=== PATIENT | male | born 1945 | race Caucasian/White ===

== ENCOUNTER → 2016-08-07 | Outpatient (CLI) | payer OTHER ==
[~2016-08-07] MED LIST: ASPEC81 PO; ASPI1TAB83 PO; BUDE3CAP14 PO; CHOLPOW PO; CLOP1TAB15 PO; CPR/500 PO; CYAN100073 PO; CYAN500T13 PO; DICY20TA10 PO; ESOM20CA PO; FERR1TAB23 PO; LCTX PO; LEVO88TA3 PO; LISI-725 PO; LISI40TA PO; LPR25 PO; LSN20 PO; METO50TA16 PO; METR500T PO; MISCCAP80 PO; MULT-506 PO; MULTTAB58 PO; NITR0.4S UT; NTRSL3 UT; NUTR-7 PO; PLV75 PO; PNT500 PO; PRS5 PO; PRT/20 PO; PRT40 PO; RANI300T2 PO; SIME180C6 PO; SYN50 PO; SYN88 PO; iron PO
[2016-08-07 12:47] LABS: PROSTATE SPECIFIC ANTIGEN 0.552 ng/ml (0.000-4.000)
[2016-08-07 12:50] LABS: ESTIMATED AVERAGE GLUCOSE 140 mg/dl; HA1C FLAG Normal (Normal)
== END | disposition home or self-care (01) ==
LOC: C.LABBFT 09:08
PROVIDERS: ATTEND Internal Medicine
DX: N40.1 Benign prostatic hyperplasia with lower urinary tract symptoms (principal); R39.15 Urgency of urination; E11.9 Type 2 diabetes mellitus without complications; E55.9 Vitamin D deficiency, unspecified

== ENCOUNTER → 2016-08-11 | Outpatient (CLI) | payer OTHER | END | disposition home or self-care (01) | LOC: C.LABBFT 10:58 | PROVIDERS: ATTEND Internal Medicine | DX: E03.9 Hypothyroidism, unspecified (principal) ==

== ENCOUNTER 2016-10-08 12:15 | Inpatient (IN) | payer OTHER ==
[~2016-10-08] VITALS: Ht 175.3 cm; Wt 76.7 kg
[~2016-10-08 12:15] MED LIST changes: -ASPEC81 PO; -BUDE3CAP14 PO; -CHOLPOW PO; -CLOP1TAB15 PO; -CPR/500 PO; -CYAN100073 PO; -DICY20TA10 PO; -LCTX PO; -LEVO88TA3 PO; -LISI-725 PO; -LPR25 PO; -LSN20 PO; -MULT-506 PO; -NTRSL3 UT; -PLV75 PO; -PNT500 PO; -PRS5 PO; -PRT/20 PO; -PRT40 PO; -SIME180C6 PO; -SYN88 PO; -iron PO
--- NOTE | 2016-10-08 13:28 | EMERGENCY ROOM VISIT NOTE ---
History Report prepared by Tiago: Carlos A Peraza Under the Supervision of: Dr. Porsha Morillo D.O. First contact with patient: 12:58 Chief Complaint: DIARRHEA Stated Complaint: BLOATING,WEAKNESS,DIARRHEA Nursing Triage Summary: pt reports everything he eats and drinks comes out as diarrhea has taken pepto no relief. sx started a while ago sx worsened in last 2 weeks . reports last week pt was vomiting.. denies any blood in diarrhea. has not had solid food for 2 weeks. feels bloated History of Present Illness The patient is a 70 year old male who presents to the Emergency Room with complaints of worsening diarrhea that started 3 weeks ago. The patient reports that he has had diarrhea for a couple years now, but has become much worse in the past couple weeks. He states that has been having abdominal problems for a couple years, and says that he had scleroderma, and has been on Cipro ever since. The patient saw a gastrologist on September 22 after the diarrhea and vomiting started worsening. He gave a stool sample, and tested positive for Campylobacter. He was taken off of the Cipro and put on 3 days of Zithromax. The patient notes that his symptoms have even worsened more-so after being taken off the Cipro. He has not been able to keep any solid foods down. He feels weak, and does not have the strength to walk. The patient's states that the patient has been weak for the past year or so, but the weakness is worsening recently. The patient notes that last week, the vomiting was worse, but this week, the diarrhea is worse. He tried drinking a bit of Gatorade this morning and had diarrhea less than 5 minutes later. He had 4 episodes of diarrhea this morning, and then tried to eat a couple spoon-fulls of apple sauce , but then he had another episode of diarrhea shortly thereafter. The patient's abdomen feels bloated and he has associated back pain with that. He has lost 8 to 10 pounds in the past few weeks, per his . The gastrologist put the patient on Dicyclomine, but it has not been helping. The patient had similar symptoms 3 years ago, and lost 30 pounds. The patient was diagnosed with scleroderma then. The patient was checked for C. difficile and it was negative. He has no history of IBS or ulcerative colitis. He has a colonoscopy scheduled for next week, but he is not sure if he will able to go to that due to his symptoms. He reports no family history of GI problems. He still has his appendix. He does not smoke or drink alcohol. The patient does have 2 stents in his small bowel. Source of History: patient, spouse/significant other Onset: 3 weeks ago Position: other (global - diarrhea) Timing: worsening Associated Symptoms: + back pain, + vomiting, + weakness Note: Associated symptoms: Cannot keep anything solid down. Lost 8 to 10 pounds in past few weeks. Abdomen feels bloated. Review of Systems See HPI for pertinent positives & negatives. A total of 10 systems reviewed and were otherwise negative. Past Medical & Surgical Medical Problems: (1) ARMANDO (acute kidney injury) (2) ATHEROSCLEROSIS NOS (3) Diabetes mellitus (4) DIVERTICULOSIS COLON (W/O MENT OF HEMORRHAGE) (5) ESOPHAGEAL REFLUX (6) Hiatal hernia (7) HYPERLIPIDEMIA NEC/NOS (8) HYPERTENSION NOS (9) PERIPH VASCULAR DIS NOS (10) RAYNAUD'S SYNDROME (11) Ulcer Surgical Problems: (1) Hx of CABG Family History Family history omitted secondary to advanced age. Social History Smoking Status: Never Smoker Alcohol Use: none Drug Use: none Marital Status: Housing Status: lives with family Occupation Status: retired Current/Historical Medications Scheduled Aspirin (Aspirin), 81 MG PO DAILY Ciprofloxacin (Ciprofloxacin HCl), 500 MG PO BID Clopidogrel Bisulfate (Clopidogrel), 75 MG PO DAILY Cyanocobalamin (Vitamin B12 500MCG), 1,000 MCG PO DAILY Ferrous Sulfate (Iron), 325 MG PO DAILY Finasteride (Finasteride), 5 MG PO DAILY Levothyroxine Sodium (Synthroid), 88 MCG PO DAILY Lisinopril (Lisinopril), 20 MG PO DAILY Metoprolol Tartrate (Lopressor) (Lopressor), 50 MG PO BID Multiple Vitamin (Multivitamin), 1 TAB PO DAILY Nitroglycerin (Nitrostat), 0.4 MG UT PRN Nutritional Supplements (Boost), 1 CAN PO UD Pantoprazole (Pantoprazole Sodium), 40 MG PO DAILY Probiotic Product (Probiotic), 1 TAB PO TID Ranitidine Hcl (Zantac), 300 MG PO BID Simethicone (Phazyme), 180 MG PO BID Allergies Coded Allergies: Statins (Verified Adverse Reaction, Mild, CALF CRAMPING, 05/24/14) SYMPTOMS POSSIBLE RELATED TO CLAUDICATION Naproxen (Verified Adverse Reaction, Unknown, RASH, 05/24/14) Physical Exam Vital Signs Date Time Temp Pulse Resp B/P Pulse Ox O2 Delivery O2 Flow Rate FiO2 10/08/16 19:39 74 18 132/66 97 Room Air 10/08/16 16:59 71 18 123/64 97 Room Air 10/08/16 14:37 82 16 145/58 96 Room Air 10/08/16 12:18 36.6 92 18 146/81 97 Room Air Physical Exam GENERAL: alert, well appearing, well nourished, no distress, non-toxic EYE EXAM: normal conjunctiva, PERRL and EOM's grossly intact OROPHARYNX: no exudate, no erythema, lips, buccal mucosa, and tongue normal and mucous membranes are dry NECK: supple, no nuchal rigidity, no adenopathy, non-tender LUNGS: Clear to auscultation. Normal chest wall mechanics HEART: no murmurs, S1 normal and S2 normal ABDOMEN: Abdomen is distended, tympanic to percussion, no pulsatile mass, no rebound, no guarding, no organomegaly. BACK: Back is symmetrical on inspection and there is no deformity, no midline tenderness, no CVA tenderness. SKIN: no rashes and no bruising UPPER EXTREMITIES: upper extremities are grossly normal. LOWER EXTREMITIES: No pitting edema. NEURO EXAM: Normal sensorium, cranial nerves II-XII grossly intact, normal speech, no gross weakness of arms, no gross weakness of legs. No drift. Finger to nose intact. Gross sensation intact. Medical Decision & Procedures ER Provider Diagnostic Interpretation: CT:Per my review, radiologist interpretation. CT ABD/PELVIS IV AND ORAL CONT CLINICAL HISTORY: ABD PAIN, DIARRHEA COMPARISON STUDY: June 17, 2014 TECHNIQUE: Following the IV administration of 118 mL of Optiray-320, CT scan of the abdomen and pelvis was performed from the lung bases to the proximal femurs. Images are reviewed in the axial, sagittal, and coronal planes. IV contrast was administered without complication. CT DOSE: 418.03 mGy.cm FINDINGS: Lower chest: There are mild basilar atelectatic changes. There is a stable partially visualized 19 mm right middle lobe pulmonary nodule Liver: There is mild hepatic steatosis. No focal masses are visualized. Gallbladder: Surgically absent. The common bile duct measures 9 mm. Spleen: Normal in size and attenuation. Pancreas: Unremarkable. Adrenal glands: Unremarkable. Kidneys: There is a nonobstructing 4 mm lower pole left renal calculus. There is an 18 mm lower pole right renal cyst Bowel: There are mildly dilated fluid-filled proximal and mid small bowel loops. The distal small bowel is fluid-filled but of normal caliber. A low-grade partial small bowel obstruction cannot be excluded. The appendix is normal. There is extensive colonic diverticulosis. There are no acute peridiverticular inflammatory changes. Peritoneum: There is no intraperitoneal free air or abdominal ascites. Vasculature: There are moderately extensive atherosclerotic disease. There is no evidence of abdominal aortic aneurysm. Adenopathy: None. Pelvic viscera: The bladder, and pelvic viscera are unremarkable. Skeletal structures: No destructive osseous lesions are seen. IMPRESSION: 1. Persistent mildly dilated fluid-filled small bowel. On the current study, the proximal and mid small bowel is dilated out of proportion to the distal small bowel, although the distal small bowel is fluid-filled. A low-grade partial small bowel obstruction cannot be excluded 2. Normal appendix 3. Extensive colonic diverticulosis. No evidence of acute diverticulitis 4. Extensive atherosclerotic disease 5. Nonobstructing lower pole 4 mm left renal calculus Electronically signed by: Rafy Gomez M.D. 10/08/2016 4:44 PM Dictated Date/Time: 10/08/2016 4:35 PM Laboratory Results 10/08/16 12:40 Red Blood Count 4.51, Mean Corpuscular Volume 94.9, Mean Corpuscular Hemoglobin 32.2, Mean Corpuscular Hemoglobin Concent 33.9, Mean Platelet Volume 10.1, Neutrophils (%) (Auto) 70.2, Lymphocytes (%) (Auto) 18.5, Monocytes (%) (Auto) 10.3, Eosinophils (%) (Auto) 0.4, Basophils (%) (Auto) 0.1, Neutrophils # (Auto ) 5.86, Lymphocytes # (Auto) 1.54, Monocytes # (Auto) 0.86, Eosinophils # (Auto ) 0.03, Basophils # (Auto) 0.01 10/08/16 12:40 Test 10/08/16 12:40 10/08/16 14:20 10/08/16 15:19 White Blood Count 8.34 K/uL (4.8-10.8) Red Blood Count 4.51 M/uL (4.7-6.1) Hemoglobin 14.5 g/dL (14.0-18.0) Hematocrit 42.8 % (42-52) Mean Corpuscular Volume 94.9 fL (80-100) Mean Corpuscular Hemoglobin 32.2 pg (25-34) Mean Corpuscular Hemoglobin Concent 33.9 g/dl (32-36) Platelet Count 312 K/uL (130-400) Mean Platelet Volume 10.1 fL (7.4-10.4) Neutrophils (%) (Auto) 70.2 % Lymphocytes (%) (Auto) 18.5 % Monocytes (%) (Auto) 10.3 % Eosinophils (%) (Auto) 0.4 % Basophils (%) (Auto) 0.1 % Neutrophils # (Auto) 5.86 K/uL (1.4-6.5) Lymphocytes # (Auto) 1.54 K/uL (1.2-3.4) Monocytes # (Auto) 0.86 K/uL (0.11-0.59) Eosinophils # (Auto) 0.03 K/uL (0-0.5) Basophils # (Auto) 0.01 K/uL (0-0.2) RDW Standard Deviation 46.5 fL (36.4-46.3) RDW Coefficient of Variation 13.4 % (11.5-14.5) Immature Granulocyte % (Auto) 0.5 % Immature Granulocyte # (Auto) 0.04 K/uL (0.00-0.02) Anion Gap 9.0 mmol/L (3-11) Est Creatinine Clear Calc Drug Dose 41.8 ml/min Estimated GFR () 49.2 Estimated GFR (Non- 42.4 BUN/Creatinine Ratio 16.6 (10-20) Calcium Level 8.7 mg/dl (8.5-10.1) Total Bilirubin 0.4 mg/dl (0.2-1) Aspartate Amino Transf (AST/SGOT) 19 U/L (15-37) Alanine Aminotransferase (ALT/SGPT) 26 U/L (12-78) Alkaline Phosphatase 127 U/L (45-117) Troponin I 0.022 ng/ml (0-0.045) Total Protein 7.8 gm/dl (6.4-8.2) Albumin 3.8 gm/dl (3.4-5.0) Globulin 4.0 gm/dl (2.5-4.0) Albumin/Globulin Ratio 1.0 (0.9-2) Lipase 120 U/L (73-393) Lactic Acid Level 1.1 mmol/L (0.4-2.0) Urine Color YELLOW Urine Appearance CLEAR (CLEAR) Urine pH 5.0 (4.5-7.5) Urine Specific [place] 1.013 (1.000-1.030) Urine Protein NEG (NEG) Urine Glucose (UA) NEG (NEG) Urine Ketones TRACE (NEG) Urine Occult Blood NEG (NEG) Urine Nitrite NEG (NEG) Urine Bilirubin NEG (NEG) Urine Urobilinogen NEG (NEG) Urine Leukocyte Esterase NEG (NEG) Laboratory results per my review. Medications Administered Medications (Trade) Dose Ordered Sig/Tony Route Start Time Stop Time Status Last Admin Dose Admin Sodium Chloride (Nss 1000ml) 1,000 ml @ 999 mls/hr Q1H1M STAT IV 10/08/16 13:37 10/08/16 14:37 DC 10/08/16 13:40 999 MLS/HR ECG Indication: weakness Rate (beats per minute): 74 Rhythm: normal sinus Findings: ST depression, T-wave inversion (in lead 2,3 avf, v5,v6), prolonged QT, other (normal intervals) Comparison ECG Date: inverted T-waves are new compared to 06/17/2014 ED Course 1308: The patient was evaluated in room A3. A complete history and physical exam was performed. 1337: Ordered NSS 1000 ml @ 999 mls/hr IV. 1724: I reevaluated the patient and he is resting comfortably. The patient verbally expressed understanding and agreement of the treatment plan. The patient will be evaluated for further treatment. 1751: I discussed the patient with Dr. Dowell - [place] golf ball winder - he will evaluate the patient for further treatment. Medical Decision Differential diagnoses includes but is not limited to gastritis, peptic ulcer disease, GERD, gallbladder disease, pancreatitis, small bowel obstruction, acute coronary syndrome, pericarditis, ischemic bowel, irritable bowel disease, irritable bowel syndrome, appendicitis, diverticulitis, malignancy, hernia, urinary tract infection, torsion, perforation, trauma, infectious. Patient with subacute to chronic symptoms, recently treated as an outpatient due to positive Campylobacter culture, negative for C. difficile or other infectious etiology. Patient with fluctuations of stool normally and frequently has diarrhea, however feels this recent three-week stretch of diarrhea similar to 3 years ago. Patient with increasing weight loss, generalized weakness, fatigue. Patient with dehydration and difficulty taking anything by mouth. Patient did not have an acute abdomen on bedside exam, did appear mildly dehydrated. Likely patient's mild renal dysfunction secondary to dehydration. CT revealed partial small bowel obstruction. Patient with no vomiting on the emergency room, abdomen soft and nontender. Patient did for continued IV fluids. Discussed with hospitalist, they will evaluate and decide on surgical consult. No evidence of perforation, doubt bacteremia/sepsis, unclear etiology of patient's chronic intermittent diarrhea, patient already scheduled to have colonoscopy by GI next week. Patient did not provide a stool specimen while in the emergency department to send for cultures. Patient was subtle EKG changes compared to old EKG, troponin negative, patient denied any recent chest pain or shortness of breath. Doubt ACS, or acute cardiac etiology. Unclear reason for EKG changes. Unclear from rheumatologic conditions contributing to symptoms. Patient's vital signs stable throughout despite symptoms and diagnosis. Consults Time Called: 1745 Consulting Physician: Dr. Magalys Gallego golf ball winder Returned Call: 1751 I discussed the patient with Dr. Magalys Gallego golf ball winder - he will evaluate the patient for further treatment. Impression Primary Impression: Diarrhea Additional Impressions: Weakness Acute kidney injury Abnormal EKG Scribe Attestation The scribe's documentation has been prepared under my direction and personally reviewed by me in its entirety. I confirm that the note above accurately reflects all work, treatment, procedures, and medical decision making performed by me. Departure Information Dispostion Being Evaluated By Hospitalist Referrals No Doctor, Assigned (PCP) Patient Instructions My [facility] Problem Qualifiers Primary Impression: Diarrhea Diarrhea type: unspecified type Qualified Codes: R19.7 - Diarrhea, unspecified
[2016-10-08] MEDS ORDERED: SODIUM CHLORIDE 0.9% 1000ML 1,000 ML IV STA (13:37)
[2016-10-08 14:21] LABS: BASO % 0.1 %; BASO ABS # 0.01 K/uL (0-0.2); COMPLETE YES; EOS % 0.4 %; HEMATOCRIT 42.8 % (42-52); IG% 0.5 %; LYMPH % 18.5 %; LYMPH ABS # 1.54 K/uL (1.2-3.4); MEAN CELL VOLUME 94.9 fL (80-100); MEAN CORPUSCULAR HEMOGLOBIN 32.2 pg (25-34); MEAN CORPUSCULAR HGB CONC 33.9 g/dl (32-36); MEAN PLATELET VOLUME 10.1 fL (7.4-10.4); MONO % 10.3 %; NEUT % 70.2 %; PLATELET COUNT 312 K/uL (130-400); RED BLOOD COUNT 4.51 M/uL (4.7-6.1); WHITE BLOOD COUNT 8.34 K/uL (4.8-10.8)
[2016-10-08 14:28] LABS: BUN/CREATININE RATIO 16.6 (10-20); CALCIUM 8.7 mg/dl (8.5-10.1); CREATININE 1.6 mg/dl (0.60-1.40); POTASSIUM 3.7 mmol/L (3.5-5.1)
[2016-10-08 15:49] LABS: URINE APPEARANCE CLEAR (CLEAR); URINE BILIRUBIN NEG (NEG); URINE COLOR YELLOW; URINE NITRITE NEG (NEG); URINE SPECIFIC GRAVITY 1.013 (1.000-1.030); UROBILINOGEN NEG (NEG); ZZUR CULT IF INDIC CLEAN CATCH NO
[2016-10-08 15:56] LABS: REVIEW REQ? NO
[2016-10-08 15:57] LABS: MANUAL MICROSCOPIC REQUIRED? NO
[2016-10-08] MEDS ORDERED: OPTIRAY 320 IV PRN (16:15)
--- NOTE | 2016-10-08 16:45 | DIAGNOSTIC IMAGING REPORT ---
CT ABD/PELVIS IV AND ORAL CONT CLINICAL HISTORY: ABD PAIN, DIARRHEA COMPARISON STUDY: June 17, 2014 TECHNIQUE: Following the IV administration of 118 mL of Optiray-320, CT scan of the abdomen and pelvis was performed from the lung bases to the proximal femurs. Images are reviewed in the axial, sagittal, and coronal planes. IV contrast was administered without complication. CT DOSE: 418.03 mGy.cm FINDINGS: Lower chest: There are mild basilar atelectatic changes. There is a stable partially visualized 19 mm right middle lobe pulmonary nodule Liver: There is mild hepatic steatosis. No focal masses are visualized. Gallbladder: Surgically absent. The common bile duct measures 9 mm. Spleen: Normal in size and attenuation. Pancreas: Unremarkable. Adrenal glands: Unremarkable. Kidneys: There is a nonobstructing 4 mm lower pole left renal calculus. There is an 18 mm lower pole right renal cyst Bowel: There are mildly dilated fluid-filled proximal and mid small bowel loops. The distal small bowel is fluid-filled but of normal caliber. A low-grade partial small bowel obstruction cannot be excluded. The appendix is normal. There is extensive colonic diverticulosis. There are no acute peridiverticular inflammatory changes. Peritoneum: There is no intraperitoneal free air or abdominal ascites. Vasculature: There are moderately extensive atherosclerotic disease. There is no evidence of abdominal aortic aneurysm. Adenopathy: None. Pelvic viscera: The bladder, and pelvic viscera are unremarkable. Skeletal structures: No destructive osseous lesions are seen. IMPRESSION: 1. Persistent mildly dilated fluid-filled small bowel. On the current study, the proximal and mid small bowel is dilated out of proportion to the distal small bowel, although the distal small bowel is fluid-filled. A low-grade partial small bowel obstruction cannot be excluded 2. Normal appendix 3. Extensive colonic diverticulosis. No evidence of acute diverticulitis 4. Extensive atherosclerotic disease 5. Nonobstructing lower pole 4 mm left renal calculus Electronically signed by: Rafy Gomez M.D. 10/08/2016 4:44 PM Dictated Date/Time: 10/08/2016 4:35 PM
[2016-10-08] MEDS ORDERED: POLYETHYLENE (MIRALAX) 17 GM PACK PO PRN (18:45)
[2016-10-08] MEDS ORDERED: ALUMINUM/MAGNESIUM/SIMETH (MAALOX MAX) 30 ML UDC PO PRN (18:45)
[2016-10-08] MEDS ORDERED: ONDANSETRON INJ 2 MG/ML 2 ML VIAL IV PRN (18:45)
[2016-10-08] MEDS ORDERED: MAGNESIUM HYDROXIDE SUSP 30 ML UDC PO PRN (18:45)
[2016-10-08] MEDS ORDERED: ACETAMINOPHEN 325 MG TAB PO PRN (18:45)
[2016-10-08] MEDS ORDERED: CPR/500 PO (18:54)
[2016-10-08] MEDS ORDERED: PLV75 PO (18:54)
[2016-10-08] MEDS ORDERED: SIME180C6 PO (18:54)
[2016-10-08] MEDS ORDERED: LSN20 PO (18:54)
[2016-10-08] MEDS ORDERED: PRS5 PO (18:54)
[2016-10-08] MEDS ORDERED: SYN88 PO (18:54)
[2016-10-08] MEDS ORDERED: PRT40 PO (18:54)
--- NOTE | 2016-10-08 19:32 | History and Physical ---
History & Physical Date & Time of Service: Oct 08, 2016 at 19:05 Chief Complaint: Bloating,Weakness,Diarrhea Primary Care Physician: Jaime García M.D. History of Present Illness Source: patient, family, clinic records, hospital records This is a 70 y/o male with a history of scleroderma, HTN, HLD, hypothyroidism, CAD, CABG x 2, BPH, Powell's esophagus and h/o DM II (diet controlled) who presented to the ED on 10/08 with diarrhea and weakness. The patient states that he has chronic GI issues following his scleroderma diagnosis 3 years ago. He states that he has chronic diarrhea but that it had been getting progressively worse over the last 3 weeks. He had a positive culture for Campylobacter about 2 weeks ago. At that time, he had been taken off of his chronic Cipro and started on 3 days of azithromycin. The patient states that he actually felt worse following that antibiotic course. He denies any hematochezia or melena. The patient has not eaten solid food for the last 2 weeks because as soon as he eats, he immediately has episodes of diarrhea. The patient and his state that he has lost about 10 pounds in the last 2 weeks. He feels very weak and fatigued, and reports lightheadedness upon standing. He also complains of nausea and vomiting, although he states he has not vomited much this week. He also complains of abdominal bloating, and states that he has intermittent low back pain which he feels is caused by the bloating. He currently rates his back pain as a 1/10 dull pain. The patient denies fevers, chills, sweats, chest pain, palpitations, claudication, cough, wheezing, shortness of breath, dyspnea on exertion, abdominal pain, dysuria, hematuria, urinary retention, paralysis, motor weakness, numbness and tingling. Past Medical/Surgical History Medical Problems: (1) ATHEROSCLEROSIS NOS Status: Chronic (2) Diabetes mellitus Status: Chronic (3) DIVERTICULOSIS COLON (W/O MENT OF HEMORRHAGE) Status: Chronic (4) ESOPHAGEAL REFLUX Status: Chronic (5) Hiatal hernia Status: Chronic (6) HYPERLIPIDEMIA NEC/NOS Status: Chronic (7) HYPERTENSION NOS Status: Chronic (8) PERIPH VASCULAR DIS NOS Status: Chronic (9) RAYNAUD'S SYNDROME Status: Chronic (10) Ulcer Status: Chronic Hypothyroidism Scleroderma BPH Surgical Problems: (1) Hx of CABG x 2 Status: Resolved Family History Diabetes mellitus Hypertension Myocardial infarction Social History Smoking Status: Former Smoker Smokeless Tobacco Use: No Alcohol Use: none Drug Use: none Marital Status: Housing status: lives with significant other Occupational Status: retired Immunizations History of Influenza Vaccine: Unknown History of Tetanus Vaccine?: Unknown History of Pneumococcal: Unknown History of Hepatitis B Vaccine: Unknown Multi-Drug Resistant Organisms History of MDRO: No Allergies Coded Allergies: Statins (Verified Adverse Reaction, Mild, CALF CRAMPING, 05/24/14) SYMPTOMS POSSIBLE RELATED TO CLAUDICATION Naproxen (Verified Adverse Reaction, Unknown, RASH, 05/24/14) Home Medications Scheduled Aspirin (Aspirin), 81 MG PO DAILY Ciprofloxacin (Ciprofloxacin HCl), 500 MG PO BID Clopidogrel Bisulfate (Clopidogrel), 75 MG PO DAILY Cyanocobalamin (Vitamin B12 500MCG), 1,000 MCG PO DAILY Ferrous Sulfate (Iron), 325 MG PO DAILY Finasteride (Finasteride), 5 MG PO DAILY Levothyroxine Sodium (Synthroid), 88 MCG PO DAILY Lisinopril (Lisinopril), 20 MG PO DAILY Metoprolol Tartrate (Lopressor) (Lopressor), 50 MG PO BID Multiple Vitamin (Multivitamin), 1 TAB PO DAILY Nitroglycerin (Nitrostat), 0.4 MG UT PRN Nutritional Supplements (Boost), 1 CAN PO UD Pantoprazole (Pantoprazole Sodium), 40 MG PO DAILY Probiotic Product (Probiotic), 1 TAB PO TID Ranitidine Hcl (Zantac), 300 MG PO BID Simethicone (Phazyme), 180 MG PO BID Review of Systems Constitutional: + fatigue, + weakness, + weight loss, No chills, No fever, No sweats Eyes: No diplopia, No eye pain, No worsening of vision ENT: No hearing loss, No sore throat, No trouble swallowing Respiratory: No cough, No dyspnea on exertion, No shortness of breath, No wheezing Cardiovascular: No chest pain, No claudication, No palpitations Abdomen: + diarrhea, + nausea, + problem reported (bloated), + vomiting, No GI bleeding, No pain Musculoskeletal: + joint pain (low back pain), No calf pain, No muscle pain Genitourinary - Male: No dysuria, No hematuria, No urinary retention Neurologic: No numbness/tingling, No paralysis, No weakness Integumentary: No color change, No itch, No rash Physical Exam Vital Signs Date Time Temp Pulse Resp B/P Pulse Ox O2 Delivery O2 Flow Rate FiO2 10/08/16 16:59 71 18 123/64 97 Room Air 10/08/16 14:37 82 16 145/58 96 Room Air 10/08/16 12:18 36.6 92 18 146/81 97 Room Air General Appearance: WD/WN, no apparent distress Head: normocephalic, atraumatic Eyes: normal inspection, PERRL, EOMI ENT: normal ENT inspection, hearing grossly normal, pharynx normal Neck: supple, no JVD, trachea midline Respiratory/Chest: lungs clear, normal breath sounds, no respiratory distress Cardiovascular: regular rate, rhythm, no gallop, no murmur Abdomen/GI: normal bowel sounds, non tender, + distended Back: normal inspection, no muscle spasm, normal range of motion, + pertinent finding (nontender) Extremities/Musculoskelatal: normal inspection, no calf tenderness, no pedal edema Neurologic/Psych: alert, normal mood/affect, oriented x 3 Skin: normal color, warm/dry, no rash Diagnostics Laboratory Results Results Past 24 Hours Test 10/08/16 12:40 10/08/16 14:20 10/08/16 15:19 Range/Units White Blood Count 8.34 4.8-10.8 K/uL Red Blood Count 4.51 4.7-6.1 M/uL Hemoglobin 14.5 14.0-18.0 g/dL Hematocrit 42.8 42-52 % Mean Corpuscular Volume 94.9 80-100 fL Mean Corpuscular Hemoglobin 32.2 25-34 pg Mean Corpuscular Hemoglobin Concent 33.9 32-36 g/dl Platelet Count 312 130-400 K/uL Mean Platelet Volume 10.1 7.4-10.4 fL Neutrophils (%) (Auto) 70.2 % Lymphocytes (%) (Auto) 18.5 % Monocytes (%) (Auto) 10.3 % Eosinophils (%) (Auto) 0.4 % Basophils (%) (Auto) 0.1 % Neutrophils # (Auto) 5.86 1.4-6.5 K/uL Lymphocytes # (Auto) 1.54 1.2-3.4 K/uL Monocytes # (Auto) 0.86 0.11-0.59 K/uL Eosinophils # (Auto) 0.03 0-0.5 K/uL Basophils # (Auto) 0.01 0-0.2 K/uL RDW Standard Deviation 46.5 36.4-46.3 fL RDW Coefficient of Variation 13.4 11.5-14.5 % Immature Granulocyte % (Auto) 0.5 % Immature Granulocyte # (Auto) 0.04 0.00-0.02 K/uL Sodium Level 139 136-145 mmol/L Potassium Level 3.7 3.5-5.1 mmol/L Chloride Level 105 98-107 mmol/L Carbon Dioxide Level 25 21-32 mmol/L Anion Gap 9.0 3-11 mmol/L Blood Urea Nitrogen 27 7-18 mg/dl Creatinine 1.60 0.60-1.40 mg/dl Est Creatinine Clear Calc Drug Dose 41.8 ml/min Estimated GFR () 49.2 Estimated GFR (Non- 42.4 BUN/Creatinine Ratio 16.6 10-20 Random Glucose 143 70-99 mg/dl Calcium Level 8.7 8.5-10.1 mg/dl Total Bilirubin 0.4 0.2-1 mg/dl Aspartate Amino Transf (AST/SGOT) 19 15-37 U/L Alanine Aminotransferase (ALT/SGPT) 26 12-78 U/L Alkaline Phosphatase 127 45-117 U/L Troponin I 0.022 0-0.045 ng/ml Total Protein 7.8 6.4-8.2 gm/dl Albumin 3.8 3.4-5.0 gm/dl Globulin 4.0 2.5-4.0 gm/dl Albumin/Globulin Ratio 1.0 0.9-2 Lipase 120 73-393 U/L Lactic Acid Level 1.1 0.4-2.0 mmol/L Urine Color YELLOW Urine Appearance CLEAR CLEAR Urine pH 5.0 4.5-7.5 Urine Specific Yoder 1.013 1.000-1.030 Urine Protein NEG NEG Urine Glucose (UA) NEG NEG Urine Ketones TRACE NEG Urine Occult Blood NEG NEG Urine Nitrite NEG NEG Urine Bilirubin NEG NEG Urine Urobilinogen NEG NEG Urine Leukocyte Esterase NEG NEG Diagnostic Radiology Reviewed the following studies and agree with interpretation as follows: Patient Name: CALISTA GUTIERREZ Unit Number: [id number] Dictated: 10/08/161634 Transcribed: 10/08/161634 ARG Printed Date/Time: [~ rep prt dt]/[~ rep prt tm] [~ rep ct labl] - [~ rep ct ivnm] [facility] [place] [address] Dictated: 10/08/161634 Transcribed: 10/08/161634 ARG Printed Date/Time: [~ rep prt dt]/[~ rep prt tm] [~ rep ct labl] - [~ rep ct ivnm] Patient: CALISTA GUTIERREZ Address1: [facility] Rec: [id number] Address2: Acct ID: [id number] [facility] Zip: [place] [address] Date: 1945 Sex: M Room/Bed: Ref Phy: Anastasiia Escamilla CRNP SC: MILKA Att Phy: Report #: [id number] Candace Phy: Jaime García M.D. Test: APW Admit Phy: Butcher Fish: PULAJOSEPH Interpreting Phy: Rafy Gomez M.D. Diagnosis: BLOATING,WEAKNESS,DIARRHEA Ordering Phy: Porsha Morillo DO Service Date: 10/08/16 Admit Date: 10/08/16 MNE: [id number] CONF: DICTATED BY: Rafy Gomez M.D.]] CC: Jaime García M.D. Pheasant, Karen S., Anastasiia Simpson CRNP Endcc: [~ rep ct add3]] CT ABD/PELVIS IV AND ORAL CONT CLINICAL HISTORY: ABD PAIN, DIARRHEA COMPARISON STUDY: June 17, 2014 TECHNIQUE: Following the IV administration of 118 mL of Optiray-320, CT scan of the abdomen and pelvis was performed from the lung bases to the proximal femurs. Images are reviewed in the axial, sagittal, and coronal planes. IV contrast was administered without complication. CT DOSE: 418.03 mGy.cm FINDINGS: Lower chest: There are mild basilar atelectatic changes. There is a stable partially visualized 19 mm right middle lobe pulmonary nodule Liver: There is mild hepatic steatosis. No focal masses are visualized. Gallbladder: Surgically absent. The common bile duct measures 9 mm. Spleen: Normal in size and attenuation. Pancreas: Unremarkable. Adrenal glands: Unremarkable. Kidneys: There is a nonobstructing 4 mm lower pole left renal calculus. There is an 18 mm lower pole right renal cyst Bowel: There are mildly dilated fluid-filled proximal and mid small bowel loops. The distal small bowel is fluid-filled but of normal caliber. A low-grade partial small bowel obstruction cannot be excluded. The appendix is normal. There is extensive colonic diverticulosis. There are no acute peridiverticular inflammatory changes. Peritoneum: There is no intraperitoneal free air or abdominal ascites. Vasculature: There are moderately extensive atherosclerotic disease. There is no evidence of abdominal aortic aneurysm. Adenopathy: None. Pelvic viscera: The bladder, and pelvic viscera are unremarkable. Skeletal structures: No destructive osseous lesions are seen. IMPRESSION: 1. Persistent mildly dilated fluid-filled small bowel. On the current study, the proximal and mid small bowel is dilated out of proportion to the distal small bowel, although the distal small bowel is fluid-filled. A low-grade partial small bowel obstruction cannot be excluded 2. Normal appendix 3. Extensive colonic diverticulosis. No evidence of acute diverticulitis 4. Extensive atherosclerotic disease 5. Nonobstructing lower pole 4 mm left renal calculus Electronically signed by: Rafy Gomez M.D. 10/08/2016 4:44 PM Dictated Date/Time: 10/08/2016 4:35 PM The status of this report is Signed. Draft = Not yet reviewed or approved by Radiologist. Signed = Reviewed and approved by Radiologist. <AttendingPhy></AttendingPhy> <FamilyPhy>Anastasiia Escamilla CRNP</FamilyPhy> < PrimaryPhy>Jaime García M.D.</PrimaryPhy> <UnitNumber>[id number]</ UnitNumber> <VisitNumber>[id number]</VisitNumber> <PatientName>CALISTA GUTIERREZ </PatientName> <DateOfBirth>1945</DateOfBirth> <Location>[facility]</Location> <ServiceDate>10/08/16</ServiceDate> <MNE>ESINDI</MNE> <OrderingPhy>PheasantPorsha S DO</OrderingPhy> <OrderingPhyMNE>f rep ord dr johns</OrderingPhyMNE> < DictatingPhyMNE>f rep dict dr johns</DictatingPhyMNE> <CCListMNE>f rep ct mne</ CCListMNE> <AdmittingPhyMNE>f pt admit dr johns</AdmittingPhyMNE> <AttendingPhyMNE >f pt attend dr johns</AttendingPhyMNE> <ConsultingPhyMNE>f pt consult dr johns</ConsultingPhyMNE> <FamilyPhyMNE>f pt fam dr johns</FamilyPhyMNE> <OtherPhyMNE>f pt other dr johns</OtherPhyMNE> < PrimaryPhyMNE>f pt prim care dr johns</PrimaryPhyMNE> <ReferringPhyMNE>f pt referring dr johns</ReferringPhyMNE> EKG Reviewed EKG and agree with interpretation as follows: 74 bpm, NSR Impression Assessment and Plan 70 y/o male with a history of scleroderma, HTN, HLD, hypothyroidism, CAD, CABG x 2, BPH, Powell's esophagus and h/o DM II (diet controlled) who presented to the ED on 10/08 with diarrhea and weakness x 3 weeks. Positive for Campylobacter 2 weeks ago, treated with azithromycin x 3 days. Pt afebrile, VSS on arrival. CT of abdomen and pelvis shows persistent mildly dilated fluid- filled small bowel, extensive diverticulosis without evidence of acute diverticulitis. Creatinine elevated above baseline at 1.6. Labs otherwise grossly unremarkable. Acute worsening of chronic diarrhea/weakness--Campylobacter positive 2 weeks ago , treated w/abx -Admit to med/surg -Consult [facility], appreciate recs -Hydrate with NSS at 125 cc/hr -Clear liquid diet -Check stool for C. 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 Patient discontinued this medication on his own, not per provider recs Hyperthyroidism -Continue Synthroid 88 g PO qd BPH -Continue finasteride 5 mg PO qd Powell's esophagus -Continue Protonix 40 mg PO qd H/o diabetes mellitus type 2--last HgbA1c checked 08/07/16 was 6.5, pt is controlled with diet alone DVT prophylaxis -Heparin 5000 units SC q12h -FRANCISCO Castaneda Code Status -Level I, FULL RESUSCITATION STATUS Level of Care Med/Surg Resuscitation Status FULL RESUSCITATION VTE Prophylaxis VTE Risk Assessment Done? Y/N: Yes Risk Level: Moderate Given or contraindicated: Unfractionated heparin SQ, T.E.D. Stockings, SCD's Note Attending Attestation & Admission Note: Pt seen/examined, chart reviewed, and care plan d/w SHHAIDA Irene. I agree w/ the antony components of her admission documentation. 70yo male with h/o limited scleroderma mainly affecting the GI tract with resulting chronic malabsorption, possible bacterial overgrowth, and recent campylobacter infection treated with 3-day course of zithromax presenting with persistent diarrhea, weight loss, and inability to eat. At presentation today reports 3-4 loose, foul-smelling BMs/day. No blood; some mucous, however. No sick contacts or recent travel. On labs he has ARMANDO with Cr 1.6. PMH, PSH, allergies, meds, sochx, famhx, ros - reviewed VSS no fever gen - nontoxic, a/o x 3 mouth - MMM heart - RRR, s1, s2 lungs - CTA b/l abd - soft, NT, ND, BS+, no HSM ext - no edema A/P: 1. acute/chronic diarrhea 2. recent campylobacter enteritis 3. abnormal imaging of abdomen with CT showing ?pSBO 4. chronic diarrhea 2nd to either sclerderma causing malabsorption vs bacterial overgrowth 5. acute kidney injury 6. dehydration 7. mild protein calorie malnutrition IVF repeat labs am c. diff toxin stool cx [facility] consultation check nutritional labs in AM including folate, b12, vit D check sed rate AM clear liquids for now consider applications manager consult if bacterial overgrowth - trial of rifaximin? Hakeem Dowell MD Additional Copies To Jaime García M.D.; Anastasiia Escamilla CRNP; Sunita Mosley MD
[2016-10-08 20:28] LABS: INR 0.9 (0.9-1.1)
[2016-10-08 20:45] VITALS: BP 127/67; PULSE 77; TEMP 36.4; O2SAT 97
[2016-10-08] MEDS: HEPARIN SOD 5000 UNIT/0.5 ML CARP SQ SCH (21:00)
[2016-10-08] MEDS: SODIUM CHLORIDE 0.9% 1000ML 1,000 ML IV SCH (21:19)
[2016-10-08] MEDS: CIPROFLOXACIN 500 MG TAB PO SCH (21:26)
[2016-10-08] MEDS: RANITIDINE HCL 150 MG TAB PO SCH (21:26)
[2016-10-08] MEDS: METOPROLOL TARTRATE 50 MG TAB PO SCH (21:27)
[2016-10-08] MEDS: SIMETHICONE 80 MG CHEW PO SCH (21:27)
[2016-10-08 22:24] VITALS: BP 127/67; PULSE 77; TEMP 36.4; O2SAT 97; Ht 175.3 cm; Wt 76.7 kg
[2016-10-08] MEDS ORDERED: PNEUMOCOCCAL ADMINISTRATION CHARGE ONE (23:15)
[2016-10-08] MEDS ORDERED: INFLUENZA ADMINISTRATION CHARGE ONE (23:15)
[2016-10-08] MEDS ORDERED: INFLUENZA VIRUS QUAD VACCINE 0.5 ML SYR IM. ONE (23:15)
[2016-10-08] MEDS ORDERED: PNEUMOCOCCAL POLYSACCHARIDES 25 MCG/0.5 ML VIAL/SYR IM. ONE (23:15)
[2016-10-08 23:23] VITALS: BP 112/61; PULSE 72; TEMP 36.6; O2SAT 94
[2016-10-08 23:24] VITALS: BP 148/72; PULSE 69; TEMP 36.6; O2SAT 96
[2016-10-09] MEDS: SODIUM CHLORIDE 0.9% 1000ML 1,000 ML IV SCH ×3 (03:11→18:38)
[2016-10-09] MEDS: LEVOTHYROXINE 88 MCG TAB PO SCH (06:01)
[2016-10-09 07:27] VITALS: BP 120/58; PULSE 52; TEMP 36.6; O2SAT 95
[2016-10-09 08:00] VITALS: O2SAT 95
[2016-10-09 08:02] LABS: HEMATOCRIT 35.8 % (42-52); MEAN CELL VOLUME 94.7 fL (80-100); MEAN CORPUSCULAR HEMOGLOBIN 31.2 pg (25-34); MEAN PLATELET VOLUME 9.7 fL (7.4-10.4); PLATELET COUNT 236 K/uL (130-400); RED BLOOD COUNT 3.78 M/uL (4.7-6.1); WHITE BLOOD COUNT 5.77 K/uL (4.8-10.8)
[2016-10-09 08:38] LABS: BUN/CREATININE RATIO 11.5 (10-20); CALCIUM 8.2 mg/dl (8.5-10.1); CREATININE 1.1 mg/dl (0.60-1.40); POTASSIUM 3.5 mmol/L (3.5-5.1)
[2016-10-09 08:57] LABS: THYROID STIMULATING HORMONE 1.09 uIu/ml (0.300-4.500)
--- NOTE | 2016-10-09 08:59 | Gastrointestinal Consultation ---
Gastrointestinal Consultation Date of Consultation: Oct 09, 2016 Attending Physician: Dr. Maharaj Consulting Physician: Dr. Oconnor Reason for Consultation: Diarrhea x 3 weeks History of Present Illness Patient is a 70 year old male patient of and [place] who carries a hx of HTN, scleroderma, DM-2, CAD, PVD who presented to the ED yesterday with diarrhea and weakness. He has been followed by Dori Toribio NP who he saw from 2013 through September 16, 2016. 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 He tells me that initially , this was very effective for diarrhea (2013 until about 3 weeks ago) and at baseline he would typically pass about two formed stools/day. However, about 3 weeks ago, he experienced the slow onset of intermittent post prandial diarrhea , up to 10/day. He was seen on September 16 for diarrhea in the [facility] clinic by Sunil Escamilla NP. Cultures were (+) for campylobacter and was tx with Zithromax 500mg daily on 10/24 x 3 days. He did not restart the Cipro after. He is scheduled for colonoscopy 10/14/[address] Delacruz for diarrhea at [facility]. However, his diarrhea persisted, unchanged or actually worsened since Zithromax tx for Campylobacter. He also had intermittent nausea/vomiting, a few times/ week the first 2 weeks of September. He has typically had a good appetite but is afraid of eating as it causes the diarrhea. He has also had some abdominal bloating. He has lost about 10 lbs. He became progressively weaker and for this reason presented to the ED. CT on arrival with distention of the proximal small bowel but still fluid in the distal small bowel, suggestive of an early partial SBO. He is hemodynamically stable with fever or leukocytosis. He is mildly anemic with normocytic indices and Hb 11.8. Cr on arrival was 1.6, up from baseline of 1.2. Stool for C-diff and culture are pending. Today, he is awake, alert, oriented, sitting up in a chair and appears well. Cr has returned to 1.1. He has had two loose stools since arrival yesterday. Culture and C-diff are pending. His daughter Randi is in the room with him. Past Medical/Surgical History Medical Problems: (1) Acute kidney injury Status: Acute (2) Diarrhea Status: Acute (3) Weakness Status: Acute Past Medical History: 1. Athlerosclerosis 2. DM 3. Diverticulosis 4. GERD 5. Hiatal Hernia 6. PVD 7. Reynauld's 8. CAD, [place], S/P CABG Past Surgical History: 1. 2 vessel CABG Family History Diabetes mellitus Hypertension Myocardial infarction Social History Smoking Status: Former Smoker Alcohol Use: none Drug Use: none Marital Status: Housing Status: lives with family Occupation Status: retired Allergies Coded Allergies: Statins (Verified Adverse Reaction, Mild, CALF CRAMPING, 05/24/14) SYMPTOMS POSSIBLE RELATED TO CLAUDICATION Naproxen (Verified Adverse Reaction, Unknown, RASH, 05/24/14) Current Medications Home Meds and Scripts Medications Dose Route/Sig Max Daily Dose Days Date Category Phazyme (Simethicone) 180 Mg Cap 180 Mg PO BID 10/08/16 Reported Clopidogrel (Clopidogrel Bisulfate) 75 Mg Tab 75 Mg PO DAILY 10/08/16 Reported Finasteride 5 Mg Tab 5 Mg PO DAILY 10/08/16 Reported Ciprofloxacin HCl (Ciprofloxacin) 500 Mg Tab 500 Mg PO BID 10/08/16 Reported Pantoprazole Sodium (Pantoprazole) 40 Mg Tab 40 Mg PO DAILY 10/08/16 Reported Synthroid (Levothyroxine Sodium) 88 Mcg Tab 88 Mcg PO DAILY 10/08/16 Reported Lisinopril 20 Mg Tab 20 Mg PO DAILY 10/08/16 Reported Boost (Nutritional Supplements) 1 Liq Liq 1 Can PO UD 04/18/14 Reported Probiotic (Probiotic Product) 1 Cap Cap 1 Tab PO TID 04/17/14 Reported Iron (Ferrous Sulfate) 325 Mg Tab 325 Mg PO DAILY 03/12/14 Reported Vitamin B12 500MCG (Cyanocobalamin) 500 Mcg Tab 1,000 Mcg PO DAILY 11/16/13 Reported Zantac (Ranitidine HCl) 300 Mg Tab 300 Mg PO BID 10/19/13 Reported Nitrostat (Nitroglycerin) 0.4 Mg Sub 0.4 Mg UT PRN 07/11/13 Reported Multivitamin (Multiple Vitamin) 1 Tab Tab 1 Tab PO DAILY 07/11/13 Reported Lopressor (Metoprolol Tartrate) 50 Mg Tab 50 Mg PO BID 07/11/13 Reported Aspirin 81 Mg Tab 81 Mg PO DAILY 07/11/13 Reported Review of Systems Constitutional: No chills, No fever, No sweats, No weakness, No weight loss Eyes: No eye pain, No redness ENT: No pain on swallowing, No sore throat, No trouble swallowing Respiratory: No cough, No dyspnea on exertion, No shortness of breath, No wheezing Cardiac: No chest pain, No edema, No palpitations Abdomen: + nausea, + pain (mild bloating, not significant pain), + see HPI, + vomiting, No constipation, No diarrhea Neuro: No balance problems, No memory loss, No numbness/tingling, No vertigo, No weakness Psych: No anxiety, No depression symptoms, No insomnia Heme: No abnormal bleeding/bruising, No night sweats Endo: No excessive thirst, No excessive urination Skin: No itch, No jaundice, No new/changing skin lesions, No rash Physical Exam Date Time Temp Pulse Resp B/P Pulse Ox O2 Delivery O2 Flow Rate FiO2 10/09/16 07:27 36.6 52 18 120/58 95 Room Air 10/09/16 00:00 Room Air 10/08/16 23:24 36.6 69 20 148/72 96 Room Air 10/08/16 23:23 36.6 72 18 112/61 94 Room Air 10/08/16 22:24 36.4 77 18 127/67 97 Room Air 10/08/16 20:45 36.4 77 18 127/67 97 Room Air 10/08/16 20:33 71 20 133/65 98 Room Air 10/08/16 19:39 74 18 132/66 97 Room Air 10/08/16 16:59 71 18 123/64 97 Room Air 10/08/16 14:37 82 16 145/58 96 Room Air 10/08/16 12:18 36.6 92 18 146/81 97 Room Air General Appearance: no apparent distress Eyes: normal inspection, EOMI Neck: supple, no adenopathy, thyroid normal, no JVD Respiratory/Chest: chest non-tender, lungs clear, normal breath sounds, no accessory muscle use Cardiovascular: regular rate, rhythm, no JVD, no murmur Abdomen: normal bowel sounds, non tender, no organomegaly, + distended (mild) Extremities: normal inspection, no pedal edema, normal capillary refill Neurologic/Psych: alert, normal mood/affect, oriented x 3 Skin: normal color, no jaundice, warm/dry, no rash Laboratory Results Last 24 Hours Test 10/08/16 12:40 10/08/16 14:20 10/08/16 15:19 10/09/16 07:20 White Blood Count 8.34 K/uL 5.77 K/uL Red Blood Count 4.51 M/uL 3.78 M/uL Hemoglobin 14.5 g/dL 11.8 g/dL Hematocrit 42.8 % 35.8 % Mean Corpuscular Volume 94.9 fL 94.7 fL Mean Corpuscular Hemoglobin 32.2 pg 31.2 pg Mean Corpuscular Hemoglobin Concent 33.9 g/dl 33.0 g/dl Platelet Count 312 K/uL 236 K/uL 1. Persistent mildly dilated fluid-filled small bowel. On the current study, the proximal and mid small bowel is dilated out of proportion to the distal small bowel, although the distal small bowel is fluid-filled. A low-grade partial small bowel obstruction cannot be excluded 2. Normal appendix 3. Extensive colonic diverticulosis. No evidence of acute diverticulitis 4. Extensive atherosclerotic disease 5. Nonobstructing lower pole 4 mm left renal calculus Mean Platelet Volume 10.1 fL 9.7 fL Neutrophils (%) (Auto) 70.2 % Lymphocytes (%) (Auto) 18.5 % Monocytes (%) (Auto) 10.3 % Eosinophils (%) (Auto) 0.4 % Basophils (%) (Auto) 0.1 % Neutrophils # (Auto) 5.86 K/uL Lymphocytes # (Auto) 1.54 K/uL Monocytes # (Auto) 0.86 K/uL Eosinophils # (Auto) 0.03 K/uL Basophils # (Auto) 0.01 K/uL RDW Standard Deviation 46.5 fL 46.8 fL RDW Coefficient of Variation 13.4 % 13.5 % Immature Granulocyte % (Auto) 0.5 % Immature Granulocyte # (Auto) 0.04 K/uL Prothrombin Time 10.0 SECONDS Prothromb Time International Ratio 0.9 Sodium Level 139 mmol/L 141 mmol/L Potassium Level 3.7 mmol/L 3.5 mmol/L Chloride Level 105 mmol/L 109 mmol/L Carbon Dioxide Level 25 mmol/L 25 mmol/L Anion Gap 9.0 mmol/L 7.0 mmol/L Blood Urea Nitrogen 27 mg/dl 13 mg/dl Creatinine 1.60 mg/dl 1.10 mg/dl Est Creatinine Clear Calc Drug Dose 41.8 ml/min 60.7 ml/min Estimated GFR () 49.2 77.3 Estimated GFR (Non- 42.4 66.7 BUN/Creatinine Ratio 16.6 11.5 Random Glucose 143 mg/dl 125 mg/dl Calcium Level 8.7 mg/dl 8.2 mg/dl Total Bilirubin 0.4 mg/dl Aspartate Amino Transf (AST/SGOT) 19 U/L Alanine Aminotransferase (ALT/SGPT) 26 U/L Alkaline Phosphatase 127 U/L Troponin I 0.022 ng/ml Total Protein 7.8 gm/dl Albumin 3.8 gm/dl Globulin 4.0 gm/dl Albumin/Globulin Ratio 1.0 Lipase 120 U/L Lactic Acid Level 1.1 mmol/L Urine Color YELLOW Urine Appearance CLEAR Urine pH 5.0 Urine Specific [place] 1.013 Urine Protein NEG Urine Glucose (UA) NEG Urine Ketones TRACE Urine Occult Blood NEG Urine Nitrite NEG Urine Bilirubin NEG Urine Urobilinogen NEG Urine Leukocyte Esterase NEG CT abd/Pelvis 10/08: 1. Persistent mildly dilated fluid-filled small bowel. On the current study, the proximal and mid small bowel is dilated out of proportion to the distal small bowel, although the distal small bowel is fluid-filled. A low-grade partial small bowel obstruction cannot be excluded 2. Normal appendix 3. Extensive colonic diverticulosis. No evidence of acute diverticulitis 4. Extensive atherosclerotic disease 5. Nonobstructing lower pole 4 mm left renal calculus Impression Patient is a 70 year old male with chronic diarrhea, worsened in the past 3 weeks. This may be caused by the Campylobacter as well as the chronic small bowel bacterial overgrowth. The CT is somewhat concerning for partial SBO but his symptoms are not consistent with that. He has had multiple BMs daily. Plan 1. Full liquid diet. 2. Will watch for stool study results. 3. Would hold Cipro and Plavix for now. Ca continue low dose ASA. 4. Will discuss timing of colonoscopy. It is scheduled for as an OP. However, I'm concerned that w/o IV fluid support, that the prep may cause dehydration and renal issues. Would prefer that he stay over the weekend and undergo IP colonoscopy on Wednesday but will need to talk with the primary hospitalist to make sure the hospital stay would be covered by his insurance. Then, after colonoscopy, after the bx and stool aspirate results are reviewed will likely restart the Cipro and/or motility agents. I have seen, examined, and agree with plan as outlined above by Ms. Beth Mota -Posprandial diarrhea ? recent campylobactor -Supportive Care -Colonoscopy inpt vs outpt pending patients desire and clinical course -Stool Cx to include giardia
[2016-10-09] MEDS: HEPARIN SOD 5000 UNIT/0.5 ML CARP SQ SCH ×2 (09:00→21:00)
[2016-10-09] MEDS ORDERED: CLOPIDOGREL BISULFATE 75 MG TAB PO SCH (09:00)
[2016-10-09 09:01] VITALS: PULSE 62
[2016-10-09] MEDS: METOPROLOL TARTRATE 50 MG TAB PO SCH ×2 (09:05→21:00)
[2016-10-09] MEDS: FERROUS SULFATE 325 MG TAB PO SCH (09:05)
[2016-10-09] MEDS: CIPROFLOXACIN 500 MG TAB PO SCH (09:05)
[2016-10-09] MEDS: RANITIDINE HCL 150 MG TAB PO SCH ×2 (09:06→21:08)
[2016-10-09] MEDS: LISINOPRIL 20 MG TAB PO SCH (09:06)
[2016-10-09] MEDS: PANTOprazole SOD 40 MG TAB PO SCH (09:06)
[2016-10-09] MEDS: LACTOBACILLUS ACIDOPHILUS (FLORANEX) TAB PO SCH ×3 (09:06→16:17)
[2016-10-09] MEDS: FINASTERIDE 5 MG TAB PO SCH (09:06)
[2016-10-09] MEDS: SIMETHICONE 80 MG CHEW PO SCH ×2 (09:07→21:09)
[2016-10-09] MEDS ORDERED: NURSING VERBAL MED ORDER ONE (09:30)
--- NOTE | 2016-10-09 10:07 | Family Medicine Progress Note ---
Progress Note Date of Service Oct 09, 2016. Subjective Pt evaluation today including: conversation w/ patient, physical exam, chart review, lab review 70-year-old male with a past medical history of scleroderma, hypertension, hypothyroidism, coronary artery disease status post CABG 2, BPH, hyperlipidemia , diet-controlled diabetes presented with diarrhea and weakness. The patient states that he had chronic diarrhea which started about 3 weeks ago which have recently gotten worse. He was diagnosed with a positive Campylobacter 2 weeks ago and was started on azithromycin. He has been on chronic Cipro. Continues to have diarrhea but denies any nausea or vomiting or abdominal pain. Diarrhea is described as watery and nonbloody. Denies any fevers or chills, Dysuria, hematuria, frequency. He states that he feels lot better today Constitutional: No chills, No fever Eyes: No worsening of vision ENT: No hearing loss Respiratory: No cough, No sputum Cardiovascular: No chest pain Abdomen: + diarrhea, No GI bleeding, No nausea, No pain, No vomiting Musculoskeletal: No joint pain Male : No dysuria, No urinary frequency Neurologic: No memory loss Psychiatric: No depression symptoms Medications Current Inpatient Medications Medications (Trade) Dose Ordered Sig/Tony Route Start Time Stop Time Status Last Admin Dose Admin Ioversol (Optiray 320) 100 ml UD PRN IV 10/08/16 16:15 10/12/16 16:14 Acetaminophen (Tylenol Tab) 650 mg Q4H PRN PO 10/08/16 18:45 11/07/16 18:44 Al Hydrox/Mg Hydrox/Simethicone (Maalox Max Susp) 15 ml Q4H PRN PO 10/08/16 18:45 11/07/16 18:44 Magnesium Hydroxide (Milk Of Magnesia Susp) 30 ml Q6H PRN PO 10/08/16 18:45 11/07/16 18:44 Polyethylene (Miralax Powder Packet) 17 gm DAILY PRN PO 10/08/16 18:45 11/07/16 18:44 Ondansetron HCl (Zofran Inj) 4 mg Q6H PRN IV 10/08/16 18:45 11/07/16 18:44 Heparin Sodium (Porcine) 5000 unit 5,000 unit Q12H SQ 10/08/16 21:00 11/07/16 20:59 Sodium Chloride (Nss 1000ml) 1,000 ml @ 125 mls/hr Q8H IV 10/08/16 18:45 11/07/16 18:44 10/09/16 03:11 125 MLS/HR Aspirin (Ecotrin Tab) 81 mg DAILY PO 10/09/16 09:00 11/08/16 08:59 Ciprofloxacin (Cipro Tab) 500 mg BID PO 10/08/16 21:00 11/07/16 20:59 10/09/16 09:05 500 MG Clopidogrel Bisulfate (plAVix TAB) 75 mg DAILY PO 10/09/16 09:00 11/08/16 08:59 Future Hold Finasteride (Proscar Tab) 5 mg DAILY PO 10/09/16 09:00 11/08/16 08:59 10/09/16 09:06 5 MG Levothyroxine Sodium (Synthroid Tab) 88 mcg DAILYBB PO 10/09/16 06:30 11/08/16 06:59 10/09/16 06:01 88 MCG Lisinopril (Zestril Tab) 20 mg DAILY PO 10/09/16 09:00 11/08/16 08:59 10/09/16 09:06 20 MG Metoprolol Tartrate (Lopressor Tab) 50 mg BID PO 10/08/16 21:00 11/07/16 20:59 10/09/16 09:05 50 MG Pantoprazole Sodium (Protonix Tab) 40 mg DAILY PO 10/09/16 09:00 11/08/16 08:59 10/09/16 09:06 40 MG Ranitidine HCl (zANTac TAB) 300 mg BID PO 10/08/16 21:00 11/07/16 20:59 10/09/16 09:06 300 MG Ferrous Sulfate (Feosol Tab) 325 mg DAILY PO 10/09/16 09:00 11/08/16 08:59 10/09/16 09:05 325 MG Lactobacillus Acidophilus (Floranex Tab) 1 tab TIDM PO 10/09/16 08:00 11/08/16 07:59 10/09/16 09:06 1 TAB Simethicone (Mylicon Chew Tab) 80 mg BID PO 10/08/16 21:00 11/07/16 20:59 10/09/16 09:07 80 MG Objective Vital Signs Date Time Temp Pulse Resp B/P Pulse Ox O2 Delivery O2 Flow Rate FiO2 10/09/16 09:01 62 10/09/16 08:00 95 Room Air 10/09/16 07:27 36.6 52 18 120/58 95 Room Air 10/09/16 00:00 Room Air 10/08/16 23:24 36.6 69 20 148/72 96 Room Air 10/08/16 23:23 36.6 72 18 112/61 94 Room Air 10/08/16 22:24 36.4 77 18 127/67 97 Room Air 10/08/16 20:45 36.4 77 18 127/67 97 Room Air 10/08/16 20:33 71 20 133/65 98 Room Air 10/08/16 19:39 74 18 132/66 97 Room Air 10/08/16 16:59 71 18 123/64 97 Room Air 10/08/16 14:37 82 16 145/58 96 Room Air 10/08/16 12:18 36.6 92 18 146/81 97 Room Air Physical Exam General Appearance: WD/WN, no apparent distress ENT: hearing grossly normal Neck: supple Respiratory/Chest: chest non-tender, lungs clear, normal breath sounds, no respiratory distress, no accessory muscle use Cardiovascular: regular rate, rhythm Abdomen: normal bowel sounds, non tender, soft, + distended Extremities: no pedal edema Neurologic/Psychiatric: alert, normal mood/affect, oriented x 3 Skin: normal color Laboratory Results 10/09/16 07:20 10/09/16 07:20 Test 10/08/16 12:40 10/08/16 14:20 10/08/16 15:19 10/09/16 07:20 Immature Granulocyte % (Auto) 0.5 % White Blood Count 8.34 K/uL (4.8-10.8) Red Blood Count 4.51 M/uL (4.7-6.1) 3.78 M/uL (4.7-6.1) Hemoglobin 14.5 g/dL (14.0-18.0) Hematocrit 42.8 % (42-52) Mean Corpuscular Volume 94.9 fL (80-100) 94.7 fL (80-100) Mean Corpuscular Hemoglobin 32.2 pg (25-34) 31.2 pg (25-34) Mean Corpuscular Hemoglobin Concent 33.9 g/dl (32-36) 33.0 g/dl (32-36) Platelet Count 312 K/uL (130-400) Mean Platelet Volume 10.1 fL (7.4-10.4) 9.7 fL (7.4-10.4) Neutrophils (%) (Auto) 70.2 % Lymphocytes (%) (Auto) 18.5 % Monocytes (%) (Auto) 10.3 % Eosinophils (%) (Auto) 0.4 % Basophils (%) (Auto) 0.1 % Neutrophils # (Auto) 5.86 K/uL (1.4-6.5) Lymphocytes # (Auto) 1.54 K/uL (1.2-3.4) Monocytes # (Auto) 0.86 K/uL (0.11-0.59) Eosinophils # (Auto) 0.03 K/uL (0-0.5) Basophils # (Auto) 0.01 K/uL (0-0.2) Immature Granulocyte # (Auto) 0.04 K/uL (0.00-0.02) Prothrombin Time 10.0 SECONDS (9.0-12.0) Prothromb Time International Ratio 0.9 (0.9-1.1) Total Bilirubin 0.4 mg/dl (0.2-1) Aspartate Amino Transf (AST/SGOT) 19 U/L (15-37) Alanine Aminotransferase (ALT/SGPT) 26 U/L (12-78) Alkaline Phosphatase 127 U/L (45-117) Troponin I 0.022 ng/ml (0-0.045) Total Protein 7.8 gm/dl (6.4-8.2) Albumin 3.8 gm/dl (3.4-5.0) Globulin 4.0 gm/dl (2.5-4.0) Albumin/Globulin Ratio 1.0 (0.9-2) Lipase 120 U/L (73-393) Lactic Acid Level 1.1 mmol/L (0.4-2.0) Urine Color YELLOW Urine Appearance CLEAR (CLEAR) Urine pH 5.0 (4.5-7.5) Urine Specific [place] 1.013 (1.000-1.030) Urine Protein NEG (NEG) Urine Glucose (UA) NEG (NEG) Urine Ketones TRACE (NEG) Urine Occult Blood NEG (NEG) Urine Nitrite NEG (NEG) Urine Bilirubin NEG (NEG) Urine Urobilinogen NEG (NEG) Urine Leukocyte Esterase NEG (NEG) RDW Standard Deviation 46.8 fL (36.4-46.3) RDW Coefficient of Variation 13.5 % (11.5-14.5) Erythrocyte Sedimentation Rate 19 mm/hr (0-14) Anion Gap 7.0 mmol/L (3-11) Est Creatinine Clear Calc Drug Dose 60.7 ml/min Estimated GFR () 77.3 Estimated GFR (Non- 66.7 BUN/Creatinine Ratio 11.5 (10-20) Calcium Level 8.2 mg/dl (8.5-10.1) Vitamin B12 Level 1399 pg/mL (211-911) 25-Hydroxy Vitamin D Total 15.8 ng/ml (30-100) Folate > 24.00 ng/mL (>5.38) Thyroid Stimulating Hormone (TSH) 1.090 uIu/ml (0.300-4.500) Assessment and Plan 70-year-old male with a past medical history of scleroderma, hypertension, hypothyroidism, coronary artery disease status post CABG 2, BPH, hyperlipidemia , diet-controlled diabetes presented with diarrhea and weakness. The patient states that he had chronic diarrhea which started about 3 weeks ago which have recently gotten worse. He was diagnosed with a positive Campylobacter 2 weeks ago and was started on azithromycin. 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 difficile negative - Gastroenterology consult - appreciate recommendations - Continue IV fluids - Celiac antibodies pending - Plan for colonoscopy over the next few days , Plavix and Cipro held for now ARMANDO--resolved Powell's esophagus -Continue Protonix Scleroderma -Cipro DC per GI HTN, CAD, h/o CABG--stable -Continue lisinopril 20 mg PO qd and metoprolol tartrate 50 mg PO BID -Continue aspirin and Plavix held in anticipation of colonoscopy Hypothyroidism: -Continue Synthroid BPH -Continue finasteride H/o diabetes mellitus type 2-- - diet controlled DVT prophylaxis -Heparin 5000 units SC q12h -FRANCISCO Castaneda Code Status -Level I, FULL RESUSCITATION STATUS Resident Physician Supervision Note: I was present with Dr. Evans during the history and exam. I discussed the case with the resident and agree with the findings and plan as documented in the note. Any exceptions or clarifications are listed here: 70-year-old male with history of scleroderma initially treated with ciprofloxacin for bacterial overgrowth and subsequently Zithromax for Campylobacter, but continued to have loose bowel movements resulting in ARMANDO/ dehydration. The patient was scheduled for outpatient colonoscopy on Wednesday of next week however the ongoing diarrhea (mostly postprandial up to 10 times per day) resulted in his hospitalization. At this point, given the patient's past medical history, clinical history, and comorbidities, I would favor keeping the patient in the hospital over the weekend and beginning colonoscopy prep on Wednesday for inpatient colonoscopy on Wednesday. Documented By: Ernie Staley Resident Tracking Resident Involvement: Resident Care Provided Care Provided: Adult Hospital Medicine
[2016-10-09] MEDS: ASPIRIN 81 MG ECTAB PO SCH (10:38)
[2016-10-09 14:57] VITALS: BP 137/64; PULSE 56; TEMP 36.4; O2SAT 97
[2016-10-09 15:30] VITALS: O2SAT 95
[2016-10-09 21:11] VITALS: BP 129/69; PULSE 55
[2016-10-10] VITALS (7 sets, daily range): BP systolic 129–153; BP diastolic 63–75; PULSE 52–76; TEMP 36.4–36.6; O2SAT 96–99
[2016-10-10] MEDS: TRAZODONE HCL 50 MG TAB PO SCH
[2016-10-10] MEDS: SODIUM CHLORIDE 0.9% 1000ML 1,000 ML IV SCH ×3 (03:22→19:23)
[2016-10-10] MEDS: LEVOTHYROXINE 88 MCG TAB PO SCH (06:14)
[2016-10-10 06:21] LABS: HEMATOCRIT 34.1 % (42-52); MEAN CELL VOLUME 96.1 fL (80-100); MEAN CORPUSCULAR HEMOGLOBIN 31.8 pg (25-34); MEAN CORPUSCULAR HGB CONC 33.1 g/dl (32-36); MEAN PLATELET VOLUME 9.8 fL (7.4-10.4); PLATELET COUNT 224 K/uL (130-400); RED BLOOD COUNT 3.55 M/uL (4.7-6.1); WHITE BLOOD COUNT 5.88 K/uL (4.8-10.8)
[2016-10-10 06:52] LABS: BUN/CREATININE RATIO 7.9 (10-20); POTASSIUM 3.6 mmol/L (3.5-5.1)
[2016-10-10] MEDS: HEPARIN SOD 5000 UNIT/0.5 ML CARP SQ SCH ×2 (08:10→20:43)
[2016-10-10] MEDS: SIMETHICONE 80 MG CHEW PO SCH ×2 (08:14→20:43)
[2016-10-10] MEDS: LISINOPRIL 20 MG TAB PO SCH (08:16)
[2016-10-10] MEDS: RANITIDINE HCL 150 MG TAB PO SCH ×2 (08:16→20:42)
[2016-10-10] MEDS: PANTOprazole SOD 40 MG TAB PO SCH (08:16)
[2016-10-10] MEDS: METOPROLOL TARTRATE 50 MG TAB PO SCH ×2 (08:17→20:43)
[2016-10-10] MEDS: LACTOBACILLUS ACIDOPHILUS (FLORANEX) TAB PO SCH ×3 (08:17→17:26)
[2016-10-10] MEDS: FINASTERIDE 5 MG TAB PO SCH (08:17)
[2016-10-10] MEDS: FERROUS SULFATE 325 MG TAB PO SCH (08:17)
[2016-10-10] MEDS: ASPIRIN 81 MG ECTAB PO SCH (08:17)
--- NOTE | 2016-10-10 09:38 | Family Medicine Progress Note ---
Progress Note Date of Service Oct 10, 2016. Subjective Pt seen and examined at bedside. Diarrhea has improved to 2-3 small yellow, soft BM in the last day. Reports no abdominal pain, lightheadedness, N/V, palpitations, CP/SOB, leg swelling. Constitutional: No chills, No fatigue, No fever, No sweats Respiratory: No cough, No dyspnea at rest, No shortness of breath, No wheezing Cardiovascular: No chest pain, No edema, No palpitations Abdomen: + diarrhea, No constipation, No nausea, No pain, No vomiting Medications Current Inpatient Medications Medications (Trade) Dose Ordered Sig/Tony Route Start Time Stop Time Status Last Admin Dose Admin Ioversol (Optiray 320) 100 ml UD PRN IV 10/08/16 16:15 10/12/16 16:14 Acetaminophen (Tylenol Tab) 650 mg Q4H PRN PO 10/08/16 18:45 11/07/16 18:44 Al Hydrox/Mg Hydrox/Simethicone (Maalox Max Susp) 15 ml Q4H PRN PO 10/08/16 18:45 11/07/16 18:44 Magnesium Hydroxide (Milk Of Magnesia Susp) 30 ml Q6H PRN PO 10/08/16 18:45 11/07/16 18:44 Polyethylene (Miralax Powder Packet) 17 gm DAILY PRN PO 10/08/16 18:45 11/07/16 18:44 Ondansetron HCl (Zofran Inj) 4 mg Q6H PRN IV 10/08/16 18:45 11/07/16 18:44 Heparin Sodium (Porcine) 5000 unit 5,000 unit Q12H SQ 10/08/16 21:00 11/07/16 20:59 Sodium Chloride (Nss 1000ml) 1,000 ml @ 125 mls/hr Q8H IV 10/08/16 18:45 11/07/16 18:44 10/10/16 03:22 125 MLS/HR Aspirin (Ecotrin Tab) 81 mg DAILY PO 10/09/16 09:00 11/08/16 08:59 10/10/16 08:17 81 MG Clopidogrel Bisulfate (plAVix TAB) 75 mg DAILY PO 10/09/16 09:00 11/08/16 08:59 Future Hold Finasteride (Proscar Tab) 5 mg DAILY PO 10/09/16 09:00 11/08/16 08:59 10/10/16 08:17 5 MG Levothyroxine Sodium (Synthroid Tab) 88 mcg DAILYBB PO 10/09/16 06:30 11/08/16 06:59 10/10/16 06:14 88 MCG Lisinopril (Zestril Tab) 20 mg DAILY PO 10/09/16 09:00 11/08/16 08:59 10/10/16 08:16 20 MG Metoprolol Tartrate (Lopressor Tab) 50 mg BID PO 10/08/16 21:00 11/07/16 20:59 10/10/16 08:17 50 MG Pantoprazole Sodium (Protonix Tab) 40 mg DAILY PO 10/09/16 09:00 11/08/16 08:59 10/10/16 08:16 40 MG Ranitidine HCl (zANTac TAB) 300 mg BID PO 10/08/16 21:00 11/07/16 20:59 10/10/16 08:16 300 MG Ferrous Sulfate (Feosol Tab) 325 mg DAILY PO 10/09/16 09:00 11/08/16 08:59 10/10/16 08:17 325 MG Lactobacillus Acidophilus (Floranex Tab) 1 tab TIDM PO 10/09/16 08:00 11/08/16 07:59 10/10/16 08:17 1 TAB Simethicone (Mylicon Chew Tab) 80 mg BID PO 10/08/16 21:00 11/07/16 20:59 10/10/16 08:14 80 MG Objective Vital Signs Date Time Temp Pulse Resp B/P Pulse Ox O2 Delivery O2 Flow Rate FiO2 10/10/16 08:13 76 10/10/16 08:04 36.4 53 20 144/73 99 Room Air 10/10/16 08:00 97 Room Air 10/10/16 00:00 Room Air 10/10/16 00:00 36.6 52 18 129/63 97 Room Air 10/09/16 21:11 55 129/69 10/09/16 20:00 Room Air 10/09/16 15:30 95 Room Air 10/09/16 14:57 36.4 56 20 137/64 97 Physical Exam General Appearance: WD/WN, no apparent distress Neck: supple, no adenopathy, thyroid normal Respiratory/Chest: chest non-tender, lungs clear, normal breath sounds, no respiratory distress Cardiovascular: regular rate, rhythm, no edema, no gallop, no murmur Abdomen: normal bowel sounds, non tender, soft, no organomegaly Laboratory Results 10/10/16 05:25 10/10/16 05:25 Test 10/09/16 13:38 10/10/16 05:25 Red Blood Count 3.55 M/uL (4.7-6.1) Mean Corpuscular Volume 96.1 fL (80-100) Mean Corpuscular Hemoglobin 31.8 pg (25-34) Mean Corpuscular Hemoglobin Concent 33.1 g/dl (32-36) RDW Standard Deviation 47.6 fL (36.4-46.3) RDW Coefficient of Variation 13.5 % (11.5-14.5) Mean Platelet Volume 9.8 fL (7.4-10.4) Anion Gap 9.0 mmol/L (3-11) Est Creatinine Clear Calc Drug Dose 66.8 ml/min Estimated GFR () 86.8 Estimated GFR (Non- 74.9 BUN/Creatinine Ratio 7.9 (10-20) Calcium Level 8.0 mg/dl (8.5-10.1) Assessment and Plan 70 y/o male h/o scleroderma, HTN, hypothyroidism, CAD s/p CABG, BPH, HLD, DMII ( diet controlled) w/ diarrhea Acute on chronic diarrhea - h/o Campylobacter, C. 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 Normally uses a fair amount of chew per day and has gone 1-2 days without previously, but has been 4. Also complaining of inability to sleep, partly 2/2 symptoms, partly to setting. After discussion of options, will provide nicotine patches and gum, as well as tiered sleeping solution of trazodone then ambien if needed and informed patient to call if agitation persists.
--- NOTE | 2016-10-10 12:48 | Gastroenterology Progress Note ---
Progress Note Date of Service: Oct 10, 2016 Subjective Pt evaluation today including: conversation w/ patient, conversation w/ family , physical exam, chart review, lab review, review of studies, review of inpatient medication list Feeling better overall. Still with loose stools,thoug less frequent. No abd pain. Getting appetite back. Stool studies negative so far. Renal function has improved. is inquiring about doing the colonoscopy on Wednesday instead of as an outpatient on Wednesday. Review of Systems 12 systems reviewed and negative except as noted in HPI Medications Current Inpatient Medications Medications (Trade) Dose Ordered Sig/Tony Route Start Time Stop Time Status Last Admin Dose Admin Ioversol (Optiray 320) 100 ml UD PRN IV 10/08/16 16:15 10/12/16 16:14 Acetaminophen (Tylenol Tab) 650 mg Q4H PRN PO 10/08/16 18:45 11/07/16 18:44 Al Hydrox/Mg Hydrox/Simethicone (Maalox Max Susp) 15 ml Q4H PRN PO 10/08/16 18:45 11/07/16 18:44 Magnesium Hydroxide (Milk Of Magnesia Susp) 30 ml Q6H PRN PO 10/08/16 18:45 11/07/16 18:44 Polyethylene (Miralax Powder Packet) 17 gm DAILY PRN PO 10/08/16 18:45 11/07/16 18:44 Ondansetron HCl (Zofran Inj) 4 mg Q6H PRN IV 10/08/16 18:45 11/07/16 18:44 Heparin Sodium (Porcine) 5000 unit 5,000 unit Q12H SQ 10/08/16 21:00 11/07/16 20:59 Sodium Chloride (Nss 1000ml) 1,000 ml @ 125 mls/hr Q8H IV 10/08/16 18:45 11/07/16 18:44 10/10/16 11:23 125 MLS/HR Aspirin (Ecotrin Tab) 81 mg DAILY PO 10/09/16 09:00 11/08/16 08:59 10/10/16 08:17 81 MG Clopidogrel Bisulfate (plAVix TAB) 75 mg DAILY PO 10/09/16 09:00 11/08/16 08:59 Future Hold Finasteride (Proscar Tab) 5 mg DAILY PO 10/09/16 09:00 11/08/16 08:59 10/10/16 08:17 5 MG Levothyroxine Sodium (Synthroid Tab) 88 mcg DAILYBB PO 10/09/16 06:30 11/08/16 06:59 10/10/16 06:14 88 MCG Lisinopril (Zestril Tab) 20 mg DAILY PO 10/09/16 09:00 11/08/16 08:59 10/10/16 08:16 20 MG Metoprolol Tartrate (Lopressor Tab) 50 mg BID PO 10/08/16 21:00 11/07/16 20:59 10/10/16 08:17 50 MG Pantoprazole Sodium (Protonix Tab) 40 mg DAILY PO 10/09/16 09:00 11/08/16 08:59 10/10/16 08:16 40 MG Ranitidine HCl (zANTac TAB) 300 mg BID PO 10/08/16 21:00 11/07/16 20:59 10/10/16 08:16 300 MG Ferrous Sulfate (Feosol Tab) 325 mg DAILY PO 10/09/16 09:00 11/08/16 08:59 10/10/16 08:17 325 MG Lactobacillus Acidophilus (Floranex Tab) 1 tab TIDM PO 10/09/16 08:00 11/08/16 07:59 10/10/16 11:23 1 TAB Simethicone (Mylicon Chew Tab) 80 mg BID PO 10/08/16 21:00 11/07/16 20:59 10/10/16 08:14 80 MG Objective Vital Signs Date Time Temp Pulse Resp B/P Pulse Ox O2 Delivery O2 Flow Rate FiO2 10/10/16 08:13 76 10/10/16 08:04 36.4 53 20 144/73 99 Room Air 10/10/16 08:00 97 Room Air 10/10/16 00:00 Room Air 10/10/16 00:00 36.6 52 18 129/63 97 Room Air 10/09/16 21:11 55 129/69 10/09/16 20:00 Room Air 10/09/16 15:30 95 Room Air 10/09/16 14:57 36.4 56 20 137/64 97 Physical Exam General Appearance: WD/WN, no apparent distress Eyes: normal inspection, PERRL ENT: normal ENT inspection, hearing grossly normal, pharynx normal Neck: supple, no adenopathy, no JVD Respiratory/Chest: chest non-tender, lungs clear, normal breath sounds, no accessory muscle use Cardiovascular: regular rate, rhythm, no murmur Abdomen: normal bowel sounds, non tender, soft Extremities: normal range of motion, non-tender, normal inspection, no pedal edema, + pertinent finding (edema in both hands) Neurologic/Psych: crm analyst II-XII nml as tested, no motor/sensory deficits, alert, normal mood/affect, oriented x 3 Skin: normal color, no jaundice, no rash Laboratory Results Last 24 Hours Test 10/09/16 13:38 10/10/16 05:25 White Blood Count 5.88 K/uL Red Blood Count 3.55 M/uL Hemoglobin 11.3 g/dL Hematocrit 34.1 % Mean Corpuscular Volume 96.1 fL Mean Corpuscular Hemoglobin 31.8 pg Mean Corpuscular Hemoglobin Concent 33.1 g/dl RDW Standard Deviation 47.6 fL RDW Coefficient of Variation 13.5 % Platelet Count 224 K/uL Mean Platelet Volume 9.8 fL Sodium Level 145 mmol/L Potassium Level 3.6 mmol/L Chloride Level 112 mmol/L Carbon Dioxide Level 24 mmol/L Anion Gap 9.0 mmol/L Blood Urea Nitrogen 8 mg/dl Creatinine 1.00 mg/dl Est Creatinine Clear Calc Drug Dose 66.8 ml/min Estimated GFR () 86.8 Estimated GFR (Non- 74.9 BUN/Creatinine Ratio 7.9 Random Glucose 96 mg/dl Calcium Level 8.0 mg/dl Assessment and Plan 70 yo male with recent culture confirmed campylobacter admitted with acute on chronic diarrhea and ARMANDO. Renal function has improved with hydration. Less diarrhea. Stool testing here OK. He was scheduled for a colonoscopy as an outpatient mid week. Given the renal issues on admission, would prefer to do this Wednesday as an inpatient. He and his are in agreement. - OK to allow him to eat today. Clear liquid diet tomorrow. - Start prep for colonoscopy tomorrow late afternoon. - Colonoscopy Wednesday. Gus Grajeda, DO
[2016-10-10] MEDS ORDERED: NICOTINE POLACRILEX 2 MG GUM MT ONE (16:53)
[2016-10-10] MEDS ORDERED: ZOLPIDEM TARTRATE 5 MG TAB PO PRN (17:00)
[2016-10-11 00:14] VITALS: BP 140/64; PULSE 50; TEMP 36.6; O2SAT 97
[2016-10-11] MEDS: SODIUM CHLORIDE 0.9% 1000ML 1,000 ML IV SCH ×3 (03:03→18:47)
[2016-10-11] MEDS: LEVOTHYROXINE 88 MCG TAB PO SCH (06:16)
[2016-10-11 06:18] LABS: HEMATOCRIT 37.2 % (42-52); MEAN CELL VOLUME 96.6 fL (80-100); MEAN CORPUSCULAR HEMOGLOBIN 31.2 pg (25-34); MEAN CORPUSCULAR HGB CONC 32.3 g/dl (32-36); MEAN PLATELET VOLUME 9.8 fL (7.4-10.4); PLATELET COUNT 221 K/uL (130-400); RED BLOOD COUNT 3.85 M/uL (4.7-6.1); WHITE BLOOD COUNT 8.37 K/uL (4.8-10.8)
[2016-10-11 06:41] LABS: BUN/CREATININE RATIO 6.1 (10-20); CALCIUM 8.2 mg/dl (8.5-10.1); CREATININE 0.99 mg/dl (0.60-1.40); POTASSIUM 3.7 mmol/L (3.5-5.1)
[2016-10-11 07:16] VITALS: BP_SYST 166; BP_SYST 172; BP_DIAS 76; BP_DIAS 81; PULSE 108; TEMP 36.4; O2SAT 98
[2016-10-11] MEDS: HEPARIN SOD 5000 UNIT/0.5 ML CARP SQ SCH ×2 (07:58→21:39)
[2016-10-11 08:00] VITALS: O2SAT 98
[2016-10-11] MEDS: RANITIDINE HCL 150 MG TAB PO SCH ×2 (08:21→21:39)
[2016-10-11] MEDS: LISINOPRIL 20 MG TAB PO SCH (08:21)
[2016-10-11] MEDS: NICOTINE 14 MG/24 HR TDSY TD SCH (08:21)
[2016-10-11] MEDS: FERROUS SULFATE 325 MG TAB PO SCH (08:22)
[2016-10-11] MEDS: FINASTERIDE 5 MG TAB PO SCH (08:22)
[2016-10-11] MEDS: METOPROLOL TARTRATE 50 MG TAB PO SCH ×2 (08:22→21:39)
[2016-10-11] MEDS: PANTOprazole SOD 40 MG TAB PO SCH (08:22)
[2016-10-11] MEDS: ASPIRIN 81 MG ECTAB PO SCH (08:22)
[2016-10-11] MEDS: LACTOBACILLUS ACIDOPHILUS (FLORANEX) TAB PO SCH ×3 (08:23→17:25)
[2016-10-11] MEDS: SIMETHICONE 80 MG CHEW PO SCH ×2 (08:23→21:40)
--- NOTE | 2016-10-11 10:21 | Family Medicine Progress Note ---
Progress Note Date of Service Oct 11, 2016. Subjective Pt seen and examined at bedside. Last evening, had 4x small loose BM in succession which delayed sleep medication and resulted in less than optimal sleep. Reports significant improvement in mood, however, with nicotine patch and gum PRN. Reports no WADSWORTH, lightheadedness, abd pain, n/v, SOB, palpitations, paresthesias. Constitutional: No chills, No fatigue, No fever, No sweats Respiratory: No cough, No shortness of breath, No wheezing Cardiovascular: No PND, No chest pain, No palpitations Abdomen: + diarrhea, No nausea, No pain, No vomiting Medications Current Inpatient Medications Medications (Trade) Dose Ordered Sig/Tony Route Start Time Stop Time Status Last Admin Dose Admin Ioversol (Optiray 320) 100 ml UD PRN IV 10/08/16 16:15 10/12/16 16:14 Acetaminophen (Tylenol Tab) 650 mg Q4H PRN PO 10/08/16 18:45 11/07/16 18:44 Al Hydrox/Mg Hydrox/Simethicone (Maalox Max Susp) 15 ml Q4H PRN PO 10/08/16 18:45 11/07/16 18:44 Magnesium Hydroxide (Milk Of Magnesia Susp) 30 ml Q6H PRN PO 10/08/16 18:45 11/07/16 18:44 Polyethylene (Miralax Powder Packet) 17 gm DAILY PRN PO 10/08/16 18:45 11/07/16 18:44 Ondansetron HCl (Zofran Inj) 4 mg Q6H PRN IV 10/08/16 18:45 11/07/16 18:44 Heparin Sodium (Porcine) 5000 unit 5,000 unit Q12H SQ 10/08/16 21:00 11/07/16 20:59 Sodium Chloride (Nss 1000ml) 1,000 ml @ 125 mls/hr Q8H IV 10/08/16 18:45 11/07/16 18:44 10/11/16 03:03 125 MLS/HR Aspirin (Ecotrin Tab) 81 mg DAILY PO 10/09/16 09:00 11/08/16 08:59 10/11/16 08:22 81 MG Clopidogrel Bisulfate (plAVix TAB) 75 mg DAILY PO 10/09/16 09:00 11/08/16 08:59 Future Hold Finasteride (Proscar Tab) 5 mg DAILY PO 10/09/16 09:00 11/08/16 08:59 10/11/16 08:22 5 MG Levothyroxine Sodium (Synthroid Tab) 88 mcg DAILYBB PO 10/09/16 06:30 11/08/16 06:59 10/11/16 06:16 88 MCG Lisinopril (Zestril Tab) 20 mg DAILY PO 10/09/16 09:00 11/08/16 08:59 10/11/16 08:21 20 MG Metoprolol Tartrate (Lopressor Tab) 50 mg BID PO 10/08/16 21:00 11/07/16 20:59 10/11/16 08:22 50 MG Pantoprazole Sodium (Protonix Tab) 40 mg DAILY PO 10/09/16 09:00 11/08/16 08:59 10/11/16 08:22 40 MG Ranitidine HCl (zANTac TAB) 300 mg BID PO 10/08/16 21:00 11/07/16 20:59 10/11/16 08:21 300 MG Ferrous Sulfate (Feosol Tab) 325 mg DAILY PO 10/09/16 09:00 11/08/16 08:59 10/11/16 08:22 325 MG Lactobacillus Acidophilus (Floranex Tab) 1 tab TIDM PO 10/09/16 08:00 11/08/16 07:59 10/11/16 08:23 1 TAB Simethicone (Mylicon Chew Tab) 80 mg BID PO 10/08/16 21:00 11/07/16 20:59 10/11/16 08:23 80 MG Polyethylene (Miralax Powder Packet) 119 gm 1500 ONCE PO 10/11/16 15:00 10/11/16 15:01 Polyethylene (Miralax Powder Packet) 119 gm 0400 ONCE PO 10/12/16 04:00 10/12/16 04:01 Nicotine (Nicoderm Cq 14MG Patch) 1 patch QAM TD 10/11/16 09:00 11/10/16 08:59 10/11/16 08:21 1 PATCH Nicotine Polacrilex (Nicorette 2MG Gum) 1 piece PRN PRN MT 10/10/16 17:00 11/09/16 16:59 Miscellaneous (Remove Nicoderm Patch) 1 ea HS N/A 10/10/16 21:00 11/09/16 20:59 10/10/16 05:00 1 EA Trazodone HCl (Desyrel Tab) 50 mg HSZ PO 10/10/16 22:00 11/09/16 21:59 Zolpidem Tartrate (Ambien Tab) 2.5 mg HSZ PRN PO 10/10/16 17:00 11/09/16 16:59 Objective Vital Signs Date Time Temp Pulse Resp B/P Pulse Ox O2 Delivery O2 Flow Rate FiO2 10/11/16 08:00 98 Room Air 10/11/16 07:16 36.4 108 20 172/76 98 Room Air 166/81 10/11/16 00:14 36.6 50 19 140/64 97 Room Air 10/10/16 23:59 Room Air 10/10/16 20:41 60 153/73 10/10/16 20:00 Room Air 10/10/16 15:37 36.6 63 20 143/75 96 Room Air 10/10/16 15:15 97 Room Air Physical Exam General Appearance: WD/WN, no apparent distress Respiratory/Chest: chest non-tender, lungs clear, normal breath sounds, no respiratory distress Cardiovascular: regular rate, rhythm, no edema, no gallop, no murmur Abdomen: normal bowel sounds, non tender, soft, no organomegaly Laboratory Results 10/11/16 05:50 10/11/16 05:50 Test 10/11/16 05:50 Red Blood Count 3.85 M/uL (4.7-6.1) Mean Corpuscular Volume 96.6 fL (80-100) Mean Corpuscular Hemoglobin 31.2 pg (25-34) Mean Corpuscular Hemoglobin Concent 32.3 g/dl (32-36) RDW Standard Deviation 48.9 fL (36.4-46.3) RDW Coefficient of Variation 13.8 % (11.5-14.5) Mean Platelet Volume 9.8 fL (7.4-10.4) Anion Gap 8.0 mmol/L (3-11) Est Creatinine Clear Calc Drug Dose 67.4 ml/min Estimated GFR () 87.8 Estimated GFR (Non- 75.8 BUN/Creatinine Ratio 6.1 (10-20) Calcium Level 8.2 mg/dl (8.5-10.1) Assessment and Plan 70 y/o male h/o scleroderma, HTN, hypothyroidism, CAD s/p CABG, BPH, HLD, DMII ( diet controlled) w/ diarrhea Agitation 2/2 tobacco use - nicotine patch and gum w/ improvement - t/c increase patch dose if needed Insomnia - likely adjustment - trazodone and ambien, prefer trazodone Acute on chronic diarrhea - h/o Campylobacter, C. diff negative - Gastroenterology aware, input appreciated - inpatient colonoscopy tomorrow, prep today - Continue gentle hydration - plavix & cipro currently held HTN, CAD, h/o CABG - continue lisinopril, metoprolol tartrate - continue aspirin - Plavix held re: colonoscopy ARMANDO - resolved Powell's esophagus -continue Protonix Scleroderma - holding cipro Hypothyroidism - continue Synthroid BPH - continue finasteride Diabetes mellitus type 2 - diet controlled DVT PPX: Heparin, SCD FULL CODE
[2016-10-11] MEDS: NICOTINE POLACRILEX 2 MG GUM MT PRN ×2 (10:52→18:47)
[2016-10-11 14:55] VITALS: BP 139/63; PULSE 48; PULSE 70; TEMP 36.4; O2SAT 97
[2016-10-11] MEDS ORDERED: POLYETHYLENE (MIRALAX) 17 GM PACK PO ONE (15:00)
[2016-10-11 16:00] VITALS: O2SAT 98
[2016-10-11] MEDS: TRAZODONE HCL 50 MG TAB PO SCH (22:00)
[2016-10-12] VITALS (8 sets, daily range): BP systolic 144–174; BP diastolic 69–80; PULSE 49–75; TEMP 36.3–36.8; O2SAT 96–98
[2016-10-12] MEDS: SODIUM CHLORIDE 0.9% 1000ML 1,000 ML IV SCH ×2 (02:56→10:23)
[2016-10-12] MEDS ORDERED: POLYETHYLENE (MIRALAX) 17 GM PACK PO ONE (04:00)
[2016-10-12] MEDS: LEVOTHYROXINE 88 MCG TAB PO SCH (06:09)
[2016-10-12] MEDS: HEPARIN SOD 5000 UNIT/0.5 ML CARP SQ SCH (08:20)
[2016-10-12] MEDS: SIMETHICONE 80 MG CHEW PO SCH (08:25)
[2016-10-12] MEDS: FINASTERIDE 5 MG TAB PO SCH (08:25)
[2016-10-12] MEDS: ASPIRIN 81 MG ECTAB PO SCH (08:25)
[2016-10-12] MEDS: FERROUS SULFATE 325 MG TAB PO SCH (08:25)
[2016-10-12] MEDS: LACTOBACILLUS ACIDOPHILUS (FLORANEX) TAB PO SCH ×2 (08:25→11:27)
[2016-10-12] MEDS: RANITIDINE HCL 150 MG TAB PO SCH (08:25)
[2016-10-12] MEDS: METOPROLOL TARTRATE 50 MG TAB PO SCH (08:25)
[2016-10-12] MEDS: PANTOprazole SOD 40 MG TAB PO SCH (08:25)
[2016-10-12] MEDS: NICOTINE 14 MG/24 HR TDSY TD SCH (08:26)
[2016-10-12] MEDS: LISINOPRIL 20 MG TAB PO SCH (08:26)
[2016-10-12] MEDS ORDERED: FENTANYL CITRATE INJ 50 MCG/1 ML 2 ML VIAL ONE (10:09)
[2016-10-12] MEDS ORDERED: LIDOCAINE HCL 2% 2 ML VIAL (20MG/ML) ONE (10:09)
[2016-10-12] MEDS ORDERED: PROPOFOL IV EMULSION 10 MG/ML 20 ML VIAL IV ONE ×2 (10:09)
--- NOTE | 2016-10-12 11:39 | GI REPORT ---
Procedure Date: 10/12/2016 11:09 AM Procedure: Colonoscopy Indications: Chronic diarrhea, Clinically significant diarrhea of unexplained origin Medicines: General Anesthesia Complications: No immediate complications. Estimated blood loss: None. Estimated Blood Loss: Estimated blood loss: none. Procedure: Pre-Anesthesia Assessment: - Pre-Anesthesia Assessment: - Prior to the procedure, a History and Physical was performed, and patient medications, allergies and sensitivities were reviewed. The patient's tolerance of previous anesthesia was reviewed. Please see [employer] for complete details. - The risks and benefits of the procedure and the sedation options and risks were discussed with the patient. All questions were answered and informed consent was obtained. - Patient identification and proposed procedure were verified prior to the procedure by the physician and the nurse. The procedure was verified in the pre-procedure area in the procedure room. After obtaining informed consent, the endoscope was passed carefully and meticuously under direct vision and only advanced when the lumen was clearly identified, C02 insuflation was utilized throughout the entirity of the procedure. Throughout the procedure, the patient's blood pressure, pulse, and oxygen saturations were monitored continuously. After I obtained informed consent, the scope was passed under direct vision. Throughout the procedure, the patient's blood pressure, pulse, and oxygen saturations were monitored continuously. The Scope was introduced through the anus and advanced to the terminal ileum, with identification of the appendiceal orifice and IC valve. The colonoscopy was performed without difficulty. The patient tolerated the procedure well. The quality of the bowel preparation was fair. Findings: The ileum appeared normal. A localized area of mildly erythematous and mild micro ulcerated mucosa was found in the cecum. Biopsies were taken with a cold forceps for histology. A patchy area of mildly congested, and areas of micro-ulcerated mucosa was found in the ascending colon. Biopsies were taken with a cold forceps for histology. A patchy area of congested, and areas of micro-ulcerated mucosa mucosa was found in the sigmoid colon. Biopsies were taken with a cold forceps for histology. Multiple small-mouthed diverticula were found in the sigmoid colon. A 8 mm polyp was found in the sigmoid colon. The polyp was semi-pedunculated. The polyp was removed with a hot snare. Resection and retrieval were complete. Internal hemorrhoids were found during retroflexion. The exam was otherwise without abnormality on direct and retroflexion views. Impression: - The terminal ileum is normal. - Erythematous and mild micro ulcerated mucosa in the cecum. Biopsied. - Congested, and areas of micro-ulcerated mucosa in the ascending colon. Biopsied. - Mucosa in the sigmoid colon. Biopsied. - Diverticulosis in the sigmoid colon. - One 8 mm polyp in the sigmoid colon, removed with a hot snare. Resected and retrieved. - Internal hemorrhoids. - The examination was otherwise normal on direct and retroflexion views. Recommendation: - [facility] same day. - Use budesonide 9 mg PO one time per day. - Await pathology results. - Return to GI office at appointment to be scheduled. Jim Oconnor MD 10/12/2016 11:39:28 AM This report has been signed electronically. Note Initiated On: 10/12/2016 11:09 AM I attest to the content of the Intraoperative Record and orders documented therein, exceptions below
--- NOTE | 2016-10-12 11:41 | GI REPORT ---
Procedure Date: 10/12/2016 10:48 AM Procedure: Upper GI endoscopy Indications: Diarrhea Medicines: General Anesthesia Complications: No immediate complications. Estimated blood loss: None. Estimated Blood Loss: Estimated blood loss: none. Procedure: Pre-Anesthesia Assessment: - Pre-Anesthesia Assessment: - Prior to the procedure, a History and Physical was performed, and patient medications, allergies and sensitivities were reviewed. The patient's tolerance of previous anesthesia was reviewed. Please see [employer] for complete details. - The risks and benefits of the procedure and the sedation options and risks were discussed with the patient. All questions were answered and informed consent was obtained. - Patient identification and proposed procedure were verified prior to the procedure by the physician and the nurse. The procedure was verified in the pre-procedure area in the procedure room. After obtaining informed consent, the endoscope was passed carefully and meticuously under direct vision and only advanced when the lumen was clearly identified, C02 insuflation was utilized throughout the entirity of the procedure. Throughout the procedure, the patient's blood pressure, pulse, and oxygen saturations were monitored continuously. After obtaining informed consent, the endoscope was passed under direct vision. Throughout the procedure, the patient's blood pressure, pulse, and oxygen saturations were monitored continuously. The scope was introduced through the mouth, and advanced to the second part of duodenum. The upper GI endoscopy was accomplished without difficulty. The patient tolerated the procedure well. Findings: The examined esophagus was normal. The entire examined stomach was normal. Biopsies were taken with a cold forceps for histology. The examined duodenum was normal. Biopsies for histology were taken with a cold forceps for evaluation of celiac disease. Impression: - Normal esophagus. - Normal stomach. Biopsied. - Normal examined duodenum. Biopsied. Recommendation: - Await pathology results. - Perform a colonoscopy today. Jim Oconnor MD 10/12/2016 11:40:59 AM This report has been signed electronically. Note Initiated On: 10/12/2016 10:48 AM I attest to the content of the Intraoperative Record and orders documented therein, exceptions below
--- NOTE | 2016-10-12 12:05 | Anesthesiology Progress Note ---
Anesthesia Post Op Note Date & Time October 12, 2016 at 12:04 Vital Signs Pain Intensity: 0.0 Vital Signs Past 12 Hours Date Time Temp Pulse Resp B/P Pulse Ox O2 Delivery O2 Flow Rate FiO2 10/12/16 11:58 49 20 168/62 95 Room Air 10/12/16 11:44 57 20 172/56 94 Room Air 10/12/16 10:20 36.9 53 20 185/82 97 Room Air 10/12/16 10:10 36.6 51 20 174/74 96 Room Air 10/12/16 09:54 36.7 75 18 174/79 98 Room Air 10/12/16 08:00 98 Room Air 10/12/16 07:32 36.7 75 18 171/69 98 Room Air 10/12/16 00:16 36.8 51 20 144/74 97 Room Air Notes Mental Status: alert / awake / arousable, participated in evaluation Pt Amnestic to Procedure: Yes Nausea / Vomiting: adequately controlled Pain: adequately controlled Airway Patency, RR, SpO2: stable & adequate BP & HR: stable & adequate Hydration State: stable & adequate Anesthetic Complications: no major complications apparent
[2016-10-12] MEDS ORDERED: BUDE1CAP6 PO (14:42)
--- NOTE | 2016-10-12 14:45 | Discharge Instructions ---
Discharge Instructions Date of Service October 12, 2016. Admission Reason for Admission: Riki, Diarrhea Discharge Discharge Diagnosis / Problem: acute on chronic diarrhea Discharge Goals Goal(s): Decrease discomfort, Improve function, Increase independence, Improve disease control, Diagnostic testing, Therapeutic intervention Activity Recommendations Activity Limitations: resume your previous activity May Resume Sexual Activity: when tolerated Shower/Bathe: no limitations . Instructions / Follow-Up Instructions / Follow-Up patient to be discharged home please follow up with yaz german in 1-2 weeks please take new medication budesonide (3mg) 3 capsules daily for a total of 9 mg for 30 days if worsening fevers, abdominal pain or diarrhea please report to ER Current Hospital Diet Patient's current hospital diet: Clear Liquid Diet Discharge Diet Recommended Diet: Low Sodium Diet (2gm Na) Procedures Procedures Performed: EGD COLONOSCOPY Pending Studies Studies pending at discharge: yes (celiac sudies) List of pending studies: celiac studies pathology Laboratory Results Hemoglobin A1c Test 08/07/16 09:21 Range/Units Estimated Average Glucose 140 mg/dl Hemoglobin A1c 6.5 H 4.5-5.6 % Medical Emergencies . Who to Call and When: Medical Emergencies: If at any time you feel your situation is an emergency, please call 911 immediately. . Non-Emergent Contact Non-Emergency issues call your: Primary Care Provider Call Non-Emergent contact if: you have a fever, your pain is worsening . . "Provider Documentation" section prepared by Tyree Pizarro. . VTE Core Measure Inpt VTE Proph given/why not?: Unfractionated heparin SQ, T.E.D. Stockings, SCD 's
--- NOTE | 2016-10-12 16:49 | Discharge Summary ---
Discharge Summary Date of Service October 12, 2016. Discharge Summary Admission Date: Oct 08, 2016 at 19:04 Discharge Date: October 12, 2016 Discharge Disposition: Home Principal Diagnosis: Acute on chronic diarrhea Immunizations: Have You Had Influenza Vaccine: Unknown History of Tetanus Vaccine?: Unknown History of Pneumococcal: Unknown History of Hepatitis B Vaccine: Unknown Consultations: GI Medication Reconciliation New Medications: Budesonide (Entocort Ec) 3 Mg Cap 3 CAP PO DAILY for 30 Days, #90 CAP 2 Refills Continued Medications: Aspirin (Aspirin) 81 Mg Tab 81 MG PO DAILY Clopidogrel Bisulfate (Clopidogrel) 75 Mg Tab 75 MG PO DAILY Cyanocobalamin (Vitamin B12 500MCG) 500 Mcg Tab 1000 MCG PO DAILY, TAB Ferrous Sulfate (Iron) 325 Mg Tab 325 MG PO DAILY Finasteride (Finasteride) 5 Mg Tab 5 MG PO DAILY Levothyroxine Sodium (Synthroid) 88 Mcg Tab 88 MCG PO DAILY Lisinopril (Lisinopril) 20 Mg Tab 20 MG PO DAILY Metoprolol Tartrate (Lopressor) (Lopressor) 50 Mg Tab 50 MG PO BID, TAB Multiple Vitamin (Multivitamin) 1 Tab Tab 1 TAB PO DAILY, TAB Nitroglycerin (Nitrostat) 0.4 Mg Sub 0.4 MG UT PRN, BTL Nutritional Supplements (Boost) 1 Liq Liq 1 CAN PO UD Pantoprazole (Pantoprazole Sodium) 40 Mg Tab 40 MG PO DAILY Probiotic Product (Probiotic) 1 Cap Cap 1 TAB PO TID Ranitidine Hcl (Zantac) 300 Mg Tab 300 MG PO BID, TAB Simethicone (Phazyme) 180 Mg Cap 180 MG PO BID Discontinued Medications: Ciprofloxacin (Ciprofloxacin HCl) 500 Mg Tab 500 MG PO BID Discharge Exam Review of Systems: Constitutional: No chills, No fever Respiratory: No cough, No sputum Cardiovascular: No chest pain, No orthopnea Abdomen: No diarrhea, No nausea, No pain, No vomiting Musculoskeletal: No joint pain, No muscle pain Genitourinary - Male: No dysuria, No hematuria, No urinary frequency Neurologic: No paralysis, No weakness Psychiatric: No anxiety, No depression symptoms Physical Exam: General Appearance: WD/WN, no apparent distress Neck: supple, no adenopathy Respiratory/Chest: lungs clear, normal breath sounds Cardiovascular: no edema, no gallop Abdomen / GI: non tender, soft Neurologic/Psychiatric: alert, oriented x 3 Hospital Course 70 y/o male h/o scleroderma, HTN, hypothyroidism, CAD s/p CABG, BPH, HLD, DMII ( diet controlled) w/ diarrhea Acute on chronic diarrhea - h/o Campylobacter, C. diff negative - Gastroenterology aware, input appreciated - EGD unremarkable and colonoscopy 10/12- Erythematous and mild micro ulcerated mucosa in the cecum. Biopsied. - Congested, and areas of micro-ulcerated mucosa in the ascending colon. Biopsied. - Mucosa in the sigmoid colon. Biopsied. - Diverticulosis in the sigmoid colon. - One 8 mm polyp in the sigmoid colon, removed with a hot snare. Resected and retrieved. - Internal hemorrhoids. - The examination was otherwise normal -Recommended budesonide 9mg daily on discharge and follow up with GI Agitation 2/2 tobacco use - nicotine patch and gum w/ improvement - t/c increase patch dose if needed Insomnia - likely adjustment - trazodone and ambien, prefer trazodone HTN, CAD, h/o CABG - continue lisinopril, metoprolol tartrate - continue aspirin - Plavix held re: colonoscopy ARMANDO - resolved Powell's esophagus -continue Protonix Scleroderma - holding cipro Hypothyroidism - continue Synthroid BPH - continue finasteride Diabetes mellitus type 2 - diet controlled DVT PPX: Heparin, SCD FULL CODE Total Time Spent: Greater than 30 minutes This includes examination of the patient, discharge planning, medication reconciliation, and communication with other providers. Discharge Instructions Please refer to the electronic Patient Visit Report (Discharge Instructions) for additional information. Additional Copies To Jaime García M.D.
[2016-10-13] MEDS ORDERED: BUDESONIDE EC 3 MG CAP PO SCH (09:00)
[2016-10-13 21:31] LABS: GLIADIN DEAMIDATED IgA AB 10 UNITS (<20); GLIADIN DEAMIDATED IgG AB 2 UNITS (<20); RETICULIN IgA AB Negative (Negative)
== END 2016-10-12 15:26 | disposition home or self-care (01) | DRG 546 ==
LOC: ENRESERVTM → ENRESERVDT → C.EDB 12:16 → C.MS2W 19:04
PROVIDERS: ADMIT Internal Medicine; ATTEND Hospitalist
PROC: 0DBK8ZX Excision of Ascending Colon, Via Natural or Artificial Opening Endoscopic, Diagnostic (ICD-10-PCS; principal; 2016-10-12 10:16)
PROC: 0DBN8ZX Excision of Sigmoid Colon, Via Natural or Artificial Opening Endoscopic, Diagnostic (ICD-10-PCS; principal; 2016-10-12 10:16)
PROC: 0DBH8ZX Excision of Cecum, Via Natural or Artificial Opening Endoscopic, Diagnostic (ICD-10-PCS; principal; 2016-10-12 10:16)
PROC: 0DB98ZX Excision of Duodenum, Via Natural or Artificial Opening Endoscopic, Diagnostic (ICD-10-PCS; 2016-10-12 10:16)
PROC: 0DB68ZX Excision of Stomach, Via Natural or Artificial Opening Endoscopic, Diagnostic (ICD-10-PCS; 2016-10-12 10:16)
DX: M34.9 Systemic sclerosis, unspecified (principal); N17.9 Acute kidney failure, unspecified; E44.1 Mild protein-calorie malnutrition; R19.7 Diarrhea, unspecified; F17.200 Nicotine dependence, unspecified, uncomplicated; G47.00 Insomnia, unspecified; R45.1 Restlessness and agitation; K57.30 Diverticulosis of large intestine without perforation or abscess without bleeding; E78.5 Hyperlipidemia, unspecified; I10 Essential (primary) hypertension; N40.0 Benign prostatic hyperplasia without lower urinary tract symptoms; R94.31 Abnormal electrocardiogram [ECG] [EKG]; D12.5 Benign neoplasm of sigmoid colon; I25.10 Atherosclerotic heart disease of native coronary artery without angina pectoris; K64.8 Other hemorrhoids; R93.5 Abnormal findings on diagnostic imaging of other abdominal regions, including retroperitoneum; I73.9 Peripheral vascular disease, unspecified; K22.70 Barrett's esophagus without dysplasia; K21.9 Gastro-esophageal reflux disease without esophagitis; E86.0 Dehydration; I73.00 Raynaud's syndrome without gangrene; E03.9 Hypothyroidism, unspecified; E11.9 Type 2 diabetes mellitus without complications; K44.9 Diaphragmatic hernia without obstruction or gangrene; Z86.19 Personal history of other infectious and parasitic diseases; Z68.25 Body mass index [BMI] 25.0-25.9, adult; Z95.1 Presence of aortocoronary bypass graft; Z79.82 Long term (current) use of aspirin; Z79.02 Long term (current) use of antithrombotics/antiplatelets; Z79.899 Other long term (current) drug therapy

== ENCOUNTER 2016-10-20 17:11 | Inpatient (IN) | payer OTHER ==
[~2016-10-20] VITALS: Ht 175.3 cm; Wt 79.0 kg
[~2016-10-20 17:11] MED LIST changes: +BUDE1CAP6 PO; -ESOM20CA PO; -LISI40TA PO; +LSN20 PO; -METR500T PO; +PLV75 PO; +PRS5 PO; +PRT40 PO; +SIME180C6 PO; -SYN50 PO; +SYN88 PO
[2016-10-20 19:22] VITALS: BP 144/76; PULSE 76; TEMP 36.3; O2SAT 98; Ht 175.3 cm; Wt 79.0 kg
[2016-10-20 20:00] LABS: BASO % 0.1 %; BASO ABS # 0.01 K/uL (0-0.2); HEMATOCRIT 40.7 % (42-52); IG% 0.1 %; LYMPH % 15.2 %; LYMPH ABS # 1.05 K/uL (1.2-3.4); MEAN CELL VOLUME 96.9 fL (80-100); MEAN CORPUSCULAR HEMOGLOBIN 31.9 pg (25-34); MONO % 9.6 %; PLATELET COUNT 288 K/uL (130-400)
[2016-10-20 20:13] LABS: COMPLETE YES; MEAN CORPUSCULAR HGB CONC 32.9 g/dl (32-36)
[2016-10-20 20:18] LABS: BUN/CREATININE RATIO 16.9 (10-20); CALCIUM 9.1 mg/dl (8.5-10.1); CREATININE 1.4 mg/dl (0.60-1.40); POTASSIUM 3.6 mmol/L (3.5-5.1)
[2016-10-20 20:19] LABS: PARTIAL THROMBOPLASTIN RATIO 1.2
[2016-10-20] MEDS ORDERED: CYAN100073 PO (20:23)
[2016-10-20] MEDS ORDERED: PNT500 PO (20:23)
[2016-10-20] MEDS ORDERED: SIME180C6 PO (20:23)
[2016-10-20] MEDS ORDERED: PRS5 PO (20:23)
[2016-10-20] MEDS ORDERED: CLOP1TAB15 PO (20:23)
[2016-10-20] MEDS ORDERED: DICY20TA10 PO (20:23)
[2016-10-20] MEDS ORDERED: NTRSL3 UT (20:23)
[2016-10-20] MEDS ORDERED: LISI-725 PO (20:23)
[2016-10-20] MEDS ORDERED: PRT/20 PO (20:23)
[2016-10-20] MEDS ORDERED: ASPEC81 PO (20:23)
[2016-10-20] MEDS ORDERED: METO50TA16 PO (20:23)
[2016-10-20] MEDS ORDERED: LCTX PO (20:23)
[2016-10-20] MEDS ORDERED: CHOLPOW PO (20:23)
[2016-10-20] MEDS ORDERED: iron PO (20:23)
[2016-10-20] MEDS ORDERED: RANI300T2 PO (20:23)
[2016-10-20] MEDS ORDERED: MULT-506 PO (20:23)
[2016-10-20] MEDS ORDERED: LEVO88TA3 PO (20:23)
[2016-10-20] MEDS ORDERED: NITROGLYCERIN 0.4 MG SL PER TAB CHARGE SL PRN (20:30)
[2016-10-20] MEDS ORDERED: ENOXAPARIN 40 MG/0.4 ML SYR SC SCH (21:00)
[2016-10-20] MEDS ORDERED: OPTIRAY 320 IV PRN (21:00)
[2016-10-20] MEDS ORDERED: PIPERACILL/TAZOBAC CONSULT ACTIVE PRN (21:15)
[2016-10-20] MEDS ORDERED: PIPERACILL/TAZOBAC IV 3.375 GM in DEXTROSE 5% 100ML 100 ML IV SCH (21:30)
[2016-10-20] MEDS ORDERED: ONDANSETRON INJ 2 MG/ML 2 ML VIAL IV PRN (22:15)
[2016-10-20] MEDS ORDERED: ACETAMINOPHEN IV 650 MG in EMPTY BAG 0 ML IV PRN (22:15)
--- NOTE | 2016-10-20 22:20 | DIAGNOSTIC IMAGING REPORT ---
CT ABD/PELVIS IV CONTRAST ONLY CLINICAL HISTORY: Severe abdominal pain. Possible bowel perforation. Possible small bowel obstruction. COMPARISON STUDY: 10/08/2016 TECHNIQUE: Following the IV administration of 116 mL of Optiray-320, CT scan of the abdomen and pelvis was performed from the lung bases to the proximal femurs. Images are reviewed in the axial, sagittal, and coronal planes. IV contrast was administered without complication. CT DOSE: 385.29 mGy.cm FINDINGS: Lower chest: There is a stable 19 mm lobulated right middle lobe pulmonary nodule. There are dense coronary artery calcifications Liver: The contrast-enhanced liver is normal in size, contour, and attenuation. There is no intrahepatic biliary ductal dilatation. The hepatic veins and portal veins are patent. Gallbladder: Surgically absent Spleen: Normal in size and attenuation. Pancreas: Unremarkable. Adrenal glands: Unremarkable. Kidneys: There is a nonobstructing 4 mm lower pole left renal calculus. There are vascular calcifications present. There are no solid renal masses. Bowel: There are multiple fluid-filled bowel loops. There is extensive sigmoid diverticulosis. There is a small amount of free intraperitoneal air. In the setting of abdominal pain this suggests a perforated viscus. Surgical consultation is recommended. Peritoneum: There is no significant ascites. There is a small volume of free intraperitoneal air Vasculature: There are moderately extensive atheromatous changes with dense calcification involving the superior mesenteric artery. There is no evidence of abdominal aortic aneurysm Adenopathy: None. Pelvic viscera: There is bladder wall thickening likely secondary to a decompressed bladder. Skeletal structures: There is partial SI joint ankylosis. There is L1-2 and L4-5 fusion. There is a stable left iliac sclerotic lesion. IMPRESSION: 1. Interval development of free intraperitoneal air. In the setting of abdominal pain, this suggests a perforated viscus. Surgical consultation is recommended 2. Stable 19 mm right middle lobe pulmonary nodule 3. Stable nonobstructing 4 mm left renal calculus 4. Persistent mildly dilated fluid-filled small bowel loops 5. Extensive colonic diverticulosis Electronically signed by: Rafy Gomez M.D. 10/20/2016 10:18 PM Dictated Date/Time: 10/20/2016 10:11 PM
[2016-10-20] MEDS: NSS + 20MEQ KCL 1000ML 1,000 ML IV SCH (22:22)
[2016-10-20] MEDS ORDERED: VANCOMYCIN INJ 1,000 MG in SODIUM CHLORIDE 0.9% 250ML 250 ML IV STA (22:43)
--- NOTE | 2016-10-20 22:56 | History and Physical ---
History & Physical Date & Time of Service: October 20, 2016 at 22:56 Chief Complaint: Small Bowel Obstruction Primary Care Physician: Jaime García M.D. History of Present Illness Source: patient, clinic records, hospital records Mr Palma is a 70 year old male with history of hypertension, hyperlipidemia, hypothyroidism, coronary artery disease, CABGx2, BPH, Powell's esophagus and history of T2DM (diet controlled) who is a direct admit from [facility] GI office after AXR showed 8cm loop of small bowel with concern for partial small bowel obstruction. He was recently in hospital from October 08 - October 12 for diarrhea and weakness. On that admission he underwent EGD and colonoscopy - erythematous and mild micro ulcerated mucosa in the cecum. He was started on budesonide but this medication was too expensive so he was switched to mesalazine. On follow up with GI today he has been having increasing distension and abdominal pain since being discharged although he denies any nausea of vomiting. Initial plan was to switch the mesalazine to prednisone taper until the AXR results came back. He reports his symptoms are somewhat improved since being seen in the office and he is currently without abdominal pain. He has ongoing diarrhea 1-6 times/day which has been watery. He has chronic GI issues since diagnosed 3 years ago after being diagnosed with scleroderma. Previous treatment included chronic ciprofloxacin for bacterial overgrowth. He had a positive Campylobacter 2 weeks previously as per previous H &P although I have no record of this. Past Medical/Surgical History Medical Problems: (1) ATHEROSCLEROSIS NOS Status: Chronic (2) Diabetes mellitus Status: Chronic (3) DIVERTICULOSIS COLON (W/O MENT OF HEMORRHAGE) Status: Chronic (4) ESOPHAGEAL REFLUX Status: Chronic (5) Hiatal hernia Status: Chronic (6) HYPERLIPIDEMIA NEC/NOS Status: Chronic (7) HYPERTENSION NOS Status: Chronic (8) PERIPH VASCULAR DIS NOS Status: Chronic (9) RAYNAUD'S SYNDROME Status: Chronic (10) Ulcer Status: Chronic Surgical Problems: (1) Hx of CABG Status: Resolved Family History Diabetes mellitus Hypertension Myocardial infarction Social History Smoking Status: Former Smoker Drug Use: none Marital Status: Housing status: lives with significant other Occupational Status: retired Immunizations History of Influenza Vaccine: Unknown History of Tetanus Vaccine?: Unknown History of Pneumococcal: Unknown History of Hepatitis B Vaccine: Unknown Multi-Drug Resistant Organisms History of MDRO: No Allergies Coded Allergies: Statins (Verified Adverse Reaction, Mild, CALF CRAMPING, 05/24/14) SYMPTOMS POSSIBLE RELATED TO CLAUDICATION Naproxen (Verified Adverse Reaction, Unknown, RASH, 05/24/14) Home Medications Scheduled Aspirin (Aspirin), 81 MG PO DAILY Clopidogrel (Plavix), 75 MG PO DAILY Cyanocobalamin (Vitamin B12 500MCG), 1,000 MCG PO DAILY Cyanocobalamin (B12), 1 TAB PO DAILY Ferrous Sulfate (Iron), 325 MG PO DAILY Finasteride (Finasteride), 1 TAB PO DAILY Levothyroxine Sodium (Levothyroxine Sodium), 1 TAB PO DAILY Lisinopril (Lisinopril), 20 MG PO DAILY Metoprolol Tartrate (Lopressor), 25 MG PO BID Multiple Vitamin (Multivitamin), 1 TAB PO DAILY Nitroglycerin (Nitrostat), 0.4 MG UT PRN Nutritional Supplements (Boost), 1 CAN PO UD Pantoprazole (Pantoprazole Sodium), 40 MG PO DAILY Probiotic Product (Probiotic), 1 TAB PO TID Ranitidine (Zantac), 300 MG PO HS Scheduled PRN Cholestyramine (Bulk) (Cholestyramine), 1 PKT PO DAILY PRN for Diarrhea Dicyclomine Hcl (Dicyclomine Hcl), 1 TAB PO DAILY PRN for Gas or Constipation Nitroglycerin (Nitrostat), 0.3 MG UT PRN PRN for Chest Pain Pantoprazole (Protonix), 20 MG PO DAILY PRN for GI Upset Miscellaneous Medications Lactobacillus Acidophilus (Lactinex), 1 TAB PO Review of Systems 10 systems review otherwise negative Physical Exam Vital Signs Date Time Temp Pulse Resp B/P Pulse Ox O2 Delivery O2 Flow Rate FiO2 10/20/16 20:00 Room Air 10/20/16 19:22 36.3 76 20 144/76 98 Room Air General Appearance: WD/WN, no apparent distress Head: normocephalic, atraumatic Eyes: normal inspection, EOMI Neck: supple, no JVD Respiratory/Chest: chest non-tender, lungs clear, normal breath sounds, no respiratory distress, no accessory muscle use Cardiovascular: regular rate, rhythm, no murmur Abdomen/GI: normal bowel sounds, non tender (no guarding or rebound tenderness) , soft, + distended Neurologic/Psych: no motor/sensory deficits, alert, oriented x 3 Skin: normal color, warm/dry, no rash Diagnostics Laboratory Results Results Past 24 Hours Test 10/20/16 19:48 10/20/16 21:20 Range/Units White Blood Count 6.90 4.8-10.8 K/uL Red Blood Count 4.20 4.7-6.1 M/uL Hemoglobin 13.4 14.0-18.0 g/dL Hematocrit 40.7 42-52 % Mean Corpuscular Volume 96.9 80-100 fL Mean Corpuscular Hemoglobin 31.9 25-34 pg Mean Corpuscular Hemoglobin Concent 32.9 32-36 g/dl Platelet Count 288 130-400 K/uL Mean Platelet Volume 10.0 7.4-10.4 fL Neutrophils (%) (Auto) 74.0 % Lymphocytes (%) (Auto) 15.2 % Monocytes (%) (Auto) 9.6 % Eosinophils (%) (Auto) 1.0 % Basophils (%) (Auto) 0.1 % Neutrophils # (Auto) 5.10 1.4-6.5 K/uL Lymphocytes # (Auto) 1.05 1.2-3.4 K/uL Monocytes # (Auto) 0.66 0.11-0.59 K/uL Eosinophils # (Auto) 0.07 0-0.5 K/uL Basophils # (Auto) 0.01 0-0.2 K/uL RDW Standard Deviation 49.9 36.4-46.3 fL RDW Coefficient of Variation 14.1 11.5-14.5 % Immature Granulocyte % (Auto) 0.1 % Immature Granulocyte # (Auto) 0.01 0.00-0.02 K/uL Prothrombin Time 11.0 9.0-12.0 SECONDS Prothromb Time International Ratio 1.0 0.9-1.1 Activated Partial Thromboplast Time 30.3 21.0-31.0 SECONDS Partial Thromboplastin Ratio 1.2 Sodium Level 144 136-145 mmol/L Potassium Level 3.6 3.5-5.1 mmol/L Chloride Level 110 98-107 mmol/L Carbon Dioxide Level 25 21-32 mmol/L Anion Gap 9.0 3-11 mmol/L Blood Urea Nitrogen 24 7-18 mg/dl Creatinine 1.40 0.60-1.40 mg/dl Est Creatinine Clear Calc Drug Dose 47.7 ml/min Estimated GFR () 57.8 Estimated GFR (Non- 49.8 BUN/Creatinine Ratio 16.9 10-20 Random Glucose 121 70-99 mg/dl Calcium Level 9.1 8.5-10.1 mg/dl Total Bilirubin 0.6 0.2-1 mg/dl Direct Bilirubin 0.1 0-0.2 mg/dl Aspartate Amino Transf (AST/SGOT) 14 15-37 U/L Alanine Aminotransferase (ALT/SGPT) 22 12-78 U/L Alkaline Phosphatase 123 45-117 U/L Total Protein 7.5 6.4-8.2 gm/dl Albumin 3.7 3.4-5.0 gm/dl Lipase 92 73-393 U/L Lactic Acid Level 1.2 0.4-2.0 mmol/L Microbiology Results 10/20/16 Blood Culture, Received Pending 10/20/16 Blood Culture, Received Pending 10/20/16 Shiga Toxin Test, Ordered Pending 10/20/16 Stool Culture, Ordered Pending 10/20/16 C.difficile Toxin B Gene (PCR), Ordered Pending Diagnostic Radiology CT ABD/PELVIS IV CONTRAST ONLY CLINICAL HISTORY: Severe abdominal pain. Possible bowel perforation. Possible small bowel obstruction. COMPARISON STUDY: 10/08/2016 TECHNIQUE: Following the IV administration of 116 mL of Optiray-320, CT scan of the abdomen and pelvis was performed from the lung bases to the proximal femurs. Images are reviewed in the axial, sagittal, and coronal planes. IV contrast was administered without complication. CT DOSE: 385.29 mGy.cm FINDINGS: Lower chest: There is a stable 19 mm lobulated right middle lobe pulmonary nodule. There are dense coronary artery calcifications Liver: The contrast-enhanced liver is normal in size, contour, and attenuation. There is no intrahepatic biliary ductal dilatation. The hepatic veins and portal veins are patent. Gallbladder: Surgically absent Spleen: Normal in size and attenuation. Pancreas: Unremarkable. Adrenal glands: Unremarkable. Kidneys: There is a nonobstructing 4 mm lower pole left renal calculus. There are vascular calcifications present. There are no solid renal masses. Bowel: There are multiple fluid-filled bowel loops. There is extensive sigmoid diverticulosis. There is a small amount of free intraperitoneal air. In the setting of abdominal pain this suggests a perforated viscus. Surgical consultation is recommended. Peritoneum: There is no significant ascites. There is a small volume of free intraperitoneal air Vasculature: There are moderately extensive atheromatous changes with dense calcification involving the superior mesenteric artery. There is no evidence of abdominal aortic aneurysm Adenopathy: None. Pelvic viscera: There is bladder wall thickening likely secondary to a decompressed bladder. Skeletal structures: There is partial SI joint ankylosis. There is L1-2 and L4-5 fusion. There is a stable left iliac sclerotic lesion. IMPRESSION: 1. Interval development of free intraperitoneal air. In the setting of abdominal pain, this suggests a perforated viscus. Surgical consultation is recommended 2. Stable 19 mm right middle lobe pulmonary nodule 3. Stable nonobstructing 4 mm left renal calculus 4. Persistent mildly dilated fluid-filled small bowel loops 5. Extensive colonic diverticulosis Electronically signed by: Rafy Gomez M.D. 10/20/2016 10:18 PM Dictated Date/Time: 10/20/2016 10:11 PM EKG Normal sinus rhythm Q waves in inferior leads No change to prior (08 October 2016) Impression Assessment and Plan 70 year old male direct admit with recent small bowel obstruction and AXR with concern for recurrent obstruction. Recommended CT A/P by GI who referred to hospitalist service. Abdominal Distension - CT A/P with IV contrast - showed new free air. Discussed with Dr Delacruz who will come and evaluate patient - NPO + NG tube, IV fluids - Blood cultures and Zosyn to cover potential bacterial GI infection - lactic acid normal therefore not suggestive of mesenteric ischemia - Consult GI in morning Coronary artery disease/Hypertension - hold ASA and Plavix as may need operation, switch BP meds to IV metoprolol due to NPO status Diabetes mellitus - glucose currently normal - Q6H BSG VTE Prophylaxis - deferred pending surgical consultation Disposition - Admission to telemetry Level of Care Telemetry Advanced Directives Existing Living Will: No Existing Power of Gate Technician: No Resuscitation Status FULL RESUSCITATION VTE Prophylaxis VTE Risk Assessment Done? Y/N: Yes Risk Level: Moderate Given or contraindicated: Contraindicated (pending surgery consultation) Resident Tracking Resident Involvement: Resident Care Provided Care Provided: Adult [facility] Assessment and Plan Attending Addendum: I have physically seen and examined this patient, have directed their medical care, have supervised the medical residents activities, and agree with the H&P as noted above, with the following changes: NONE
[2016-10-20] MEDS ORDERED: VANCOMYCIN CONSULT ACTIVE PRN (23:00)
[2016-10-20] MEDS ORDERED: VANCOMYCIN INJ 1,900 MG in SODIUM CHLORIDE 0.9% 500ML 500 ML IV SCH (23:15)
[2016-10-21] VITALS (9 sets, daily range): BP systolic 142–173; BP diastolic 55–74; PULSE 60–69; TEMP 36.3–36.7; O2SAT 95–98
--- NOTE | 2016-10-21 00:22 | Pre-Operative Consultation ---
History General Date of Service: October 21, 2016. Stated Complaint: free air on CT scan HPI HPI: The patient is a 70 year old male with colitis, scleroderma, and his third bout of free air in his abdomen. First was in 2013, second in August 2015. Both times treated nonoperatively and did well. Has a history of mesenteric ischemia and is s/p small bowel stenting in 2013. On plavix for mesenteric and cardiac stents. History of [facility] treatment with ciprofloxacin for bacterial overgrowth. He was just discharged on October 12 after a hospital stay for diarrhea, bloating. Had a colonoscopy and endoscopy by Dr. Oconnor at the time. Showed colitis of right side/ ascending colon. Started on budesonide but this was too expensive. Did well on Wednesday. Wednesday had multiple loose stools and more bloating. Wednesday felt well with no diarrhea and was able to eat two meals. Today, more bloating relieved by laying down with his knees up and passing gas. No abdominal pain. As diarrhea and bloating recurred, he was seen by GI. AXR showed 8 cm loop of small bowel - sent to ER where CT scan was done and shows small volume of intraperitoneal free air. Currently, has 0/10 abdominal pain. No nausea or vomiting. Has noted feeling full quicker with decreased appetite but was able to keep down liquids and solids prior to admission. Historian: patient, family Risk Assessment Daily beta michael use?: No Problem List Medical Problems: (1) Acute kidney injury Status: Acute (2) Weakness Status: Acute Medical & Surgical History Past Medical History: coronary artery disease, diabetes (type 2, diet controlled), GERD (wtih Powell's), high cholesterol, hypertension, hypothyroidism, other (mesenteric ischemia, scleroderma) Past Surgical History: cholecystectomy, coronary bypass surgery, other (back surgery, mesenteric stent placement) Family History Family History: diabetes, heart disease, hypertension Social History Hx Tobacco Use In Past Year?: Yes (chewing tobacco ) Smoking Status: Former Smoker Alcohol: none Drug Use: none Marital status: Housing status: lives with significant other Occupation status: retired Immunizations Have You Had Influenza Vaccine: Unknown Have You Had Tetanus Vaccine: Unknown History of Pneumococcal: Unknown History Hepatitis B Vaccine: Unknown Allergies Allergies: Coded Allergies: Statins (Verified Adverse Reaction, Mild, CALF CRAMPING, 05/24/14) SYMPTOMS POSSIBLE RELATED TO CLAUDICATION Naproxen (Verified Adverse Reaction, Unknown, RASH, 12/11/14) Medications Current Inpatient Medications Current Inpatient Medications Medications (Trade) Dose Ordered Sig/Tony Route Start Time Stop Time Status Last Admin Dose Admin Potassium Chloride/Sodium Chloride (Nss + 20meq KCl 1000ml) 1,000 ml @ 100 mls/hr Q10H IV 10/20/16 21:00 11/19/16 20:29 10/20/16 22:22 100 MLS/HR Nitroglycerin 0.4 mg 0.4 mg UD PRN SL 10/20/16 20:30 11/19/16 20:29 Piperacillin Sod/ Tazobactam Sod/ Dextrose (Zosyn Iv/D5 100ml) 115 ml @ 28.75 mls/ hr Q8H IV 10/21/16 04:00 10/30/16 21:59 Ioversol (Optiray 320) 111 ml UD PRN IV 10/20/16 21:00 10/24/16 20:59 Piperacillin Sod/ Tazobactam Sod 1 ea 1 ea UD PRN N/A 10/20/16 21:15 11/19/16 21:14 Pantoprazole Sodium/Syringe (Protonix Inj/ Syringe) 10 ml @ 5 mls/min DAILY@11 IV 10/21/16 11:00 11/20/16 10:59 Ondansetron HCl 4 mg 4 mg Q6H PRN IV 10/20/16 22:15 11/19/16 22:14 Acetaminophen/ Empty Bag (Ofirmev Iv/ Empty Iv Bag 100ml) 65 ml @ 260 mls/hr Q6H PRN IV 10/20/16 22:15 11/19/16 22:14 Vancomycin HCl 1 ea 1 ea UD PRN N/A 10/20/16 23:00 11/19/16 22:59 Vancomycin HCl/ Sodium Chloride (Vancomycin Inj/ Nss 500ml) 538 ml @ 200 mls/hr TODAY@2315 IV 10/20/16 23:15 10/21/16 01:57 Review of Systems Review of Systems Constitutional: weakness Eyes: reports: no symptoms ENT: reports: sore throat (with ng tube) Cardiovascular: reports: no symptoms reported Respiratory: reports: no symptoms reported Gastrointestinal: diarrhea Genitourinary - Male: reports: no symptoms Musculoskeletal: no symptoms reported Neurologic: reports: no symptoms Psychiatric: reports: no symptoms Endocrine: no symptoms Physical Exam Physical Exam General Appearance: + WD/WN, No distress Ears, Nose, Throat: + normal ENT inspection, No hearing abnormality Neck: No abnormal inspection, No tracheal deviation Respiratory: No accessory muscle use, No chest tenderness, No decreased breath sounds Cardiovascular: No JVD, No abnormal rate, No diastolic murmur, No edema Abdomen: + other (good bowel tones, benign abdomen, open junior RUQ scar), No abnormal bowel sounds, No distension, No guarding, No rebound, No tenderness Extremities: No edema Neurologic/Psychiatric: No abnormal nutrition technician II-XII, No decreased LOC Skin Characteristics: No abnormal color, No cyanosis, No mottling Diagnostics Labs Labs Results Past 24 Hours Test 10/20/16 19:48 10/20/16 21:20 Range/Units White Blood Count 6.90 4.8-10.8 K/uL Red Blood Count 4.20 4.7-6.1 M/uL Hemoglobin 13.4 14.0-18.0 g/dL Hematocrit 40.7 42-52 % Mean Corpuscular Volume 96.9 80-100 fL Mean Corpuscular Hemoglobin 31.9 25-34 pg Mean Corpuscular Hemoglobin Concent 32.9 32-36 g/dl Platelet Count 288 130-400 K/uL Mean Platelet Volume 10.0 7.4-10.4 fL Neutrophils (%) (Auto) 74.0 % Lymphocytes (%) (Auto) 15.2 % Monocytes (%) (Auto) 9.6 % Eosinophils (%) (Auto) 1.0 % Basophils (%) (Auto) 0.1 % Neutrophils # (Auto) 5.10 1.4-6.5 K/uL Lymphocytes # (Auto) 1.05 1.2-3.4 K/uL Monocytes # (Auto) 0.66 0.11-0.59 K/uL Eosinophils # (Auto) 0.07 0-0.5 K/uL Basophils # (Auto) 0.01 0-0.2 K/uL RDW Standard Deviation 49.9 36.4-46.3 fL RDW Coefficient of Variation 14.1 11.5-14.5 % Immature Granulocyte % (Auto) 0.1 % Immature Granulocyte # (Auto) 0.01 0.00-0.02 K/uL Prothrombin Time 11.0 9.0-12.0 SECONDS Prothromb Time International Ratio 1.0 0.9-1.1 Activated Partial Thromboplast Time 30.3 21.0-31.0 SECONDS Partial Thromboplastin Ratio 1.2 Sodium Level 144 136-145 mmol/L Potassium Level 3.6 3.5-5.1 mmol/L Chloride Level 110 98-107 mmol/L Carbon Dioxide Level 25 21-32 mmol/L Anion Gap 9.0 3-11 mmol/L Blood Urea Nitrogen 24 7-18 mg/dl Creatinine 1.40 0.60-1.40 mg/dl Est Creatinine Clear Calc Drug Dose 47.7 ml/min Estimated GFR () 57.8 Estimated GFR (Non- 49.8 BUN/Creatinine Ratio 16.9 10-20 Random Glucose 121 70-99 mg/dl Calcium Level 9.1 8.5-10.1 mg/dl Total Bilirubin 0.6 0.2-1 mg/dl Direct Bilirubin 0.1 0-0.2 mg/dl Aspartate Amino Transf (AST/SGOT) 14 15-37 U/L Alanine Aminotransferase (ALT/SGPT) 22 12-78 U/L Alkaline Phosphatase 123 45-117 U/L Total Protein 7.5 6.4-8.2 gm/dl Albumin 3.7 3.4-5.0 gm/dl Lipase 92 73-393 U/L Lactic Acid Level 1.2 0.4-2.0 mmol/L Microbiology Results 10/20/16 Blood Culture, Received Pending 10/20/16 Blood Culture, Received Pending 10/20/16 Shiga Toxin Test, Ordered Pending 10/20/16 Stool Culture, Ordered Pending 10/20/16 C.difficile Toxin B Gene (PCR), Ordered Pending Lab Interpretation Lab Interpretation: labs were reviewed Diagnostic Radiology Diagnostic Radiology CT scan reviewed: IMPRESSION: 1. Interval development of free intraperitoneal air. In the setting of abdominal pain, this suggests a perforated viscus. Surgical consultation is recommended 2. Stable 19 mm right middle lobe pulmonary nodule 3. Stable nonobstructing 4 mm left renal calculus 4. Persistent mildly dilated fluid-filled small bowel loops 5. Extensive colonic diverticulosis Impression Assessment and Plan Assessment and Plan 70 yr old man on plavix with scleroderma, chronic diarrhea, mesenteric ischemia s/p stent placement now with his third bout of free intraperitoneal air. Laboratory values and examination are within normal limits and suggestive of microperforation that may have already sealed. Discussed option of exp lap with possible bowel resection, ostomy vs conservative treatment with ng tube, IV abx for 48 hrs, and GI consultation for treatment of his underlying condition. I would recommend holding off on IV steroids (if needed for his colitis) for 48 hrs to ensure the perforation has sealed. We reviewed that if he worsens, will require surgical exploration. However, his past two episodes have resolved nonoperatively and this episode appears to be very similar. All questions answered. Recommend npo, ng tube for 48 hrs, IV antibiotics, monitor lab work and clinical exam. GI consult for his underlying issue with diarrhea, scleroderma.
[2016-10-21] MEDS: PIPERACILL/TAZOBAC IV 3.375 GM in DEXTROSE 5% 100ML 100 ML IV SCH ×3 (03:37→22:37)
[2016-10-21] MEDS ORDERED: NITROGLYCERIN 0.4 MG SL PER TAB CHARGE SL PRN (05:00)
[2016-10-21 05:45] LABS: HEMATOCRIT 35.1 % (42-52); MEAN CELL VOLUME 97.2 fL (80-100); MEAN CORPUSCULAR HEMOGLOBIN 31.3 pg (25-34); MEAN CORPUSCULAR HGB CONC 32.2 g/dl (32-36); MEAN PLATELET VOLUME 9.6 fL (7.4-10.4); PLATELET COUNT 234 K/uL (130-400); RED BLOOD COUNT 3.61 M/uL (4.7-6.1)
[2016-10-21] MEDS: METOPROLOL TARTRATE 1 MG/ML VIAL IV. SCH ×5 (06:00→22:29)
[2016-10-21] MEDS: RANITIDINE IV 50 MG in DEXTROSE 5% 100ML 100 ML IV SCH ×3 (06:04→20:29)
[2016-10-21 06:17] LABS: BUN/CREATININE RATIO 17.3 (10-20); CREATININE 1.2 mg/dl (0.60-1.40); POTASSIUM 3.6 mmol/L (3.5-5.1)
[2016-10-21 06:25] LABS: ALB/GLOB RATIO 0.9 (0.9-2)
[2016-10-21] MEDS: NSS + 20MEQ KCL 1000ML 1,000 ML IV SCH ×2 (06:32→17:44)
--- NOTE | 2016-10-21 09:38 | Gastrointestinal Consultation ---
Gastrointestinal Consultation Date of Consultation: October 21, 2016 Consulting Physician: Jayme Reason for Consultation: SBO History of Present Illness Patient is a 70 year old male w/ PMH significant for scleroderma, CAD w/ CABG and stents, chronic diarrhea, hx of SBO, mesentery ischemia, and other listed below that was directly admitted for a SBO following an outpatient clinic visit with APARNA Olson. 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 This was very effective for diarrhea until a few months ago. With this treatment two formed stools/day. However, about 2 months ago, he experienced the slow onset of intermittent post prandial diarrhea, up to 10/day. + Campylobactor on 09/16 treatment with Zithromax 500mg daily on 10/24 x 3 days. He did not restart the Cipro after. He was started on budesonide and we doing well but medication was too expensive. Now on Pentasa 1g BID. Biopsy did not show any chronic colitis, rather focal active colitis. For this, he was instructed to use a course of prednisone. Currently, pt symptoms are much resolved. He is not complaining of any abdominal pain, nausea or bloating. He passed some stool yesterday. No BM or stool today yet. NG tube still w/ suction and moderate output (brown). He is hungry. He is questioning what differently can be done at discharge regarding his diarrhea and persisting symptoms. As outpatient, has between 4-6 stools daily. No black or bloody stools. Stools alternate between semi formed and loose. Dr. Delacruz of surgery evaluated pt last night and discussed conservative management given small microperf - risks and benefits were discussed with patient. CT abd 10/20/16: Interval development of free intraperitoneal air. In the setting of abdominal pain, this suggests a perforated viscus. Surgical consultation is recommended Stable 19 mm right middle lobe pulmonary nodule Stable nonobstructing 4 mm left renal calculus Persistent mildly dilated fluid-filled small bowel loops Extensive colonic diverticulosis EGD 10/12/16: Normal esophagus. Normal stomach. Biopsied. Normal examined duodenum. Biopsied. Colonoscopy 10/12/16: The terminal ileum is normal. Erythematous and mild micro ulcerated mucosa in the cecum. Biopsied. Congested, and areas of micro- ulcerated mucosa in the ascending colon. Biopsied. Mucosa in the sigmoid colon. Biopsied. Diverticulosis in the sigmoid colon. One 8 mm polyp in the sigmoid colon, removed with a hot snare. Resected and retrieved. Internal hemorrhoids.The examination was otherwise normal on direct and retroflexion views. Past Medical/Surgical History Medical Problems: (1) Acute kidney injury Status: Acute (2) Weakness Status: Acute Past Medical History: Barretts, CAD, chronic diarrhea, diverticulosis, T2DM, duodenal ulcer, GERD, DE , PVD, pneumoperitoneum, scleroderma, raynauds, hyperlipidemia, hypothyroidism Past Surgical History: CABG 2012, lumbar spin fusion 1997, cholecystectomy 1979, trancatherter stent 2013, EGD/Colonoscopy 2016 Family History Diabetes mellitus Hypertension Myocardial infarction Social History Smoking Status: Former Smoker Alcohol Use: none Drug Use: none Marital Status: Housing Status: lives with family Occupation Status: retired Allergies Coded Allergies: Statins (Verified Adverse Reaction, Mild, CALF CRAMPING, 05/24/14) SYMPTOMS POSSIBLE RELATED TO CLAUDICATION Naproxen (Verified Adverse Reaction, Unknown, RASH, 05/24/14) Current Medications Home Meds and Scripts Medications Dose Route/Sig Max Daily Dose Days Date Category Lactinex (Lactobacillus Acidophilus) Tab 1 Tab PO 10/20/16 Reported Phazyme (Simethicone) 180 Mg Cap 1 Cap PO BID 10/20/16 Reported Nitrostat (Nitroglycerin) 0.3 Mg Tab 0.3 Mg UT PRN PRN 10/20/16 Reported Cholestyramine (Cholestyramine (Bulk)) 1 Pow Pow 1 Pkt PO DAILY PRN MDD 1 10/20/16 Reported Dicyclomine Hcl 20 Mg Tab 1 Tab PO DAILY PRN 10 10/20/16 Reported Pentasa (Mesalamine) 500 Mg Caper 1,000 Mg PO QID 10/20/16 Reported Finasteride 5 Mg Tab 1 Tab PO DAILY 10/20/16 Reported B12 (Cyanocobalamin) 1,000 Mcg Tab 1 Tab PO DAILY 10/20/16 Reported Levothyroxine Sodium 88 Mcg Tab 1 Tab PO DAILY 30 10/20/16 Reported Plavix (Clopidogrel Bisulfate) 75 Mg Tab 75 Mg PO DAILY 10/20/16 Reported [iron] 65 Mg PO DAILY 10/20/16 Reported Protonix (Pantoprazole Sodium) 20 Mg Tab 20 Mg PO DAILY PRN 10/20/16 Reported Multivitamin (Multivitamins) Tab 1 Tab PO DAILY 10/20/16 Reported Aspirin EC Low Dose (Aspirin) 81 Mg Ectab 1 Tab PO DAILY 10/20/16 Reported Zantac (Ranitidine HCl) 300 Mg Tab 300 Mg PO HS 10/20/16 Reported Lopressor (Metoprolol Tartrate) 50 Mg Tab 50 Mg PO BID 10/20/16 Reported Zestril (Lisinopril) 20 Mg Tab 20 Mg PO DAILY 10/20/16 Reported Entocort Ec (Budesonide) 3 Mg Cap 3 Cap PO DAILY 30 10/12/16 Rx Phazyme (Simethicone) 180 Mg Cap 180 Mg PO BID 10/08/16 Reported Clopidogrel (Clopidogrel Bisulfate) 75 Mg Tab 75 Mg PO DAILY 10/08/16 Reported Finasteride 5 Mg Tab 5 Mg PO DAILY 10/08/16 Reported Pantoprazole Sodium (Pantoprazole) 40 Mg Tab 40 Mg PO DAILY 10/08/16 Reported Synthroid (Levothyroxine Sodium) 88 Mcg Tab 88 Mcg PO DAILY 10/08/16 Reported Lisinopril 20 Mg Tab 20 Mg PO DAILY 10/08/16 Reported Boost (Nutritional Supplements) 1 Liq Liq 1 Can PO UD 04/18/14 Reported Probiotic (Probiotic Product) 1 Cap Cap 1 Tab PO TID 04/17/14 Reported Iron (Ferrous Sulfate) 325 Mg Tab 325 Mg PO DAILY 03/12/14 Reported Vitamin B12 500MCG (Cyanocobalamin) 500 Mcg Tab 1,000 Mcg PO DAILY 11/16/13 Reported Zantac (Ranitidine HCl) 300 Mg Tab 300 Mg PO BID 10/19/13 Reported Nitrostat (Nitroglycerin) 0.4 Mg Sub 0.4 Mg UT PRN 07/11/13 Reported Multivitamin (Multiple Vitamin) 1 Tab Tab 1 Tab PO DAILY 07/11/13 Reported Lopressor (Metoprolol Tartrate) 50 Mg Tab 50 Mg PO BID 07/11/13 Reported Aspirin 81 Mg Tab 81 Mg PO DAILY 07/11/13 Reported Review of Systems Constitutional: No chills, No fever Respiratory: No cough, No shortness of breath Cardiac: No chest pain, No edema Abdomen: + problem reported (no BM today, + hunger), No GI bleeding, No constipation, No diarrhea, No nausea, No pain, No vomiting Physical Exam Date Time Temp Pulse Resp B/P Pulse Ox O2 Delivery O2 Flow Rate FiO2 10/21/16 08:00 Room Air 10/21/16 07:39 36.4 69 18 146/55 97 Room Air 10/21/16 06:08 63 145/65 10/21/16 06:00 63 145/65 10/21/16 04:04 36.4 68 18 142/66 98 Room Air 10/21/16 03:45 Room Air 10/21/16 01:41 60 152/67 10/21/16 00:15 Room Air 10/21/16 00:00 36.6 68 20 166/70 95 Room Air 10/20/16 20:00 Room Air 10/20/16 19:22 36.3 76 20 144/76 98 Room Air General Appearance: no apparent distress, + pertinent finding ( at bedisde , NG tube left nare to suction) Eyes: PERRL ENT: hearing grossly normal Neck: supple, trachea midline Respiratory/Chest: lungs clear, normal breath sounds, no respiratory distress, no accessory muscle use Cardiovascular: regular rate, rhythm, no edema, no gallop, no murmur Abdomen: normal bowel sounds, non tender, soft, no organomegaly, no pulsatile mass Neurologic/Psych: alert, normal mood/affect, oriented x 3 Skin: normal color, no jaundice, warm/dry Laboratory Results Last 24 Hours Test 10/20/16 19:48 10/20/16 21:20 10/21/16 05:35 10/21/16 08:41 White Blood Count 6.90 K/uL 5.50 K/uL Red Blood Count 4.20 M/uL 3.61 M/uL Hemoglobin 13.4 g/dL 11.3 g/dL Hematocrit 40.7 % 35.1 % Mean Corpuscular Volume 96.9 fL 97.2 fL Mean Corpuscular Hemoglobin 31.9 pg 31.3 pg Mean Corpuscular Hemoglobin Concent 32.9 g/dl 32.2 g/dl Platelet Count 288 K/uL 234 K/uL Mean Platelet Volume 10.0 fL 9.6 fL Neutrophils (%) (Auto) 74.0 % Lymphocytes (%) (Auto) 15.2 % Monocytes (%) (Auto) 9.6 % Eosinophils (%) (Auto) 1.0 % Basophils (%) (Auto) 0.1 % Neutrophils # (Auto) 5.10 K/uL Lymphocytes # (Auto) 1.05 K/uL Monocytes # (Auto) 0.66 K/uL Eosinophils # (Auto) 0.07 K/uL Basophils # (Auto) 0.01 K/uL RDW Standard Deviation 49.9 fL 50.1 fL RDW Coefficient of Variation 14.1 % 14.0 % Immature Granulocyte % (Auto) 0.1 % Immature Granulocyte # (Auto) 0.01 K/uL Prothrombin Time 11.0 SECONDS Prothromb Time International Ratio 1.0 Activated Partial Thromboplast Time 30.3 SECONDS Partial Thromboplastin Ratio 1.2 Sodium Level 144 mmol/L 145 mmol/L Potassium Level 3.6 mmol/L 3.6 mmol/L Chloride Level 110 mmol/L 114 mmol/L Carbon Dioxide Level 25 mmol/L 23 mmol/L Anion Gap 9.0 mmol/L 8.0 mmol/L Blood Urea Nitrogen 24 mg/dl 21 mg/dl Creatinine 1.40 mg/dl 1.20 mg/dl Est Creatinine Clear Calc Drug Dose 47.7 ml/min 55.7 ml/min Estimated GFR () 57.8 69.6 Estimated GFR (Non- 49.8 60.1 BUN/Creatinine Ratio 16.9 17.3 Random Glucose 121 mg/dl 105 mg/dl Calcium Level 9.1 mg/dl 8.0 mg/dl Total Bilirubin 0.6 mg/dl 0.4 mg/dl Direct Bilirubin 0.1 mg/dl Aspartate Amino Transf (AST/SGOT) 14 U/L 9 U/L Alanine Aminotransferase (ALT/SGPT) 22 U/L 16 U/L Alkaline Phosphatase 123 U/L 101 U/L Total Protein 7.5 gm/dl 6.2 gm/dl Albumin 3.7 gm/dl 2.9 gm/dl Lipase 92 U/L Lactic Acid Level 1.2 mmol/L 0.7 mmol/L Globulin 3.3 gm/dl Albumin/Globulin Ratio 0.9 Impression Patient is a 70 year old male with outpatient imaging suggestive of a SBO and inpatient CT with similar findings and evidence of free intraperitoneal air and microperforation. Underlying GI history of persistent diarrhea treated with daily cipro x 3 years. Recent colonoscopy with nonspecific acute colitis, biopsies do not suggest any chronic change. Plan NPO for bowel rest NG tube to suction Continue ABX May hold prednisone for appropriate healing of suspected microperforation Monitor labs Plan for MRE once clinically resolved for evaluation Stools culture and stool for c.diff if diarrhea resumes while admitted Daily KUB until resolution Will discuss empiric coverage for bacterial overgrowth with his outpatient GI team I saw and evaluated the patient. He is nomally follow-up by Dr. Oconnro and Ms. Escamilla for suspected IBD. Unfortunatly he developed a SBO with suspected microperforation and is being managed conservativly by General surgery. Recomendations continue NGT to LIS continue abx coverage Celiac serologies / IgA would suggest a rheumatology evaluation for his scleroderma hx (patient and family have questions about therapy)
--- NOTE | 2016-10-21 10:18 | Pharmacy Progress Note ---
Pharmacy Abx Initial Consult Date of Service October 21, 2016. Pharmacy Dosing Scope Date of Consult: 10/20/16 Consultation requested by: Dr. Light/ Dr. Valle Pharmacy is consulted to initiate Vancomycin and Zosyn IV dosing therapy, order appropriate labs and adjust drug dose/frequency. Subjective The patient is a 70 year old male admitted on October 20, 2016 at 18:38. Objective Height (Feet): 5 Height (Inches): 9.00 Weight (Kilograms): 76.700 Vital Signs (Past 12Hrs) Vital Signs Past 12 Hours Date Time Temp Pulse Resp B/P Pulse Ox O2 Delivery O2 Flow Rate FiO2 10/21/16 09:56 64 10/21/16 08:00 Room Air 10/21/16 07:39 36.4 69 18 146/55 97 Room Air 10/21/16 06:08 63 145/65 10/21/16 06:00 63 145/65 10/21/16 04:04 36.4 68 18 142/66 98 Room Air 10/21/16 03:45 Room Air 10/21/16 01:41 60 152/67 10/21/16 00:15 Room Air 10/21/16 00:00 36.6 68 20 166/70 95 Room Air Lab Results (24Hrs) Test 10/20/16 19:48 10/20/16 21:20 10/21/16 05:35 10/21/16 08:41 White Blood Count 6.90 K/uL (4.8-10.8) 5.50 K/uL (4.8-10.8) Red Blood Count 4.20 M/uL (4.7-6.1) 3.61 M/uL (4.7-6.1) Hemoglobin 13.4 g/dL (14.0-18.0) 11.3 g/dL (14.0-18.0) Hematocrit 40.7 % (42-52) 35.1 % (42-52) Mean Corpuscular Volume 96.9 fL (80-100) 97.2 fL (80-100) Mean Corpuscular Hemoglobin 31.9 pg (25-34) 31.3 pg (25-34) Mean Corpuscular Hemoglobin Concent 32.9 g/dl (32-36) 32.2 g/dl (32-36) Platelet Count 288 K/uL (130-400) 234 K/uL (130-400) Mean Platelet Volume 10.0 fL (7.4-10.4) 9.6 fL (7.4-10.4) Neutrophils (%) (Auto) 74.0 % Lymphocytes (%) (Auto) 15.2 % Monocytes (%) (Auto) 9.6 % Eosinophils (%) (Auto) 1.0 % Basophils (%) (Auto) 0.1 % Neutrophils # (Auto) 5.10 K/uL (1.4-6.5) Lymphocytes # (Auto) 1.05 K/uL (1.2-3.4) Monocytes # (Auto) 0.66 K/uL (0.11-0.59) Eosinophils # (Auto) 0.07 K/uL (0-0.5) Basophils # (Auto) 0.01 K/uL (0-0.2) RDW Standard Deviation 49.9 fL (36.4-46.3) 50.1 fL (36.4-46.3) RDW Coefficient of Variation 14.1 % (11.5-14.5) 14.0 % (11.5-14.5) Immature Granulocyte % (Auto) 0.1 % Immature Granulocyte # (Auto) 0.01 K/uL (0.00-0.02) Prothrombin Time 11.0 SECONDS (9.0-12.0) Prothromb Time International Ratio 1.0 (0.9-1.1) Activated Partial Thromboplast Time 30.3 SECONDS (21.0-31.0) Partial Thromboplastin Ratio 1.2 Sodium Level 144 mmol/L (136-145) 145 mmol/L (136-145) Potassium Level 3.6 mmol/L (3.5-5.1) 3.6 mmol/L (3.5-5.1) Chloride Level 110 mmol/L (98-107) 114 mmol/L (98-107) Carbon Dioxide Level 25 mmol/L (21-32) 23 mmol/L (21-32) Anion Gap 9.0 mmol/L (3-11) 8.0 mmol/L (3-11) Blood Urea Nitrogen 24 mg/dl (7-18) 21 mg/dl (7-18) Creatinine 1.40 mg/dl (0.60-1.40) 1.20 mg/dl (0.60-1.40) Est Creatinine Clear Calc Drug Dose 47.7 ml/min 55.7 ml/min Estimated GFR () 57.8 69.6 Estimated GFR (Non- 49.8 60.1 BUN/Creatinine Ratio 16.9 (10-20) 17.3 (10-20) Random Glucose 121 mg/dl (70-99) 105 mg/dl (70-99) Calcium Level 9.1 mg/dl (8.5-10.1) 8.0 mg/dl (8.5-10.1) Total Bilirubin 0.6 mg/dl (0.2-1) 0.4 mg/dl (0.2-1) Direct Bilirubin 0.1 mg/dl (0-0.2) Aspartate Amino Transf (AST/SGOT) 14 U/L (15-37) 9 U/L (15-37) Alanine Aminotransferase (ALT/SGPT) 22 U/L (12-78) 16 U/L (12-78) Alkaline Phosphatase 123 U/L (45-117) 101 U/L (45-117) Total Protein 7.5 gm/dl (6.4-8.2) 6.2 gm/dl (6.4-8.2) Albumin 3.7 gm/dl (3.4-5.0) 2.9 gm/dl (3.4-5.0) Lipase 92 U/L (73-393) Lactic Acid Level 1.2 mmol/L (0.4-2.0) 0.7 mmol/L (0.4-2.0) Globulin 3.3 gm/dl (2.5-4.0) Albumin/Globulin Ratio 0.9 (0.9-2) Test 10/21/16 09:25 Micro Results Date/Time Source Procedure Growth Status 10/20/16 21:20 Blood Blood Culture Pending Received 10/20/16 21:15 Blood Blood Culture Pending Received Risk Factors for Resistance * Hospitalization for 48 hours or more within the past 90 days -> admitted October 08- October 12 for diarrhea and weakness * Antimicrobial use within the last 90 days -> patient is on chronic cipro PO for bacterial overgrowth. He stopped this medication about two months ago and was started on Zithromax 500 mg po x 3 days for campylobacter Assessment & Plan Assessment 70 year old male with h/o scleroderma and chronic diarrhea admitted with SBO and perforated viscus. Plan Vancomycin and Zosyn for treatment of perforated viscus. Vancomycin IV * Loading dose: 1900 mg (25 mg/kg) * Maintenance dose: 1200 mg IV (15.6 mg/kg) every 12 hours * Goal trough level for GI infection: 15 to 20 mcg/mL * Trough level ordered for 10/23/16 Piperacillin/tazobactam * 3.375 g bolus administered over 30 minutes, then 3.375 g IV extended infusion every 8 hours for CrCl greater than 20 mL/min Pharmacy will continue to follow and will adjust dose/frequency as necessary. Thank you.
[2016-10-21] MEDS ORDERED: PANTOprazole INJ 40 MG in SYRINGE 0 ML IV SCH (11:00)
--- NOTE | 2016-10-21 11:25 | Surgery Progress Note ---
Surgery Progress Note Date of Service October 21, 2016. Subjective Post OP Day: HD # 1 + feeling well, No SOB, No bowel movement, No chest pain, No complaints, No flatus, No nausea, No vomiting Objective Vital Signs: Date Time Temp Pulse Resp B/P Pulse Ox O2 Delivery O2 Flow Rate FiO2 10/21/16 09:56 64 10/21/16 08:00 Room Air 10/21/16 07:39 36.4 69 18 146/55 97 Room Air 10/21/16 06:08 63 145/65 10/21/16 06:00 63 145/65 10/21/16 04:04 36.4 68 18 142/66 98 Room Air 10/21/16 03:45 Room Air 10/21/16 01:41 60 152/67 10/21/16 00:15 Room Air 10/21/16 00:00 36.6 68 20 166/70 95 Room Air 10/20/16 20:00 Room Air 10/20/16 19:22 36.3 76 20 144/76 98 Room Air General Appearance: WD/WN, no apparent distress Head: normocephalic, atraumatic Neck: trachea midline Respiratory/Chest: lungs clear, normal breath sounds, no respiratory distress, no accessory muscle use Cardiovascular: regular rate, rhythm, no murmur Abdomen: normal bowel sounds, non tender, non distended, soft Laboratory Results: Results Past 24 Hours Test 10/20/16 19:48 10/20/16 21:20 10/21/16 05:35 10/21/16 08:41 Range/Units White Blood Count 6.90 5.50 4.8-10.8 K/uL Red Blood Count 4.20 3.61 4.7-6.1 M/uL Hemoglobin 13.4 11.3 14.0-18.0 g/dL Hematocrit 40.7 35.1 42-52 % Mean Corpuscular Volume 96.9 97.2 80-100 fL Mean Corpuscular Hemoglobin 31.9 31.3 25-34 pg Mean Corpuscular Hemoglobin Concent 32.9 32.2 32-36 g/dl Platelet Count 288 234 130-400 K/uL Mean Platelet Volume 10.0 9.6 7.4-10.4 fL Neutrophils (%) (Auto) 74.0 % Lymphocytes (%) (Auto) 15.2 % Monocytes (%) (Auto) 9.6 % Eosinophils (%) (Auto) 1.0 % Basophils (%) (Auto) 0.1 % Neutrophils # (Auto) 5.10 1.4-6.5 K/uL Lymphocytes # (Auto) 1.05 1.2-3.4 K/uL Monocytes # (Auto) 0.66 0.11-0.59 K/uL Eosinophils # (Auto) 0.07 0-0.5 K/uL Basophils # (Auto) 0.01 0-0.2 K/uL RDW Standard Deviation 49.9 50.1 36.4-46.3 fL RDW Coefficient of Variation 14.1 14.0 11.5-14.5 % Immature Granulocyte % (Auto) 0.1 % Immature Granulocyte # (Auto) 0.01 0.00-0.02 K/uL Prothrombin Time 11.0 9.0-12.0 SECONDS Prothromb Time International Ratio 1.0 0.9-1.1 Activated Partial Thromboplast Time 30.3 21.0-31.0 SECONDS Partial Thromboplastin Ratio 1.2 Sodium Level 144 145 136-145 mmol/L Potassium Level 3.6 3.6 3.5-5.1 mmol/L Chloride Level 110 114 98-107 mmol/L Carbon Dioxide Level 25 23 21-32 mmol/L Anion Gap 9.0 8.0 3-11 mmol/L Blood Urea Nitrogen 24 21 7-18 mg/dl Creatinine 1.40 1.20 0.60-1.40 mg/dl Est Creatinine Clear Calc Drug Dose 47.7 55.7 ml/min Estimated GFR () 57.8 69.6 Estimated GFR (Non- 49.8 60.1 BUN/Creatinine Ratio 16.9 17.3 10-20 Random Glucose 121 105 70-99 mg/dl Calcium Level 9.1 8.0 8.5-10.1 mg/dl Total Bilirubin 0.6 0.4 0.2-1 mg/dl Direct Bilirubin 0.1 0-0.2 mg/dl Aspartate Amino Transf (AST/SGOT) 14 9 15-37 U/L Alanine Aminotransferase (ALT/SGPT) 22 16 12-78 U/L Alkaline Phosphatase 123 101 45-117 U/L Total Protein 7.5 6.2 6.4-8.2 gm/dl Albumin 3.7 2.9 3.4-5.0 gm/dl Lipase 92 73-393 U/L Lactic Acid Level 1.2 0.7 0.4-2.0 mmol/L Globulin 3.3 2.5-4.0 gm/dl Albumin/Globulin Ratio 0.9 0.9-2 Test 10/21/16 09:25 Range/Units Immunoglobulin A 263.0 70-400 mg/dL Microbiology Results 10/20/16 Blood Culture, Received Pending 10/20/16 Blood Culture, Received Pending Assessment & Plan Pneumoperitoneum, contained microperforation of ascending colon Scleroderma Extensive Colonic Diverticulosis - vitals stable - no leukocytosis - abdominal examination benign, completely soft, nondistended, nontender to palpation - NGT with 100 mls output, now clear in tubing - lactic acid 0.7 Plan: Continue conservative management at this time IV fluids, NPO, IV pain management prn Continue IV antibiotics Continue NGT to LIS Blood cultures and stool studies pending GI on board Will continue to follow Dr. Ruiz has seen and examined patient agrees with above findings and plan.
[2016-10-21] MEDS: PANTOprazole INJ 40 MG in SYRINGE 0 ML IV SCH (11:27)
--- NOTE | 2016-10-21 14:04 | Clinical Documentation Query ---
CLINICAL DOCUMENTATION QUERY Dr. DOUGLAS, In your clinical opinion is this patient being managed for: ( x ) Acute kidney failure on CKD stage 2 ( ) Other explanation of clinical findings (Please Explain) ( ) Unable to determine (Please Define) ( ) Need to Discuss ( ) Not Agree The medical record reflects the following clinical findings, treatment, and risk factors. Clinical Indicators: 70 yo male presented with abdominal pain with concern for possible small bowel obstruction. Cr 1.40 with GFR of 49.8. Review of historical Cr showed range of 0.99-1.10 over the past 6 months. Corresponding GFR 66.7-75.8. Treatment: IV fluids, monitor PRP Risk Factors: age, HTN, CAD, DM II Please clarify and document your clinical opinion in the progress notes and discharge summary. Terms such as "probable", "suspected", "likely", "questionable", "possible", or "still to be ruled out" are acceptable. IF IN AGREEMENT, YOU MUST DOCUMENT ABOVE DIAGNOSTIC STATEMENT IN DAILY PROGRESS NOTES AND DISCHARGE SUMMARY. This document is not part of the patient's record. Thank You, Lesvia Dailey, TIERA [phone]
[2016-10-21] MEDS: VANCOMYCIN INJ 1,200 MG in SODIUM CHLORIDE 0.9% 250ML 250 ML IV SCH (14:23)
--- NOTE | 2016-10-21 15:38 | DIAGNOSTIC IMAGING REPORT ---
KUB CLINICAL HISTORY: Small bowel obstruction COMPARISON STUDY: 04/20/2016 , CT scan dated 10/20/2016 FINDINGS: There is a nasogastric tube present within the stomach. There are surgical clips within the right upper quadrant consistent with a prior cholecystectomy. There is left-sided nephrolithiasis. The largest calculus measures 7 mm. There is gas present within the colon. There are mildly dilated left upper quadrant small bowel loops measuring up to 44 mm in diameter. There is a probable Morgan catheter within the bladder. There are advanced degenerative changes within the lumbar spine. IMPRESSION: 1. Nasogastric tube within the stomach 2. No evidence of bowel obstruction on this supine study 3. Mildly dilated left upper quadrant small bowel loops measuring up to 44 mm 4. Left-sided nephrolithiasis 5. Suspected free intraperitoneal air Electronically signed by: Rafy Gomez M.D. 10/21/2016 3:37 PM Dictated Date/Time: 10/21/2016 3:30 PM
[2016-10-21] MEDS ORDERED: GLUCOSE 10 TABS/TUBE PO PRN (20:15)
[2016-10-21] MEDS ORDERED: DEXTROSE 50% 50 ML SYR IV PRN (20:15)
[2016-10-21] MEDS ORDERED: GLUCOSE 40% GEL 15 GM TUBE PO PRN (20:15)
[2016-10-21] MEDS ORDERED: GLUCAGON FOR INJ 1 MG VIAL SQ PRN (20:15)
--- NOTE | 2016-10-21 20:23 | Hospitalist Progress Note ---
Hospitalist Progress Note Date of Service October 21, 2016. Subjective Pt evaluation today including: conversation w/ patient, conversation w/ family , physical exam, lab review, review of studies, conversation w/ [employer] application consultant ( [facility]), review of inpatient medication list PO Intake: NPO Voiding: whyte catheter in place Pt reports feeling much better since admission and has NGT to LIS in place. He denies any further diarrhea, no abdominal pain and abdominal bloating is much improved. Constitutional: No fever Respiratory: No shortness of breath Cardiovascular: No chest pain Skin: No rash All Other Systems: Reviewed and Negative Objective Vital Signs Date Time Temp Pulse Resp B/P Pulse Ox O2 Delivery O2 Flow Rate FiO2 10/21/16 12:00 Room Air 10/21/16 11:24 36.6 65 18 148/66 97 Room Air 10/21/16 09:56 64 10/21/16 08:00 Room Air 10/21/16 07:39 36.4 69 18 146/55 97 Room Air 10/21/16 06:08 63 145/65 10/21/16 06:00 63 145/65 10/21/16 04:04 36.4 68 18 142/66 98 Room Air 10/21/16 03:45 Room Air 10/21/16 01:41 60 152/67 10/21/16 00:15 Room Air 10/21/16 00:00 36.6 68 20 166/70 95 Room Air 10/20/16 20:00 Room Air 10/20/16 19:22 36.3 76 20 144/76 98 Room Air Physical Exam General Appearance: WD/WN, no apparent distress Eyes: normal inspection, sclerae normal ENT: hearing grossly normal Neck: trachea midline Respiratory/Chest: lungs clear, normal breath sounds, no respiratory distress, no accessory muscle use Cardiovascular: regular rate, rhythm, no edema, no gallop, no murmur Abdomen: normal bowel sounds, non tender, soft, no organomegaly, no pulsatile mass, + pertinent finding (positive abdominal bruit) Extremities: non-tender, no pedal edema, no calf tenderness, + pertinent finding (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) Neurologic/Psychiatric: alert, normal mood/affect, oriented x 3 Skin: normal color, warm/dry, no rash Lymphatic: no adenopathy Laboratory Results Last 24 Hours Test 10/20/16 19:48 10/20/16 21:20 10/21/16 00:00 10/21/16 05:35 White Blood Count 6.90 K/uL 5.50 K/uL Red Blood Count 4.20 M/uL 3.61 M/uL Hemoglobin 13.4 g/dL 11.3 g/dL Hematocrit 40.7 % 35.1 % Mean Corpuscular Volume 96.9 fL 97.2 fL Mean Corpuscular Hemoglobin 31.9 pg 31.3 pg Mean Corpuscular Hemoglobin Concent 32.9 g/dl 32.2 g/dl Platelet Count 288 K/uL 234 K/uL Mean Platelet Volume 10.0 fL 9.6 fL Neutrophils (%) (Auto) 74.0 % Lymphocytes (%) (Auto) 15.2 % Monocytes (%) (Auto) 9.6 % Eosinophils (%) (Auto) 1.0 % Basophils (%) (Auto) 0.1 % Neutrophils # (Auto) 5.10 K/uL Lymphocytes # (Auto) 1.05 K/uL Monocytes # (Auto) 0.66 K/uL Eosinophils # (Auto) 0.07 K/uL Basophils # (Auto) 0.01 K/uL RDW Standard Deviation 49.9 fL 50.1 fL RDW Coefficient of Variation 14.1 % 14.0 % Immature Granulocyte % (Auto) 0.1 % Immature Granulocyte # (Auto) 0.01 K/uL Prothrombin Time 11.0 SECONDS Prothromb Time International Ratio 1.0 Activated Partial Thromboplast Time 30.3 SECONDS Partial Thromboplastin Ratio 1.2 Sodium Level 144 mmol/L 145 mmol/L Potassium Level 3.6 mmol/L 3.6 mmol/L Chloride Level 110 mmol/L 114 mmol/L Carbon Dioxide Level 25 mmol/L 23 mmol/L Anion Gap 9.0 mmol/L 8.0 mmol/L Blood Urea Nitrogen 24 mg/dl 21 mg/dl Creatinine 1.40 mg/dl 1.20 mg/dl Est Creatinine Clear Calc Drug Dose 47.7 ml/min 55.7 ml/min Estimated GFR () 57.8 69.6 Estimated GFR (Non- 49.8 60.1 BUN/Creatinine Ratio 16.9 17.3 Random Glucose 121 mg/dl 105 mg/dl Calcium Level 9.1 mg/dl 8.0 mg/dl Total Bilirubin 0.6 mg/dl 0.4 mg/dl Direct Bilirubin 0.1 mg/dl Aspartate Amino Transf (AST/SGOT) 14 U/L 9 U/L Alanine Aminotransferase (ALT/SGPT) 22 U/L 16 U/L Alkaline Phosphatase 123 U/L 101 U/L Total Protein 7.5 gm/dl 6.2 gm/dl Albumin 3.7 gm/dl 2.9 gm/dl Lipase 92 U/L Lactic Acid Level 1.2 mmol/L 0.7 mmol/L Globulin 3.3 gm/dl Albumin/Globulin Ratio 0.9 Test 10/21/16 09:25 Immunoglobulin A 263.0 mg/dL Assessment and Plan Mr Palma is a 70 year old male with history of scleroderma, hypertension, hyperlipidemia, hypothyroidism, coronary artery disease, 2vCABG and 2 stents placed in 2013, BPH, Powell's esophagus and history of T2DM (diet controlled) who is a direct admit from [facility] GI office after AXR showed 8cm loop of small bowel with concern for partial small bowel obstruction. He was recently in hospital from October 08 - October 12 for diarrhea and weakness. On that admission he underwent EGD and colonoscopy - erythematous and mild micro ulcerated mucosa in the cecum-had multiple biopsies taken from the colon at that time. He was started on budesonide but this medication was too expensive so he was switched to mesalazine. On follow up with GI he was having increasing distension and abdominal pain and ongoing diarrhea 1-6 times/day which has been watery. He has chronic GI issues since diagnosed 3 years ago after being diagnosed with scleroderma. Previous treatment included chronic ciprofloxacin for bacterial overgrowth. He had a positive Campylobacter 2 weeks ago. He has also had 2 previous bowel perforations which were treated conservatively and resolved. On CT scan after admission, he was found to have free intraperitoneal air. Bowel perforation, free intraperitoneal air-likely secondary either to friable bowel from steroids along with history of scleroderma and partial small bowel obstruction or a microperforation from diverticulosis however no diverticulitis noted. He did also have recent colon biopsies however those were 8 days prior. He is not septic at this time but is on prophylactic antibiotics and has an NG tube in place to intermittent suction. He is much improved since admission and has a nonsurgical abdomen. His lactate is normal but he does have a history of mesenteric ischemia requiring stenting of one of the vessels to the bowel. -Gen. surgery has seen the patient and is recommending continued conservative management -Continue nothing by mouth status, NG tube, IV Zosyn and IV Vanco and observation for worsening -GI consult appreciated as well-recommend MR enterography after improvement -Stool cultures and C. difficile pending -Hold off on any steroids at this time -Holding outpatient Cipro and mesalamine -Continue IV fluids while nothing by mouth CAD, status post CABG and QUINTON placement, hypertension-stable at this time, has chronic ECG changes, no chest pain, blood pressure is controlled, not able to take by mouth meds at this time -IV metoprolol ordered, holding all home meds but will restart as soon as able to take by mouth-aspirin, Plavix, metoprolol, lisinopril, statin Scleroderma-with Powell's esophagus, GERD, Raynaud's phenomenon-followed by Dr. Sunita Mosley of rheumatology as an outpatient. Patient denies history of restrictive lung disease. Could be contributing to recurrent bowel perforations. -Continue follow-up with rheumatology as an outpatient -Continue ranitidine and pantoprazole IV BPH-no evidence of active issues -Continue finasteride Diabetes mellitus type 2-diet controlled at home, last hemoglobin A1c is 6.5% in July 2016 -Glucose checks and insulin sliding scale -Repeat hemoglobin A1c Hypothyroidism-TSH 1.09 in September 2016-stable -Continue levothyroxine in IV form Prophylaxis-add SCDs, no chemical prophylaxis at this time in case of need for surgery Disposition-remain on telemetry, full code
[2016-10-21] MEDS ORDERED: INSULIN ASPART 100 UNITS/ML 3 ML PEN SC SCH (21:00)
[2016-10-21] MEDS ORDERED: LORAZEPAM 2 MG/ML 1 ML VIAL IV PRN (21:15)
[2016-10-21] MEDS: LORAZEPAM 2 MG/ML 1 ML VIAL IV PRN (21:59)
[2016-10-22] VITALS (9 sets, daily range): BP systolic 156–176; BP diastolic 68–81; PULSE 52–69; TEMP 36.3–36.9; O2SAT 94–97
[2016-10-22] MEDS: METOPROLOL TARTRATE 1 MG/ML VIAL IV. SCH ×6 (02:00→21:22)
[2016-10-22] MEDS: VANCOMYCIN INJ 1,200 MG in SODIUM CHLORIDE 0.9% 250ML 250 ML IV SCH ×2 (02:16→14:43)
[2016-10-22] MEDS: NSS + 20MEQ KCL 1000ML 1,000 ML IV SCH (04:06)
[2016-10-22] MEDS: PIPERACILL/TAZOBAC IV 3.375 GM in DEXTROSE 5% 100ML 100 ML IV SCH ×3 (04:07→19:45)
[2016-10-22 05:49] LABS: BASO % 0.6 %; BASO ABS # 0.03 K/uL (0-0.2); COMPLETE YES; EOS % 2.9 %; HEMATOCRIT 33.9 % (42-52); IG% 0.2 %; MEAN CELL VOLUME 97.1 fL (80-100); MEAN CORPUSCULAR HEMOGLOBIN 31.5 pg (25-34); MEAN CORPUSCULAR HGB CONC 32.4 g/dl (32-36); MEAN PLATELET VOLUME 9.8 fL (7.4-10.4); MONO % 11.1 %; NEUT % 62.2 %; PLATELET COUNT 232 K/uL (130-400); RED BLOOD COUNT 3.49 M/uL (4.7-6.1); WHITE BLOOD COUNT 5.21 K/uL (4.8-10.8)
[2016-10-22] MEDS: RANITIDINE IV 50 MG in DEXTROSE 5% 100ML 100 ML IV SCH ×3 (05:53→21:21)
[2016-10-22] MEDS: INSULIN ASPART 100 UNITS/ML 3 ML PEN SC SCH ×4 (06:00→23:48)
[2016-10-22 06:23] LABS: ALKALINE PHOSPHATASE 92 U/L (45-117); ALT/SGPT 14 U/L (12-78); AST/SGOT 12 U/L (15-37); BLOOD UREA NITROGEN 10 mg/dl (7-18); BUN/CREATININE RATIO 10.9 (10-20); CARBON DIOXIDE 22 mmol/L (21-32); CHLORIDE 115 mmol/L (98-107); GLUCOSE 75 mg/dl (70-99); MAGNESIUM 1.7 mg/dl (1.8-2.4); POTASSIUM 3.5 mmol/L (3.5-5.1); SODIUM 147 mmol/L (136-145)
[2016-10-22 06:31] LABS: CALCIUM 8.2 mg/dl (8.5-10.1)
[2016-10-22 07:41] LABS: ESTIMATED AVERAGE GLUCOSE 140 mg/dl; HA1C FLAG Normal (Normal)
--- NOTE | 2016-10-22 08:56 | Surgery Progress Note ---
Surgery Progress Note Date of Service October 22, 2016. Subjective Post OP Day: HD # 2 + feeling well, + flatus, No SOB, No bowel movement, No chest pain, No complaints, No nausea, No vomiting no abdominal pain Objective Vital Signs: Date Time Temp Pulse Resp B/P Pulse Ox O2 Delivery O2 Flow Rate FiO2 10/22/16 07:22 36.6 52 18 167/69 96 Room Air 10/22/16 05:49 59 10/22/16 04:02 36.5 64 20 157/68 97 Room Air 10/22/16 04:00 97 Room Air 10/22/16 02:00 62 10/22/16 00:01 97 Room Air 10/21/16 23:51 36.6 61 18 159/62 97 Room Air 10/21/16 22:29 72 163/69 10/21/16 20:00 Room Air 10/21/16 19:16 36.7 65 16 173/70 98 Room Air 10/21/16 17:58 65 157/72 10/21/16 16:00 Room Air 10/21/16 15:47 36.3 60 16 148/74 97 Room Air 10/21/16 15:32 10/21/16 14:00 65 10/21/16 12:00 Room Air 10/21/16 11:24 36.6 65 18 148/66 97 Room Air 10/21/16 09:56 64 Physical Exam: nasogastric drainage (clear output) General Appearance: WD/WN, no apparent distress Head: normocephalic, atraumatic Neck: trachea midline Respiratory/Chest: lungs clear, normal breath sounds, no respiratory distress, no accessory muscle use Cardiovascular: regular rate, rhythm, no murmur Abdomen: normal bowel sounds, non tender, non distended, soft, no organomegaly , no pulsatile mass Laboratory Results: Results Past 24 Hours Test 10/21/16 09:25 10/21/16 20:32 10/22/16 05:24 Range/Units Immunoglobulin A 263.0 70-400 mg/dL Bedside Glucose 82 70-99 mg/dl White Blood Count 5.21 4.8-10.8 K/uL Red Blood Count 3.49 4.7-6.1 M/uL Hemoglobin 11.0 14.0-18.0 g/dL Hematocrit 33.9 42-52 % Mean Corpuscular Volume 97.1 80-100 fL Mean Corpuscular Hemoglobin 31.5 25-34 pg Mean Corpuscular Hemoglobin Concent 32.4 32-36 g/dl Platelet Count 232 130-400 K/uL Mean Platelet Volume 9.8 7.4-10.4 fL Neutrophils (%) (Auto) 62.2 % Lymphocytes (%) (Auto) 23.0 % Monocytes (%) (Auto) 11.1 % Eosinophils (%) (Auto) 2.9 % Basophils (%) (Auto) 0.6 % Neutrophils # (Auto) 3.24 1.4-6.5 K/uL Lymphocytes # (Auto) 1.20 1.2-3.4 K/uL Monocytes # (Auto) 0.58 0.11-0.59 K/uL Eosinophils # (Auto) 0.15 0-0.5 K/uL Basophils # (Auto) 0.03 0-0.2 K/uL RDW Standard Deviation 50.5 36.4-46.3 fL RDW Coefficient of Variation 14.1 11.5-14.5 % Immature Granulocyte % (Auto) 0.2 % Immature Granulocyte # (Auto) 0.01 0.00-0.02 K/uL Sodium Level 147 136-145 mmol/L Potassium Level 3.5 3.5-5.1 mmol/L Chloride Level 115 98-107 mmol/L Carbon Dioxide Level 22 21-32 mmol/L Anion Gap 10.0 3-11 mmol/L Blood Urea Nitrogen 10 7-18 mg/dl Creatinine 0.90 0.60-1.40 mg/dl Est Creatinine Clear Calc Drug Dose 74.2 ml/min Estimated GFR () 98.5 Estimated GFR (Non- 85.0 BUN/Creatinine Ratio 10.9 10-20 Random Glucose 75 70-99 mg/dl Estimated Average Glucose 140 mg/dl Hemoglobin A1c 6.5 4.5-5.6 % Calcium Level 8.2 8.5-10.1 mg/dl Magnesium Level 1.7 1.8-2.4 mg/dl Total Bilirubin 0.4 0.2-1 mg/dl Direct Bilirubin < 0.1 0-0.2 mg/dl Aspartate Amino Transf (AST/SGOT) 12 15-37 U/L Alanine Aminotransferase (ALT/SGPT) 14 12-78 U/L Alkaline Phosphatase 92 45-117 U/L Total Protein 5.5 6.4-8.2 gm/dl Albumin 2.7 3.4-5.0 gm/dl Assessment & Plan Pneumoperitoneum, contained microperforation of ascending colon? Scleroderma Extensive Colonic Diverticulosis - vitals stable - no leukocytosis - abdominal examination benign, completely soft, nondistended, nontender to palpation - NGT with 130 mls output, clear - lactic acid 0.7 yesterday - KUB yesterday showed dilated small bowel loops measuring 44 mm however no signs of obstruction Plan: Continue conservative management at this time IV fluids, NPO, IV pain management prn Continue IV antibiotics Continue NGT to LIS Blood cultures no growth (preliminary) GI on board Will continue to follow Dr. Ruiz has seen and examined patient, agrees with above
--- NOTE | 2016-10-22 09:16 | DIAGNOSTIC IMAGING REPORT ---
KUB CLINICAL HISTORY: Small bowel obstruction COMPARISON STUDY: 10/21/2016 FINDINGS: There is a nasogastric tube within the stomach. There are surgical clips within the right upper quadrant consistent with a prior cholecystectomy. There is a 7 mm lower pole left renal calculus. There is no current evidence for pathologic small bowel dilatation. A sliver of free air cannot be excluded. Degenerative changes are present within the lumbar spine. IMPRESSION: 1. Left-sided nephrolithiasis 2. No conventional radiographic evidence of pathologic small bowel dilatation Electronically signed by: Rafy Gomez M.D. 10/22/2016 9:15 AM Dictated Date/Time: 10/22/2016 9:13 AM
[2016-10-22] MEDS: LEVOTHYROXINE SODIUM INJ 44 MCG in SYRINGE 0 ML IV SCH (09:19)
--- NOTE | 2016-10-22 10:23 | Gastroenterology Progress Note ---
Progress Note Date of Service: October 22, 2016 Subjective Pt evaluation today including: conversation w/ patient, conversation w/ family , physical exam, chart review, lab review Pt was seen and evaluated this AM. He is feeling well. No BM since Wednesday but he is passing gas. No abdominal pain. No abdominal bloating. No nausea. Decreased output from NG tube. He is hungry. He wants to go home. KUB 10/22/16:There is a nasogastric tube within the stomach. There are surgical clips within the right upper quadrant consistent with a prior cholecystectomy. There is a 7 mm lower pole left renal calculus. There is no current evidence for pathologic small bowel dilatation. A sliver of free air cannot be excluded. Degenerative changes are present within the lumbar spine. KUB 10/21/16: Nasogastric tube within the stomach No evidence of bowel obstruction on this supine study Mildly dilated left upper quadrant small bowel loops measuring up to 44 mm Left-sided nephrolithiasis Suspected free intraperitoneal air CT abd 10/20/16: Interval development of free intraperitoneal air. In the setting of abdominal pain, this suggests a perforated viscus. Surgical consultation is recommended Stable 19 mm right middle lobe pulmonary nodule Stable nonobstructing 4 mm left renal calculus Persistent mildly dilated fluid-filled small bowel loops Extensive colonic diverticulosis EGD 10/12/16: Normal esophagus. Normal stomach. Biopsied. Normal examined duodenum. Biopsied. Colonoscopy 10/12/16: The terminal ileum is normal. Erythematous and mild micro ulcerated mucosa in the cecum. Biopsied. Congested, and areas of micro- ulcerated mucosa in the ascending colon. Biopsied. Mucosa in the sigmoid colon. Biopsied. Diverticulosis in the sigmoid colon. One 8 mm polyp in the sigmoid colon, removed with a hot snare. Resected and retrieved. Internal hemorrhoids.The examination was otherwise normal on direct and retroflexion views. Review of Systems Constitutional: No chills, No fever Respiratory: No cough, No shortness of breath Cardiac: No chest pain, No edema Abdomen: + constipation, No diarrhea, No nausea, No pain, No vomiting Medications Current Inpatient Medications Medications (Trade) Dose Ordered Sig/Tony Route Start Time Stop Time Status Last Admin Dose Admin Piperacillin Sod/ Tazobactam Sod/ Dextrose (Zosyn Iv/D5 100ml) 115 ml @ 28.75 mls/ hr Q8H IV 10/21/16 04:00 10/30/16 21:59 10/22/16 04:07 28.75 MLS/HR Ioversol (Optiray 320) 111 ml UD PRN IV 10/20/16 21:00 10/24/16 20:59 Piperacillin Sod/ Tazobactam Sod 1 ea 1 ea UD PRN N/A 10/20/16 21:15 11/19/16 21:14 Pantoprazole Sodium/Syringe (Protonix Inj/ Syringe) 10 ml @ 5 mls/min DAILY@11 IV 10/21/16 11:00 11/20/16 10:59 10/21/16 11:27 5 MLS/MIN Ondansetron HCl 4 mg 4 mg Q6H PRN IV 10/20/16 22:15 11/19/16 22:14 Acetaminophen/ Empty Bag (Ofirmev Iv/ Empty Iv Bag 100ml) 65 ml @ 260 mls/hr Q6H PRN IV 10/20/16 22:15 11/19/16 22:14 Vancomycin HCl 1 ea 1 ea UD PRN N/A 10/20/16 23:00 11/19/16 22:59 Ranitidine HCl/ Dextrose (zANTac IV/D5 100ml) 102 ml @ 200 mls/hr Q8H IV 10/21/16 06:00 11/20/16 05:59 10/22/16 05:53 200 MLS/HR Metoprolol Tartrate (Lopressor Iv) 5 mg Q4H IV. 10/21/16 06:00 11/20/16 05:59 10/21/16 22:29 5 MG Nitroglycerin 0.4 mg 0.4 mg PRN PRN SL 10/21/16 05:00 11/20/16 04:59 Vancomycin HCl/ Sodium Chloride (Vancomycin Inj/ Nss 250ml) 274 ml @ 125 mls/hr Q12H IV 10/21/16 14:00 10/31/16 00:00 10/22/16 02:16 125 MLS/HR Glucose (Glucose 40% Gel) 15-30 GRAMS 15 GRAMS... UD PRN PO 10/21/16 20:15 11/20/16 20:14 Glucose (Glucose Chew Tab) 4-8 Tablets 4 Tabl... UD PRN PO 10/21/16 20:15 6/9/17 20:14 Dextrose (Dextrose 50% 50ML Syringe) 25-50ML OF 50% DW IV FOR... UD PRN IV 10/21/16 20:15 11/20/16 20:14 Glucagon (Glucagon Inj) 1 mg UD PRN SQ 10/21/16 20:15 11/20/16 20:14 Lorazepam 0.5 mg 0.5 mg Q4H PRN IV 10/21/16 20:30 11/20/16 20:29 10/21/16 21:59 0.5 MG Levothyroxine Sodium/Syringe (Synthroid Inj/ Syringe) 2.2 ml @ 2 mls/min DAILY@09 IV 10/22/16 09:00 11/21/16 08:59 10/22/16 09:19 2 MLS/MIN Lorazepam (Ativan Inj) 0.5 mg Q4H PRN IV 10/21/16 21:15 11/20/16 21:14 Insulin Aspart SLIDING SCALE If C... Q6 SC 10/22/16 06:00 11/21/16 05:59 Potassium Chloride/Sodium Chloride (1/2 Nss + 20meq KCl 1000ml) 1,000 ml @ 75 mls/hr [id number] IV 10/22/16 10:00 11/21/16 09:59 UNV Objective Vital Signs Date Time Temp Pulse Resp B/P Pulse Ox O2 Delivery O2 Flow Rate FiO2 10/22/16 09:19 59 10/22/16 08:00 Room Air 10/22/16 07:22 36.6 52 18 167/69 96 Room Air 10/22/16 05:49 59 10/22/16 04:02 36.5 64 20 157/68 97 Room Air 10/22/16 04:00 97 Room Air 10/22/16 02:00 62 10/22/16 00:01 97 Room Air 10/21/16 23:51 36.6 61 18 159/62 97 Room Air 10/21/16 22:29 72 163/69 10/21/16 20:00 Room Air 10/21/16 19:16 36.7 65 16 173/70 98 Room Air 10/21/16 17:58 65 157/72 10/21/16 16:00 Room Air 10/21/16 15:47 36.3 60 16 148/74 97 Room Air 10/21/16 15:32 10/21/16 14:00 65 10/21/16 12:00 Room Air 10/21/16 11:24 36.6 65 18 148/66 97 Room Air Physical Exam General Appearance: no apparent distress Eyes: PERRL ENT: hearing grossly normal Neck: supple Respiratory/Chest: lungs clear, normal breath sounds, no respiratory distress, no accessory muscle use Cardiovascular: regular rate, rhythm, no gallop, no JVD, no murmur Abdomen: normal bowel sounds, non tender, soft, no organomegaly, no pulsatile mass Neurologic/Psych: alert, normal mood/affect, oriented x 3 Skin: normal color, no jaundice, warm/dry, no rash Laboratory Results Last 24 Hours Test 10/21/16 20:32 10/22/16 05:24 Bedside Glucose 82 mg/dl White Blood Count 5.21 K/uL Red Blood Count 3.49 M/uL Hemoglobin 11.0 g/dL Hematocrit 33.9 % Mean Corpuscular Volume 97.1 fL Mean Corpuscular Hemoglobin 31.5 pg Mean Corpuscular Hemoglobin Concent 32.4 g/dl Platelet Count 232 K/uL Mean Platelet Volume 9.8 fL Neutrophils (%) (Auto) 62.2 % Lymphocytes (%) (Auto) 23.0 % Monocytes (%) (Auto) 11.1 % Eosinophils (%) (Auto) 2.9 % Basophils (%) (Auto) 0.6 % Neutrophils # (Auto) 3.24 K/uL Lymphocytes # (Auto) 1.20 K/uL Monocytes # (Auto) 0.58 K/uL Eosinophils # (Auto) 0.15 K/uL Basophils # (Auto) 0.03 K/uL RDW Standard Deviation 50.5 fL RDW Coefficient of Variation 14.1 % Immature Granulocyte % (Auto) 0.2 % Immature Granulocyte # (Auto) 0.01 K/uL Sodium Level 147 mmol/L Potassium Level 3.5 mmol/L Chloride Level 115 mmol/L Carbon Dioxide Level 22 mmol/L Anion Gap 10.0 mmol/L Blood Urea Nitrogen 10 mg/dl Creatinine 0.90 mg/dl Est Creatinine Clear Calc Drug Dose 74.2 ml/min Estimated GFR () 98.5 Estimated GFR (Non- 85.0 BUN/Creatinine Ratio 10.9 Random Glucose 75 mg/dl Estimated Average Glucose 140 mg/dl Hemoglobin A1c 6.5 % Calcium Level 8.2 mg/dl Magnesium Level 1.7 mg/dl Total Bilirubin 0.4 mg/dl Direct Bilirubin < 0.1 mg/dl Aspartate Amino Transf (AST/SGOT) 12 U/L Alanine Aminotransferase (ALT/SGPT) 14 U/L Alkaline Phosphatase 92 U/L Total Protein 5.5 gm/dl Albumin 2.7 gm/dl Assessment and Plan Patient is a 70 year old male with outpatient imaging suggestive of a SBO and inpatient CT with similar findings and evidence of free intraperitoneal air and microperforation. Underlying GI history of persistent diarrhea treated with daily cipro x 3 years. Recent colonoscopy with nonspecific acute colitis, biopsies do not suggest any chronic change. KUB this morning without evidence of SBO or ileus NPO for bowel rest, NG tube to intermittent suction - will leave dietary advancement to surgical team/primary team GI ok to clamp NG tube and liquids Continue ABX May hold prednisone for appropriate healing of suspected microperforation Monitor labs Plan for MRE once clinically resolved for evaluation Stools culture and stool for c.diff if diarrhea resumes while admitted I saw and evaluated the patient. He appears to be improved as compared to yesterday. Once the NG tube is removed we could consider MR enterography for further evaluation of the small bowel to determine if there is a stricture. He will continue to follow with Dr. su as an outpatient
[2016-10-22] MEDS: SODIUM CHLOR 0.45% + 20MEQ KCL 1,000 ML IV SCH ×2 (11:22→23:50)
[2016-10-22] MEDS: PANTOprazole INJ 40 MG in SYRINGE 0 ML IV SCH (11:22)
[2016-10-22] MEDS ORDERED: ENALAPRILAT IV 0.625 MG in DEXTROSE 5% 25ML 25 ML IV ONE (13:21)
[2016-10-22] MEDS: ENALAPRILAT IV 0.625 MG in DEXTROSE 5% 25ML 25 ML IV SCH ×2 (15:46→19:46)
[2016-10-22] MEDS ORDERED: NURSING VERBAL MED ORDER ONE (16:45)
[2016-10-22] MEDS ORDERED: MAGNESIUM SULFATE 1GM / D5W 1 GM in PREMIXED IN D5W 100 ML IV SCH (17:00)
--- NOTE | 2016-10-22 19:54 | Hospitalist Progress Note ---
Hospitalist Progress Note Date of Service October 22, 2016. Subjective Pt evaluation today including: conversation w/ patient, conversation w/ family Patient feeling well, no abdominal pain or bloating, NG tube is still to low intermittent suction, afebrile. Morgan catheter is removed and he has not voided just yet. Constitutional: No fever Respiratory: No shortness of breath Cardiovascular: No chest pain Abdomen: No pain All Other Systems: Reviewed and Negative Objective Vital Signs Date Time Temp Pulse Resp B/P Pulse Ox O2 Delivery O2 Flow Rate FiO2 10/22/16 18:00 69 162/68 10/22/16 17:15 69 162/68 10/22/16 16:00 Room Air 10/22/16 15:47 36.4 66 20 176/76 96 Room Air 10/22/16 13:49 68 10/22/16 12:00 Room Air 10/22/16 11:22 36.3 60 18 169/72 94 Room Air 10/22/16 09:19 59 10/22/16 08:00 Room Air 10/22/16 07:22 36.6 52 18 167/69 96 Room Air 10/22/16 05:49 59 10/22/16 04:02 36.5 64 20 157/68 97 Room Air 10/22/16 04:00 97 Room Air 10/22/16 02:00 62 10/22/16 00:01 97 Room Air 10/21/16 23:51 36.6 61 18 159/62 97 Room Air 10/21/16 22:29 72 163/69 10/21/16 20:00 Room Air Physical Exam General Appearance: WD/WN, no apparent distress Eyes: normal inspection, sclerae normal ENT: hearing grossly normal, pharynx normal Neck: trachea midline Respiratory/Chest: lungs clear, normal breath sounds, no respiratory distress, no accessory muscle use Cardiovascular: regular rate, rhythm, no edema, no gallop, no murmur Abdomen: normal bowel sounds, non tender, soft, no organomegaly, no pulsatile mass, + pertinent finding (positive abdominal bruit) Extremities: normal range of motion, non-tender, normal inspection, no pedal edema, no calf tenderness Neurologic/Psychiatric: alert, normal mood/affect, oriented x 3 Skin: normal color, warm/dry, no rash Laboratory Results Last 24 Hours Test 10/21/16 20:32 10/22/16 05:24 10/22/16 06:03 10/22/16 11:15 Bedside Glucose 82 mg/dl 80 mg/dl 88 mg/dl White Blood Count 5.21 K/uL Red Blood Count 3.49 M/uL Hemoglobin 11.0 g/dL Hematocrit 33.9 % Mean Corpuscular Volume 97.1 fL Mean Corpuscular Hemoglobin 31.5 pg Mean Corpuscular Hemoglobin Concent 32.4 g/dl Platelet Count 232 K/uL Mean Platelet Volume 9.8 fL Neutrophils (%) (Auto) 62.2 % Lymphocytes (%) (Auto) 23.0 % Monocytes (%) (Auto) 11.1 % Eosinophils (%) (Auto) 2.9 % Basophils (%) (Auto) 0.6 % Neutrophils # (Auto) 3.24 K/uL Lymphocytes # (Auto) 1.20 K/uL Monocytes # (Auto) 0.58 K/uL Eosinophils # (Auto) 0.15 K/uL Basophils # (Auto) 0.03 K/uL RDW Standard Deviation 50.5 fL RDW Coefficient of Variation 14.1 % Immature Granulocyte % (Auto) 0.2 % Immature Granulocyte # (Auto) 0.01 K/uL Sodium Level 147 mmol/L Potassium Level 3.5 mmol/L Chloride Level 115 mmol/L Carbon Dioxide Level 22 mmol/L Anion Gap 10.0 mmol/L Blood Urea Nitrogen 10 mg/dl Creatinine 0.90 mg/dl Est Creatinine Clear Calc Drug Dose 74.2 ml/min Estimated GFR () 98.5 Estimated GFR (Non- 85.0 BUN/Creatinine Ratio 10.9 Random Glucose 75 mg/dl Estimated Average Glucose 140 mg/dl Hemoglobin A1c 6.5 % Calcium Level 8.2 mg/dl Magnesium Level 1.7 mg/dl Total Bilirubin 0.4 mg/dl Direct Bilirubin < 0.1 mg/dl Aspartate Amino Transf (AST/SGOT) 12 U/L Alanine Aminotransferase (ALT/SGPT) 14 U/L Alkaline Phosphatase 92 U/L Total Protein 5.5 gm/dl Albumin 2.7 gm/dl Assessment and Plan Mr Palma is a 70 year old male with history of scleroderma, hypertension, hyperlipidemia, hypothyroidism, coronary artery disease, 2vCABG and 2 stents placed in 2013, BPH, Powell's esophagus and history of T2DM (diet controlled) who is a direct admit from [facility] GI office after AXR showed 8cm loop of small bowel with concern for partial small bowel obstruction. He was recently in hospital from October 08 - October 12 for diarrhea and weakness. On that admission he underwent EGD and colonoscopy - erythematous and mild micro ulcerated mucosa in the cecum-had multiple biopsies taken from the colon at that time. He was started on budesonide but this medication was too expensive so he was switched to mesalazine. On follow up with GI he was having increasing distension and abdominal pain and ongoing diarrhea 1-6 times/day which has been watery. He has chronic GI issues since diagnosed 3 years ago after being diagnosed with scleroderma. Previous treatment included chronic ciprofloxacin for bacterial overgrowth. He had a positive Campylobacter 2 weeks ago. He has also had 2 previous bowel perforations which were treated conservatively and resolved. On CT scan after admission, he was found to have free intraperitoneal air. Bowel perforation, free intraperitoneal air-likely secondary either to friable bowel from steroids along with history of scleroderma and partial small bowel obstruction or a microperforation from diverticulosis however no diverticulitis noted. He did also have recent colon biopsies however those were 8 days prior to admission. He is not septic at this time but is on prophylactic antibiotics and has an NG tube in place to intermittent suction. He is much improved since admission and has a nonsurgical abdomen. His lactate is normal but he does have a history of mesenteric ischemia requiring stenting of one of the vessels to the bowel. No leukocytosis, no fevers. Continues to improve. -Gen. surgery has seen the patient and is recommending continued conservative management with observation for 48 hours with NG tube in place -Continue nothing by mouth status, NG tube, IV Zosyn and IV Vanco and observation for worsening -GI consult appreciated as well-recommend MR enterography after improvement -Stool cultures and C. difficile not collected -Hold off on any steroids at this time -Holding outpatient Cipro and mesalamine -Continue IV fluids but change to half-normal saline plus KCl for new hypernatremia -Replace magnesium and potassium and the fluids CAD, status post CABG and QUINTON placement, hypertension-stable at this time, has chronic ECG changes, no chest pain, blood pressure is controlled, not able to take by mouth meds at this time -IV metoprolol ordered, holding all home meds but will restart as soon as able to take by mouth-aspirin, Plavix, metoprolol, lisinopril, statin Scleroderma-with Powell's esophagus, GERD, Raynaud's phenomenon-followed by Dr. Sunita Mosley of rheumatology as an outpatient. Patient denies history of restrictive lung disease. Could be contributing to recurrent bowel perforations. -Continue follow-up with rheumatology as an outpatient -Continue ranitidine and pantoprazole IV BPH-no evidence of active issues -Continue finasteride Diabetes mellitus type 2-diet controlled at home, hemoglobin A1c is 6.5% this admission -Glucose checks and insulin sliding scale Hypothyroidism-TSH 1.09 in September 2016-stable -Continue levothyroxine in IV form Prophylaxis-SCDs, no chemical prophylaxis at this time in case of need for surgery Disposition-remain on telemetry, full code
[2016-10-22] MEDS: LORAZEPAM 2 MG/ML 1 ML VIAL IV PRN (21:21)
[2016-10-23] VITALS (9 sets, daily range): BP systolic 151–185; BP diastolic 62–92; PULSE 51–96; TEMP 36.3–36.6; O2SAT 94–99
[2016-10-23] MEDS ORDERED: VANCOMYCIN TROUGH SCH (01:30)
[2016-10-23] MEDS: VANCOMYCIN INJ 1,200 MG in SODIUM CHLORIDE 0.9% 250ML 250 ML IV SCH ×2 (02:35→22:05)
[2016-10-23] MEDS: ENALAPRILAT IV 0.625 MG in DEXTROSE 5% 25ML 25 ML IV SCH ×2 (02:35→08:10)
[2016-10-23] MEDS: METOPROLOL TARTRATE 1 MG/ML VIAL IV. SCH ×3 (02:36→10:00)
[2016-10-23] MEDS: LORAZEPAM 2 MG/ML 1 ML VIAL IV PRN (03:38)
[2016-10-23] MEDS: PIPERACILL/TAZOBAC IV 3.375 GM in DEXTROSE 5% 100ML 100 ML IV SCH ×3 (05:51→20:31)
[2016-10-23] MEDS: RANITIDINE IV 50 MG in DEXTROSE 5% 100ML 100 ML IV SCH ×3 (05:52→21:19)
[2016-10-23] MEDS: INSULIN ASPART 100 UNITS/ML 3 ML PEN SC SCH ×4 (06:00→20:31)
[2016-10-23 06:11] LABS: BASO % 0.5 %; BASO ABS # 0.03 K/uL (0-0.2); COMPLETE YES; EOS % 2.7 %; HEMATOCRIT 36.1 % (42-52); IG% 0.2 %; LYMPH % 15.9 %; LYMPH ABS # 1.06 K/uL (1.2-3.4); MEAN CELL VOLUME 95.8 fL (80-100); MEAN CORPUSCULAR HGB CONC 32.4 g/dl (32-36); MEAN PLATELET VOLUME 9.7 fL (7.4-10.4); MONO % 9.2 %; NEUT % 71.5 %; PLATELET COUNT 256 K/uL (130-400); RED BLOOD COUNT 3.77 M/uL (4.7-6.1); WHITE BLOOD COUNT 6.65 K/uL (4.8-10.8)
[2016-10-23 06:57] LABS: BUN/CREATININE RATIO 5.2 (10-20); CALCIUM 8.6 mg/dl (8.5-10.1); CREATININE 0.9 mg/dl (0.60-1.40); POTASSIUM 3.7 mmol/L (3.5-5.1)
--- NOTE | 2016-10-23 07:39 | Surgery Progress Note ---
Surgery Progress Note Date of Service October 23, 2016. Subjective Post OP Day: HD # 3 + feeling well, + flatus, No SOB, No bowel movement, No chest pain, No nausea, No vomiting Objective Vital Signs: Date Time Temp Pulse Resp B/P Pulse Ox O2 Delivery O2 Flow Rate FiO2 10/23/16 05:53 66 161/74 10/23/16 04:00 97 Room Air 10/23/16 03:35 36.5 58 20 161/74 97 Room Air 10/23/16 02:36 71 161/81 10/23/16 00:00 97 Room Air 10/22/16 23:48 36.9 67 16 161/81 95 Room Air 10/22/16 21:22 63 156/76 10/22/16 20:00 Room Air 10/22/16 19:31 36.4 63 20 156/76 97 Room Air 10/22/16 18:00 69 162/68 10/22/16 17:15 69 162/68 10/22/16 16:00 Room Air 10/22/16 15:47 36.4 66 20 176/76 96 Room Air 10/22/16 13:49 68 10/22/16 12:00 Room Air 10/22/16 11:22 36.3 60 18 169/72 94 Room Air 10/22/16 09:19 59 10/22/16 08:00 Room Air Physical Exam: nasogastric drainage (clear minimal drainage) General Appearance: WD/WN, no apparent distress Head: normocephalic, atraumatic Neck: trachea midline Respiratory/Chest: no respiratory distress, no accessory muscle use Abdomen: non tender, non distended, soft, no organomegaly, no pulsatile mass Laboratory Results: Results Past 24 Hours Test 10/22/16 11:15 10/22/16 16:27 10/22/16 23:46 10/23/16 01:32 Range/Units Bedside Glucose 88 89 90 70-99 mg/dl Vancomycin Level Trough 22.3 SEE COMMENT mcg/ml Test 10/23/16 05:47 10/23/16 06:10 Range/Units White Blood Count 6.65 4.8-10.8 K/uL Red Blood Count 3.77 4.7-6.1 M/uL Hemoglobin 11.7 14.0-18.0 g/dL Hematocrit 36.1 42-52 % Mean Corpuscular Volume 95.8 80-100 fL Mean Corpuscular Hemoglobin 31.0 25-34 pg Mean Corpuscular Hemoglobin Concent 32.4 32-36 g/dl Platelet Count 256 130-400 K/uL Mean Platelet Volume 9.7 7.4-10.4 fL Neutrophils (%) (Auto) 71.5 % Lymphocytes (%) (Auto) 15.9 % Monocytes (%) (Auto) 9.2 % Eosinophils (%) (Auto) 2.7 % Basophils (%) (Auto) 0.5 % Neutrophils # (Auto) 4.76 1.4-6.5 K/uL Lymphocytes # (Auto) 1.06 1.2-3.4 K/uL Monocytes # (Auto) 0.61 0.11-0.59 K/uL Eosinophils # (Auto) 0.18 0-0.5 K/uL Basophils # (Auto) 0.03 0-0.2 K/uL RDW Standard Deviation 49.2 36.4-46.3 fL RDW Coefficient of Variation 14.0 11.5-14.5 % Immature Granulocyte % (Auto) 0.2 % Immature Granulocyte # (Auto) 0.01 0.00-0.02 K/uL Sodium Level 144 136-145 mmol/L Potassium Level 3.7 3.5-5.1 mmol/L Chloride Level 112 98-107 mmol/L Carbon Dioxide Level 23 21-32 mmol/L Anion Gap 9.0 3-11 mmol/L Blood Urea Nitrogen 5 7-18 mg/dl Creatinine 0.90 0.60-1.40 mg/dl Est Creatinine Clear Calc Drug Dose 74.2 ml/min Estimated GFR () 98.5 Estimated GFR (Non- 85.0 BUN/Creatinine Ratio 5.2 10-20 Random Glucose 85 70-99 mg/dl Calcium Level 8.6 8.5-10.1 mg/dl Magnesium Level 2.0 1.8-2.4 mg/dl Total Bilirubin 0.6 0.2-1 mg/dl Direct Bilirubin 0.1 0-0.2 mg/dl Aspartate Amino Transf (AST/SGOT) 12 15-37 U/L Alanine Aminotransferase (ALT/SGPT) 15 12-78 U/L Alkaline Phosphatase 100 45-117 U/L Total Protein 6.3 6.4-8.2 gm/dl Albumin 2.8 3.4-5.0 gm/dl Bedside Glucose 80 70-99 mg/dl Assessment & Plan Pneumoperitoneum, contained microperforation of ascending colon? Scleroderma Extensive Colonic Diverticulosis - vitals stable - no leukocytosis - abdominal examination benign, completely soft, nondistended, nontender to palpation - NGT with minimal output - KUB showed no small bowel dilatation Plan: Continue IV fluids, IV pain management prn Continue IV antibiotics D/C NGT NPO except ice chips and sips of clears, may have clear liquids later today if tolerates sips Dulcolax suppository Blood cultures no growth (preliminary) Dr. Ruiz has seen and examined patient, agrees with above
[2016-10-23] MEDS ORDERED: BISACODYL 10 MG SUPP PR SCH (08:00)
[2016-10-23] MEDS: LEVOTHYROXINE SODIUM INJ 44 MCG in SYRINGE 0 ML IV SCH (09:17)
[2016-10-23] MEDS: PANTOprazole INJ 40 MG in SYRINGE 0 ML IV SCH (10:22)
[2016-10-23] MEDS ORDERED: NITROGLYCERIN 0.3 MG/1 TAB 100 TAB BTL UT PRN (10:45)
--- NOTE | 2016-10-23 11:11 | Gastroenterology Progress Note ---
Progress Note Date of Service: October 23, 2016 Subjective Pt evaluation today including: conversation w/ patient, physical exam, chart review, lab review Pt was seen and examined this morning. Doing well. NG discontinued. Trial of chips & sips. Will advance to clears as tolerated. + flatus, no BM. Suppository this AM without a BM yet. No fever, chills, chest pain, SOB, abdominal pain, n/ v. Review of Systems Constitutional: No chills, No fever Respiratory: No cough, No shortness of breath Cardiac: No chest pain, No edema Abdomen: + constipation, No diarrhea, No nausea, No pain, No vomiting Medications Current Inpatient Medications Medications (Trade) Dose Ordered Sig/Tony Route Start Time Stop Time Status Last Admin Dose Admin Piperacillin Sod/ Tazobactam Sod/ Dextrose (Zosyn Iv/D5 100ml) 115 ml @ 28.75 mls/ hr Q8H IV 10/21/16 04:00 10/30/16 21:59 10/23/16 05:51 28.75 MLS/HR Ioversol (Optiray 320) 111 ml UD PRN IV 10/20/16 21:00 10/24/16 20:59 Piperacillin Sod/ Tazobactam Sod 1 ea 1 ea UD PRN N/A 10/20/16 21:15 11/19/16 21:14 Pantoprazole Sodium/Syringe (Protonix Inj/ Syringe) 10 ml @ 5 mls/min DAILY@11 IV 10/21/16 11:00 11/20/16 10:59 10/23/16 10:22 5 MLS/MIN Ondansetron HCl 4 mg 4 mg Q6H PRN IV 10/20/16 22:15 11/19/16 22:14 Acetaminophen/ Empty Bag (Ofirmev Iv/ Empty Iv Bag 100ml) 65 ml @ 260 mls/hr Q6H PRN IV 10/20/16 22:15 11/19/16 22:14 Vancomycin HCl 1 ea 1 ea UD PRN N/A 10/20/16 23:00 11/19/16 22:59 Ranitidine HCl/ Dextrose (zANTac IV/D5 100ml) 102 ml @ 200 mls/hr Q8H IV 10/21/16 06:00 11/20/16 05:59 10/23/16 05:52 200 MLS/HR Metoprolol Tartrate (Lopressor Iv) 5 mg Q4H IV. 10/21/16 06:00 11/20/16 05:59 10/23/16 05:53 5 MG Nitroglycerin (Nitrostat Tab) 0.4 mg PRN PRN SL 10/21/16 05:00 11/20/16 04:59 Glucose (Glucose 40% Gel) 15-30 GRAMS 15 GRAMS... UD PRN PO 10/21/16 20:15 11/20/16 20:14 Glucose (Glucose Chew Tab) 4-8 Tablets 4 Tabl... UD PRN PO 10/21/16 20:15 11/20/16 20:14 Dextrose (Dextrose 50% 50ML Syringe) 25-50ML OF 50% DW IV FOR... UD PRN IV 10/21/16 20:15 11/20/16 20:14 Glucagon (Glucagon Inj) 1 mg UD PRN SQ 10/21/16 20:15 11/20/16 20:14 Lorazepam 0.5 mg 0.5 mg Q4H PRN IV 10/21/16 20:30 11/20/16 20:29 10/23/16 03:38 0.5 MG Levothyroxine Sodium/Syringe (Synthroid Inj/ Syringe) 2.2 ml @ 2 mls/min DAILY@09 IV 10/22/16 09:00 11/21/16 08:59 10/23/16 09:17 2 MLS/MIN Lorazepam (Ativan Inj) 0.5 mg Q4H PRN IV 10/21/16 21:15 11/20/16 21:14 Insulin Aspart SLIDING SCALE If C... Q6 SC 10/22/16 06:00 11/21/16 05:59 Potassium Chloride/Sodium Chloride 1,000 ml @ 75 mls/hr [id number] IV 10/22/16 11:00 11/21/16 10:59 10/22/16 23:50 75 MLS/HR Enalaprilat 0.625 mg/Dextrose 25.5 ml @ 100 mls/hr Q6H IV 10/22/16 14:00 11/21/16 13:59 10/23/16 08:10 100 MLS/HR Vancomycin HCl/ Sodium Chloride (Vancomycin Inj/ Nss 250ml) 274 ml @ 125 mls/hr Q18H IV 10/23/16 22:00 11/02/16 21:59 Levothyroxine Sodium (Synthroid Tab) 88 mcg DAILYBB PO 10/24/16 06:00 11/23/16 05:59 UNV Aspirin (Ecotrin Tab) 81 mg DAILY PO 10/24/16 09:00 11/23/16 08:59 UNV Clopidogrel Bisulfate (plAVix TAB) 75 mg DAILY PO 10/24/16 09:00 11/23/16 08:59 UNV Cyanocobalamin (Vitamin B-12 Tab) 1,000 mcg DAILY PO 10/24/16 09:00 11/23/16 08:59 UNV Finasteride (Proscar Tab) 5 mg DAILY PO 10/24/16 09:00 11/23/16 08:59 UNV Lactobacillus Acidophilus (Floranex Tab) 1 tab DAILY PO 10/24/16 09:00 11/23/16 08:59 UNV Lisinopril (Zestril Tab) 20 mg DAILY PO 10/24/16 09:00 11/23/16 08:59 UNV Metoprolol Tartrate (Lopressor Tab) 50 mg BID PO 10/23/16 21:00 11/22/16 20:59 UNV Nitroglycerin (Nitrostat Tab) 0.3 mg PRN PRN UT 10/23/16 10:45 11/22/16 10:44 UNV Aspirin (Ecotrin Tab) 81 mg 1032 ONCE PO 10/23/16 10:32 10/23/16 10:33 UNV Clopidogrel Bisulfate (plAVix TAB) 75 mg 1032 ONCE PO 10/23/16 10:32 10/23/16 10:33 UNV Finasteride (Proscar Tab) 5 mg 1032 ONCE PO 10/23/16 10:32 10/23/16 10:33 UNV Lisinopril (Zestril Tab) 20 mg 1032 ONCE PO 10/23/16 10:32 10/23/16 10:33 UNV Metoprolol Tartrate (Lopressor Tab) 50 mg 1032 ONCE PO 10/23/16 10:32 10/23/16 10:33 UNV Objective Vital Signs Date Time Temp Pulse Resp B/P Pulse Ox O2 Delivery O2 Flow Rate FiO2 10/23/16 10:53 36.3 64 18 164/62 96 Room Air 69 170/65 74 160/69 10/23/16 10:00 67 10/23/16 08:00 Room Air 10/23/16 07:40 36.4 67 18 173/74 94 Room Air 10/23/16 05:53 66 161/74 10/23/16 04:00 97 Room Air 10/23/16 03:35 36.5 58 20 161/74 97 Room Air 10/23/16 02:36 71 161/81 10/23/16 00:00 97 Room Air 10/22/16 23:48 36.9 67 16 161/81 95 Room Air 10/22/16 21:22 63 156/76 10/22/16 20:00 Room Air 10/22/16 19:31 36.4 63 20 156/76 97 Room Air 10/22/16 18:00 69 162/68 10/22/16 17:15 69 162/68 10/22/16 16:00 Room Air 10/22/16 15:47 36.4 66 20 176/76 96 Room Air 10/22/16 13:49 68 10/22/16 12:00 Room Air 10/22/16 11:22 36.3 60 18 169/72 94 Room Air Physical Exam General Appearance: no apparent distress Eyes: PERRL ENT: hearing grossly normal Neck: supple, trachea midline Respiratory/Chest: lungs clear, no respiratory distress Cardiovascular: regular rate, rhythm, no gallop, no JVD Abdomen: normal bowel sounds, non tender, soft, no organomegaly, no pulsatile mass Neurologic/Psych: alert, normal mood/affect, oriented x 3 Skin: normal color, no jaundice, warm/dry, no rash Laboratory Results Last 24 Hours Test 10/22/16 11:15 10/22/16 16:27 10/22/16 23:46 10/23/16 01:32 Bedside Glucose 88 mg/dl 89 mg/dl 90 mg/dl Vancomycin Level Trough 22.3 mcg/ml Test 10/23/16 05:47 10/23/16 06:10 White Blood Count 6.65 K/uL Red Blood Count 3.77 M/uL Hemoglobin 11.7 g/dL Hematocrit 36.1 % Mean Corpuscular Volume 95.8 fL Mean Corpuscular Hemoglobin 31.0 pg Mean Corpuscular Hemoglobin Concent 32.4 g/dl Platelet Count 256 K/uL Mean Platelet Volume 9.7 fL Neutrophils (%) (Auto) 71.5 % Lymphocytes (%) (Auto) 15.9 % Monocytes (%) (Auto) 9.2 % Eosinophils (%) (Auto) 2.7 % Basophils (%) (Auto) 0.5 % Neutrophils # (Auto) 4.76 K/uL Lymphocytes # (Auto) 1.06 K/uL Monocytes # (Auto) 0.61 K/uL Eosinophils # (Auto) 0.18 K/uL Basophils # (Auto) 0.03 K/uL RDW Standard Deviation 49.2 fL RDW Coefficient of Variation 14.0 % Immature Granulocyte % (Auto) 0.2 % Immature Granulocyte # (Auto) 0.01 K/uL Sodium Level 144 mmol/L Potassium Level 3.7 mmol/L Chloride Level 112 mmol/L Carbon Dioxide Level 23 mmol/L Anion Gap 9.0 mmol/L Blood Urea Nitrogen 5 mg/dl Creatinine 0.90 mg/dl Est Creatinine Clear Calc Drug Dose 74.2 ml/min Estimated GFR () 98.5 Estimated GFR (Non- 85.0 BUN/Creatinine Ratio 5.2 Random Glucose 85 mg/dl Calcium Level 8.6 mg/dl Magnesium Level 2.0 mg/dl Total Bilirubin 0.6 mg/dl Direct Bilirubin 0.1 mg/dl Aspartate Amino Transf (AST/SGOT) 12 U/L Alanine Aminotransferase (ALT/SGPT) 15 U/L Alkaline Phosphatase 100 U/L Total Protein 6.3 gm/dl Albumin 2.8 gm/dl Bedside Glucose 80 mg/dl Assessment and Plan Patient is a 70 year old male with outpatient imaging suggestive of a SBO and inpatient CT with similar findings and evidence of free intraperitoneal air and microperforation. Underlying GI history of persistent diarrhea treated with daily cipro x 3 years. Recent colonoscopy with nonspecific acute colitis, biopsies do not suggest any chronic change. KUB this morning without evidence of SBO or ileus. NG removed. Diet advanced as tolerated MRE for evaluation of stricture May hold prednisone for appropriate healing of suspected microperforation Monitor labs Stools culture and stool for c.diff if diarrhea resumes while admitted Appreciate surgery recommendations GI to follow over the weekend. MRE unable to be today due to NPO status - he will need this to be scheduled on Wednesday if he is not admitted. Primary team please assist. I saw and evaluated the patient with Ms. Infante. Recomendations: MR enterography, advance diet as tolerated
[2016-10-23] MEDS: SODIUM CHLOR 0.45% + 20MEQ KCL 1,000 ML IV SCH (11:49)
--- NOTE | 2016-10-23 11:49 | Pharmacy Progress Note ---
Pharmacy Abx Dose Short Note Date of Service October 23, 2016. Assessment & Plan Assessment 70 year old male receiving Vancomycin + Zosyn for treatment of empiric abx therapy for bowel perforation Day # 09/21 of antimicrobial therapy. Plan VANCOMYCIN: * Trough level drawn today is slightly supratherapeutic at 22.3mcg/ml * Will continue current dosing of Vancomycin 1,200mg (~15mg/kg) but extend interval from Q12hrs to Q18hrs to allow for additional vancomycin excretion to maintain goal trough level * Goal trough level estimate: between 15 - 20 mcg/mL for complicated infection (?sepsis?) * Recheck trough level on 10/26/16 @ 0400 ZOSYN: Piperacillin/Tazobactam Extended Infusion: * 3.375 grams IV bolus, 3.375 grams CI IV every 8 hours for est CrCL > 20mL/min. * 3.375 grams IV bolus, 3.375 grams CI IV every 12 hours for est CrCL 20mL/min or below Pharmacy will continue to follow and will adjust dose/frequency as necessary. Thank you.
[2016-10-23] MEDS ORDERED: CLOPIDOGREL BISULFATE 75 MG TAB PO ONE (12:00)
[2016-10-23] MEDS ORDERED: METOPROLOL TARTRATE 50 MG TAB PO ONE (12:00)
[2016-10-23] MEDS ORDERED: ASPIRIN 81 MG ECTAB PO ONE (12:00)
[2016-10-23] MEDS ORDERED: LISINOPRIL 20 MG TAB PO ONE (12:00)
[2016-10-23] MEDS ORDERED: FINASTERIDE 5 MG TAB PO ONE (12:00)
[2016-10-23] MEDS ORDERED: NURSING VERBAL MED ORDER ONE (12:15)
[2016-10-23] MEDS ORDERED: NURSING DECISION MEDICATION ORDER SCH (14:45)
[2016-10-23] MEDS: METOPROLOL TARTRATE 50 MG TAB PO SCH (20:32)
--- NOTE | 2016-10-23 21:52 | Hospitalist Progress Note ---
Hospitalist Progress Note Date of Service October 23, 2016. Subjective Pt evaluation today including: conversation w/ patient, physical exam Patient feels good, NG tube is out, he is passing gas but no bowel movement yet. He is tolerating chips and sips Constitutional: No fever Respiratory: No shortness of breath Cardiovascular: No chest pain Abdomen: No pain All Other Systems: Reviewed and Negative Objective Vital Signs Date Time Temp Pulse Resp B/P Pulse Ox O2 Delivery O2 Flow Rate FiO2 10/23/16 16:30 Room Air 10/23/16 15:27 36.4 96 18 151/92 94 Room Air 10/23/16 13:32 36.4 57 16 185/75 98 Room Air 10/23/16 13:02 36.3 74 18 96 10/23/16 12:00 Room Air 10/23/16 10:53 36.3 64 18 164/62 96 Room Air 69 170/65 74 160/69 10/23/16 10:00 67 10/23/16 08:00 Room Air 10/23/16 07:40 36.4 67 18 173/74 94 Room Air 10/23/16 05:53 66 161/74 10/23/16 04:00 97 Room Air 10/23/16 03:35 36.5 58 20 161/74 97 Room Air 10/23/16 02:36 71 161/81 10/23/16 00:00 97 Room Air 10/22/16 23:48 36.9 67 16 161/81 95 Room Air Physical Exam General Appearance: WD/WN, no apparent distress Eyes: normal inspection, sclerae normal ENT: hearing grossly normal Neck: trachea midline Respiratory/Chest: lungs clear, normal breath sounds, no respiratory distress, no accessory muscle use Cardiovascular: regular rate, rhythm, no edema, no gallop, no murmur Abdomen: normal bowel sounds, non tender, soft, no organomegaly, + pertinent finding (abdominal bruit) Extremities: normal range of motion, non-tender, normal inspection, no pedal edema, no calf tenderness Neurologic/Psychiatric: alert, normal mood/affect, oriented x 3 Skin: normal color, warm/dry, no rash Laboratory Results Last 24 Hours Test 10/22/16 23:46 10/23/16 01:32 10/23/16 05:47 10/23/16 06:10 Bedside Glucose 90 mg/dl 80 mg/dl Vancomycin Level Trough 22.3 mcg/ml White Blood Count 6.65 K/uL Red Blood Count 3.77 M/uL Hemoglobin 11.7 g/dL Hematocrit 36.1 % Mean Corpuscular Volume 95.8 fL Mean Corpuscular Hemoglobin 31.0 pg Mean Corpuscular Hemoglobin Concent 32.4 g/dl Platelet Count 256 K/uL Mean Platelet Volume 9.7 fL Neutrophils (%) (Auto) 71.5 % Lymphocytes (%) (Auto) 15.9 % Monocytes (%) (Auto) 9.2 % Eosinophils (%) (Auto) 2.7 % Basophils (%) (Auto) 0.5 % Neutrophils # (Auto) 4.76 K/uL Lymphocytes # (Auto) 1.06 K/uL Monocytes # (Auto) 0.61 K/uL Eosinophils # (Auto) 0.18 K/uL Basophils # (Auto) 0.03 K/uL RDW Standard Deviation 49.2 fL RDW Coefficient of Variation 14.0 % Immature Granulocyte % (Auto) 0.2 % Immature Granulocyte # (Auto) 0.01 K/uL Sodium Level 144 mmol/L Potassium Level 3.7 mmol/L Chloride Level 112 mmol/L Carbon Dioxide Level 23 mmol/L Anion Gap 9.0 mmol/L Blood Urea Nitrogen 5 mg/dl Creatinine 0.90 mg/dl Est Creatinine Clear Calc Drug Dose 74.2 ml/min Estimated GFR () 98.5 Estimated GFR (Non- 85.0 BUN/Creatinine Ratio 5.2 Random Glucose 85 mg/dl Calcium Level 8.6 mg/dl Magnesium Level 2.0 mg/dl Total Bilirubin 0.6 mg/dl Direct Bilirubin 0.1 mg/dl Aspartate Amino Transf (AST/SGOT) 12 U/L Alanine Aminotransferase (ALT/SGPT) 15 U/L Alkaline Phosphatase 100 U/L Total Protein 6.3 gm/dl Albumin 2.8 gm/dl Test 10/23/16 11:26 10/23/16 16:43 10/23/16 20:15 Bedside Glucose 83 mg/dl 156 mg/dl 125 mg/dl Assessment and Plan Mr Palma is a 70 year old male with history of scleroderma, hypertension, hyperlipidemia, hypothyroidism, coronary artery disease, 2vCABG and 2 stents placed in 2013, BPH, Powell's esophagus and history of T2DM (diet controlled) who is a direct admit from [facility] GI office after AXR showed 8cm loop of small bowel with concern for partial small bowel obstruction. He was recently in hospital from October 08 - October 12 for diarrhea and weakness. On that admission he underwent EGD and colonoscopy - erythematous and mild micro ulcerated mucosa in the cecum-had multiple biopsies taken from the colon at that time. He was started on budesonide but this medication was too expensive so he was switched to mesalazine. On follow up with GI he was having increasing distension and abdominal pain and ongoing diarrhea 1-6 times/day which has been watery. He has chronic GI issues since diagnosed 3 years ago after being diagnosed with scleroderma. Previous treatment included chronic ciprofloxacin for bacterial overgrowth. He had a positive Campylobacter 2 weeks ago. He has also had 2 previous bowel perforations which were treated conservatively and resolved. On CT scan after admission, he was found to have free intraperitoneal air. Bowel perforation, free intraperitoneal air-likely secondary either to friable bowel from steroids along with history of scleroderma and partial small bowel obstruction or a microperforation from diverticulosis however no diverticulitis noted. He did also have recent colon biopsies however those were 8 days prior to admission. He is not septic at this time but is on prophylactic antibiotics and has an NG tube in place to intermittent suction. He is much improved since admission and has a nonsurgical abdomen. His lactate is normal but he does have a history of mesenteric ischemia requiring stenting of one of the vessels to the bowel. No leukocytosis, no fevers. NG tube removed and patient is tolerating sips and chips. -Advance diet to clears later today if tolerating -Gen. surgery has seen the patient and is recommending continued conservative management -Continue IV Zosyn and IV Vanco and observation for worsening -GI consult appreciated as well-recommend MR enterography after improvement -Stool cultures and C. difficile not collected as has not had any stool -Hold off on any steroids at this time -Holding outpatient Cipro and mesalamine -Continue IV fluids until adequately taking by mouth -Replace magnesium and potassium as needed CAD, status post CABG and QUINTON placement, hypertension-stable at this time, has chronic ECG changes, no chest pain, blood pressure is controlled, is now taking by mouth -Restart all oral home meds, Plavix, metoprolol, lisinopril, statin -Stop IV metoprolol, stop IV Vasotec Scleroderma-with Powell's esophagus, GERD, Raynaud's phenomenon-followed by Dr. Sunita Mosley of rheumatology as an outpatient. Patient denies history of restrictive lung disease. Could be contributing to recurrent bowel perforations. -Continue follow-up with rheumatology as an outpatient -Continue ranitidine and pantoprazole IV BPH-no evidence of active issues -Continue finasteride Diabetes mellitus type 2-diet controlled at home, hemoglobin A1c is 6.5% this admission -Glucose checks and insulin sliding scale Hypothyroidism-TSH 1.09 in September 2016-stable -Switch levothyroxine back to oral from IV Prophylaxis-SCDs, no chemical prophylaxis was given in case of need for surgery Disposition-remain on telemetry, full code -Probable discharge to home tomorrow
[2016-10-24] MEDS: PIPERACILL/TAZOBAC IV 3.375 GM in DEXTROSE 5% 100ML 100 ML IV SCH ×3 (03:53→20:03)
[2016-10-24] MEDS: RANITIDINE IV 50 MG in DEXTROSE 5% 100ML 100 ML IV SCH (06:16)
[2016-10-24] MEDS: LEVOTHYROXINE 88 MCG TAB PO SCH (06:17)
[2016-10-24 06:54] LABS: BASO % 0.2 %; BASO ABS # 0.01 K/uL (0-0.2); COMPLETE YES; EOS % 4.7 %; HEMATOCRIT 36.3 % (42-52); IG% 0.2 %; LYMPH % 29.7 %; LYMPH ABS # 1.21 K/uL (1.2-3.4); MEAN CELL VOLUME 95.3 fL (80-100); MEAN CORPUSCULAR HEMOGLOBIN 29.9 pg (25-34); MEAN CORPUSCULAR HGB CONC 31.4 g/dl (32-36); MEAN PLATELET VOLUME 10.1 fL (7.4-10.4); MONO % 11.8 %; NEUT % 53.4 %; PLATELET COUNT 267 K/uL (130-400); RED BLOOD COUNT 3.81 M/uL (4.7-6.1); WHITE BLOOD COUNT 4.08 K/uL (4.8-10.8)
[2016-10-24 07:30] LABS: BUN/CREATININE RATIO 3.6 (10-20); CALCIUM 8.5 mg/dl (8.5-10.1); CREATININE 0.84 mg/dl (0.60-1.40); MAGNESIUM 1.8 mg/dl (1.8-2.4); POTASSIUM 3.6 mmol/L (3.5-5.1)
[2016-10-24 07:33] VITALS: BP 184/74; PULSE 53; TEMP 36.5; O2SAT 97
[2016-10-24] MEDS: LACTOBACILLUS ACIDOPHILUS (FLORANEX) TAB PO SCH (07:39)
[2016-10-24] MEDS: CLOPIDOGREL BISULFATE 75 MG TAB PO SCH (07:39)
[2016-10-24] MEDS: ASPIRIN 81 MG ECTAB PO SCH (07:39)
[2016-10-24] MEDS: METOPROLOL TARTRATE 50 MG TAB PO SCH (07:39)
[2016-10-24] MEDS: FINASTERIDE 5 MG TAB PO SCH (07:40)
[2016-10-24] MEDS: LISINOPRIL 20 MG TAB PO SCH (07:40)
[2016-10-24] MEDS: CYANOCOBALAMIN 500 MCG TAB (VIT B-12) PO SCH (07:40)
[2016-10-24] MEDS: INSULIN ASPART 100 UNITS/ML 3 ML PEN SC SCH ×4 (07:43→20:39)
[2016-10-24] MEDS ORDERED: POTASSIUM CHLORIDE 10 MEQ TABCR PO STA (08:18)
[2016-10-24] MEDS ORDERED: HydrALAZINE HCL 20 MG/ML VIAL IV. PRN (08:30)
[2016-10-24] MEDS ORDERED: MAGNESIUM SULFATE 1GM / D5W 1 GM in PREMIXED IN D5W 100 ML IV ONE (09:00)
--- NOTE | 2016-10-24 10:39 | Hospitalist Progress Note ---
Hospitalist Progress Note Date of Service October 24, 2016. Subjective Pt evaluation today including: conversation w/ patient Doing well, having BMs nonbloody, no melena, no abd pain or bloating, no N/V. No CP or SOB, is OOB and ambulating halls. BPs elevated and bradycardia prohibiting beta michael being given All Other Systems: Reviewed and Negative Objective Vital Signs Date Time Temp Pulse Resp B/P Pulse Ox O2 Delivery O2 Flow Rate FiO2 10/24/16 07:33 36.5 53 18 184/74 97 Room Air 10/24/16 07:30 Room Air 10/23/16 23:40 36.6 51 18 167/73 99 Room Air 10/23/16 22:59 Room Air 10/23/16 16:30 Room Air 10/23/16 15:27 36.4 96 18 151/92 94 Room Air 10/23/16 13:32 36.4 57 16 185/75 98 Room Air 10/23/16 13:02 36.3 74 18 96 10/23/16 12:00 Room Air 10/23/16 10:53 36.3 64 18 164/62 96 Room Air 69 170/65 74 160/69 Physical Exam General Appearance: WD/WN, no apparent distress Eyes: normal inspection, sclerae normal ENT: hearing grossly normal Neck: trachea midline Respiratory/Chest: lungs clear, normal breath sounds, no respiratory distress, no accessory muscle use Cardiovascular: regular rate, rhythm, no edema, no gallop, no murmur Abdomen: normal bowel sounds, non tender, soft, no organomegaly Extremities: non-tender, no pedal edema, no calf tenderness Neurologic/Psychiatric: alert, normal mood/affect, oriented x 3 Skin: normal color, warm/dry, no rash Laboratory Results Last 24 Hours Test 10/23/16 11:26 10/23/16 16:43 10/23/16 20:15 10/24/16 06:00 Bedside Glucose 83 mg/dl 156 mg/dl 125 mg/dl White Blood Count 4.08 K/uL Red Blood Count 3.81 M/uL Hemoglobin 11.4 g/dL Hematocrit 36.3 % Mean Corpuscular Volume 95.3 fL Mean Corpuscular Hemoglobin 29.9 pg Mean Corpuscular Hemoglobin Concent 31.4 g/dl Platelet Count 267 K/uL Mean Platelet Volume 10.1 fL Neutrophils (%) (Auto) 53.4 % Lymphocytes (%) (Auto) 29.7 % Monocytes (%) (Auto) 11.8 % Eosinophils (%) (Auto) 4.7 % Basophils (%) (Auto) 0.2 % Neutrophils # (Auto) 2.18 K/uL Lymphocytes # (Auto) 1.21 K/uL Monocytes # (Auto) 0.48 K/uL Eosinophils # (Auto) 0.19 K/uL Basophils # (Auto) 0.01 K/uL RDW Standard Deviation 48.4 fL RDW Coefficient of Variation 14.0 % Immature Granulocyte % (Auto) 0.2 % Immature Granulocyte # (Auto) 0.01 K/uL Sodium Level 145 mmol/L Potassium Level 3.6 mmol/L Chloride Level 111 mmol/L Carbon Dioxide Level 26 mmol/L Anion Gap 8.0 mmol/L Blood Urea Nitrogen 3 mg/dl Creatinine 0.84 mg/dl Est Creatinine Clear Calc Drug Dose 79.5 ml/min Estimated GFR () 101.4 Estimated GFR (Non- 87.5 BUN/Creatinine Ratio 3.6 Random Glucose 86 mg/dl Calcium Level 8.5 mg/dl Magnesium Level 1.8 mg/dl Test 10/24/16 07:43 Bedside Glucose 100 mg/dl Assessment and Plan Mr Palma is a 70 year old male with history of scleroderma, hypertension, hyperlipidemia, hypothyroidism, coronary artery disease, 2vCABG and 2 stents placed in 2013, BPH, Powell's esophagus and history of T2DM (diet controlled) who is a direct admit from [facility] GI office after AXR showed 8cm loop of small bowel with concern for partial small bowel obstruction. He was recently in hospital from October 08 - October 12 for diarrhea and weakness. On that admission he underwent EGD and colonoscopy - erythematous and mild micro ulcerated mucosa in the cecum-had multiple biopsies taken from the colon at that time. He was started on budesonide but this medication was too expensive so he was switched to mesalazine. On follow up with GI he was having increasing distension and abdominal pain and ongoing diarrhea 1-6 times/day which has been watery. He has chronic GI issues since diagnosed 3 years ago after being diagnosed with scleroderma. Previous treatment included chronic ciprofloxacin for bacterial overgrowth. He had a positive Campylobacter 2 weeks ago. He has also had 2 previous bowel perforations which were treated conservatively and resolved. On CT scan after admission, he was found to have free intraperitoneal air. Bowel perforation, free intraperitoneal air-likely secondary either to friable bowel from steroids along with history of scleroderma and partial small bowel obstruction or a microperforation from diverticulosis however no diverticulitis noted. He did also have recent colon biopsies however those were 8 days prior to admission. He is not septic at this time but is on prophylactic antibiotics and has an NG tube in place to intermittent suction. He is much improved since admission and has a nonsurgical abdomen. His lactate is normal but he does have a history of mesenteric ischemia requiring stenting of one of the vessels to the bowel. No leukocytosis, no fevers. NG tube removed and patient is tolerating clears Conservative management and pt improved -Advance diet to ADA diet today as per d/w Surgery -Continue IV Zosyn and IV Vanco for now but can likely dc after 5 day course -GI consult appreciated as well-recommend MR enterography after improvement- probably Wednesday -Stool cultures and C. difficile not collected -Hold off on any steroids at this time as can lead t bowel friability -Holding outpatient Cipro and mesalamine -d/c'd IVFs -Replace magnesium and potassium as needed CAD, status post CABG and QUINTON placement, hypertension-stable at this time, has chronic ECG changes, no chest pain, blood pressure is not controlled- bradycardia limiting metoprolol admin -continue Plavix, metoprolol, lisinopril, statin -decrease dose metoprolol to 25mg bid so can be administered later today if HR> 60 -hydralazine IV prn Scleroderma-with Powell's esophagus, GERD, Raynaud's phenomenon-followed by Dr. Sunita Mosley of rheumatology as an outpatient. Patient denies history of restrictive lung disease. Could be contributing to recurrent bowel perforations. -Continue follow-up with rheumatology as an outpatient -Continue ranitidine and pantoprazole but change to po BPH-no evidence of active issues -Continue finasteride Diabetes mellitus type 2-diet controlled at home, hemoglobin A1c is 6.5% this admission -Glucose checks and insulin sliding scale Hypothyroidism-TSH 1.09 in September 2016-stable -Switch levothyroxine back to oral from IV Prophylaxis-SCDs, no chemical prophylaxis was given in case of need for surgery Disposition-on medical floor -Probable discharge to home 1-2 days-may need to stay till Mon for MRE
[2016-10-24 10:46] VITALS: BP 160/72; PULSE 53
--- NOTE | 2016-10-24 11:39 | Surgery Progress Note ---
Surgery Progress Note Date of Service October 24, 2016. Subjective + feeling well no complaints. "hungry". no pain or nausea. +BM Objective Vital Signs: Date Time Temp Pulse Resp B/P Pulse Ox O2 Delivery O2 Flow Rate FiO2 10/24/16 10:46 53 160/72 10/24/16 07:33 36.5 53 18 184/74 97 Room Air 10/24/16 07:30 Room Air 10/23/16 23:40 36.6 51 18 167/73 99 Room Air 10/23/16 22:59 Room Air 10/23/16 16:30 Room Air 10/23/16 15:27 36.4 96 18 151/92 94 Room Air 10/23/16 13:32 36.4 57 16 185/75 98 Room Air 10/23/16 13:02 36.3 74 18 96 10/23/16 12:00 Room Air General Appearance: no apparent distress Head: normocephalic, atraumatic Abdomen: non tender, non distended, soft Extremities: normal inspection, no pedal edema Laboratory Results: Results Past 24 Hours Test 10/23/16 16:43 10/23/16 20:15 10/24/16 06:00 10/24/16 07:43 Range/Units Bedside Glucose 156 125 100 70-99 mg/dl White Blood Count 4.08 4.8-10.8 K/uL Red Blood Count 3.81 4.7-6.1 M/uL Hemoglobin 11.4 14.0-18.0 g/dL Hematocrit 36.3 42-52 % Mean Corpuscular Volume 95.3 80-100 fL Mean Corpuscular Hemoglobin 29.9 25-34 pg Mean Corpuscular Hemoglobin Concent 31.4 32-36 g/dl Platelet Count 267 130-400 K/uL Mean Platelet Volume 10.1 7.4-10.4 fL Neutrophils (%) (Auto) 53.4 % Lymphocytes (%) (Auto) 29.7 % Monocytes (%) (Auto) 11.8 % Eosinophils (%) (Auto) 4.7 % Basophils (%) (Auto) 0.2 % Neutrophils # (Auto) 2.18 1.4-6.5 K/uL Lymphocytes # (Auto) 1.21 1.2-3.4 K/uL Monocytes # (Auto) 0.48 0.11-0.59 K/uL Eosinophils # (Auto) 0.19 0-0.5 K/uL Basophils # (Auto) 0.01 0-0.2 K/uL RDW Standard Deviation 48.4 36.4-46.3 fL RDW Coefficient of Variation 14.0 11.5-14.5 % Immature Granulocyte % (Auto) 0.2 % Immature Granulocyte # (Auto) 0.01 0.00-0.02 K/uL Sodium Level 145 136-145 mmol/L Potassium Level 3.6 3.5-5.1 mmol/L Chloride Level 111 98-107 mmol/L Carbon Dioxide Level 26 21-32 mmol/L Anion Gap 8.0 3-11 mmol/L Blood Urea Nitrogen 3 7-18 mg/dl Creatinine 0.84 0.60-1.40 mg/dl Est Creatinine Clear Calc Drug Dose 79.5 ml/min Estimated GFR () 101.4 Estimated GFR (Non- 87.5 BUN/Creatinine Ratio 3.6 10-20 Random Glucose 86 70-99 mg/dl Calcium Level 8.5 8.5-10.1 mg/dl Magnesium Level 1.8 1.8-2.4 mg/dl Microbiology Results 10/24/16 Shiga Toxin Test, Received Pending 10/24/16 Stool Culture, Received Pending 10/24/16 C.difficile Toxin B Gene (PCR), Received Pending Assessment & Plan pneumoperitoneum ? etiology. clinically looks great. latasha liquids/hungry/bm. would advance diet no surgical intervention indicated at this time. will cont to follow with you
[2016-10-24 12:32] LABS: GLIADIN DEAMIDATED IgA AB 8 UNITS (<20); GLIADIN DEAMIDATED IgG AB 2 UNITS (<20); IGG SERUM 672 mg/dL (694-1618); RETICULIN IgA AB Negative (Negative)
--- NOTE | 2016-10-24 12:36 | Gastroenterology Progress Note ---
Progress Note Date of Service: October 24, 2016 Subjective Pt evaluation today including: conversation w/ patient no complaints, sitting up in chair. Tolerating liquid diet Review of Systems Constitutional: No chills, No fatigue, No fever, No problem reported, No see HPI, No sweats, No weakness, No weight loss Eyes: No diplopia, No discharge, No eye pain, No problem reported, No redness, No see HPI, No worsening of vision ENT: No dental problems, No hearing loss, No nasal symptoms, No pain on swallowing, No problem reported, No see HPI, No sore throat, No tinnitus, No trouble swallowing, No unusual epistaxis Respiratory: No cough, No dyspnea at rest, No dyspnea on exertion, No hemoptysis, No problem reported, No see HPI, No shortness of breath, No sputum, No wheezing Cardiac: No PND, No chest pain, No claudication, No edema, No orthopnea, No palpitations, No problem reported, No see HPI Abdomen: No GI bleeding, No acolic stools, No constipation, No dark urine, No diarrhea, No dysphagia, No jaundice, No nausea, No odynophagia, No pain, No problem reported, No see HPI, No vomiting Male : No dysuria, No hematuria, No incontinence, No nocturia more than once/ night, No problem reported, No see HPI, No sexual dysfunction, No slowing stream , No urinary frequency Medications Current Inpatient Medications Medications (Trade) Dose Ordered Sig/Tony Route Start Time Stop Time Status Last Admin Dose Admin Piperacillin Sod/ Tazobactam Sod/ Dextrose (Zosyn Iv/D5 100ml) 115 ml @ 28.75 mls/ hr Q8H IV 10/21/16 04:00 10/30/16 21:59 10/24/16 11:51 28.75 MLS/HR Ioversol (Optiray 320) 111 ml UD PRN IV 10/20/16 21:00 10/24/16 20:59 Piperacillin Sod/ Tazobactam Sod (Consult) 1 ea UD PRN N/A 10/20/16 21:15 11/19/16 21:14 Ondansetron HCl 4 mg 4 mg Q6H PRN IV 10/20/16 22:15 11/19/16 22:14 Acetaminophen/ Empty Bag (Ofirmev Iv/ Empty Iv Bag 100ml) 65 ml @ 260 mls/hr Q6H PRN IV 10/20/16 22:15 11/19/16 22:14 Vancomycin HCl (Consult) 1 ea UD PRN N/A 10/20/16 23:00 11/19/16 22:59 Nitroglycerin (Nitrostat Tab) 0.4 mg PRN PRN SL 10/21/16 05:00 11/20/16 04:59 Glucose (Glucose 40% Gel) 15-30 GRAMS 15 GRAMS... UD PRN PO 10/21/16 20:15 11/20/16 20:14 Glucose (Glucose Chew Tab) 4-8 Tablets 4 Tabl... UD PRN PO 10/21/16 20:15 11/20/16 20:14 Dextrose (Dextrose 50% 50ML Syringe) 25-50ML OF 50% DW IV FOR... UD PRN IV 10/21/16 20:15 11/20/16 20:14 Glucagon (Glucagon Inj) 1 mg UD PRN SQ 10/21/16 20:15 11/20/16 20:14 Lorazepam (Ativan Inj) 0.5 mg Q4H PRN IV 10/21/16 20:30 11/20/16 20:29 10/23/16 03:38 0.5 MG Lorazepam 0.5 mg 0.5 mg Q4H PRN IV 10/21/16 21:15 11/20/16 21:14 Vancomycin HCl/ Sodium Chloride (Vancomycin Inj/ Nss 250ml) 274 ml @ 125 mls/hr Q18H IV 10/23/16 22:00 11/02/16 21:59 10/23/16 22:05 125 MLS/HR Levothyroxine Sodium (Synthroid Tab) 88 mcg DAILYBB PO 10/24/16 06:00 11/23/16 05:59 10/24/16 06:17 88 MCG Aspirin (Ecotrin Tab) 81 mg DAILY PO 10/24/16 08:00 11/23/16 08:59 10/24/16 07:39 81 MG Clopidogrel Bisulfate (plAVix TAB) 75 mg DAILY PO 10/24/16 08:00 11/23/16 08:59 10/24/16 07:39 75 MG Cyanocobalamin (Vitamin B-12 Tab) 1,000 mcg DAILY PO 10/24/16 08:00 6/12/17 08:59 10/24/16 07:40 1,000 MCG Finasteride (Proscar Tab) 5 mg DAILY PO 10/24/16 08:00 11/23/16 08:59 10/24/16 07:40 5 MG Lactobacillus Acidophilus (Floranex Tab) 1 tab DAILY PO 10/24/16 08:00 11/23/16 08:59 10/24/16 07:39 1 TAB Lisinopril (Zestril Tab) 20 mg DAILY PO 10/24/16 08:00 11/23/16 08:59 10/24/16 07:40 20 MG Nitroglycerin (Nitrostat Tab) 0.3 mg PRN PRN UT 10/23/16 10:45 11/22/16 10:44 Insulin Aspart (novoLOG ASPART) SLIDING SCALE If C... ACHS SC 10/23/16 16:30 11/22/16 16:29 Metoprolol Tartrate (Lopressor Tab) 25 mg BID PO 10/24/16 20:00 11/23/16 19:59 Hydralazine HCl (HydrALAZINE INJ) 10 mg Q8 PRN IV. 10/24/16 08:30 11/23/16 08:29 Pantoprazole Sodium (Protonix Tab) 40 mg QAM PO 10/25/16 08:00 11/24/16 07:59 Ranitidine HCl (zANTac TAB) 300 mg HS PO 10/24/16 21:00 11/23/16 20:59 Objective Vital Signs Date Time Temp Pulse Resp B/P Pulse Ox O2 Delivery O2 Flow Rate FiO2 10/24/16 10:46 53 160/72 10/24/16 07:33 36.5 53 18 184/74 97 Room Air 10/24/16 07:30 Room Air 10/23/16 23:40 36.6 51 18 167/73 99 Room Air 10/23/16 22:59 Room Air 10/23/16 16:30 Room Air 10/23/16 15:27 36.4 96 18 151/92 94 Room Air 10/23/16 13:32 36.4 57 16 185/75 98 Room Air 10/23/16 13:02 36.3 74 18 96 Physical Exam General Appearance: WD/WN Eyes: normal inspection Respiratory/Chest: chest non-tender, lungs clear Cardiovascular: regular rate, rhythm, no edema Abdomen: normal bowel sounds, non tender, soft Extremities: normal range of motion Laboratory Results Last 24 Hours Test 10/23/16 16:43 10/23/16 20:15 10/24/16 06:00 10/24/16 07:43 Bedside Glucose 156 mg/dl 125 mg/dl 100 mg/dl White Blood Count 4.08 K/uL Red Blood Count 3.81 M/uL Hemoglobin 11.4 g/dL Hematocrit 36.3 % Mean Corpuscular Volume 95.3 fL Mean Corpuscular Hemoglobin 29.9 pg Mean Corpuscular Hemoglobin Concent 31.4 g/dl Platelet Count 267 K/uL Mean Platelet Volume 10.1 fL Neutrophils (%) (Auto) 53.4 % Lymphocytes (%) (Auto) 29.7 % Monocytes (%) (Auto) 11.8 % Eosinophils (%) (Auto) 4.7 % Basophils (%) (Auto) 0.2 % Neutrophils # (Auto) 2.18 K/uL Lymphocytes # (Auto) 1.21 K/uL Monocytes # (Auto) 0.48 K/uL Eosinophils # (Auto) 0.19 K/uL Basophils # (Auto) 0.01 K/uL RDW Standard Deviation 48.4 fL RDW Coefficient of Variation 14.0 % Immature Granulocyte % (Auto) 0.2 % Immature Granulocyte # (Auto) 0.01 K/uL Sodium Level 145 mmol/L Potassium Level 3.6 mmol/L Chloride Level 111 mmol/L Carbon Dioxide Level 26 mmol/L Anion Gap 8.0 mmol/L Blood Urea Nitrogen 3 mg/dl Creatinine 0.84 mg/dl Est Creatinine Clear Calc Drug Dose 79.5 ml/min Estimated GFR () 101.4 Estimated GFR (Non- 87.5 BUN/Creatinine Ratio 3.6 Random Glucose 86 mg/dl Calcium Level 8.5 mg/dl Magnesium Level 1.8 mg/dl Test 10/24/16 11:45 Bedside Glucose 134 mg/dl Assessment and Plan 70 year old male with chronic diarrrhea for 3 years, worse in last year who presented on this admission as outpatient with imaging suggestive of a SBO and inpatient CT with similar findings and evidence of free intraperitoneal air and microperforation-spontaneous. Underlying GI history of persistent diarrhea treated with daily cipro x 3 years. Recent colonoscopy with nonspecific acute colitis, biopsies do not suggest any chronic change. MRE for evaluation of stricture-and disease including small bowel tumor. May hold prednisone for appropriate healing of suspected microperforation Monitor labs Stools culture and stool for c.diff if diarrhea resumes while admitted, giardia , biopsies may be needing to be evaluated for Whipples Appreciate surgery recommendations If MRE negative should have w/u for carcinoid, pheochromocytoma, C1Q esterase inhibitor, consider systemic mastocytosis as well given chronicity. Auto-immune enteropathy may also be considered.
[2016-10-24 15:35] VITALS: BP 146/61; PULSE 56; TEMP 36.4; O2SAT 97
[2016-10-24] MEDS: VANCOMYCIN INJ 1,200 MG in SODIUM CHLORIDE 0.9% 250ML 250 ML IV SCH (16:14)
[2016-10-24] MEDS: METOPROLOL TARTRATE 25 MG TAB PO SCH (20:00)
[2016-10-24] MEDS ORDERED: LORAZEPAM INJ 0.5 MG in SYRINGE 0.75 ML IV PRN (20:15)
[2016-10-24] MEDS: RANITIDINE HCL 150 MG TAB PO SCH (20:40)
[2016-10-24 23:22] VITALS: BP 169/70; PULSE 62; TEMP 36.3; O2SAT 97
[2016-10-25] MEDS: PIPERACILL/TAZOBAC IV 3.375 GM in DEXTROSE 5% 100ML 100 ML IV SCH ×2 (03:32→11:29)
[2016-10-25 05:48] LABS: BASO % 0.6 %; BASO ABS # 0.03 K/uL (0-0.2); COMPLETE YES; EOS % 4.4 %; HEMATOCRIT 34.9 % (42-52); IG% 0.2 %; LYMPH % 27.9 %; LYMPH ABS # 1.41 K/uL (1.2-3.4); MEAN CELL VOLUME 95.6 fL (80-100); MEAN CORPUSCULAR HEMOGLOBIN 31.2 pg (25-34); MEAN CORPUSCULAR HGB CONC 32.7 g/dl (32-36); MEAN PLATELET VOLUME 9.3 fL (7.4-10.4); MONO % 12.1 %; NEUT % 54.8 %; PLATELET COUNT 258 K/uL (130-400); RED BLOOD COUNT 3.65 M/uL (4.7-6.1); WHITE BLOOD COUNT 5.05 K/uL (4.8-10.8)
[2016-10-25] MEDS: LEVOTHYROXINE 88 MCG TAB PO SCH (05:52)
[2016-10-25 06:30] LABS: BUN/CREATININE RATIO 4.3 (10-20); CALCIUM 8.4 mg/dl (8.5-10.1); CREATININE 0.97 mg/dl (0.60-1.40); MAGNESIUM 1.8 mg/dl (1.8-2.4); POTASSIUM 3.7 mmol/L (3.5-5.1)
[2016-10-25 07:31] VITALS: BP 161/78; PULSE 72; TEMP 36.6; O2SAT 97
[2016-10-25] MEDS: LISINOPRIL 20 MG TAB PO SCH (07:55)
[2016-10-25] MEDS: INSULIN ASPART 100 UNITS/ML 3 ML PEN SC SCH ×4 (07:55→20:20)
[2016-10-25] MEDS: LACTOBACILLUS ACIDOPHILUS (FLORANEX) TAB PO SCH (07:56)
[2016-10-25] MEDS: METOPROLOL TARTRATE 25 MG TAB PO SCH ×2 (07:56→20:02)
[2016-10-25] MEDS: PANTOprazole SOD 40 MG TAB PO SCH (07:56)
[2016-10-25] MEDS: CLOPIDOGREL BISULFATE 75 MG TAB PO SCH (07:56)
[2016-10-25] MEDS: ASPIRIN 81 MG ECTAB PO SCH (07:56)
[2016-10-25] MEDS: FINASTERIDE 5 MG TAB PO SCH (07:56)
[2016-10-25] MEDS: CYANOCOBALAMIN 500 MCG TAB (VIT B-12) PO SCH (07:56)
[2016-10-25] MEDS: VANCOMYCIN INJ 1,200 MG in SODIUM CHLORIDE 0.9% 250ML 250 ML IV SCH (10:30)
[2016-10-25 11:51] LABS: LYME DISEASE AB IGG NEG (NEG); LYME DISEASE AB IGM NEG (NEG)
[2016-10-25 15:08] VITALS: BP 130/71; PULSE 64; TEMP 36.6; O2SAT 96
--- NOTE | 2016-10-25 15:59 | Surgery Progress Note ---
Surgery Progress Note Date of Service October 25, 2016. Subjective + feeling well doing well. tolerating diet. no pain. no n/v Objective Vital Signs: Date Time Temp Pulse Resp B/P Pulse Ox O2 Delivery O2 Flow Rate FiO2 10/25/16 15:08 36.6 64 18 130/71 96 Room Air 10/25/16 08:00 Room Air 10/25/16 07:31 36.6 72 18 161/78 97 Room Air 10/25/16 00:00 Room Air 10/24/16 23:22 36.3 62 18 169/70 97 Room Air 10/24/16 19:19 Room Air General Appearance: no apparent distress Head: normocephalic, atraumatic Neck: no JVD Respiratory/Chest: no respiratory distress, no accessory muscle use Abdomen: non tender, non distended, soft Extremities: normal inspection Laboratory Results: Results Past 24 Hours Test 10/24/16 16:37 10/24/16 20:05 10/25/16 05:35 10/25/16 07:55 Range/Units Bedside Glucose 119 162 105 70-99 mg/dl White Blood Count 5.05 4.8-10.8 K/uL Red Blood Count 3.65 4.7-6.1 M/uL Hemoglobin 11.4 14.0-18.0 g/dL Hematocrit 34.9 42-52 % Mean Corpuscular Volume 95.6 80-100 fL Mean Corpuscular Hemoglobin 31.2 25-34 pg Mean Corpuscular Hemoglobin Concent 32.7 32-36 g/dl Platelet Count 258 130-400 K/uL Mean Platelet Volume 9.3 7.4-10.4 fL Neutrophils (%) (Auto) 54.8 % Lymphocytes (%) (Auto) 27.9 % Monocytes (%) (Auto) 12.1 % Eosinophils (%) (Auto) 4.4 % Basophils (%) (Auto) 0.6 % Neutrophils # (Auto) 2.77 1.4-6.5 K/uL Lymphocytes # (Auto) 1.41 1.2-3.4 K/uL Monocytes # (Auto) 0.61 0.11-0.59 K/uL Eosinophils # (Auto) 0.22 0-0.5 K/uL Basophils # (Auto) 0.03 0-0.2 K/uL RDW Standard Deviation 48.7 36.4-46.3 fL RDW Coefficient of Variation 14.1 11.5-14.5 % Immature Granulocyte % (Auto) 0.2 % Immature Granulocyte # (Auto) 0.01 0.00-0.02 K/uL Sodium Level 145 136-145 mmol/L Potassium Level 3.7 3.5-5.1 mmol/L Chloride Level 111 98-107 mmol/L Carbon Dioxide Level 28 21-32 mmol/L Anion Gap 6.0 3-11 mmol/L Blood Urea Nitrogen 4 7-18 mg/dl Creatinine 0.97 0.60-1.40 mg/dl Est Creatinine Clear Calc Drug Dose 68.8 ml/min Estimated GFR () 90.0 Estimated GFR (Non- 77.7 BUN/Creatinine Ratio 4.3 10-20 Random Glucose 110 70-99 mg/dl Calcium Level 8.4 8.5-10.1 mg/dl Magnesium Level 1.8 1.8-2.4 mg/dl Test 10/25/16 10:49 10/25/16 11:20 Range/Units Lyme Disease IgG Antibody NEG NEG Lyme Disease IgM Antibody NEG NEG Bedside Glucose 163 70-99 mg/dl Assessment & Plan 10/25/16 doing well no surgical issues for MRI tomorrow. likely d/c soon 10/24/16 pneumoperitoneum ? etiology. clinically looks great. latasha liquids/hungry/bm. would advance diet no surgical intervention indicated at this time. will cont to follow with you pneumoperitoneum ? etiology. clinically looks great. latasha liquids/hungry/bm. would advance diet no surgical intervention indicated at this time. will cont to follow with you
[2016-10-25] MEDS ORDERED: NURSING VERBAL MED ORDER ONE (17:00)
[2016-10-25] MEDS: RANITIDINE HCL 150 MG TAB PO SCH (20:02)
--- NOTE | 2016-10-25 23:31 | Hospitalist Progress Note ---
Hospitalist Progress Note Date of Service October 25, 2016. Subjective Pt evaluation today including: conversation w/ patient, physical exam Patient doing very well today. No abdominal pain, tolerating regular diet without any nausea or vomiting, he is having bowel movements. His family inquires as to whether his symptoms could be caused by Lyme disease Constitutional: No fever Respiratory: No shortness of breath Cardiovascular: No chest pain Psychiatric: + anxiety All Other Systems: Reviewed and Negative Objective Vital Signs Date Time Temp Pulse Resp B/P Pulse Ox O2 Delivery O2 Flow Rate FiO2 10/25/16 20:00 Room Air 10/25/16 15:55 Room Air 10/25/16 15:08 36.6 64 18 130/71 96 Room Air 10/25/16 08:00 Room Air 10/25/16 07:31 36.6 72 18 161/78 97 Room Air 10/25/16 00:00 Room Air Physical Exam General Appearance: WD/WN, no apparent distress Eyes: normal inspection, sclerae normal ENT: hearing grossly normal Neck: trachea midline Respiratory/Chest: lungs clear, normal breath sounds, no respiratory distress, no accessory muscle use Cardiovascular: regular rate, rhythm, no edema, no gallop, no murmur Abdomen: normal bowel sounds, non tender, soft, no organomegaly Extremities: no pedal edema, no calf tenderness, + pertinent finding (the joint effusions in MCPs and PIPs of hands) Neurologic/Psychiatric: alert, normal mood/affect, oriented x 3 Skin: normal color, warm/dry, no rash Laboratory Results Last 24 Hours Test 10/25/16 05:35 10/25/16 07:55 10/25/16 10:49 10/25/16 11:20 White Blood Count 5.05 K/uL Red Blood Count 3.65 M/uL Hemoglobin 11.4 g/dL Hematocrit 34.9 % Mean Corpuscular Volume 95.6 fL Mean Corpuscular Hemoglobin 31.2 pg Mean Corpuscular Hemoglobin Concent 32.7 g/dl Platelet Count 258 K/uL Mean Platelet Volume 9.3 fL Neutrophils (%) (Auto) 54.8 % Lymphocytes (%) (Auto) 27.9 % Monocytes (%) (Auto) 12.1 % Eosinophils (%) (Auto) 4.4 % Basophils (%) (Auto) 0.6 % Neutrophils # (Auto) 2.77 K/uL Lymphocytes # (Auto) 1.41 K/uL Monocytes # (Auto) 0.61 K/uL Eosinophils # (Auto) 0.22 K/uL Basophils # (Auto) 0.03 K/uL RDW Standard Deviation 48.7 fL RDW Coefficient of Variation 14.1 % Immature Granulocyte % (Auto) 0.2 % Immature Granulocyte # (Auto) 0.01 K/uL Sodium Level 145 mmol/L Potassium Level 3.7 mmol/L Chloride Level 111 mmol/L Carbon Dioxide Level 28 mmol/L Anion Gap 6.0 mmol/L Blood Urea Nitrogen 4 mg/dl Creatinine 0.97 mg/dl Est Creatinine Clear Calc Drug Dose 68.8 ml/min Estimated GFR () 90.0 Estimated GFR (Non- 77.7 BUN/Creatinine Ratio 4.3 Random Glucose 110 mg/dl Calcium Level 8.4 mg/dl Magnesium Level 1.8 mg/dl Bedside Glucose 105 mg/dl 163 mg/dl Lyme Disease IgG Antibody NEG Lyme Disease IgM Antibody NEG Test 10/25/16 16:45 10/25/16 20:13 Bedside Glucose 129 mg/dl 152 mg/dl Assessment and Plan Mr Palma is a 70 year old male with history of scleroderma, hypertension, hyperlipidemia, hypothyroidism, coronary artery disease, 2vCABG and 2 stents placed in 2013, BPH, Powell's esophagus and history of T2DM (diet controlled) who is a direct admit from [facility] GI office after AXR showed 8cm loop of small bowel with concern for partial small bowel obstruction. He was recently in hospital from October 08 - October 12 for diarrhea and weakness. On that admission he underwent EGD and colonoscopy - erythematous and mild micro ulcerated mucosa in the cecum-had multiple biopsies taken from the colon at that time. He was started on budesonide but this medication was too expensive so he was switched to mesalazine. On follow up with GI he was having increasing distension and abdominal pain and ongoing diarrhea 1-6 times/day which has been watery. He has chronic GI issues since diagnosed 3 years ago after being diagnosed with scleroderma. Previous treatment included chronic ciprofloxacin for bacterial overgrowth. He had a positive Campylobacter 2 weeks prior to admission. He has also had 2 previous bowel perforations which were treated conservatively and resolved. On CT scan after admission, he was found to have free intraperitoneal air. Bowel perforation, free intraperitoneal air-likely secondary either to friable bowel from steroids along with history of scleroderma and partial small bowel obstruction or a microperforation from diverticulosis however no diverticulitis noted. He did also have recent colon biopsies however those were 8 days prior to admission. No signs of sepsis on admission but was placed on prophylactic antibiotics and had an NG tube in place to intermittent suction. NG tube now removed, antibiotics discontinued, and he is tolerating a regular diet. -MRE for evaluation of stricture-and disease including small bowel tumor. -May hold prednisone for appropriate healing of suspected microperforation Stools culture , ova and parasites, and stool for c.diff if diarrhea resumes while admitted Appreciate surgery recommendations As per GI: If MRE negative should have w/u for carcinoid, pheochromocytoma, C1Q esterase inhibitor, consider systemic mastocytosis as well given chronicity. Auto-immune enteropathy may also be considered. -Holding outpatient Cipro and mesalamine -d/c'd IVFs -Replace magnesium and potassium as needed -Can likely discharge to home tomorrow after MRE completed CAD, status post CABG and QUINTON placement, hypertension-stable at this time, has chronic ECG changes, no chest pain, blood pressure is now controlled-previously , his bradycardia was limiting metoprolol admin leading to increased blood pressures -continue Plavix, metoprolol, lisinopril, statin -decreased dose metoprolol to 25mg bid due to bradycardia -hydralazine IV prn Scleroderma-with Powell's esophagus, GERD, Raynaud's phenomenon-followed by Dr. Sunita Mosley of rheumatology as an outpatient. Patient denies history of restrictive lung disease. Scleroderma and loss of elasticity could be contributing to recurrent bowel perforations. -Continue follow-up with rheumatology as an outpatient -Continue ranitidine and pantoprazole but change to po -Could have coexisting autoimmune bowel disease BPH-no evidence of active issues -Continue finasteride Diabetes mellitus type 2-diet controlled at home, hemoglobin A1c is 6.5% this admission -Glucose checks and insulin sliding scale Hypothyroidism-TSH 1.09 in September 2016-stable -Switch levothyroxine back to oral from IV Prophylaxis-SCDs, no chemical prophylaxis was given in case of need for surgery Disposition-to home tomorrow
[2016-10-25] MEDS: LORAZEPAM 0.5 MG TAB PO PRN (23:55)
[2016-10-26] VITALS: BP 160/72; PULSE 60; TEMP 36.5; O2SAT 96
[2016-10-26] MEDS ORDERED: VANCOMYCIN TROUGH SCH (03:30)
[2016-10-26] MEDS: LEVOTHYROXINE 88 MCG TAB PO SCH (06:37)
[2016-10-26 06:49] LABS: BASO % 0.5 %; BASO ABS # 0.02 K/uL (0-0.2); COMPLETE YES; EOS % 3.9 %; HEMATOCRIT 36.5 % (42-52); IG% 0.5 %; LYMPH % 31.6 %; LYMPH ABS # 1.38 K/uL (1.2-3.4); MEAN CELL VOLUME 96.6 fL (80-100); MEAN CORPUSCULAR HEMOGLOBIN 30.2 pg (25-34); MEAN CORPUSCULAR HGB CONC 31.2 g/dl (32-36); MEAN PLATELET VOLUME 9.5 fL (7.4-10.4); NEUT % 52.5 %; PLATELET COUNT 289 K/uL (130-400); RED BLOOD COUNT 3.78 M/uL (4.7-6.1); WHITE BLOOD COUNT 4.37 K/uL (4.8-10.8)
[2016-10-26 07:26] VITALS: BP 174/69; PULSE 66; TEMP 36.5; O2SAT 98
[2016-10-26 07:27] LABS: CALCIUM 8.6 mg/dl (8.5-10.1); MAGNESIUM 1.7 mg/dl (1.8-2.4); POTASSIUM 3.6 mmol/L (3.5-5.1)
[2016-10-26] MEDS: LACTOBACILLUS ACIDOPHILUS (FLORANEX) TAB PO SCH (08:13)
[2016-10-26] MEDS: FINASTERIDE 5 MG TAB PO SCH (08:13)
[2016-10-26] MEDS: PANTOprazole SOD 40 MG TAB PO SCH (08:13)
[2016-10-26] MEDS: LISINOPRIL 20 MG TAB PO SCH (08:13)
[2016-10-26] MEDS: METOPROLOL TARTRATE 25 MG TAB PO SCH ×2 (08:14→20:00)
[2016-10-26] MEDS: CYANOCOBALAMIN 500 MCG TAB (VIT B-12) PO SCH (08:14)
[2016-10-26] MEDS: ASPIRIN 81 MG ECTAB PO SCH (08:14)
[2016-10-26] MEDS: CLOPIDOGREL BISULFATE 75 MG TAB PO SCH (08:14)
[2016-10-26] MEDS: INSULIN ASPART 100 UNITS/ML 3 ML PEN SC SCH ×3 (08:15→20:36)
--- NOTE | 2016-10-26 10:17 | Gastroenterology Progress Note ---
Progress Note Date of Service: October 26, 2016 Subjective Pt evaluation today including: conversation w/ patient, conversation w/ family , physical exam, chart review, lab review Pt was seen and examined this AM. He was feeling well over the weekend. Eating a regular diet. + BM and flatus. He has breakfast this AM. Now is NPO for MRE. No abdominal pain, N/V, black/bloody stools. Review of Systems Constitutional: No chills, No fever Respiratory: No cough, No shortness of breath Cardiac: No chest pain, No edema Abdomen: No GI bleeding, No constipation, No diarrhea, No nausea, No pain, No vomiting Male : No dysuria Medications Current Inpatient Medications Medications (Trade) Dose Ordered Sig/Tony Route Start Time Stop Time Status Last Admin Dose Admin Ondansetron HCl 4 mg 4 mg Q6H PRN IV 10/20/16 22:15 11/19/16 22:14 Acetaminophen/ Empty Bag (Ofirmev Iv/ Empty Iv Bag 100ml) 65 ml @ 260 mls/hr Q6H PRN IV 10/20/16 22:15 11/19/16 22:14 Nitroglycerin (Nitrostat Tab) 0.4 mg PRN PRN SL 10/21/16 05:00 11/20/16 04:59 Glucose (Glucose 40% Gel) 15-30 GRAMS 15 GRAMS... UD PRN PO 10/21/16 20:15 11/20/16 20:14 Glucose (Glucose Chew Tab) 4-8 Tablets 4 Tabl... UD PRN PO 10/21/16 20:15 11/20/16 20:14 Dextrose (Dextrose 50% 50ML Syringe) 25-50ML OF 50% DW IV FOR... UD PRN IV 10/21/16 20:15 11/20/16 20:14 Glucagon (Glucagon Inj) 1 mg UD PRN SQ 10/21/16 20:15 11/20/16 20:14 Lorazepam (Ativan Inj) 0.5 mg Q4H PRN IV 10/21/16 21:15 11/20/16 21:14 Levothyroxine Sodium (Synthroid Tab) 88 mcg DAILYBB PO 10/24/16 06:00 11/23/16 05:59 10/26/16 06:37 88 MCG Aspirin (Ecotrin Tab) 81 mg DAILY PO 10/24/16 08:00 11/23/16 08:59 10/26/16 08:14 81 MG Clopidogrel Bisulfate (plAVix TAB) 75 mg DAILY PO 10/24/16 08:00 11/23/16 08:59 10/26/16 08:14 75 MG Cyanocobalamin (Vitamin B-12 Tab) 1,000 mcg DAILY PO 10/24/16 08:00 11/23/16 08:59 10/26/16 08:14 1,000 MCG Finasteride (Proscar Tab) 5 mg DAILY PO 10/24/16 08:00 11/23/16 08:59 10/26/16 08:13 5 MG Lactobacillus Acidophilus (Floranex Tab) 1 tab DAILY PO 10/24/16 08:00 11/23/16 08:59 10/26/16 08:13 1 TAB Lisinopril (Zestril Tab) 20 mg DAILY PO 10/24/16 08:00 11/23/16 08:59 10/26/16 08:13 20 MG Nitroglycerin (Nitrostat Tab) 0.3 mg PRN PRN UT 10/23/16 10:45 11/22/16 10:44 Insulin Aspart (novoLOG ASPART) SLIDING SCALE If C... ACHS SC 10/23/16 16:30 11/22/16 16:29 Metoprolol Tartrate (Lopressor Tab) 25 mg BID PO 10/24/16 20:00 11/23/16 19:59 10/26/16 08:14 25 MG Hydralazine HCl (HydrALAZINE INJ) 10 mg Q8 PRN IV. 10/24/16 08:30 11/23/16 08:29 Pantoprazole Sodium (Protonix Tab) 40 mg QAM PO 10/25/16 08:00 11/24/16 07:59 10/26/16 08:13 40 MG Ranitidine HCl 300 mg 300 mg HS PO 10/24/16 21:00 11/23/16 20:59 10/25/16 20:02 300 MG Lorazepam/Syringe (Ativan Inj/ Syringe) 1 ml @ 1 mls/min Q4H PRN IV 10/24/16 20:15 11/23/16 20:14 10/24/16 20:39 1 MLS/MIN Lorazepam (Ativan Tab) 0.5 mg Q6 PRN PO 10/25/16 22:00 11/24/16 21:59 10/25/16 23:55 0.5 MG Objective Vital Signs Date Time Temp Pulse Resp B/P Pulse Ox O2 Delivery O2 Flow Rate FiO2 10/26/16 09:09 Room Air 10/26/16 07:26 36.5 66 18 174/69 98 Room Air 10/26/16 00:00 Room Air 10/26/16 00:00 36.5 60 20 160/72 96 Room Air 10/25/16 20:00 Room Air 10/25/16 15:55 Room Air 10/25/16 15:08 36.6 64 18 130/71 96 Room Air Physical Exam General Appearance: no apparent distress Eyes: PERRL ENT: hearing grossly normal Neck: supple Respiratory/Chest: lungs clear, no respiratory distress Cardiovascular: regular rate, rhythm, no JVD Abdomen: normal bowel sounds, non tender, soft, no organomegaly, no pulsatile mass Neurologic/Psych: alert, normal mood/affect, oriented x 3 Skin: normal color, no jaundice, warm/dry Laboratory Results Last 24 Hours Test 10/25/16 10:49 10/25/16 11:20 10/25/16 16:45 10/25/16 20:13 Lyme Disease IgG Antibody NEG Lyme Disease IgM Antibody NEG Bedside Glucose 163 mg/dl 129 mg/dl 152 mg/dl Test 10/26/16 06:30 10/26/16 07:37 White Blood Count 4.37 K/uL Red Blood Count 3.78 M/uL Hemoglobin 11.4 g/dL Hematocrit 36.5 % Mean Corpuscular Volume 96.6 fL Mean Corpuscular Hemoglobin 30.2 pg Mean Corpuscular Hemoglobin Concent 31.2 g/dl Platelet Count 289 K/uL Mean Platelet Volume 9.5 fL Neutrophils (%) (Auto) 52.5 % Lymphocytes (%) (Auto) 31.6 % Monocytes (%) (Auto) 11.0 % Eosinophils (%) (Auto) 3.9 % Basophils (%) (Auto) 0.5 % Neutrophils # (Auto) 2.30 K/uL Lymphocytes # (Auto) 1.38 K/uL Monocytes # (Auto) 0.48 K/uL Eosinophils # (Auto) 0.17 K/uL Basophils # (Auto) 0.02 K/uL RDW Standard Deviation 50.3 fL RDW Coefficient of Variation 14.2 % Immature Granulocyte % (Auto) 0.5 % Immature Granulocyte # (Auto) 0.02 K/uL Sodium Level 144 mmol/L Potassium Level 3.6 mmol/L Chloride Level 109 mmol/L Carbon Dioxide Level 30 mmol/L Anion Gap 5.0 mmol/L Blood Urea Nitrogen 7 mg/dl Creatinine 1.00 mg/dl Est Creatinine Clear Calc Drug Dose 66.8 ml/min Estimated GFR () 86.8 Estimated GFR (Non- 74.9 BUN/Creatinine Ratio 7.0 Random Glucose 118 mg/dl Calcium Level 8.6 mg/dl Magnesium Level 1.7 mg/dl Bedside Glucose 110 mg/dl Assessment and Plan Patient is a 70 year old male with outpatient imaging suggestive of a SBO and inpatient CT with similar findings and evidence of free intraperitoneal air and microperforation. Underlying GI history of persistent diarrhea treated with daily cipro x 3 years. Recent colonoscopy with nonspecific acute colitis, biopsies do not suggest any chronic change. KUB this morning without evidence of SBO or ileus. NG removed. Diet advanced as tolerated NPO MRE for evaluation of obstruction, also to look for changes of scleroderma - sb diverticulosis or dilation? Please hold prednisone if possible. Monitor labs Stools culture and stool for c.diff if diarrhea resumes while admitted, giardia , biopsies may be needing to be evaluated for Whipples Appreciate surgery recommendations Attg addednum: I interviewed and examined pt, reviewed chart and labs. Pt is withotu complaint today - No abd pain, latasha PO. On exam, he appears comfortable and his abd is benign. I suspect that he had benign pneumoperitoneum, rather than a micro perf. Pneumatosis cystoides has been associated with scleroderma and bacterial overgrowth (see reference article: https://www.hindawi.com/journals/crira/2013/ 087812/); PCI may be cause of pneumoperitoneum. For now, cont empiric abx, and diet as tolerated. Would consider outpt course of xifaxan 5500 TID x 10 days as empiric therapy for bact OG, and pulse therapy for bact OG, but will defer to outpt GI.
[2016-10-26] MEDS: LORAZEPAM 0.5 MG TAB PO PRN (13:36)
[2016-10-26] MEDS ORDERED: NURSING VERBAL MED ORDER ONE (14:00)
[2016-10-26] MEDS ORDERED: GADAVIST IV PRN (16:30)
--- NOTE | 2016-10-26 16:48 | DIAGNOSTIC IMAGING REPORT ---
MR ENTEROGRAPHY ABD/PELVIS COMBO CLINICAL HISTORY: abnormal colon, hx of small bowel obstruction. TECHNIQUE: MR enterography of the abdomen and pelvis was performed both before and after the intravenous administration of contrast according to standard departmental protocol. COMPARISON STUDY: Abdomen and pelvis CT 10/20/2016. FINDINGS: Trace bilateral pleural effusions. Mild bilateral perinephric edema. A 1.8 cm exophytic cyst within the lower pole the left kidney. The liver, spleen, and pancreas are unremarkable. Cholecystectomy. The stomach is decompressed. There are multiple distended fluid-filled loops of small bowel seen throughout the abdomen. This is similar to the study. There are few decompressed loops of distal ileum. A clear transition point is difficult to identify due to the motion artifact. Moderate calcified plaque within the aorta and iliac arteries. There is moderate to severe stenosis at the aortic bifurcation and bilateral iliac arteries, left greater than right. No retroperitoneal lymphadenopathy. Extensive colonic diverticulosis. No bowel wall thickening. IMPRESSION: 1. There are again noted multiple distended fluid-filled loops of small bowel seen throughout the majority abdomen. This is similar to the prior study. There are few decompressed loops of distal ileum. Therefore, these findings likely represent a small bowel obstruction. A clear transition point is difficult to identify due to motion artifact. 2. Colonic diverticulosis. No bowel wall thickening identified. 3. The pneumoperitoneum seen on the prior study is not well evaluated by MR technique. 4. Moderate to severe multifocal stenosis within the aortic bifurcation and bilateral iliac arteries. Electronically signed by: Kevin Piña M.D. 10/26/2016 4:47 PM Dictated Date/Time: 10/26/2016 4:38 PM
[2016-10-26 17:00] VITALS: BP 140/70; PULSE 70; TEMP 36.3; O2SAT 97
--- NOTE | 2016-10-26 17:44 | Family Medicine Progress Note ---
Progress Note Date of Service October 26, 2016. Subjective Pt evaluation today including: conversation w/ patient, physical exam, chart review, lab review, review of studies, conversation w/ analysis consultant Pain: 0/10 PO Intake: WNL Voiding: no voiding problems Patient has been tolerating orals very well, no abdominal pain and still having regular BM Constitutional: No fever Eyes: No worsening of vision ENT: No hearing loss Respiratory: No cough, No dyspnea on exertion, No shortness of breath, No sputum, No wheezing Cardiovascular: No chest pain Abdomen: No constipation, No diarrhea, No nausea, No pain, No vomiting Musculoskeletal: No joint pain, No muscle pain Male : No dysuria Neurologic: No weakness Psychiatric: No depression symptoms Heme: No abnormal bleeding/bruising Endo: No fatigue Medications Medications Administered Medications (Trade) Dose Ordered Sig/Tony Route Start Time Stop Time Status Last Admin Dose Admin Potassium Chloride/Sodium Chloride 1,000 ml @ 100 mls/hr Q10H IV 10/20/16 21:00 10/22/16 09:50 DC 10/22/16 04:06 100 MLS/HR Piperacillin Sod/ Tazobactam Sod 3.375 gm/Dextrose 115 ml @ 28.75 mls/ hr Q8H IV 10/21/16 04:00 10/25/16 17:05 DC 10/25/16 11:29 28.75 MLS/HR Piperacillin Sod/ Tazobactam Sod 3.375 gm/Dextrose 115 ml @ 200 mls/hr TODAY@2130 IV 10/20/16 21:30 10/20/16 22:05 DC 10/20/16 22:22 200 MLS/HR Pantoprazole Sodium 40 mg/ Syringe 10 ml @ 5 mls/min DAILY@11 IV 10/21/16 11:00 10/24/16 10:38 DC 10/23/16 10:22 5 MLS/MIN Vancomycin HCl 1900 mg/Sodium Chloride 538 ml @ 200 mls/hr TODAY@2315 IV 10/20/16 23:15 10/21/16 01:57 DC 10/21/16 00:16 200 MLS/HR Ranitidine HCl/ Dextrose (zANTac IV/D5 100ml) 102 ml @ 200 mls/hr Q8H IV 10/21/16 06:00 10/24/16 10:38 DC 10/24/16 06:16 200 MLS/HR Metoprolol Tartrate 5 mg 5 mg Q4H IV. 10/21/16 06:00 10/23/16 12:27 DC 10/23/16 05:53 5 MG Vancomycin HCl/ Sodium Chloride (Vancomycin Inj/ Nss 250ml) 274 ml @ 125 mls/hr Q12H IV 10/21/16 14:00 10/23/16 10:11 DC 10/23/16 02:35 125 MLS/HR Lorazepam 0.5 mg 0.5 mg Q4H PRN IV 10/21/16 20:30 10/24/16 20:05 DC 10/23/16 03:38 0.5 MG Levothyroxine Sodium 44 mcg/ Syringe 2.2 ml @ 2 mls/min DAILY@09 IV 10/22/16 09:00 10/23/16 12:27 DC 10/23/16 09:17 2 MLS/MIN Potassium Chloride/Sodium Chloride 1,000 ml @ 75 mls/hr [id number] IV 10/22/16 11:00 10/23/16 21:54 DC 10/23/16 11:49 75 MLS/HR Enalaprilat 0.625 mg/Dextrose 25.5 ml @ 100 mls/hr Q6H IV 10/22/16 14:00 10/23/16 12:27 DC 10/23/16 08:10 100 MLS/HR Magnesium Sulfate/ Prmx (Magnesium Sulfate/Premixed D5W) 100 ml @ 100 mls/hr TODAY@1700 IV 10/22/16 17:00 10/22/16 17:59 DC 10/22/16 18:00 100 MLS/HR Bisacodyl 10 mg 10 mg TODAY@0800 ND 10/23/16 08:00 10/23/16 09:00 DC 10/23/16 08:12 10 MG Vancomycin HCl/ Sodium Chloride (Vancomycin Inj/ Nss 250ml) 274 ml @ 125 mls/hr Q18H IV 10/23/16 22:00 10/25/16 17:04 DC 10/25/16 10:30 125 MLS/HR Levothyroxine Sodium (Synthroid Tab) 88 mcg DAILYBB PO 10/24/16 06:00 11/23/16 05:59 10/26/16 06:37 88 MCG Aspirin (Ecotrin Tab) 81 mg DAILY PO 10/24/16 08:00 11/23/16 08:59 10/26/16 08:14 81 MG Clopidogrel Bisulfate (plAVix TAB) 75 mg DAILY PO 10/24/16 08:00 11/23/16 08:59 10/26/16 08:14 75 MG Cyanocobalamin (Vitamin B-12 Tab) 1,000 mcg DAILY PO 10/24/16 08:00 11/23/16 08:59 10/26/16 08:14 1,000 MCG Finasteride (Proscar Tab) 5 mg DAILY PO 10/24/16 08:00 11/23/16 08:59 10/26/16 08:13 5 MG Lactobacillus Acidophilus (Floranex Tab) 1 tab DAILY PO 10/24/16 08:00 11/23/16 08:59 10/26/16 08:13 1 TAB Lisinopril (Zestril Tab) 20 mg DAILY PO 10/24/16 08:00 11/23/16 08:59 10/26/16 08:13 20 MG Metoprolol Tartrate (Lopressor Tab) 50 mg BID PO 10/23/16 20:00 10/24/16 08:17 DC 10/23/16 20:32 50 MG Aspirin (Ecotrin Tab) 81 mg 1200 ONCE PO 10/23/16 12:00 10/23/16 12:01 DC 10/23/16 11:47 81 MG Clopidogrel Bisulfate (plAVix TAB) 75 mg 1200 ONCE PO 10/23/16 12:00 10/23/16 12:01 DC 10/23/16 11:47 75 MG Finasteride (Proscar Tab) 5 mg 1200 ONCE PO 10/23/16 12:00 10/23/16 12:01 DC 10/23/16 11:48 5 MG Lisinopril (Zestril Tab) 20 mg 1200 ONCE PO 10/23/16 12:00 10/23/16 12:01 DC 10/23/16 11:48 20 MG Metoprolol Tartrate (Lopressor Tab) 50 mg 1200 ONCE PO 10/23/16 12:00 10/23/16 12:01 DC 10/23/16 11:47 50 MG Metoprolol Tartrate 25 mg 25 mg BID PO 10/24/16 20:00 11/23/16 19:59 10/26/16 08:14 25 MG Magnesium Sulfate/ Prmx (Magnesium Sulfate/Premixed D5W) 100 ml @ 100 mls/hr ONE ONCE IV 10/24/16 09:00 10/24/16 09:59 DC 10/24/16 09:29 100 MLS/HR Potassium Chloride (Klor-Con M10) 40 meq NOW STAT PO 10/24/16 08:18 10/24/16 08:31 DC 10/24/16 09:26 40 MEQ Pantoprazole Sodium (Protonix Tab) 40 mg QAM PO 10/25/16 08:00 11/24/16 07:59 10/26/16 08:13 40 MG Ranitidine HCl 300 mg 300 mg HS PO 10/24/16 21:00 11/23/16 20:59 10/25/16 20:02 300 MG Lorazepam/Syringe (Ativan Inj/ Syringe) 1 ml @ 1 mls/min Q4H PRN IV 10/24/16 20:15 11/23/16 20:14 10/24/16 20:39 1 MLS/MIN Lorazepam (Ativan Tab) 0.5 mg Q6 PRN PO 10/25/16 22:00 11/24/16 21:59 10/26/16 13:36 0.5 MG Glucagon (Glucagon Inj) 1 mg TODAY@0600 IM 10/27/16 06:00 10/27/16 23:59 10/26/16 14:40 1 MG Objective Vital Signs Date Time Temp Pulse Resp B/P Pulse Ox O2 Delivery O2 Flow Rate FiO2 10/26/16 16:59 Room Air 10/26/16 09:09 Room Air 10/26/16 07:26 36.5 66 18 174/69 98 Room Air 10/26/16 00:00 Room Air 10/26/16 00:00 36.5 60 20 160/72 96 Room Air 10/25/16 20:00 Room Air Physical Exam General Appearance: no apparent distress Eyes: normal inspection ENT: normal ENT inspection Neck: supple Respiratory/Chest: normal breath sounds, no respiratory distress, no accessory muscle use Cardiovascular: regular rate, rhythm, no murmur Abdomen: normal bowel sounds, non tender, soft Extremities: normal inspection, no pedal edema, no calf tenderness Neurologic/Psychiatric: alert, normal mood/affect, oriented x 3 Skin: normal color, warm/dry, no rash Lymphatic: no adenopathy Laboratory Results Results Past 24 Hours Test 10/25/16 20:13 10/26/16 06:30 10/26/16 07:37 10/26/16 11:27 Range/Units Bedside Glucose 152 110 150 70-99 mg/dl White Blood Count 4.37 4.8-10.8 K/uL Red Blood Count 3.78 4.7-6.1 M/uL Hemoglobin 11.4 14.0-18.0 g/dL Hematocrit 36.5 42-52 % Mean Corpuscular Volume 96.6 80-100 fL Mean Corpuscular Hemoglobin 30.2 25-34 pg Mean Corpuscular Hemoglobin Concent 31.2 32-36 g/dl Platelet Count 289 130-400 K/uL Mean Platelet Volume 9.5 7.4-10.4 fL Neutrophils (%) (Auto) 52.5 % Lymphocytes (%) (Auto) 31.6 % Monocytes (%) (Auto) 11.0 % Eosinophils (%) (Auto) 3.9 % Basophils (%) (Auto) 0.5 % Neutrophils # (Auto) 2.30 1.4-6.5 K/uL Lymphocytes # (Auto) 1.38 1.2-3.4 K/uL Monocytes # (Auto) 0.48 0.11-0.59 K/uL Eosinophils # (Auto) 0.17 0-0.5 K/uL Basophils # (Auto) 0.02 0-0.2 K/uL RDW Standard Deviation 50.3 36.4-46.3 fL RDW Coefficient of Variation 14.2 11.5-14.5 % Immature Granulocyte % (Auto) 0.5 % Immature Granulocyte # (Auto) 0.02 0.00-0.02 K/uL Sodium Level 144 136-145 mmol/L Potassium Level 3.6 3.5-5.1 mmol/L Chloride Level 109 98-107 mmol/L Carbon Dioxide Level 30 21-32 mmol/L Anion Gap 5.0 3-11 mmol/L Blood Urea Nitrogen 7 7-18 mg/dl Creatinine 1.00 0.60-1.40 mg/dl Est Creatinine Clear Calc Drug Dose 66.8 ml/min Estimated GFR () 86.8 Estimated GFR (Non- 74.9 BUN/Creatinine Ratio 7.0 10-20 Random Glucose 118 70-99 mg/dl Calcium Level 8.6 8.5-10.1 mg/dl Magnesium Level 1.7 1.8-2.4 mg/dl Test 10/26/16 16:42 Range/Units Bedside Glucose 160 70-99 mg/dl Assessment and Plan Mr Palma is a 70 year old male with history of scleroderma, hypertension, hyperlipidemia, hypothyroidism, coronary artery disease, 2vCABG and 2 stents placed in 2013, BPH, Powell's esophagus and history of T2DM (diet controlled) who is a direct admit from [facility] GI office after AXR showed 8cm loop of small bowel with concern for partial small bowel obstruction. He was recently in hospital from October 08 - October 12 for diarrhea and weakness. On that admission he underwent EGD and colonoscopy - erythematous and mild micro ulcerated mucosa in the cecum-had multiple biopsies taken from the colon at that time. He was started on budesonide but this medication was too expensive so he was switched to mesalazine. On follow up with GI he was having increasing distension and abdominal pain and ongoing diarrhea 1-6 times/day which has been watery. He has chronic GI issues since diagnosed 3 years ago after being diagnosed with scleroderma. Previous treatment included chronic ciprofloxacin for bacterial overgrowth. He had a positive Campylobacter 2 weeks ago. He has also had 2 previous bowel perforations which were treated conservatively and resolved. On CT scan after admission, he was found to have free intraperitoneal air. KUB repeats showed a resolved SBO however on the MRE it persisted. Bowel perforation, free intraperitoneal air-likely secondary either to friable bowel from steroids and partial small bowel obstruction or a microperforation -Conservative management and pt improved - MRE revealed that the SBO persists - plan is to have patient stay overnight and as long as tolerating orals consider d/c tomorrow -Surgery consult- appreciate input - IV Zosyn and IV Vancowere d/c after a 5 day course -GI consult appreciated -Stool cultures and C. difficile pending -Hold off on any steroids at this time as can lead to bowel friability -Holding outpatient Cipro and mesalamine CAD, status post CABG and QUINTON placement, hypertension -continue Plavix, metoprolol, lisinopril, statin -decrease dose metoprolol to 25mg bid -hydralazine IV prn Scleroderma-with Powell's esophagus, GERD, Raynaud's phenomenon-followed by Dr. Sunita Mosley of rheumatology as an outpatient. -Continue follow-up with rheumatology as an outpatient -Continue ranitidine and pantoprazole but change to po BPH -Continue finasteride Diabetes mellitus type 2- HBA1C 6.5% -Glucose checks and insulin sliding scale Hypothyroidism-TSH 1.09 in September 2016-stable -Switch levothyroxine back to oral Prophylaxis-SCDs, no chemical prophylaxis was given in case of need for surgery Disposition-on medical floor -Probable discharge to home tomorrow AM Resident Physician Supervision Note: I interviewed and examined the patient. Discussed with Dr. Wilson and agree with findings and plan as documented in the note. Any exceptions or clarifications are listed here: None Documented By: Jace Madrid feeling good. awaiting MRE. eating well prior to being NPO for test. no significant pain. appreciates plan as laid out by GI ros otherwise negative except for as above vitals noted nad breathing unlabored no pallor or icterus perforation/free air - bedside picture does not match imaging. given MRE findings will want to ensure he does OK eating/drinking and no clinical deterioration before discharge - but likely safe for dc tomorrow otherwise as above Continued [facility] stay due to: other Discharge planning: uncertain
[2016-10-26 19:58] VITALS: BP 176/76; PULSE 73
[2016-10-26] MEDS: RANITIDINE HCL 150 MG TAB PO SCH (20:00)
[2016-10-27] VITALS: BP 137/57; PULSE 97; TEMP 36.4; O2SAT 97
[2016-10-27] MEDS ORDERED: GLUCAGON FOR INJ 1 MG VIAL IM SCH (06:00)
[2016-10-27] MEDS: LEVOTHYROXINE 88 MCG TAB PO SCH (06:02)
[2016-10-27 07:22] LABS: HEMATOCRIT 35.5 % (42-52); MEAN CORPUSCULAR HEMOGLOBIN 31.1 pg (25-34); MEAN CORPUSCULAR HGB CONC 32.1 g/dl (32-36); MEAN PLATELET VOLUME 9.6 fL (7.4-10.4); PLATELET COUNT 289 K/uL (130-400); RED BLOOD COUNT 3.66 M/uL (4.7-6.1); WHITE BLOOD COUNT 5.26 K/uL (4.8-10.8)
[2016-10-27 07:36] VITALS: BP 178/72; PULSE 62; TEMP 36.4; O2SAT 98
[2016-10-27] MEDS: LACTOBACILLUS ACIDOPHILUS (FLORANEX) TAB PO SCH (07:36)
[2016-10-27] MEDS: LISINOPRIL 20 MG TAB PO SCH (07:36)
[2016-10-27] MEDS: CYANOCOBALAMIN 500 MCG TAB (VIT B-12) PO SCH (07:37)
[2016-10-27] MEDS: METOPROLOL TARTRATE 25 MG TAB PO SCH (07:37)
[2016-10-27] MEDS: ASPIRIN 81 MG ECTAB PO SCH (07:37)
[2016-10-27] MEDS: CLOPIDOGREL BISULFATE 75 MG TAB PO SCH (07:37)
[2016-10-27] MEDS: PANTOprazole SOD 40 MG TAB PO SCH (07:37)
[2016-10-27] MEDS: FINASTERIDE 5 MG TAB PO SCH (07:37)
[2016-10-27 07:54] LABS: BUN/CREATININE RATIO 7.6 (10-20); CALCIUM 8.4 mg/dl (8.5-10.1); CREATININE 0.82 mg/dl (0.60-1.40); POTASSIUM 3.5 mmol/L (3.5-5.1)
[2016-10-27] MEDS ORDERED: MAGNESIUM SULFATE 1GM / D5W 1 GM in PREMIXED IN D5W 100 ML IV ONE (08:00)
[2016-10-27] MEDS: INSULIN ASPART 100 UNITS/ML 3 ML PEN SC SCH ×2 (08:57→12:55)
[2016-10-27 09:38] VITALS: BP 166/68; PULSE 55
--- NOTE | 2016-10-27 09:38 | Surgery Progress Note ---
Surgery Progress Note Date of Service October 27, 2016. Subjective + bowel movement, + diet (tolerating regular diet), + feeling well, + flatus, No complaints, No nausea, No vomiting Objective Vital Signs: Date Time Temp Pulse Resp B/P Pulse Ox O2 Delivery O2 Flow Rate FiO2 10/27/16 07:36 36.4 62 20 178/72 98 Room Air 10/27/16 00:00 Room Air 10/27/16 00:00 36.4 97 18 137/57 97 Room Air 10/26/16 20:00 Room Air 10/26/16 19:58 73 18 176/76 10/26/16 17:00 36.3 70 18 140/70 97 Room Air 10/26/16 16:59 Room Air Abdomen: normal bowel sounds, non tender, non distended, soft Laboratory Results: Results Past 24 Hours Test 10/26/16 11:27 10/26/16 16:42 10/26/16 20:14 10/27/16 07:06 Range/Units Bedside Glucose 150 160 156 70-99 mg/dl White Blood Count 5.26 4.8-10.8 K/uL Red Blood Count 3.66 4.7-6.1 M/uL Hemoglobin 11.4 14.0-18.0 g/dL Hematocrit 35.5 42-52 % Mean Corpuscular Volume 97.0 80-100 fL Mean Corpuscular Hemoglobin 31.1 25-34 pg Mean Corpuscular Hemoglobin Concent 32.1 32-36 g/dl RDW Standard Deviation 50.3 36.4-46.3 fL RDW Coefficient of Variation 14.1 11.5-14.5 % Platelet Count 289 130-400 K/uL Mean Platelet Volume 9.6 7.4-10.4 fL Sodium Level 144 136-145 mmol/L Potassium Level 3.5 3.5-5.1 mmol/L Chloride Level 109 98-107 mmol/L Carbon Dioxide Level 28 21-32 mmol/L Anion Gap 7.0 3-11 mmol/L Blood Urea Nitrogen 6 7-18 mg/dl Creatinine 0.82 0.60-1.40 mg/dl Est Creatinine Clear Calc Drug Dose 81.4 ml/min Estimated GFR () 102.4 Estimated GFR (Non- 88.3 BUN/Creatinine Ratio 7.6 10-20 Random Glucose 98 70-99 mg/dl Lactic Acid Level 0.8 0.4-2.0 mmol/L Calcium Level 8.4 8.5-10.1 mg/dl Test 10/27/16 07:50 Range/Units Bedside Glucose 89 70-99 mg/dl Assessment & Plan MRE noted, unchanged from previous Free air most likely benign etiology, no peritonitis Do not think surgical intervention required at this time
--- NOTE | 2016-10-27 09:51 | Gastroenterology Progress Note ---
Progress Note Date of Service: October 27, 2016 Subjective Pt evaluation today including: conversation w/ patient, conversation w/ family , physical exam, chart review, lab review Pt was seen and evaluated this AM. Continue to improve clinically. + appetite, he ate chicken rice and salad last night for dinner and was feeling well. This AM had pancakes. He is passing gas and BM. He has had 5 stools this AM. He reports his stools are back to his "baseline", alternating between semi-formed and more liquidly. No abdominal pain. No nausea. No fever, chills, chest pain, SOB, abdominal pain, black/bloody stools. MRE 10/27/16: There are again noted multiple distended fluid-filled loops of small bowel seen throughout the majority abdomen. This is similar to the prior study. There are few decompressed loops of distal ileum. Therefore, these findings likely represent a small bowel obstruction. A clear transition point is difficult to identify due to motion artifact. Colonic diverticulosis. No bowel wall thickening identified.The pneumoperitoneum seen on the prior study is not well evaluated by MR technique. Moderate to severe multifocal stenosis within the aortic bifurcation and bilateral iliac arteries. Review of Systems Constitutional: No chills, No fever Respiratory: No cough, No shortness of breath Cardiac: No chest pain, No edema Abdomen: + diarrhea, No GI bleeding, No constipation, No nausea, No pain, No vomiting Medications Current Inpatient Medications Medications (Trade) Dose Ordered Sig/Tony Route Start Time Stop Time Status Last Admin Dose Admin Ondansetron HCl 4 mg 4 mg Q6H PRN IV 10/20/16 22:15 11/19/16 22:14 Acetaminophen/ Empty Bag (Ofirmev Iv/ Empty Iv Bag 100ml) 65 ml @ 260 mls/hr Q6H PRN IV 10/20/16 22:15 11/19/16 22:14 Nitroglycerin (Nitrostat Tab) 0.4 mg PRN PRN SL 10/21/16 05:00 11/20/16 04:59 Glucose (Glucose 40% Gel) 15-30 GRAMS 15 GRAMS... UD PRN PO 10/21/16 20:15 11/20/16 20:14 Glucose (Glucose Chew Tab) 4-8 Tablets 4 Tabl... UD PRN PO 10/21/16 20:15 11/20/16 20:14 Dextrose (Dextrose 50% 50ML Syringe) 25-50ML OF 50% DW IV FOR... UD PRN IV 10/21/16 20:15 11/20/16 20:14 Glucagon (Glucagon Inj) 1 mg UD PRN SQ 10/21/16 20:15 11/20/16 20:14 Lorazepam (Ativan Inj) 0.5 mg Q4H PRN IV 10/21/16 21:15 11/20/16 21:14 Levothyroxine Sodium (Synthroid Tab) 88 mcg DAILYBB PO 10/24/16 06:00 11/23/16 05:59 10/27/16 06:02 88 MCG Aspirin (Ecotrin Tab) 81 mg DAILY PO 10/24/16 08:00 11/23/16 08:59 10/27/16 07:37 81 MG Clopidogrel Bisulfate (plAVix TAB) 75 mg DAILY PO 10/24/16 08:00 11/23/16 08:59 10/27/16 07:37 75 MG Cyanocobalamin (Vitamin B-12 Tab) 1,000 mcg DAILY PO 10/24/16 08:00 11/23/16 08:59 10/27/16 07:37 1,000 MCG Finasteride (Proscar Tab) 5 mg DAILY PO 10/24/16 08:00 11/23/16 08:59 10/27/16 07:37 5 MG Lactobacillus Acidophilus (Floranex Tab) 1 tab DAILY PO 10/24/16 08:00 11/23/16 08:59 10/27/16 07:36 1 TAB Lisinopril (Zestril Tab) 20 mg DAILY PO 10/24/16 08:00 11/23/16 08:59 10/27/16 07:36 20 MG Nitroglycerin (Nitrostat Tab) 0.3 mg PRN PRN UT 10/23/16 10:45 11/22/16 10:44 Insulin Aspart (novoLOG ASPART) SLIDING SCALE If C... ACHS SC 10/23/16 16:30 11/22/16 16:29 Metoprolol Tartrate (Lopressor Tab) 25 mg BID PO 10/24/16 20:00 11/23/16 19:59 10/27/16 07:37 25 MG Hydralazine HCl (HydrALAZINE INJ) 10 mg Q8 PRN IV. 10/24/16 08:30 11/23/16 08:29 Pantoprazole Sodium (Protonix Tab) 40 mg QAM PO 10/25/16 08:00 11/24/16 07:59 10/27/16 07:37 40 MG Ranitidine HCl 300 mg 300 mg HS PO 10/24/16 21:00 11/23/16 20:59 10/26/16 20:00 300 MG Lorazepam/Syringe (Ativan Inj/ Syringe) 1 ml @ 1 mls/min Q4H PRN IV 10/24/16 20:15 11/23/16 20:14 10/24/16 20:39 1 MLS/MIN Lorazepam (Ativan Tab) 0.5 mg Q6 PRN PO 10/25/16 22:00 11/24/16 21:59 10/26/16 13:36 0.5 MG Glucagon (Glucagon Inj) 1 mg TODAY@0600 IM 10/27/16 06:00 10/27/16 23:59 10/26/16 14:40 1 MG Gadobutrol (Gadavist) 7.9 mmol UD PRN IV 10/26/16 16:30 10/30/16 16:29 Objective Vital Signs Date Time Temp Pulse Resp B/P Pulse Ox O2 Delivery O2 Flow Rate FiO2 10/27/16 09:38 55 166/68 10/27/16 08:00 Room Air 10/27/16 07:36 36.4 62 20 178/72 98 Room Air 10/27/16 00:00 Room Air 10/27/16 00:00 36.4 97 18 137/57 97 Room Air 10/26/16 20:00 Room Air 10/26/16 19:58 73 18 176/76 10/26/16 17:00 36.3 70 18 140/70 97 Room Air 10/26/16 16:59 Room Air Physical Exam General Appearance: no apparent distress Eyes: normal inspection ENT: hearing grossly normal Neck: supple Respiratory/Chest: lungs clear, no accessory muscle use Cardiovascular: regular rate, rhythm, no JVD Abdomen: normal bowel sounds, non tender, soft, no organomegaly, no pulsatile mass Neurologic/Psych: alert, normal mood/affect, oriented x 3 Skin: normal color, no jaundice, warm/dry, no rash Laboratory Results Last 24 Hours Test 10/26/16 11:27 10/26/16 16:42 10/26/16 20:14 10/27/16 07:06 Bedside Glucose 150 mg/dl 160 mg/dl 156 mg/dl White Blood Count 5.26 K/uL Red Blood Count 3.66 M/uL Hemoglobin 11.4 g/dL Hematocrit 35.5 % Mean Corpuscular Volume 97.0 fL Mean Corpuscular Hemoglobin 31.1 pg Mean Corpuscular Hemoglobin Concent 32.1 g/dl RDW Standard Deviation 50.3 fL RDW Coefficient of Variation 14.1 % Platelet Count 289 K/uL Mean Platelet Volume 9.6 fL Sodium Level 144 mmol/L Potassium Level 3.5 mmol/L Chloride Level 109 mmol/L Carbon Dioxide Level 28 mmol/L Anion Gap 7.0 mmol/L Blood Urea Nitrogen 6 mg/dl Creatinine 0.82 mg/dl Est Creatinine Clear Calc Drug Dose 81.4 ml/min Estimated GFR () 102.4 Estimated GFR (Non- 88.3 BUN/Creatinine Ratio 7.6 Random Glucose 98 mg/dl Lactic Acid Level 0.8 mmol/L Calcium Level 8.4 mg/dl Test 10/27/16 07:50 Bedside Glucose 89 mg/dl Assessment and Plan Patient is a 70 year old male with outpatient imaging suggestive of a SBO and inpatient CT with similar findings and evidence of free intraperitoneal air and microperforation. Underlying GI history of persistent diarrhea treated with daily cipro x 3 years. Recent colonoscopy with nonspecific acute colitis, biopsies do not suggest any chronic change. KUB this morning without evidence of SBO or ileus. NG removed. Diet advanced as tolerated. MRE on 10/26/16 w/ multiple distended fluid-filled loops of small bowel throughout w/ few decompressed loops of distal ileum likely access representative of a small bowel obstruction. GI is ok for diet as suggested by surgery MRE for evaluation of stricture vs small bowel tumor - will need to review study with surgery, Dr. Schulte and radiology - if negative w/u for carcinoid, pheochromocytoma, C1Q esterase inhibitor - systemic mastocytosis? - Auto-immune enteropathy? May hold prednisone for appropriate healing of suspected microperforation Monitor labs Stools culture and stool for c.diff if diarrhea resumes while admitted, giardia , biopsies may be needing to be evaluated for Whipples Encouraged ambulation and being OOB Appreciate surgery recommendations Low fiber/low reside diet indefinitely ATTESTATION: I have performed a history and physical examination of this patient and reviewed the electronic record. Specifically, on physical examination there is no further abdominal tenderness. I have discussed the case with APARNA Goodman. The above note reflects my findings, conclusions, and recommendations. Benson Schulte MD
[2016-10-27 11:57] VITALS: BP 167/71; PULSE 57; TEMP 36.6; O2SAT 95
[2016-10-27] MEDS ORDERED: LPR25 PO (13:31)
--- NOTE | 2016-10-27 14:17 | Discharge Instructions ---
Discharge Instructions Date of Service October 27, 2016. Admission Reason for Admission: Small Bowel Obstruction Discharge Discharge Diagnosis / Problem: small bowel obstruction Discharge Goals Goal(s): Learn about illness, Diagnostic testing Activity Recommendations Activity Limitations: resume your previous activity . Instructions / Follow-Up Instructions / Follow-Up You were admitted to the hospital because of a recurrence of your small bowel obstruction. The initial test that was completed was a CT of the abdomen which initially revealed the small bowel obstruction. Follow up KUB (abdominal xray) did not reveal this however when the MRE (MRI of the abdomen) was completed the small bowel obstruction was once again noted. Surgery was consulted and they did not feel any intervention was needed since you were eating well and still having bowel movements. The plan is that further diagnostic testing will be completed with Dr Oconnor and his associates in the outpatient setting and a follow up has been arranged. 1. 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 We decreased the dose of your blood pressure medication, metoprolol, because your heart rate was slow. You will now be taking half the dose, 25 mg twice a day. A script was sent to the pharmacy 3. We do recommend follow up with your PCP as well in the next week 4. Continue your Ranitidine and Pantoprazole as prescribed If at any time you have worsening abdominal pain, nausea and vomiting or severe abdominal bloating please return to the ED We wish you fozia Wilson Current Hospital Diet Patient's current hospital diet: Diabetes Type 2 Diet Discharge Diet Recommended Diet: Low Fiber Diet Pending Studies Studies pending at discharge: no Laboratory Results Hemoglobin A1c Test 10/22/16 05:24 Range/Units Estimated Average Glucose 140 mg/dl Hemoglobin A1c 6.5 H 4.5-5.6 % Medical Emergencies . Who to Call and When: Medical Emergencies: If at any time you feel your situation is an emergency, please call 911 immediately. . Non-Emergent Contact Non-Emergency issues call your: Primary Care Provider . . "Provider Documentation" section prepared by Marianne Wilson. . VTE Core Measure Inpt VTE Proph given/why not?: SCD's
--- NOTE | 2016-10-27 14:21 | Discharge Summary ---
Discharge Summary Date of Service October 27, 2016. (Marianne Wilson MD) Discharge Summary Admission Date: October 20, 2016 at 18:38 Discharge Date: October 27, 2016 Discharge Disposition: Home Principal Diagnosis: small bowel obstruction Immunizations: Have You Had Influenza Vaccine: Unknown History of Tetanus Vaccine?: Unknown History of Pneumococcal: Unknown History of Hepatitis B Vaccine: Unknown Consultations: Dr Martinez GI (Marianne Wilson MD) Medication Reconciliation New Medications: Metoprolol Tartrate (Lopressor) 25 Mg Tab 25 MG PO BID for 30 Days, #60 TAB Continued Medications: Aspirin (Aspirin) 81 Mg Tab 81 MG PO DAILY Cholestyramine (Bulk) (Cholestyramine) 1 Pow Pow 1 PKT PO DAILY PRN for Diarrhea MDD 1 Clopidogrel (Plavix) 75 Mg Tab 75 MG PO DAILY, TAB Cyanocobalamin (Vitamin B12 500MCG) 500 Mcg Tab 1000 MCG PO DAILY, TAB Cyanocobalamin (B12) 1,000 Mcg Tab 1 TAB PO DAILY Dicyclomine Hcl (Dicyclomine Hcl) 20 Mg Tab 1 TAB PO DAILY PRN for Gas or Constipation for 10 Days, #10 TAB 1 Refill Ferrous Sulfate (Iron) 325 Mg Tab 325 MG PO DAILY Finasteride (Finasteride) 5 Mg Tab 1 TAB PO DAILY Lactobacillus Acidophilus (Lactinex) Tab 1 TAB PO, TAB Levothyroxine Sodium (Levothyroxine Sodium) 88 Mcg Tab 1 TAB PO DAILY for 30 Days, #30 TAB 5 Refills Lisinopril (Lisinopril) 20 Mg Tab 20 MG PO DAILY Multiple Vitamin (Multivitamin) 1 Tab Tab 1 TAB PO DAILY, TAB Nitroglycerin (Nitrostat) 0.4 Mg Sub 0.4 MG UT PRN, BTL Nitroglycerin (Nitrostat) 0.3 Mg Tab 0.3 MG UT PRN PRN for Chest Pain, BTL Nutritional Supplements (Boost) 1 Liq Liq 1 CAN PO UD Pantoprazole (Pantoprazole Sodium) 40 Mg Tab 40 MG PO DAILY Pantoprazole (Protonix) 20 Mg Tab 20 MG PO DAILY PRN for GI Upset, #30 TAB Probiotic Product (Probiotic) 1 Cap Cap 1 TAB PO TID Ranitidine (Zantac) 300 Mg Tab 300 MG PO HS, TAB Discontinued Medications: Aspirin (Aspirin EC Low Dose) 81 Mg Ectab 1 TAB PO DAILY Budesonide (Entocort Ec) 3 Mg Cap 3 CAP PO DAILY for 30 Days, #90 CAP 2 Refills Clopidogrel Bisulfate (Clopidogrel) 75 Mg Tab 75 MG PO DAILY Finasteride (Finasteride) 5 Mg Tab 5 MG PO DAILY Levothyroxine Sodium (Synthroid) 88 Mcg Tab 88 MCG PO DAILY Lisinopril (Zestril) 20 Mg Tab 20 MG PO DAILY, TAB Mesalamine (Pentasa) 500 Mg Caper 1000 MG PO QID, CAP Metoprolol Tartrate (Lopressor) (Lopressor) 50 Mg Tab 50 MG PO BID, TAB Metoprolol Tartrate (Lopressor) (Lopressor) 50 Mg Tab 50 MG PO BID, TAB Multivitamin (Multivitamin) Tab 1 TAB PO DAILY, TAB Ranitidine Hcl (Zantac) 300 Mg Tab 300 MG PO BID, TAB Simethicone (Phazyme) 180 Mg Cap 180 MG PO BID Simethicone (Phazyme) 180 Mg Cap 1 CAP PO BID [iron] () 65 MG PO DAILY Discharge Exam Patient tolerated dinner and breakfast, having regular BM and no abdominal pain Discussed discharge instruction with patient and reflected understanding and agreeable Review of Systems: Constitutional: No fever Eyes: No worsening of vision ENT: No hearing loss Respiratory: No cough, No dyspnea at rest, No dyspnea on exertion, No shortness of breath, No sputum, No wheezing Cardiovascular: No chest pain Abdomen: No constipation, No diarrhea, No nausea, No pain, No vomiting Musculoskeletal: No joint pain, No muscle pain Genitourinary - Female: No dysuria, No hematuria Psychiatric: No depression symptoms Endocrine: No fatigue Integumentary: No rash Physical Exam: General Appearance: no apparent distress Eyes: normal inspection ENT: normal ENT inspection Neck: supple Respiratory/Chest: lungs clear, normal breath sounds, no respiratory distress, no accessory muscle use Cardiovascular: regular rate, rhythm, no murmur Abdomen / GI: normal bowel sounds, non tender, soft Extremities: normal inspection, no calf tenderness, no pedal edema Neurologic/Psychiatric: alert, normal mood/affect, oriented x 3 Skin: normal color, warm/dry, no rash Lymphatic: no adenopathy (Marianne Wilson MD) Hospital Course Mr Palma is a 70 year old male with history of scleroderma, hypertension, hyperlipidemia, hypothyroidism, coronary artery disease, 2vCABG and 2 stents placed in 2013, BPH, Powell's esophagus and history of T2DM (diet controlled) who is a direct admit from [facility] GI office after AXR showed 8cm loop of small bowel with concern for partial small bowel obstruction. He was recently in hospital from October 08 - October 12 for diarrhea and weakness. On that admission he underwent EGD and colonoscopy - erythematous and mild micro ulcerated mucosa in the cecum-had multiple biopsies taken from the colon at that time. He was started on budesonide but this medication was too expensive so he was switched to mesalazine. On follow up with GI he was having increasing distension and abdominal pain and ongoing diarrhea 1-6 times/day which has been watery. He has chronic GI issues since diagnosed 3 years ago after being diagnosed with scleroderma. Previous treatment included chronic ciprofloxacin for bacterial overgrowth. He had a positive Campylobacter 2 weeks ago. He has also had 2 previous bowel perforations which were treated conservatively and resolved. On CT scan after admission, he was found to have free intraperitoneal air. KUB repeats showed a resolved SBO however on the MRE it persisted. As the patient did tolerate meals and had a normal lactate it was decided he would be d/c in the am Bowel perforation, free intraperitoneal air-likely secondary either to friable bowel from steroids and partial small bowel obstruction or a microperforation -Conservative management and pt improved - MRE revealed that the SBO persists--> further work up in outpt -Surgery consult- appreciate input - IV Zosyn and IV Vanco were d/c after a 5 day course -GI consult appreciated -Stool cultures and C. difficile negative -Hold off on any steroids at this time as can lead to bowel friability -Holding outpatient Cipro and mesalamine and simethicone CAD, status post CABG and QUINTON placement, hypertension -continue Plavix, metoprolol, lisinopril, statin -decrease dose metoprolol to 25mg bid because of bradycardia Scleroderma-with Powell's esophagus, GERD, Raynaud's phenomenon-followed by Dr. Sunita Mosley of rheumatology as an outpatient. -Continue follow-up with rheumatology as an outpatient -Continue ranitidine and pantoprazole BPH -Continue finasteride Diabetes mellitus type 2- HBA1C 6.5% -Glucose checks and insulin sliding scale Hypothyroidism-TSH 1.09 in September 2016-stable - levothyroxine cont Prophylaxis-SCDs, no chemical prophylaxis was given in case of need for surgery Total Time Spent: Less than 30 minutes This includes examination of the patient, discharge planning, medication reconciliation, and communication with other providers. (Marianne Wilson MD) Resident Physician Supervision Note: I interviewed and examined the patient. Discussed with Dr. Wilson and agree with findings and plan as documented in the note. Any exceptions or clarifications are listed here: None Documented By: Jace Madrid feeling good eating OK wants to go home, input from GI and surgery noted vitals noted nad, breathing unlabored no pallor or icterus SBO appearance/perforation appearance - medically appearing much more stable than imaging would suggest - stable fo rdischarge to home, ongoing close f/u and further w/u with GI to discern actual diagnoses Total Time Spent: Less than 30 minutes (Jace Madrid, D.O.) Discharge Instructions Please refer to the electronic Patient Visit Report (Discharge Instructions) for additional information. (Marianne Wilson MD) Additional Copies To Jaime García M.D.
[2016-10-27 14:33] VITALS: BP 167/71; PULSE 57; TEMP 36.6; O2SAT 95
== END 2016-10-27 15:15 | disposition home or self-care (01) | DRG 388 ==
LOC: ENRESERVTM → ENRESERVDT → C.2T 18:38 → C.4E 10-23 13:00
PROVIDERS: ADMIT Hospitalist; ATTEND Family Medicine
DX: K56.60 Unspecified intestinal obstruction (principal); K63.1 Perforation of intestine (nontraumatic); K57.30 Diverticulosis of large intestine without perforation or abscess without bleeding; I10 Essential (primary) hypertension; E78.5 Hyperlipidemia, unspecified; K21.9 Gastro-esophageal reflux disease without esophagitis; K44.9 Diaphragmatic hernia without obstruction or gangrene; I73.9 Peripheral vascular disease, unspecified; I73.00 Raynaud's syndrome without gangrene; T38.0X5A Adverse effect of glucocorticoids and synthetic analogues, initial encounter; M35.00 Sjogren syndrome, unspecified; E03.9 Hypothyroidism, unspecified; I25.10 Atherosclerotic heart disease of native coronary artery without angina pectoris; Z95.5 Presence of coronary angioplasty implant and graft; E11.9 Type 2 diabetes mellitus without complications; K22.70 Barrett's esophagus without dysplasia; Z87.891 Personal history of nicotine dependence; N40.0 Benign prostatic hyperplasia without lower urinary tract symptoms; Y92.019 Unspecified place in single-family (private) house as the place of occurrence of the external cause

== ENCOUNTER → 2017-02-17 | Outpatient (CLI) | payer OTHER ==
[~2017-02-17] MED LIST changes: -BUDE1CAP6 PO; +CHOLPOW PO; +CLOP1TAB15 PO; +CYAN100073 PO; +DICY20TA10 PO; +LCTX PO; +LEVO88TA3 PO; +LPR25 PO; -METO50TA16 PO; +NTRSL3 UT; -PLV75 PO; +PRT/20 PO; -SIME180C6 PO; -SYN88 PO
[2017-02-17 16:38] LABS: BASO % 0.5 %; BASO ABS # 0.04 K/uL (0-0.2); COMPLETE YES; EOS % 1.1 %; HEMATOCRIT 38.7 % (42-52); IG% 0.4 %; LYMPH % 19.1 %; LYMPH ABS # 1.56 K/uL (1.2-3.4); MEAN CELL VOLUME 92.6 fL (80-100); MEAN CORPUSCULAR HEMOGLOBIN 30.6 pg (25-34); MEAN CORPUSCULAR HGB CONC 33.1 g/dl (32-36); MEAN PLATELET VOLUME 10.3 fL (7.4-10.4); MONO % 9.3 %; NEUT % 69.6 %; PLATELET COUNT 268 K/uL (130-400); RED BLOOD COUNT 4.18 M/uL (4.7-6.1); WHITE BLOOD COUNT 8.15 K/uL (4.8-10.8)
[2017-02-17 17:01] LABS: ALT/SGPT 19 U/L (12-78); AST/SGOT 17 U/L (15-37); BLOOD UREA NITROGEN 20 mg/dl (7-18); BUN/CREATININE RATIO 18.4 (10-20); CALCIUM 8.6 mg/dl (8.5-10.1); CARBON DIOXIDE 21 mmol/L (21-32); CHLORIDE 113 mmol/L (98-107); GLUCOSE 86 mg/dl (70-99); POTASSIUM 3.6 mmol/L (3.5-5.1); SODIUM 141 mmol/L (136-145)
[2017-02-17 17:11] LABS: ALB/GLOB RATIO 0.9 (0.9-2); ALKALINE PHOSPHATASE 118 U/L (45-117)
[2017-02-18 05:55] LABS: ESTIMATED AVERAGE GLUCOSE 126 mg/dl; HA1C FLAG Normal (Normal)
== END | disposition home or self-care (01) ==
LOC: C.LABBFT 11:43
PROVIDERS: ATTEND Internal Medicine
DX: E11.9 Type 2 diabetes mellitus without complications (principal); E55.9 Vitamin D deficiency, unspecified; E03.9 Hypothyroidism, unspecified

== ENCOUNTER → 2017-08-10 | Outpatient (CLI) | payer OTHER | END | disposition home or self-care (01) | LOC: C.PATHSPEC 17:04 | PROVIDERS: ATTEND Plastic Surgery | DX: L98.9 Disorder of the skin and subcutaneous tissue, unspecified (principal) ==

== ENCOUNTER → 2017-08-18 | Outpatient (CLI) | payer OTHER ==
[2017-08-21 04:56] LABS: ANA SCREEN TC 249X POSITIVE (NEGATIVE); ANTI-SS-A <1.0 NEG AI (<1.0 NEG); ANTI-SS-B <1.0 NEG AI (<1.0 NEG); COMPLEMENT C3 TC 44859W 121 MG/DL (90-180); COMPLEMENT C4 TC 44982E 29 MG/DL (16-47)
[2017-08-23 14:45] LABS: ANA TITER > OR = 1:1280 TITER (<1:40)
== END | disposition home or self-care (01) ==
LOC: C.LAB1850 11:13
PROVIDERS: ATTEND Internal Medicine Rheumatology
DX: M34.9 Systemic sclerosis, unspecified (principal); I73.00 Raynaud's syndrome without gangrene; K63.89 Other specified diseases of intestine

== ENCOUNTER → 2017-08-23 | Outpatient (CLI) | payer OTHER ==
--- NOTE | 2017-08-23 18:16 | ECHOCARDIOGRAM REPORT ---
*NOTICE TO RECEIVING [employer] This information is strictly Confidential and protected under [place] law. [place] law prohibits you from making any further disclosure of this information unless further disclosure is expressly permitted by the written consent of the person to whom it pertains or is authorized by law. A general authorization for the release of medical or other information is not sufficient for this purpose. Hospital accepts no responsibility if the information is made available to any other person, INCLUDING THE PATIENT. Interpretation Summary * Name: CALISTA GUTIERREZ Study Date: 08/23/2017 11:52 AM BP: 150/52 mmHg * Patient Location: [facility] HR: 67 * : 1945 (M/d/yyyy) Gender: Male Height: 69 in * Age: 71 yrs Ethnicity: [place] Weight: 175 lb * Ordering Physician: Sunita Mosley * Referring Physician: Sunita Mosley * Performed By: Liliana Do RCS * * Reason For Study: SCLERODERMA * BSA: 2.0 m2 * -- Conclusions -- * 1. LV mildly dilated. Mild concentric LVH. * 2. Mild LV dysfunction. LVEF 40-45 %. Regional wall motion abnormality as outlined below. * 3. Normal RV size and function. * 4. Trace MR, trace TR * 5. Grade 2 diastolic dysfunction * 6. Compared with prior study on 08/25/2012: LV dysfunction now mild Procedure Details * A complete two-dimensional transthoracic echocardiogram was performed (2D, M-mode, Doppler and color flow Doppler). Left Ventricle * The left ventricle is mildly dilated. * There is mild concentric left ventricular hypertrophy. * Focal thickening of the basal septum with no evidence of left ventricular outflow obstruction. * Ejection Fraction = 40-45%. * Inferolateral and basal inferior akinesis, moderate mid to apical inferior and basal septal moderate hypokinesis Right Ventricle * The right ventricle is grossly normal size. * The right ventricular systolic function is normal as assessed by tricuspid annular plane systolic excursion (TAPSE) (normal >1.5 cm). Atria * The left atrium is mildly dilated. * Borderline right atrial enlargement. Mitral Valve * The mitral valve is grossly normal. * There is no mitral valve stenosis. * There is trace mitral regurgitation. Tricuspid Valve * There is trace tricuspid regurgitation. Aortic Valve * The aortic valve opens well. * The aortic valve is trileaflet. * No hemodynamically significant valvular aortic stenosis. * There is no significant aortic regurgitation. Pulmonic Valve * The pulmonary valve is inadequately visualized, but the Doppler data is adequate for interpretation. * Pulmonic stenosis is absent. * There is no significant pulmonary regurgitation. Great Vessels * The aortic root and proximal ascending aorta are normal sized. Pericardium/Pleural * There is no pericardial effusion. Left Ventricular Diastolic Function * Diastolic dysfunction, Grade II (pseudonormalization pattern). MMode 2D Measurements and Calculations IVSd 2.0 cm IVSs 2.0 cm LVIDd 5.1 cm LVIDs 4.3 cm LVPWd 1.3 cm LVPWs 1.6 cm IVS/LVPW 1.4 FS 15.7 % EDV(Teich) 121.5 ml ESV(Teich) 81.4 ml EF(Teich) 33.0 % EDV(cubed) 129.4 ml ESV(cubed) 77.5 ml EF(cubed) 40.1 % % IVS thick 1.2 % % LVPW thick 21.9 % LV mass(C)d 378.2 grams LV mass(C)dI 193.8 grams/m\S\2 LV mass(C)s 343.0 grams LV mass(C)sI 175.8 grams/m\S\2 SV(Teich) 40.0 ml SI(Teich) 20.5 ml/m\S\2 SV(cubed) 51.9 ml SI(cubed) 26.6 ml/m\S\2 Ao root diam 3.3 cm Ao root area 8.3 cm\S\2 ACS 2.2 cm LA dimension 3.9 cm LA/Ao 1.2 LVOT diam 2.1 cm LVOT area 3.5 cm\S\2 LVAd ap4 47.5 cm\S\2 LVLd ap4 9.3 cm EDV(MOD-sp4) 195.5 ml EDV(sp4-el) 206.3 ml LVAs ap4 33.5 cm\S\2 LVLs ap4 7.8 cm ESV(MOD-sp4) 116.3 ml ESV(sp4-el) 121.8 ml EF(MOD-sp4) 40.5 % EF(sp4-el) 40.9 % LVAd ap2 44.7 cm\S\2 LVLd ap2 9.5 cm EDV(MOD-sp2) 173.4 ml EDV(sp2-el) 177.6 ml LVAs ap2 31.8 cm\S\2 LVLs ap2 8.1 cm ESV(MOD-sp2) 102.4 ml ESV(sp2-el) 105.7 ml EF(MOD-sp2) 41.0 % EF(sp2-el) 40.5 % LVLd %diff 2.6 % EDV(MOD-bp) 183.4 ml LVLs %diff 4.0 % ESV(MOD-bp) 110.2 ml EF(MOD-bp) 39.9 % SV(MOD-sp4) 79.2 ml SI(MOD-sp4) 40.6 ml/m\S\2 SV(MOD-sp2) 71.1 ml SI(MOD-sp2) 36.4 ml/m\S\2 SV(MOD-bp) 73.2 ml SI(MOD-bp) 37.5 ml/m\S\2 SV(sp4-el) 84.4 ml SI(sp4-el) 43.3 ml/m\S\2 SV(sp2-el) 71.9 ml SI(sp2-el) 36.8 ml/m\S\2 Doppler Measurements and Calculations MV E max bhupinder 58.8 cm/sec MV A max bhupinder 90.1 cm/sec MV E/A 0.65 MV P1/2t max bhupinder 63.8 cm/sec MV P1/2t 97.5 msec MVA(P1/2t) 2.3 cm\S\2 MV dec slope 191.8 cm/sec\S\2 MV dec time 0.29 sec Ao V2 max 87.8 cm/sec Ao max PG 3.1 mmHg Ao max PG (full) 1.4 mmHg DENA(V,A) 2.6 cm\S\2 DENA(V,D) 2.6 cm\S\2 LV V1 max PG 1.7 mmHg LV V1 max 65.8 cm/sec PA V2 max 71.6 cm/sec PA max PG 2.1 mmHg TR max bhupinder 232.3 cm/sec
== END | disposition home or self-care (01) ==
LOC: C.CPL 12:36
PROVIDERS: ATTEND Internal Medicine Rheumatology
DX: M34.9 Systemic sclerosis, unspecified (principal)

== ENCOUNTER → 2017-08-25 | Outpatient (CLI) | payer OTHER ==
[2017-08-25 17:35] LABS: BASO % 0.4 %; BASO ABS # 0.03 K/uL (0-0.2); EOS ABS # 0.08 K/uL (0-0.5); HEMATOCRIT 42.8 % (42-52); HEMOGLOBIN 14.4 g/dL (14.0-18.0); IG# 0.04 K/uL (0.00-0.02); LYMPH % 19.7 %; MEAN CELL VOLUME 97.1 fL (80-100); MEAN CORPUSCULAR HEMOGLOBIN 32.7 pg (25-34); MEAN CORPUSCULAR HGB CONC 33.6 g/dl (32-36); MEAN PLATELET VOLUME 10.5 fL (7.4-10.4); MONO % 8.9 %; MONO ABS # 0.72 K/uL (0.11-0.59); NEUT % 69.5 %; NEUT ABS # 5.65 K/uL (1.4-6.5); PLATELET COUNT 257 K/uL (130-400); RED CELL DISTRIBUTION WIDTH CV 13.8 % (11.5-14.5); RED CELL DISTRIBUTION WIDTH SD 49.5 fL (36.4-46.3); RETIC COUNT % 1.4 % (0.5-2.0); WHITE BLOOD COUNT 8.12 K/uL (4.8-10.8)
[2017-08-25 18:06] LABS: AST/SGOT 16 U/L (15-37); BLOOD UREA NITROGEN 36 mg/dl (7-18); CARBON DIOXIDE 19 mmol/L (21-32); CREATININE 1.26 mg/dl (0.60-1.40); GLUCOSE 108 mg/dl (70-99); POTASSIUM 3.8 mmol/L (3.5-5.1); SODIUM 140 mmol/L (136-145)
[2017-08-25 18:12] LABS: ALKALINE PHOSPHATASE 126 U/L (45-117); ALT/SGPT 23 U/L (12-78); TRANSFERRIN 225 mg/dl (200-360)
== END | disposition home or self-care (01) ==
LOC: C.LABBFT 14:01
PROVIDERS: ATTEND Internal Medicine
DX: E78.5 Hyperlipidemia, unspecified (principal); E03.9 Hypothyroidism, unspecified; E55.9 Vitamin D deficiency, unspecified; D64.9 Anemia, unspecified; E11.9 Type 2 diabetes mellitus without complications

== ENCOUNTER → 2018-01-26 | Outpatient (CLI) | payer OTHER ==
[~2018-01-26] MED LIST changes: +LISI-726 PO; -LSN20 PO; +PANT1TAB4 PO; -PRT40 PO
--- NOTE | 2018-01-26 12:54 | DIAGNOSTIC IMAGING REPORT ---
CERVICAL SPINE 2 OR 3 VIEWS HISTORY: Pain. Neuropathy. M62.838 Neck muscle [id number] COMPARISON: None. FINDINGS: The cervical spine is visualized from C1 through the superior endplate of T1. There is no fracture. No subluxation. Considerable degenerative disc change throughout. Prevertebral soft tissues and the atlantodens interval are intact. IMPRESSION: Considerable degenerative disc change. No acute process. The above report was generated using voice recognition software. It may contain grammatical, syntax or spelling errors. Electronically signed by: Evan Madsen M.D. 01/26/2018 12:52 PM Dictated Date/Time: 01/26/2018 12:51 PM
== END | disposition home or self-care (01) ==
LOC: C.RADBC 12:04
PROVIDERS: ATTEND Physician Assistant
DX: M62.838 Other muscle spasm (principal)

== ENCOUNTER 2019-02-03 16:11 | Inpatient (IN) ==
[2019-02-03] MEDS ORDERED: SODIUM CHLORIDE 0.9% 1000ML 1,000 ML IV SCH (17:00)
[2019-02-03 17:43] LABS: Basophils # (auto) 0.02 K/uL (0-0.2); Basophils % (auto) 0.4 %; Eosinophils # (auto) 0.03 K/uL (0-0.5); Eosinophils % (auto) 0.6 %; Hematocrit (blood only) 40.1 % (42-52); Hemoglobin 13.8 g/dL (14.0-18.0); Immature Granulocytes # (auto) 0.05 K/uL (0.00-0.02); Immature Granulocytes % (auto) 1.1 %; Lymphocytes # (auto) 0.93 K/uL (1.2-3.4); Lymphocytes % (auto) 19.6 %; Mean Corpuscular Hgb Conc 34.4 g/dL (32-36); Monocytes # (auto) 1.02 K/uL (0.11-0.59); Monocytes % (auto) 21.5 %; Neutrophils # (auto) 2.69 K/uL (1.4-6.5); Neutrophils % (auto) 56.8 %; Platelet Count 260 K/uL (130-400); Red Blood Count 4.31 M/uL (4.7-6.1); White Blood Count 4.74 K/uL (4.8-10.8)
--- NOTE | 2019-02-03 17:51 | Emergency Department Note ---
Entered by Waqar Salguero acting as a scribe for History of Present Illness General Chief complaint: Referred by Doctor Stated complaint: LIQUIDS FOR KIDNEYS, REFFERED BY Time Seen by Provider: 02/03/19 16:50 Source: patient Limitations: no limitations History of Present Illness Onset (ago): month(s) 3 Location: abdomen Pain Consistency: + intermittent Maximum Pain Intensity: 2 Quality: + other (worsening) Exacerbated By: + other (lightheadedness and dizziness worse when standing from sitting) Associated symptoms: + denies other symptoms (bloody stools), + loss of appetite and + other (dizzy, lightheaded, thirsty, dehydrated, ); no fever/chills and no nausea/vomiting Treatments prior to arrival: none The patient is a 73 year old male who presents to the Emergency Room with complaints of worsening and intermittent diarrhea for the past 3 months. He sta dave he has been having diarrhea for the past 3 years. He notes his GI group stated they thought the diarrhea was because of scleroderma and that he had bacterial overgrowth. He notes he was put on Cipro at that time. He notes he has been taking Cipro throughout the years to help with his diarrhea. He notes he last took Cipro 11 days ago. He notes his diarrhea has been loose and has not been bloody. The patient notes he lost 10 pounds in the past 10 days. He notes he had blood work done and was told that his kidneys are "drying." He states he has never had his kidneys strained like this before. He notes he feels full intermittently and states he passes gas and then it is gone. He notes he has been dizzy and lightheaded for the past couple days and states it is worse when he stands up from sitting. He notes he feels thirsty and dehydrated. He denies fevers, vomiting, taking blood thinners, taking any medications today, and having C-Diff before. He notes he has not been eating as much and loses his appetite after eating a few bites. Patient's records were reviewed. He had a creatinine of 3.3. BUN was 110. X-Ray today showed a colonic ileus. No bowel obstruction. Home Medications Home Medications Medication Instructions Recorded Confirmed Type aspirin [Aspirin Low Dose] 81 mg PO DAILY #0 07/11/13 02/03/19 History multivitamin 1 tab PO DAILY #0 tab 07/11/13 02/03/19 History nitroglycerin [Nitrostat] 0.4 mg SUBLINGUAL Q5M PRN #0 btl 07/11/13 02/03/19 History MDD 5 TABLETS cyanocobalamin (vitamin B-12) 1,000 mcg PO DAILY #0 tab 11/16/13 02/03/19 History ferrous sulfate 324 mg PO DAILY #0 03/12/14 02/03/19 History lisinopril 20 mg PO DAILY #0 10/08/16 02/03/19 History pantoprazole 40 mg PO DAILY #0 10/08/16 02/03/19 History Lactobacillus acidophilus 1 tab PO DAILY #0 tab 10/20/16 02/03/19 History clopidogrel 75 mg PO DAILY #0 tab 10/20/16 02/03/19 History finasteride 5 mg PO DAILY #0 10/20/16 02/03/19 History levothyroxine 100 mcg PO DAILY 30 Days #30 tab 10/20/16 02/03/19 History ranitidine HCl [Zantac] 300 mg PO HS #0 tab 10/20/16 02/03/19 History cholecalciferol (vitamin D3) 1,000 unit PO DAILY 02/03/19 02/03/19 History [Vitamin D3] colestipol 1 g PO BID 02/03/19 02/03/19 History metoprolol succinate [Toprol XL] 50 mg PO DAILY 02/03/19 02/03/19 History rosuvastatin 5 mg PO DAILY 02/03/19 02/03/19 History Allergies Allergy/AdvReac Type Severity Reaction Status Date / Time Ncbchnx-Ekz-Lcs Reductase AdvReac Mild CALF Verified 02/03/19 18:02 Inhibitor CRAMPING naproxen AdvReac Unknown RASH Verified 02/03/19 18:02 Past Med/Surg History Medical History Pneumoperitoneum (Acute) Hiatal hernia (Chronic) Diarrhea (Acute 03/06/14) Hyperglycemia (Acute) Hypotension (Acute) Mesenteric ischemia, chronic (Acute 03/06/14) Small bowel obstruction CAD (coronary artery disease) Scleroderma Small intestinal bacterial overgrowth Surgical History S/P CABG (coronary artery bypass graft) Family History Other Family history non-contributory Social History Preferred Language: Citizen Of [place] Communication Ability: Effective Integrated Marketing Manager Required: No Beliefs That Will Affect Care: None Current Living Situation: Spouse Feels Safe at Home: Yes Smoking Status: Never smoker Tobacco Type: smokeless tobacco ; Hx Alcohol Use: No Hx Substance Use: No Review of Systems See HPI for pertinent positives & negatives. and A total of 10 systems reviewed and were otherwise negative Physical Exam Vital Signs Vital Signs - 24 hr 02/03/19 16:39 02/03/19 18:55 02/03/19 19:38 Temperature 36.3 C L Temperature Source Oral Sepsis Recent Fever Within 48 Hours No Sepsis Action Taken by Nursing No Action Required Pulse Rate 65 Pulse Rate [Right Finger] 65 83 Respiratory Rate 16 18 18 Respiratory Effort / Characteristics Non-Labored Respiratory Depth Normal Respiratory Pattern Regular Blood Pressure 143/81 H Blood Pressure [Right Arm] 102/50 L 97/56 L Blood Pressure Mean 101 Blood Pressure Mean [Right Arm] 67 69 Blood Pressure Position Sitting Blood Pressure Position [Right Arm] Semi-fowlers Sitting Pulse Oximetry 95 97 Oxygen Delivery Method Room Air Room Air 02/03/19 20:00 Temperature Temperature Source Sepsis Recent Fever Within 48 Hours Sepsis Action Taken by Nursing Pulse Rate Pulse Rate [Right Finger] 85 Respiratory Rate 18 Respiratory Effort / Characteristics Respiratory Depth Respiratory Pattern Blood Pressure Blood Pressure [Right Arm] 87/54 L Blood Pressure Mean Blood Pressure Mean [Right Arm] 65 Blood Pressure Position Blood Pressure Position [Right Arm] Sitting Pulse Oximetry 97 Oxygen Delivery Method Room Air GENERAL: Patient is in no acute distress. HEENT: No acute trauma, normocephalic atraumatic, mucous membranes are dry, no nasal congestion, no scleral icterus. NECK: No stridor, no adenopathy, no meningismus, trachea is midline. LUNGS: Clear to auscultation bilaterally, no wheeze, no rhonchi, breath sounds equal. HEART: Without murmurs gallops or rubs, regular rate and rhythm. ABDOMEN: Soft, nontender, bowel sounds positive, no hernias, no peritonitis. EXTREMITIES: No cyanosis or edema, full range of motion of all the joints without pain or difficulty, no signs for acute trauma. NEUROLOGIC: Oriented x 3, no acute motor or sensory deficits, no focal weakness. SKIN: No rash, no jaundice, no diaphoresis. Course 1654: The patient was evaluated in room A9A, and a complete history and physical examination were performed. 1699: Patient's records were reviewed. He had a creatinine of 3.3. BUN was 110. X-Ray today showed a colonic ileus. No bowel obstruction. 1824: I discussed the patient's case with Dr. Giana Farley - [facility] Hospitalist. She will evaluate the patient for further management. 1826: I reevaluated the patient. I updated the patient on his labs and imaging. He agrees with the plan to admit. Administered Medications Colestipol HCl (Colestid) 1 gm PO BID@1000,2200 JORY Stop: 03/05/19 22:20 Last Admin: 02/03/19 23:36 Dose: 1 gm Documented by: [id number] Lactated Ringer's (Lr) 1,000 mls @ 100 mls/hr IV .Q10H JORY Stop: 02/04/19 18:20 Last Admin: 02/03/19 22:51 Dose: 100 mls/hr Documented by: [id number] Ranitidine HCl (Zantac) 300 mg PO HS JORY Stop: 03/05/19 22:20 Last Admin: 02/03/19 23:36 Dose: 300 mg Documented by: [id number] Discontinued Medications Sodium Chloride (Nss 1000ml) 1,000 mls @ 999 mls/hr IV .Q1H1M JORY Stop: 02/03/19 18:00 Last Infusion: 02/03/19 18:56 Dose: 0 mls/hr Documented by: [id number] Admin: 02/03/19 17:54 Dose: 999 mls/hr Documented by: [id number] Medical Decision Making Differential Diagnosis Differential Diagnosis: Renal failure, acute kidney injury, dehydration, electrolyte imbalance, pneumoperitoneum, bacterial intestinal infection, and C-Diff Medical Records Attestation: I reviewed the patient's medical records. Home Medications Current Medication List: was personally reviewed by me Laboratory Data Attestation: I reviewed the patient's lab results. Result diagrams: 02/03/19 17:30 02/03/19 22:41 Lab Results 02/03/19 02/03/19 02/03/19 Range/Units 17:30 17:30 18:58 WBC 4.74 L (4.8-10.8) K/uL RBC 4.31 L (4.7-6.1) M/uL Hgb 13.8 L (14.0-18.0) g/dL Hct 40.1 L (42-52) % MCV 93.0 (80-100) fL MCH 32.0 (25-34) pg MCHC 34.4 (32-36) g/dL Plt Count 260 (130-400) K/uL Immature Gran % (Auto) 1.1 % Neut % (Auto) 56.8 % Lymph % (Auto) 19.6 % [place] % (Auto) 21.5 % Eos % (Auto) 0.6 % Baso % (Auto) 0.4 % Immature Gran # (Auto) 0.05 H (0.00-0.02) K/uL Neut # (Auto) 2.69 (1.4-6.5) K/uL Lymph # (Auto) 0.93 L (1.2-3.4) K/uL [place] # (Auto) 1.02 H (0.11-0.59) K/uL Eos # (Auto) 0.03 (0-0.5) K/uL Baso # (Auto) 0.02 (0-0.2) K/uL Sodium 138 (136-145) mmol/L Potassium 4.0 (3.5-5.1) mmol/L Chloride 114 H (98-107) mmol/L Carbon Dioxide 14 L (21-32) mmol/L Anion Gap 10.0 (3-11) BUN 115 H (7-18) mg/dl Creatinine 3.80 H (0.6-1.4) mg/dl Est Cr Clr Drug Dosing Not Reportable Est GFR ( Amer) 16.9 Est GFR (Non-Af Amer) 14.6 BUN/Creatinine Ratio 30.2 H (10-20) Glucose 149 H (70-99) mg/dl Lactate (0.4-2.0) mmol/L Calcium 8.6 (8.5-10.1) mg/dl Magnesium 1.8 (1.8-2.4) mg/dl Total Bilirubin 0.3 (0.2-1) mg/dl AST 12 L (15-37) U/L ALT 19 (12-78) U/L Alkaline Phosphatase 140 H (45-117) U/L Troponin I < 0.015 (0-0.045) ng/ml Total Protein 7.7 (6.4-8.2) gm/dl Albumin 3.8 (3.4-5.0) gm/dl Globulin 3.9 (2.5-4.0) gm/dl Albumin/Globulin Ratio 1.0 (0.9-2) TSH 3.890 (0.300-4.500) uIu/ml Stl C. diff Tox B Gene Negative Cdiff Gene (Neg) 02/03/19 Range/Units 19:42 WBC (4.8-10.8) K/uL RBC (4.7-6.1) M/uL Hgb (14.0-18.0) g/dL Hct (42-52) % MCV (80-100) fL MCH (25-34) pg MCHC (32-36) g/dL Plt Count (130-400) K/uL Immature Gran % (Auto) % Neut % (Auto) % Lymph % (Auto) % [place] % (Auto) % Eos % (Auto) % Baso % (Auto) % Immature Gran # (Auto) (0.00-0.02) K/uL Neut # (Auto) (1.4-6.5) K/uL Lymph # (Auto) (1.2-3.4) K/uL [place] # (Auto) (0.11-0.59) K/uL Eos # (Auto) (0-0.5) K/uL Baso # (Auto) (0-0.2) K/uL Sodium (136-145) mmol/L Potassium (3.5-5.1) mmol/L Chloride (98-107) mmol/L Carbon Dioxide (21-32) mmol/L Anion Gap (3-11) BUN (7-18) mg/dl Creatinine (0.6-1.4) mg/dl Est Cr Clr Drug Dosing Est GFR ( Amer) Est GFR (Non-Af Amer) BUN/Creatinine Ratio (10-20) Glucose (70-99) mg/dl Lactate 1.2 (0.4-2.0) mmol/L Calcium (8.5-10.1) mg/dl Magnesium (1.8-2.4) mg/dl Total Bilirubin (0.2-1) mg/dl AST (15-37) U/L ALT (12-78) U/L Alkaline Phosphatase (45-117) U/L Troponin I (0-0.045) ng/ml Total Protein (6.4-8.2) gm/dl Albumin (3.4-5.0) gm/dl Globulin (2.5-4.0) gm/dl Albumin/Globulin Ratio (0.9-2) TSH (0.300-4.500) uIu/ml Stl C. diff Tox B Gene (Neg) Imaging Data Radiologist's Impression: Radiology results as stated below per my review and the radiologist's interpretation: ABDOMEN AND PELVIS CT WITHOUT CONTRAST CT DOSE: 321.13 mGy.cm HISTORY: Acute generalized abdominal pain pain, poss divertic TECHNIQUE: Multiaxial CT images of the abdomen and pelvis were performed without contrast. A dose lowering technique was utilized adhering to the principles of ALARA. COMPARISON STUDY: MR enterography 10/26/2016, CT abdomen and pelvis 10/20/2016 and 10/08/2016 FINDINGS: Prior median sternotomy. Coronary arterial calcifications are noted. Lobular partially imaged 1.9 cm solid nodule of the right middle lobe appears unchanged. 4 mm solid nodule of the left lower lobe is also unchanged. Mild subpleural reticulation of the basal right lower lobe suggest atelectasis/fibrosis. No pneumatosis or pneumoperitoneum. Limited evaluation of the solid abdominal organs without the use of IV contrast. Within the limitations of the exam, the liver, spleen, pancreas and adrenal glands appear unremarkable. Cholecystectomy. Mild dilation of the common bile duct is likely on a postsurgical basis. Nonobstructing calculi of the inferior pole left kidney measure up to 6 mm. Punctate calculus and 3 mm calculus noted about the inferior pole right kidney. Renal vascular calcifications are noted bilaterally. No ureteral calculi or obstructive uropathy identified. 1.7 cm partially exophytic lesion of the inferior pole right kidney demonstrates intermediate attenuation, Hounsfield unit of 21. This appears unchanged from prior study. Partial distention of the bladder with mild wall thickening. Ill-defined increased attenuation is noted about the right posterior lateral and dependent urinary bladder (image 370 series 3). Calcifications noted about the central prostate. Calcified plaque of the abdominal aorta without aneurysm. No adenopathy. Colonic diverticulosis without CT evidence of acute diverticulitis. Mild gaseous distention of the ascending and transverse colon with air-fluid levels. Normal appendix. Multiple dilated air and fluid-filled loops of small bowel are again noted throughout the abdomen and pelvis measuring up to approximately 3.7 cm transversely. Similar findings were seen dating back to 2017. No discrete transition point identified. No ascites or significant mesenteric inflammation. Degenerative changes of the spine, pelvis and hips. Unchanged sclerotic lesion of the left iliac bone, 11 mm. IMPRESSION: 1. Multiple dilated loops of small bowel throughout the abdomen and pelvis with air-fluid levels is redemonstrated and appears unchanged from 2017 exams without discrete transition point identified. Additionally there is mild gaseous distention within portions of the large bowel with air-fluid levels. Correlate clinically to exclude enteritis/diarrheal illness. A low-grade small bowel obstruction is considered less likely. Correlate with clinical history. 2. No pneumatosis or pneumoperitoneum. 3. Colonic diverticulosis without acute diverticulitis. 4. Ill-defined increased attenuation about the right posterior lateral and dependent urinary bladder. Correlate with urinalysis and possibly cystoscopy if of further clinical concern. 5. Nonobstructing bilateral renal calculi. 6. Unchanged 1.9 cm lobular lesion of the right middle lobe. 7. Additional findings as above. Electronically signed by: Josias Rojas M.D. 02/03/2019 6:12 PM ECG Data Attestation: I personally reviewed and interpreted this ECG as follows: Rate (beats per minute): 76 Rhythm: sinus rhythm Findings: + other (old inferior infarct), + PVC and + T-wave inversion (Laterally); no ST elevation Comparison ECG Date: from (10/20/16) Change: the following changes noted (PVCs are now present. TWI seems similar) Blood Pressure Blood Pressure Findings: Low blood pressure Blood Pressure Disposition: further management by hospitalist MDM Narrative There is no leukocytosis or concerning anemia. Renal panel testing shows acute renal failure/kidney injury with a creatinine of 3.8. BUN was elevated at 115. These findings are both consistent with significant dehydration. Alk phos was slightly elevated, no other liver enzyme elevations. EKG showed a sinus rhythm with some chronic changes, no acute ischemia. Cardiac enzyme testing x1 was not consistent with acute cardiac injury. No evidence of for thyroid disease by our laboratory testing. Abdominal and pelvis CT shows evidence of for a colonic ileus, there was no abscess, no pneumoperitoneum. On exam, the patient appeared dehydrated, there was no peritonitis, he was not febrile. The patient received IV saline 1 L. He has been resting comfortably. The patient will require a hospital stay because of the significant renal insufficiency/acute kidney injury noted on testing. I suspect this finding is from all his diarrhea. I did speak to the patient and case management. The on- call hospitalist was consulted. Impression & Plan Acute renal failure, ARMANDO (acute kidney injury), Dehydration, Diarrhea Discharge Plan Visit Data *Final* Discharge Date/Time: 02/03/19 21:27 Chief Complaint: Referred by Doctor Stated Complaint: LIQUIDS FOR KIDNEYS, REFFERED BY ED Provider: Antwon Chopra Discharge Problem: Acute renal failure, ARMANDO (acute kidney injury), Dehydration, Diarrhea Patient Disposition: Admitted As Inpatient Discharge Instructions Interventions: ED Discharge Assessment Last Done: 02/03/19 21:27 Discharge Problem: Acute renal failure Qualifiers: Acute renal failure type: unspecified Qualified Code(s): N17.9 - Acute kidney failure, unspecified Diarrhea Qualifiers: Diarrhea type: unspecified type Qualified Code(s): R19.7 - Diarrhea, unspecified The scribe's documentation has been prepared under my direction and personally reviewed by me in its entirety. I confirm that the note above accurately reflects all work, treatment, procedures, and medical decision making performed by me.
[2019-02-03 17:59] LABS: Alanine Aminotransferase 19 U/L (12-78); Albumin Level 3.8 gm/dl (3.4-5.0); Aspartate Aminotransferase 12 U/L (15-37); BUN Creatinine Ratio 30.2 (10-20); Blood Urea Nitrogen 115 mg/dl (7-18); Calcium 8.6 mg/dl (8.5-10.1); Carbon Dioxide 14 mmol/L (21-32); Chloride 114 mmol/L (98-107); Est GFR (African American) 16.9; Est GFR (Non-African American) 14.6; Glucose 149 mg/dl (70-99); Magnesium 1.8 mg/dl (1.8-2.4); Sodium 138 mmol/L (136-145)
[2019-02-03 18:09] LABS: Alkaline Phosphatase 140 U/L (45-117); Bilirubin,Total 0.3 mg/dl (0.2-1); Globulin 3.9 gm/dl (2.5-4.0); Total Protein 7.7 gm/dl (6.4-8.2); Troponin I < 0.015 ng/ml (0-0.045)
--- NOTE | 2019-02-03 18:14 | CT Scan Report ---
ABDOMEN AND PELVIS CT WITHOUT CONTRAST CT DOSE: 321.13 mGy.cm HISTORY: Acute generalized abdominal pain pain, poss divertic TECHNIQUE: Multiaxial CT images of the abdomen and pelvis were performed without contrast. A dose lo wering technique was utilized adhering to the principles of ALARA. COMPARISON STUDY: MR enterography 10/26/2016, CT abdomen and pelvis 10/20/2016 and 10/08/2016 FINDINGS: Prior median sternotomy. Coronary arterial calcifications are noted. Lobular partially imaged 1.9 cm solid nodule of the right middle lobe appears unchanged. 4 mm solid nodule of the left lower lobe is also unchanged. Mild subpleural reticulation of the basal right lower lobe suggest atelectasis/fibros is. No pneumatosis or pneumoperitoneum. Limited evaluation of the solid abdominal organs without the use of IV contrast. Within the limitations of the exam, the liver, spleen, pancreas and adrenal gland s appear unremarkable. Cholecystectomy. Mild dilation of the common bile duct is likely on a postsurg ical basis. Nonobstructing calculi of the inferior pole left kidney measure up to 6 mm. Punctate calc ulus and 3 mm calculus noted about the inferior pole right kidney. Renal vascular calcifications are noted bilaterally. No ureteral calculi or obstructive uropathy identified. 1.7 cm partially exophytic lesion of the inferior pole right kidney demonstrates intermediate attenuation, Hounsfield unit of 2 1. This appears unchanged from prior study. Partial distention of the bladder with mild wall thickeni ng. Ill-defined increased attenuation is noted about the right posterior lateral and dependent urinar y bladder (image 370 series 3). Calcifications noted about the central prostate. Calcified plaque of the abdominal aorta without aneurysm. No adenopathy. Colonic diverticulosis without CT evidence of acute diverticulitis. Mild gaseous distention of the as cending and transverse colon with air-fluid levels. Normal appendix. Multiple dilated air and fluid-f illed loops of small bowel are again noted throughout the abdomen and pelvis measuring up to approxim ately 3.7 cm transversely. Similar findings were seen dating back to 2017. No discrete transition poi nt identified. No ascites or significant mesenteric inflammation. Degenerative changes of the spine, pelvis and hips. Unchanged sclerotic lesion of the left iliac bone, 11 mm. IMPRESSION: 1. Multiple dilated loops of small bowel throughout the abdomen and pelvis with air-fluid levels is r edemonstrated and appears unchanged from 2017 exams without discrete transition point identified. Add itionally there is mild gaseous distention within portions of the large bowel with air-fluid levels. Correlate clinically to exclude enteritis/diarrheal illness. A low-grade small bowel obstruction is c onsidered less likely. Correlate with clinical history. 2. No pneumatosis or pneumoperitoneum. 3. Colonic diverticulosis without acute diverticulitis. 4. Ill-defined increased attenuation about the right posterior lateral and dependent urinary bladder. Correlate with urinalysis and possibly cystoscopy if of further clinical concern. 5. Nonobstructing bilateral renal calculi. 6. Unchanged 1.9 cm lobular lesion of the right middle lobe. 7. Additional findings as above. Electronically signed by: Josias Rojas M.D. 02/03/2019 6:12 PM
--- NOTE | 2019-02-03 20:43 | History & Physical Report ---
Date of Service February 03, 2019 Assessment & Plan (1) ARMANDO (acute kidney injury): BUN markedly elevated at 115, creatinine elevated at 3.8 which is increased from prior study of 1.24 in September 2018. Most likely secondary to prerenal azotemia in the setting of acute GI losses and poor p.o. intake. Possible medication effects from Cipro -Admit to medical floor with telemetry -Normal saline solution at 100 mL/h x 2 L -BMP every 12 hours to monitor electrolytes and renal function -Check urine sodium and creatinine to calculate FeNa -Monitor I's and O's -Avoid nephrotoxic agents. 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 Fairly well controlled on Cipro until fairly recently when patient began to experience more frequent episodes of diarrhea. Since being off Cipro he has been experiencing multiple episodes of watery diarrhea daily as well as weight loss and weakness. Suspect effects from SIBO, possible resistance to Cipro as patient has been on it for many years. Other considerations include colitis, infectious diarrhea, hyper secretory conditions. -Admit to medical floor with telemetry as above -Continue colestipol 1 g p.o. twice daily -Continue lactobacillus -Augmentin 500 mg p.o. 3 times daily for possible SIBO -GI consultation. Appreciate assistance with this case Present on Admission?: Yes (3) GERD (gastroesophageal reflux disease): Chronic. Stable -Continue home Protonix and Zantac (4) Hypothyroid: Chronic. Stable. TSH today 3.89 -Continue Synthroid (5) BPH (benign prostatic hyperplasia): Chronic. Stable. -Continue finasteride (6) CAD (coronary artery disease): Patient denies chest pain. Troponin x1 negative. EKG with some nonspecific T wave changes -Repeat EKG in a.m. -Continue aspirin, Plavix, Crestor -Will hold Toprol in setting of borderline low blood pressure -We will hold lisinopril in setting of ARMANDO F/E/N-normal saline solution at 100 mL/h x 2 L, monitor electrolytes and replete as needed, regular diet as tolerated. Continue vitamin supplements, vitamin D, vitamin D B12. Continue ferrous sulfate Prophylaxis-patient is on aspirin and Plavix Code-full per discussion with patient. Family is at bedside Disposition-admission to medical floor telemetry Present on Admission?: Yes History of Present Illness Chief Complaint: Diarrhea Primary Care Provider: Jaime García MD Christopher Palma is a pleasant 73-year-old male with complex medical history to include scleroderma, small intestinal bacterial overgrowth, chronic diarrhea, prior mesenteric ischemia, CAD status post CABG. Patient presents today from outpatient clinic with complaints of persistent diarrhea. Patient with small bowel bacterial overgrowth thought to be secondary to scleroderma. He has been on Cipro daily for years with fairly adequate control of symptoms. Patient states that over the past few months he has had been having increased frequency of diarrhea. Prior to this he had been having approximately 1 loose stool monthly. He states that over the last 8 to 9 days he has been having multiple loose stools per day. He states that he passes small to large amounts of liquid stool. Also with nighttime bowel movements and urgency. Patient also reports sensation of abdominal fullness which is relieved with passing gas as well as tenesmus. Also with poor appetite, chills, weakness, and a 10 pound unintentional weight loss over the last 10 days. He denies melena/hematochezia or mucus. Denies abdominal pain or bloating. States the diarrhea is not related to meals. As stated above patient has been on Cipro daily for years. This was recently discontinued by his outpatient general machine operator on January 24 due to concern for developing resistance contributing to recurrence of diarrhea. He was seen today by GI and was given a prescription for Augmentin which she has not yet taken. Per review of outpatient records patient was seen by inpatient GI in October 2016 for similar presentation. According to their note, he was found to have Campylobacter positive stools and was treated with Zithromax. He was initially started on budesonide which was subsequently discontinued due to cost and was started on Pentasa 1 g p.o. twice daily. He had a colonoscopy with biopsy at that time which revealed focal active colitis which was treated with a course of prednisone. ER course: NSS x1 L Allergies Allergy/AdvReac Type Severity Reaction Status Date / Time Akevtow-Iha-Obo Reductase AdvReac Mild CALF Verified 02/03/19 18:02 Inhibitor CRAMPING naproxen AdvReac Unknown RASH Verified 02/03/19 18:02 Home Medications Home Medications Medication Instructions Recorded Confirmed Type aspirin [Aspirin Low Dose] 81 mg PO DAILY #0 07/11/13 02/03/19 History multivitamin 1 tab PO DAILY #0 tab 07/11/13 02/03/19 History nitroglycerin [Nitrostat] 0.4 mg SUBLINGUAL Q5M PRN #0 btl 07/11/13 02/03/19 History MDD 5 TABLETS cyanocobalamin (vitamin B-12) 1,000 mcg PO DAILY #0 tab 11/16/13 02/03/19 History ferrous sulfate 324 mg PO DAILY #0 03/12/14 02/03/19 History lisinopril 20 mg PO DAILY #0 10/08/16 02/03/19 History pantoprazole 40 mg PO DAILY #0 10/08/16 02/03/19 History Lactobacillus acidophilus 1 tab PO DAILY #0 tab 10/20/16 02/03/19 History clopidogrel 75 mg PO DAILY #0 tab 10/20/16 02/03/19 History finasteride 5 mg PO DAILY #0 10/20/16 02/03/19 History levothyroxine 100 mcg PO DAILY 30 Days #30 tab 10/20/16 02/03/19 History ranitidine HCl [Zantac] 300 mg PO HS #0 tab 10/20/16 02/03/19 History cholecalciferol (vitamin D3) 1,000 unit PO DAILY 02/03/19 02/03/19 History [Vitamin D3] colestipol 1 g PO BID 02/03/19 02/03/19 History metoprolol succinate [Toprol XL] 50 mg PO DAILY 02/03/19 02/03/19 History rosuvastatin 5 mg PO DAILY 02/03/19 02/03/19 History Past Med/Surg History Medical History Pneumoperitoneum (Acute) Hiatal hernia (Chronic) Diarrhea (Acute 03/06/14) Hyperglycemia (Acute) Hypotension (Acute) Mesenteric ischemia, chronic (Acute 03/06/14) Small bowel obstruction CAD (coronary artery disease) Scleroderma Small intestinal bacterial overgrowth Surgical History S/P CABG (coronary artery bypass graft) Family History Other Family history non-contributory Social History Preferred Language: Bengali Feels Safe at Home: Yes Smoking Status: Never smoker Hx Alcohol Use: No Hx Substance Use: No Review of Systems Review of Systems: All systems reviewed & are unremarkable except as noted in HPI & below Physical Exam Physical Exam: General: patient resting comfortably, NAD, chronically ill in appearance, AA&O x 4 Skin: warm, dry, intact, no rashes or lesions HEENT: NC/AT, PERRL, EOMI, anicteric sclera, conjunctiva without injection, external ear normal to inspection and nontender, nares patent, dry mucus membranes, dentition intact, no oropharyngeal lesions, neck supple, trachea midline, no LAD, no thyromegaly, no JVD Heart: +S1/S2, regular with ectopy, no m/r/g Lungs: equal air entry bilaterally, no rales/rhonchi/wheezes Abd: +BS, soft, NT/ND, no masses/organomegaly/ascites Ext: warm, 2+ pulses in UE/LE bilaterally, no clubbing/cyanosis or edema Neuro: nonfocal, patient AA&O x 4, speech intact, no facial droop, moving all extremities on command with equal strength 5/5 Results & Data Vital Signs (Past 12 Hours) Vital Signs Temp Pulse Pulse Resp BP BP Pulse Ox 02/03/19 19:38 83 18 97/56 L 97 02/03/19 18:55 65 65 18 102/50 L 95 02/03/19 16:39 36.3 C L 16 143/81 H Laboratory Results Lab Results 02/03/19 02/03/19 02/03/19 Range/Units 17:30 17:30 18:58 WBC 4.74 L (4.8-10.8) K/uL RBC 4.31 L (4.7-6.1) M/uL Hgb 13.8 L (14.0-18.0) g/dL Hct 40.1 L (42-52) % MCV 93.0 (80-100) fL MCH 32.0 (25-34) pg MCHC 34.4 (32-36) g/dL Plt Count 260 (130-400) K/uL Immature Gran % (Auto) 1.1 % Neut % (Auto) 56.8 % Lymph % (Auto) 19.6 % [place] % (Auto) 21.5 % Eos % (Auto) 0.6 % Baso % (Auto) 0.4 % Immature Gran # (Auto) 0.05 H (0.00-0.02) K/uL Neut # (Auto) 2.69 (1.4-6.5) K/uL Lymph # (Auto) 0.93 L (1.2-3.4) K/uL [place] # (Auto) 1.02 H (0.11-0.59) K/uL Eos # (Auto) 0.03 (0-0.5) K/uL Baso # (Auto) 0.02 (0-0.2) K/uL Sodium 138 (136-145) mmol/L Potassium 4.0 (3.5-5.1) mmol/L Chloride 114 H (98-107) mmol/L Carbon Dioxide 14 L (21-32) mmol/L Anion Gap 10.0 (3-11) BUN 115 H (7-18) mg/dl Creatinine 3.80 H (0.6-1.4) mg/dl Est Cr Clr Drug Dosing Not Reportable Est GFR ( Amer) 16.9 Est GFR (Non-Af Amer) 14.6 BUN/Creatinine Ratio 30.2 H (10-20) Glucose 149 H (70-99) mg/dl Lactate (0.4-2.0) mmol/L Calcium 8.6 (8.5-10.1) mg/dl Magnesium 1.8 (1.8-2.4) mg/dl Total Bilirubin 0.3 (0.2-1) mg/dl AST 12 L (15-37) U/L ALT 19 (12-78) U/L Alkaline Phosphatase 140 H (45-117) U/L Troponin I < 0.015 (0-0.045) ng/ml Total Protein 7.7 (6.4-8.2) gm/dl Albumin 3.8 (3.4-5.0) gm/dl Globulin 3.9 (2.5-4.0) gm/dl Albumin/Globulin Ratio 1.0 (0.9-2) TSH 3.890 (0.300-4.500) uIu/ml Stl C. diff Tox B Gene Negative Cdiff Gene (Neg) 02/03/19 Range/Units 19:42 WBC (4.8-10.8) K/uL RBC (4.7-6.1) M/uL Hgb (14.0-18.0) g/dL Hct (42-52) % MCV (80-100) fL MCH (25-34) pg MCHC (32-36) g/dL Plt Count (130-400) K/uL Immature Gran % (Auto) % Neut % (Auto) % Lymph % (Auto) % [place] % (Auto) % Eos % (Auto) % Baso % (Auto) % Immature Gran # (Auto) (0.00-0.02) K/uL Neut # (Auto) (1.4-6.5) K/uL Lymph # (Auto) (1.2-3.4) K/uL [place] # (Auto) (0.11-0.59) K/uL Eos # (Auto) (0-0.5) K/uL Baso # (Auto) (0-0.2) K/uL Sodium (136-145) mmol/L Potassium (3.5-5.1) mmol/L Chloride (98-107) mmol/L Carbon Dioxide (21-32) mmol/L Anion Gap (3-11) BUN (7-18) mg/dl Creatinine (0.6-1.4) mg/dl Est Cr Clr Drug Dosing Est GFR ( Amer) Est GFR (Non-Af Amer) BUN/Creatinine Ratio (10-20) Glucose (70-99) mg/dl Lactate 1.2 (0.4-2.0) mmol/L Calcium (8.5-10.1) mg/dl Magnesium (1.8-2.4) mg/dl Total Bilirubin (0.2-1) mg/dl AST (15-37) U/L ALT (12-78) U/L Alkaline Phosphatase (45-117) U/L Troponin I (0-0.045) ng/ml Total Protein (6.4-8.2) gm/dl Albumin (3.4-5.0) gm/dl Globulin (2.5-4.0) gm/dl Albumin/Globulin Ratio (0.9-2) TSH (0.300-4.500) uIu/ml Stl C. diff Tox B Gene (Neg) Diagnostic Findings ABDOMEN AND PELVIS CT WITHOUT CONTRAST CT DOSE: 321.13 mGy.cm HISTORY: Acute generalized abdominal pain pain, poss divertic TECHNIQUE: Multiaxial CT images of the abdomen and pelvis were performed without contrast. A dose lowering technique was utilized adhering to the principles of ALARA. COMPARISON STUDY: MR enterography 10/26/2016, CT abdomen and pelvis 10/20/2016 and 10/08/2016 FINDINGS: Prior median sternotomy. Coronary arterial calcifications are noted. Lobular partially imaged 1.9 cm solid nodule of the right middle lobe appears unchanged. 4 mm solid nodule of the left lower lobe is also unchanged. Mild subpleural reticulation of the basal right lower lobe suggest atelectasis/fibrosis. No pneumatosis or pneumoperitoneum. Limited evaluation of the solid abdominal organs without the use of IV contrast. Within the limitations of the exam, the liver, spleen, pancreas and adrenal glands appear unremarkable. Cholecystectomy. Mild dilation of the common bile duct is likely on a postsurgical basis. Nonobstructing calculi of the inferior pole left kidney measure up to 6 mm. Punctate calculus and 3 mm calculus noted about the inferior pole right kidney. Renal vascular calcifications are noted bilaterally. No ureteral calculi or obstructive uropathy identified. 1.7 cm partially exophytic lesion of the inferior pole right kidney demonstrates intermediate attenuation, Hounsfield unit of 21. This appears unchanged from prior study. Partial distention of the bladder with mild wall thickening. Ill-defined increased attenuation is noted about the right posterior lateral and dependent urinary bladder (image 370 series 3). Calcifications noted about the central prostate. Calcified plaque of the abdominal aorta without aneurysm. No adenopathy. Colonic diverticulosis without CT evidence of acute diverticulitis. Mild gaseous distention of the ascending and transverse colon with air-fluid levels. Normal appendix. Multiple dilated air and fluid-filled loops of small bowel are again noted throughout the abdomen and pelvis measuring up to approximately 3.7 cm transversely. Similar findings were seen dating back to 2017. No discrete transition point identified. No ascites or significant mesenteric inflammation. Degenerative changes of the spine, pelvis and hips. Unchanged sclerotic lesion of the left iliac bone, 11 mm. IMPRESSION: 1. Multiple dilated loops of small bowel throughout the abdomen and pelvis with air-fluid levels is redemonstrated and appears unchanged from 2017 exams without discrete transition point identified. Additionally there is mild gaseous distention within portions of the large bowel with air-fluid levels. Correlate clinically to exclude enteritis/diarrheal illness. A low-grade small bowel obstruction is considered less likely. Correlate with clinical history. 2. No pneumatosis or pneumoperitoneum. 3. Colonic diverticulosis without acute diverticulitis. 4. Ill-defined increased attenuation about the right posterior lateral and dependent urinary bladder. Correlate with urinalysis and possibly cystoscopy if of further clinical concern. 5. Nonobstructing bilateral renal calculi. 6. Unchanged 1.9 cm lobular lesion of the right middle lobe. 7. Additional findings as above. Electronically signed by: Josias Rojas M.D. 02/03/2019 6:12 PM Dictated: 02/03/191752 Transcribed: 02/03/191752 CT abd 10/20/16: Interval development of free intraperitoneal air. In the setting of abdominal pain, this suggests a perforated viscus. Surgical consultation is recommended Stable 19 mm right middle lobe pulmonary nodule Stable nonobstructing 4 mm left renal calculus Persistent mildly dilated fluid-filled small bowel loops Extensive colonic diverticulosis EGD 10/12/16: Normal esophagus. Normal stomach. Biopsied. Normal examined duoden um. Biopsied. Colonoscopy 10/12/16: The terminal ileum is normal. Erythematous and mild micro ulcerated mucosa in the cecum. Biopsied. Congested, and areas of micro-ulcerated mucosa in the ascending colon. Biopsied. Mucosa in the sigmoid colon. Biopsied. Diverticulosis in the sigmoid colon. One 8 mm polyp in the sigmoid colon, removed with a hot snare. Resected and retrieved. Internal hemorrhoids.The examination was otherwise normal on direct and retroflexion views. ECG Additional Comments: The study shows sinus rhythm at 76 bpm with PVCs, normal axis, KS = 182, QRS = 114, QTc = 456. T wave inversions present in leads I, II, III, aVL, and V4 Code Status & VTE Plan VTE Prophylaxis Plan VTE Prophylaxis will be ordered: Yes PG Care Time/CCT Total # of Minutes Spent Total Time Spent with Patient: Total time spent is greater than 50% in coordination of care (as documented) at patient's floor/unit and/or counseling patient: (1) Diarrhea Diarrhea type: unspecified type Qualified Code(s): R19.7 - Diarrhea, unspecified (2) CAD (coronary artery disease) Coronary Disease-Associated Artery/Lesion type: bypass graft, other Associated angina: without angina Qualified Code(s): I25.810 - Atherosclerosis of coronary artery bypass graft(s) without angina pectoris (3) GERD (gastroesophageal reflux disease) Esophagitis presence: esophagitis presence not specified Qualified Code(s): K21.9 - Gastro-esophageal reflux disease without esophagitis (4) Hypothyroid Hypothyroidism type: unspecified Qualified Code(s): E03.9 - Hypothyroidism, unspecified (5) BPH (benign prostatic hyperplasia) Lower urinary tract symptom presence: symptoms absent Qualified Code(s): N40.0 - Benign prostatic hyperplasia without lower urinary tract symptoms
[2019-02-03] MEDS ORDERED: ONDANSETRON INJ 2 MG/ML 2 ML VIAL IV PRN (22:21)
[2019-02-03] MEDS: LACTATED RINGER'S 1,000 ML IV SCH (22:51)
[2019-02-03 23:14] LABS: BUN Creatinine Ratio 32.8 (10-20); Calcium 8.4 mg/dl (8.5-10.1); Creatinine Clr Calc Pharmacy 17.6 ml/min; Est GFR (African American) 18.4; Est GFR (Non-African American) 15.9; Potassium 3.9 mmol/L (3.5-5.1)
[2019-02-03] MEDS: COLESTIPOL HCL 1 GM TAB PO SCH (23:36)
[2019-02-04] MEDS ORDERED: AUGMENTIN~PHARMACY CONSULT IN PROGRESS PRN (03:00)
[2019-02-04] MEDS: LEVOTHYROXINE SODIUM 100 MCG TABLET PO SCH (05:52)
[2019-02-04] MEDS: ROSUVASTATIN CALCIUM 5 MG TAB PO SCH (08:10)
[2019-02-04] MEDS: LACTATED RINGER'S 1,000 ML IV SCH (08:10)
[2019-02-04] MEDS: AMOXICILLIN/CLAVULANATE 500 MG TAB PO SCH ×2 (08:10→16:53)
[2019-02-04] MEDS: PANTOprazole 40 MG TAB PO SCH (08:11)
[2019-02-04] MEDS: CLOPIDOGREL BISULFATE 75 MG TAB PO SCH (08:11)
[2019-02-04] MEDS: LACTOBACILLUS ACIDOPHILUS (FLORANEX) TAB PO SCH (08:11)
[2019-02-04] MEDS: FINASTERIDE 5 MG TAB PO SCH (08:11)
[2019-02-04] MEDS: ASPIRIN 81 MG ECTAB PO SCH (08:11)
[2019-02-04] MEDS: FERROUS SULFATE 325 MG TAB PO SCH (08:11)
[2019-02-04] MEDS: CYANOCOBALAMIN 500 MCG TABLET (VITAMIN B-12) PO SCH (08:11)
[2019-02-04] MEDS: CHOLECALCIFEROL 1,000 UNITS TAB PO SCH (08:12)
[2019-02-04] MEDS: COLESTIPOL HCL 1 GM TAB PO SCH ×2 (08:12→21:04)
[2019-02-04 10:49] LABS: BUN Creatinine Ratio 36.9 (10-20); Calcium 8.3 mg/dl (8.5-10.1); Creatinine Clr Calc Pharmacy 22.2 ml/min; Est GFR (African American) 24.4; Potassium 3.8 mmol/L (3.5-5.1)
--- NOTE | 2019-02-04 15:06 | Hospitalist Progress Note ---
Date of Service February 04, 2019 Assessment & Plan (1) ARMANDO (acute kidney injury): BUN markedly elevated at 115, creatinine elevated at 3.8 which is increased from prior study of 1.24 in September 2018. Most likely secondary to prerenal azotemia in the setting of acute GI losses and poor p.o. intake. 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 Fairly well controlled on Cipro until fairly recently when patient began to experience more frequent episodes of diarrhea. Since being off Cipro he has been experiencing multiple episodes of watery diarrhea daily as well as weight loss and weakness. Suspect effects from SIBO, possible resistance to Cipro as patient has been on it for many years. Other considerations include colitis, infectious diarrhea, hyper secretory conditions. patient follows with [facility], just saw Anastasiia Escamilla on 02/03 in the office await consult from Dr. Schroeder today for any other thoughs continue on Augmentin -Continue colestipol 1 g p.o. twice daily -Continue lactobacillus -Augmentin 500 mg p.o. 3 times daily for possible SIBO (3) GERD (gastroesophageal reflux disease): Chronic. Stable -Continue home Protonix and Zantac (4) Hypothyroid: Chronic. Stable. TSH today 3.89 -Continue Synthroid (5) BPH (benign prostatic hyperplasia): Chronic. Stable. -Continue finasteride (6) CAD (coronary artery disease): Patient denies chest pain. Troponin x1 negative. EKG with some nonspecific T wave changes - EKG this morning with ST depression anteriolateral and lateral leads again, he denies chest pain or pressure, -Continue aspirin, Plavix, Crestor -continue to hold Toprol in setting of borderline low blood pressure due to complete lack of symptoms, will repeat EKG in the morning, check troponin in the morning F/E/N-normal saline solution at 100 mL/h x 2 L, monitor electrolytes and replete as needed, regular diet as tolerated. Continue vitamin supplements, vitamin D, vitamin D B12. Continue ferrous sulfate Prophylaxis-patient is on aspirin and Plavix Code-full per discussion with patient. Family is at bedside Disposition-continue medical floor telemetry Subjective patient says he feels better today, more energy he is eating, does not want to eat too much as he has concerns for diarrhea he had one loose stool today denies abdominal pain, denies nausea or vomiting no chest pain, no dyspnea, no fevers/chills reviewed labs, Cr down to 2.8 from 3.8 yesterday electrolytes stable updated family at the bedside awaiting GI consultation Review of Systems Review of Systems: All systems reviewed & are unremarkable except as noted in HPI & below Constitutional: + fatigue and + weakness; no fever and no chills Respiratory: no cough and no dyspnea Cardiovascular: no chest pain and no edema Gastrointestinal: no abdominal pain, no nausea, no vomiting, no constipation, no diarrhea/loose stools, no blood in stools and no melena Genitourinary: no dysuria and no difficulty urinating Musculoskeletal: no back pain and no joint pain Physical Exam Constitutional: WD/WN, vitals as above Eyes: PERRL, conjunctivae normal, anicteric sclerae ENMT: external ear and nose normal, oropharynx normal Neck: trachea midline, no thyromegaly Respiratory: normal respiratory effort, lungs clear to auscultation Cardiovascular: RRR, no murmur, no edema Gastrointestinal (Abdomen): normal bowel sounds, soft, nontender, no hepatosplenomegaly Musculoskeletal: no cyanosis or clubbing, extremities motor strength 5/5 Skin: no rashes, warm and dry Neurologic: patellar DTR's 2+ bilat, sensation intact and PERRL, EOMI, accommodation nl, no face palsy, no dysarthria Psychiatric: A+Ox3, euthymic affect Lymphatic: no cervical or axillary lymphadenopathy Results & Data Vital Signs (Past 12 Hours) Vital Signs Temp Pulse Pulse Resp BP Pulse Ox 02/04/19 11:50 36.8 C 79 18 113/62 99 02/04/19 09:00 88 02/04/19 07:46 36.4 C L 87 18 96/57 L 96 Laboratory Results Laboratory Results - last 24 hr 02/03/19 02/03/19 02/03/19 17:30 17:30 18:58 WBC 4.74 L RBC 4.31 L Hgb 13.8 L Hct 40.1 L MCV 93.0 MCH 32.0 MCHC 34.4 Plt Count 260 Immature Gran % (Auto) 1.1 Neut % (Auto) 56.8 Lymph % (Auto) 19.6 Davis % (Auto) 21.5 Eos % (Auto) 0.6 Baso % (Auto) 0.4 Immature Gran # (Auto) 0.05 H Neut # (Auto) 2.69 Lymph # (Auto) 0.93 L Davis # (Auto) 1.02 H Eos # (Auto) 0.03 Baso # (Auto) 0.02 Sodium 138 Potassium 4.0 Chloride 114 H Carbon Dioxide 14 L Anion Gap 10.0 BUN 115 H Creatinine 3.80 H Est Cr Clr Drug Dosing Not Reportable Est GFR ( Amer) 16.9 Est GFR (Non-Af Amer) 14.6 BUN/Creatinine Ratio 30.2 H Glucose 149 H Lactate Calcium 8.6 Magnesium 1.8 Total Bilirubin 0.3 AST 12 L ALT 19 Alkaline Phosphatase 140 H Troponin I < 0.015 Total Protein 7.7 Albumin 3.8 Globulin 3.9 Albumin/Globulin Ratio 1.0 TSH 3.890 Ur Random Creatinine Ur Random Sodium Stool Occult Bld Scrn Stl C. diff Tox B Gene Negative Cdiff Gene 02/03/19 02/03/19 02/04/19 19:42 22:41 03:13 WBC RBC Hgb Hct MCV MCH MCHC Plt Count Immature Gran % (Auto) Neut % (Auto) Lymph % (Auto) Davis % (Auto) Eos % (Auto) Baso % (Auto) Immature Gran # (Auto) Neut # (Auto) Lymph # (Auto) Davis # (Auto) Eos # (Auto) Baso # (Auto) Sodium 141 Potassium 3.9 Chloride 117 H Carbon Dioxide 13 L Anion Gap 10.0 BUN 116 H Creatinine 3.54 H Est Cr Clr Drug Dosing 17.6 Est GFR ( Amer) 18.4 Est GFR (Non-Af Amer) 15.9 BUN/Creatinine Ratio 32.8 H Glucose 137 H Lactate 1.2 Calcium 8.4 L Magnesium Total Bilirubin AST ALT Alkaline Phosphatase Troponin I Total Protein Albumin Globulin Albumin/Globulin Ratio TSH Ur Random Creatinine Ur Random Sodium Stool Occult Bld Scrn Negative Stl C. diff Tox B Gene 02/04/19 02/04/19 03:13 10:06 WBC RBC Hgb Hct MCV MCH MCHC Plt Count Immature Gran % (Auto) Neut % (Auto) Lymph % (Auto) Davis % (Auto) Eos % (Auto) Baso % (Auto) Immature Gran # (Auto) Neut # (Auto) Lymph # (Auto) Davis # (Auto) Eos # (Auto) Baso # (Auto) Sodium 143 Potassium 3.8 Chloride 120 H Carbon Dioxide 13 L Anion Gap 10.0 BUN 104 H Creatinine 2.81 H D Est Cr Clr Drug Dosing 22.2 Est GFR ( Amer) 24.4 Est GFR (Non-Af Amer) 21.0 BUN/Creatinine Ratio 36.9 H Glucose 129 H Lactate Calcium 8.3 L Magnesium Total Bilirubin AST ALT Alkaline Phosphatase Troponin I Total Protein Albumin Globulin Albumin/Globulin Ratio TSH Ur Random Creatinine 148.0 Ur Random Sodium 17 Stool Occult Bld Scrn Stl C. diff Tox B Gene Medications Administered Current Inpatient Medications Amoxicillin/Clavulanate Potassium (Augmentin 500mg) 1 tab PO BIDM [facility]; Protocol Stop: 02/14/19 07:59 Last Admin: 02/04/19 08:10 Dose: 1 tab Documented by: Aspirin (Ecotrin Ectab) 81 mg PO DAILY [facility] Stop: 03/06/19 08:59 Last Admin: 02/04/19 08:11 Dose: 81 mg Documented by: Clopidogrel Bisulfate (Plavix) 75 mg PO DAILY [facility] Stop: 03/06/19 08:59 Last Admin: 02/04/19 08:11 Dose: 75 mg Documented by: Colestipol HCl (Colestid) 1 gm PO BID@1000,2200 [facility] Stop: 03/05/19 22:20 Last Admin: 02/04/19 08:12 Dose: 1 gm Documented by: Cyanocobalamin (Vitamin B-12) 1,000 mcg PO DAILY [facility] Stop: 03/06/19 08:59 Last Admin: 02/04/19 08:11 Dose: 1,000 mcg Documented by: Ferrous Sulfate (Feosol) 325 mg PO DAILY [facility] Stop: 03/06/19 08:59 Last Admin: 02/04/19 08:11 Dose: 325 mg Documented by: Finasteride (Proscar) 5 mg PO DAILY [facility] Stop: 03/06/19 08:59 Last Admin: 02/04/19 08:11 Dose: 5 mg Documented by: Lactated Ringer's (Lr) 1,000 mls @ 100 mls/hr IV .Q10H [facility] Stop: 02/04/19 18:20 Last Admin: 02/04/19 08:10 Dose: 100 mls/hr Documented by: Lactobacillus Acidophilus (Floranex) 1 tab PO DAILY [facility] Stop: 03/06/19 08:59 Last Admin: 02/04/19 08:11 Dose: 1 tab Documented by: Levothyroxine Sodium (Synthroid) 100 mcg PO DAILYBB [facility] Stop: 03/06/19 06:29 Last Admin: 02/04/19 05:52 Dose: 100 mcg Documented by: Miscellaneous Information () 1 ea N/A UD PRN PRN Reason: Consult Stop: 03/06/19 02:59 Ondansetron HCl (Zofran) 4 mg IV Q6H PRN PRN Reason: Nausea Stop: 03/05/19 22:20 Pantoprazole Sodium (Protonix) 40 mg PO DAILY [facility] Stop: 03/06/19 08:59 Last Admin: 02/04/19 08:11 Dose: 40 mg Documented by: Ranitidine HCl (Zantac) 300 mg PO HS [facility] Stop: 03/05/19 22:20 Last Admin: 02/03/19 23:36 Dose: 300 mg Documented by: Rosuvastatin Calcium (Crestor) 5 mg PO DAILY [facility] Stop: 03/06/19 08:59 Last Admin: 02/04/19 08:10 Dose: 5 mg Documented by: Vitamin D (Vitamin D3) 1,000 units PO DAILY [facility] Stop: 03/06/19 08:59 Last Admin: 02/04/19 08:12 Dose: 1,000 units Documented by: PG Care Time/CCT Total # of Minutes Spent Total Time Spent with Patient: Total time spent is greater than 50% in coordination of care (as documented) at patient's floor/unit and/or counseling patient: (1) Diarrhea Diarrhea type: unspecified type Qualified Code(s): R19.7 - Diarrhea, unspecified (2) GERD (gastroesophageal reflux disease) Esophagitis presence: esophagitis presence not specified Qualified Code(s): K21.9 - Gastro-esophageal reflux disease without esophagitis (3) Hypothyroid Hypothyroidism type: unspecified Qualified Code(s): E03.9 - Hypothyroidism, unspecified (4) BPH (benign prostatic hyperplasia) Lower urinary tract symptom presence: symptoms absent Qualified Code(s): N40.0 - Benign prostatic hyperplasia without lower urinary tract symptoms (5) CAD (coronary artery disease) Coronary Disease-Associated Artery/Lesion type: bypass graft, other Associated angina: without angina Qualified Code(s): I25.810 - Atherosclerosis of coronary artery bypass graft(s) without angina pectoris
--- NOTE | 2019-02-04 15:28 | Consultation Report ---
DATE OF CONSULTATION: 02/04/2019 REFERRED BY: Dr. Mota. I was asked by Dr. Mota to consult on this gentleman for evaluation of diarrhea and bacterial overgrowth. HISTORY OF PRESENT ILLNESS: The patient is a 73-year-old with his and daughter present at bedside, who was seeing his regular Gastroenterology provider, Anastasiia Escamilla, in the office yesterday and was found to be very dehydrated and in renal failure and was sent to the Emergency Room. He has a history of scleroderma and presumed bacterial overgrowth with associated diarrhea related to this and has been followed by her for years. He has been on chronic Cipro though this was stopped over the past several months. He had return of his diarrhea when he stopped the Cipro. There was some concern that he was having overflow diarrhea and recently was put on MiraLax daily, which increased his diarrhea and possibly contributed to his dehydration. He has been getting hydrated since he came into the hospital yesterday. He was started on Augmentin for his bacterial overgrowth and feels that his diarrhea has slightly improved already. He denies any rectal bleeding. He states he lost about 10 pounds of water weight over the past week. He also has a history of GERD, which has not been an issue for him and is stable on Protonix. I reviewed his medical records and his past medical history and his past medical history is significant for what is already mentioned, which includes scleroderma, bacterial overgrowth, diarrhea, coronary artery disease, mesenteric ischemia, hypertension, hyperglycemia, hiatal hernia and GERD. OUTPATIENT MEDICATIONS: Include aspirin, numerous vitamins, iron, lisinopril, pantoprazole, lactobacillus, clopidogrel, finasteride, levothyroxine, colestipol, metoprolol and rosuvastatin. ALLERGIES: HE STATES HE IS ALLERGIC TO HMG-COA REDUCTASE INHIBITORS AND NAPROSYN. FAMILY HISTORY: Not significant for gastrointestinal disease. SOCIAL HISTORY: Not significant for active smoking or drinking. REVIEW OF SYSTEMS: As above, otherwise he denies any seizures. He denies any recent change in vision or hearing. He has had no icterus, pruritus or jaundice. He denies any productive cough or shortness of breath. He has had no palpitations or chest pain on exertion. He feels that his gait has been steady, though he has been very weak and because of his dehydration and weakness, needed a wheelchair to get to his visit to see his Gastroenterology provider yesterday. He denies any joint swelling. He denies any dysuria. He has had no rectal bleeding. He has had no heat or cold intolerance or easy bruising. PHYSICAL EXAMINATION: GENERAL: Reveals a pleasant gentleman, in no distress. VITAL SIGNS: His most recent blood pressure is 113/62, pulse is 79, temperature is 18, weight is 69 kilograms. SKIN: Anicteric. EYES: Anicteric sclerae. MOUTH: Dry. NECK: Supple. No adenopathy. CHEST: Clear. HEART: Regular rate and rhythm. ABDOMEN: Soft with good bowel sounds. EXTREMITIES: Warm. Good distal pulses and no edema. NEUROLOGIC: He is alert and oriented x3 and grossly intact. LABORATORY DATA: Reveal a hemoglobin of 13.8, platelet count of 260,000, white blood cell count of 4.7. His BUN and creatinine on admission were 115/3.8 and he has been improving. Currently today his BUN is 104 and his creatinine is 2.8. IMPRESSION AND PLAN: Dehydration in gentleman with diarrhea, possibly from combination of bacterial overgrowth and MiraLax usage. I would avoid any laxatives in this patient at this point and I agree with him being on his Augmentin for his bacterial overgrowth. I would continue this once he gets discharged. Certainly, he needs active hydration for his dehydration and renal failure and can follow up as an outpatient once discharged with his regular providers. I have discussed this with the patient and family at bedside.
[2019-02-04] MEDS: SODIUM CHLORIDE 0.9% 1000ML 1,000 ML IV SCH (19:05)
[2019-02-05] MEDS: LEVOTHYROXINE SODIUM 100 MCG TABLET PO SCH (05:44)
[2019-02-05] MEDS: ASPIRIN 81 MG ECTAB PO SCH (08:24)
[2019-02-05] MEDS: SODIUM CHLORIDE 0.9% 1000ML 1,000 ML IV SCH (08:24)
[2019-02-05] MEDS: ROSUVASTATIN CALCIUM 5 MG TAB PO SCH (08:24)
[2019-02-05] MEDS: AMOXICILLIN/CLAVULANATE 500 MG TAB PO SCH (08:24)
[2019-02-05] MEDS: FERROUS SULFATE 325 MG TAB PO SCH (08:25)
[2019-02-05] MEDS: LACTOBACILLUS ACIDOPHILUS (FLORANEX) TAB PO SCH (08:25)
[2019-02-05] MEDS: CYANOCOBALAMIN 500 MCG TABLET (VITAMIN B-12) PO SCH (08:25)
[2019-02-05] MEDS: CLOPIDOGREL BISULFATE 75 MG TAB PO SCH (08:25)
[2019-02-05] MEDS: FINASTERIDE 5 MG TAB PO SCH (08:26)
[2019-02-05] MEDS: CHOLECALCIFEROL 1,000 UNITS TAB PO SCH (08:26)
[2019-02-05] MEDS: PANTOprazole 40 MG TAB PO SCH (08:26)
[2019-02-05] MEDS: COLESTIPOL HCL 1 GM TAB PO SCH (09:59)
[2019-02-05 10:10] LABS: BUN Creatinine Ratio 32.5 (10-20); Calcium 8.7 mg/dl (8.5-10.1); Creatinine Clr Calc Pharmacy 30.7 ml/min; Est GFR (African American) 35.3; Est GFR (Non-African American) 30.4; Potassium 3.6 mmol/L (3.5-5.1)
[2019-02-05 10:25] LABS: Troponin I 0.024 ng/ml (0-0.045)
--- NOTE | 2019-02-05 14:39 | Discharge Summary ---
Date of Service February 05, 2019 Admission HPI Per Admitting Provider Christopher Palma is a pleasant 73-year-old male with complex medical history to include scleroderma, small intestinal bacterial overgrowth, chronic diarrhea, prior mesenteric ischemia, CAD status post CABG. Patient presents today from outpatient clinic with complaints of persistent diarrhea. Patient with small bowel bacterial overgrowth thought to be secondary to scleroderma. He has been on Cipro daily for years with fairly adequate control of symptoms. Patient states that over the past few months he has had been having increased frequency of diarrhea. Prior to this he had been having approximately 1 loose stool monthly. He states that over the last 8 to 9 days he has been having multiple loose stools per day. He states that he passes small to large amounts of liquid stool. Also with nighttime bowel movements and urgency. Patient also reports sensation of abdominal fullness which is relieved with passing gas as well as tenesmus. Also with poor appetite, chills, weakness, and a 10 pound unintentional weight loss over the last 10 days. He denies melena/hematochezia or mucus. Denies abdominal pain or bloating. States the diarrhea is not related to meals. As stated above patient has been on Cipro daily for years. This was recently discontinued by his outpatient professor of theology on January 24 due to concern for developing resistance contributing to recurrence of diarrhea. He was seen today by GI and was given a prescription for Augmentin which she has not yet taken. Per review of outpatient records patient was seen by inpatient GI in October 2016 for similar presentation. According to their note, he was found to have Campylobacter positive stools and was treated with Zithromax. He was initially started on budesonide which was subsequently discontinued due to cost and was started on Pentasa 1 g p.o. twice daily. He had a colonoscopy with biopsy at that time which revealed focal active colitis which was treated with a course of prednisone. ER course: NSS x1 L Principal Diagnosis Acute kidney injury, prerenal Discharge Exam Constitutional WD/WN, vitals as above Eyes PERRL, conjunctivae normal, anicteric sclerae ENMT external ear and nose normal, oropharynx normal Neck trachea midline, no thyromegaly Respiratory normal respiratory effort, lungs clear to auscultation Cardiovascular RRR, no murmur, no edema Gastrointestinal (Abdomen) normal bowel sounds, soft, nontender, no hepatosplenomegaly Musculoskeletal no cyanosis or clubbing, extremities motor strength 5/5 Skin no rashes, warm and dry Neurologic patellar DTR's 2+ bilat, sensation intact and PERRL, EOMI, accommodation nl, no face palsy, no dysarthria Psychiatric A+Ox3, euthymic affect Lymphatic no cervical or axillary lymphadenopathy Discharge Data Allergies Allergy/AdvReac Type Severity Reaction Status Date / Time [id number]-[id number]-Hdj Reductase AdvReac Mild CALF Verified 02/03/19 18:02 Inhibitor CRAMPING naproxen AdvReac Unknown RASH Verified 02/03/19 18:02 Consultations 02/03/19 18:25 ED Decision to Admit Stat 02/03/19 22:21 Consult Gastroenterology Routine Ordered Studies 02/03/19 16:59 CT abd pelvis wo con Stat Hospital Course (1) ARMANDO (acute kidney injury): BUN markedly elevated at 115, creatinine elevated at 3.8 which is increased from prior study of 1.24 in September 2018. Most likely secondary to prerenal azotemia in the setting of acute GI losses and poor p.o. intake. 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 Fairly well controlled on Cipro until fairly recently when patient began to experience more frequent episodes of diarrhea. Since being off Cipro he has been experiencing multiple episodes of watery diarrhea daily as well as weight loss and weakness. Suspect effects from SIBO, possible resistance to Cipro as patient has been on it for many years. Other considerations include colitis, infectious diarrhea, hyper secretory conditions. patient follows with [facility], just saw Anastasiia Francine on 02/[address] Schroeder agrees to using the Augmentin TID diarrhea improved since admission, minimal symptoms recommend follow up with [facility] RODRIGUEZ in a few weeks -Continue colestipol 1 g p.o. twice daily -Continue lactobacillus (3) GERD (gastroesophageal reflux disease): Chronic. Stable -Continue home Protonix and Zantac (4) Hypothyroid: Chronic. Stable. TSH today 3.89 -Continue Synthroid (5) BPH (benign prostatic hyperplasia): Chronic. Stable. -Continue finasteride (6) CAD (coronary artery disease): Patient denies chest pain. Troponin x1 negative. EKG with some nonspecific T wave changes - EKG this morning with ST depression anteriolateral and lateral leads again, he denies chest pain or pressure, -Continue aspirin, Plavix, Crestor -continue to hold Toprol in setting of borderline low blood pressure due to complete lack of symptoms, will repeat EKG in the morning, check troponin in the morning F/E/N-normal saline solution at 100 mL/h x 2 L, monitor electrolytes and replete as needed, regular diet as tolerated. Continue vitamin supplements, vitamin D, vitamin D B12. Continue ferrous sulfate Prophylaxis-patient is on aspirin and Plavix Code-full per discussion with patient. Family is at bedside Disposition-continue medical floor telemetry Total Time Total Time Spent Total Time Spent (In Minutes): 35 minutes Total Time Includes: Examination of the Patient, Discharge Planning, Medication Reconciliation, Communication With Other Providers (Dr. Schroeder) and Other (long discussion with patient's and son) Discharge Plan Discharge Items Patient Disposition: Home - Self-Care Reason For Visit: DIARRHEA,ARMANDO Discharge Diagnosis: Diarrhea due to bacterial overgrowth Acute kidney injury Condition: Good Discharge Goals: Improve disease control and Improve function Activity: Resume your previous activity Non-emergency contact: Primary Care Provider and Credit Risk Management Director Call non-emergency contact if: you have any medication questions, your symptoms worsen, your pain is not controlled and you have a fever Follow-up/Referrals: Kiran García MD [Primary Care Provider] - Diet: Heart Healthy Addtl Provider Instructions: Medications: see changes below - AUGMENTIN: new antibiotic for bacterial overgrowth, can start this tomorrow morning, take twice a day - CIPRO: this has been STOPPED - LISINOPRIL: this medication has been stopped, due to acute renal failure Dehydration and acute renal failure due to diarrhea and poor oral intake for a few days Cr was 3.8 on admission, came down quickly with IV fluids, down to 2.0 today, your baseline closer to 1.4 you should make an extra effort to stay well hydrated, drink at least 2 liters of fluid a day, try to drink some fluids with electrolytes (like Gatorade) we will continue to hold your Lisinopril, in fact, you may not need it going forward it is a blood pressure medication, your blood pressure has been stable off of it for three days and the lisinopril sets you up for renal failure when dehydrated Diarrhea, due to bacterial overgrowth Dr. Schroeder recommends changing to Augmentin twice a day you should follow up later this week or early next week with Anastasiia Escamilla or another provider in office recommend calling their office tomorrow to arrange follow up Get rest and push fluids the next few days, gradually increase activity as tolerated FOLLOW UP -call Dr. García's office tomorrow morning to get follow up visit by end of week, need to repeat your lab work later in the week, will send him discharge summary with recommendations - [facility] in 1-2 weeks Prescriptions: New amoxicillin-pot clavulanate 500-125 mg Tablet 1 tab PO BIDM 30 Days Qty: 60 RF: 0 Continued multivitamin Tablet 1 tab PO DAILY Qty: 0 RF: 0 aspirin [Aspirin Low Dose] 81 mg Tablet,Delayed Release (Dr/Ec) 81 mg PO DAILY Qty: 0 RF: 0 nitroglycerin [Nitrostat] 0.4 mg Tablet, Sublingual 0.4 mg sublingual Q5M MDD 5 TABLETS PRN (Reason: Chest Pain) Qty: 0 RF: 0 cyanocobalamin (vitamin B-12) 1,000 mcg Tablet 1,000 mcg PO DAILY Qty: 0 RF: 0 ferrous sulfate 324 mg (65 mg iron) Tablet,Delayed Release (Dr/Ec) 324 mg PO DAILY Qty: 0 RF: 0 pantoprazole 40 mg Tablet,Delayed Release (Dr/Ec) 40 mg PO DAILY Qty: 0 RF: 0 ranitidine HCl [Zantac] 300 mg Tablet 300 mg PO HS Qty: 0 RF: 0 clopidogrel 75 mg Tablet 75 mg PO DAILY Qty: 0 RF: 0 levothyroxine 100 mcg Tablet 100 mcg PO DAILY 30 Days Qty: 30 RF: 5 finasteride 5 mg Tablet 5 mg PO DAILY Qty: 0 RF: 0 Lactobacillus acidophilus Tablet,Chewable 1 tab PO DAILY Qty: 0 RF: 0 metoprolol succinate [Toprol XL] 50 mg tablet extended release 24 hr 50 mg PO DAILY RF: 0 colestipol 1 gram tablet 1 g PO BID RF: 0 rosuvastatin 5 mg tablet 5 mg PO DAILY RF: 0 cholecalciferol (vitamin D3) [Vitamin D3] 1,000 unit (25 mcg) Tablet 1,000 unit PO DAILY RF: 0 Discontinued lisinopril 20 mg Tablet 20 mg PO DAILY Qty: 0 RF: 0 Stand-Alone Forms: [facility] Discharge Orders: Discharge Order (Routine); Ordered 02/05/19 Ordered By: Stiven Mota Admission Data Admit Date/Time: 02/03/19 20:15 Attending Provider: Stiven Mota Admit Provider: Neva Farley Primary Care Provider: Kiran García Other Providers: Neva Farley ; Beth Mota ; Damaris Izaguirre ; Ema Mitchell ; Jim Oconnor ; Joesph Delacruz ; Carol Carablalo ; Juani Martínez ; Benson Schulte ; Mook Schroeder ; Myrna Egan ; Monika Grajeda ; Anastasiia Escamilla ; Joanie Benítez ; Chace Whitley Service: Telemetry Medical Other Interventions: Discharge Summary Assessment (RN) Last Done: 02/05/19 13:01 DC Date/Time DO NOT enter until pt leaves facility: 02/05/19 13:49
== END 2019-02-05 13:49 | disposition home or self-care (01) | DRG 684 ==
LOC: ED 16:11 → 2N 20:15 → SUATTDRO 20:15 → 2N 21:27

== ENCOUNTER 2021-10-12 18:05 | Inpatient (IN) ==
[2021-10-12 18:54] LABS: Basophils # (auto) 0.01 K/uL (0-0.2); Basophils % (auto) 0.1 %; Hematocrit (blood only) 36.8 % (42-52); Hemoglobin 12.7 g/dL (14.0-18.0); Immature Granulocytes # (auto) 0.05 K/uL (0.00-0.02); Immature Granulocytes % (auto) 0.3 %; Lymphocytes # (auto) 0.96 K/uL (1.2-3.4); Lymphocytes % (auto) 5.9 %; Mean Corpuscular Hemoglobin 31.8 pg (25-34); Mean Corpuscular Hgb Conc 34.5 g/dL (32-36); Mean Corpuscular Volume 92.2 fL (80-100); Mean Platelet Volume 9.8 fL (7.4-10.4); Monocytes # (auto) 0.74 K/uL (0.11-0.59); Monocytes % (auto) 4.5 %; Neutrophils # (auto) 14.55 K/uL (1.4-6.5); Neutrophils % (auto) 89.2 %; Platelet Count 368 K/uL (130-400); RDW Coefficient of Variation 15.3 % (11.5-14.5); RDW Standard Deviation 51.9 fL (36.4-46.3); Red Blood Count 3.99 M/uL (4.7-6.1); White Blood Count 16.31 K/uL (4.8-10.8)
[2021-10-12 19:26] LABS: Alanine Aminotransferase 13 U/L (7-52); Albumin Globulin Ratio 1.5 (0.9-2); Albumin Level 4.1 gm/dl (3.4-5.0); Alkaline Phosphatase 100 U/L (34-104); Anion Gap 12 (3-11); Aspartate Aminotransferase 17 U/L (13-39); BUN Creatinine Ratio 18.3 (10-20); Blood Urea Nitrogen 20 mg/dl (6-23); Calcium 9.3 mg/dl (8.5-10.1); Carbon Dioxide 24 mmol/L (21-32); Chloride 86 mmol/L (98-107); Est GFR (African American) 75.5 ml/min; Est GFR (Non-African American) 65.1 ml/min; Globulin 2.7 gm/dl (2.5-4.0); Glucose 165 mg/dl (70-99(Fasting)); Potassium 4.3 mmol/L (3.5-5.1); Sodium 122 mmol/L (136-145); Total Protein 6.8 gm/dl (6.0-8.3)
--- NOTE | 2021-10-12 19:44 | CT Scan Report ---
CT SCAN OF THE BRAIN WITHOUT IV CONTRAST CLINICAL HISTORY: Falls. Head injury. COMPARISON STUDY: No priors. TECHNIQUE: Unenhanced axial CT scan of the brain is performed from the vertex to the skull base. A do se lowering technique was utilized adhering to the principles of ALARA. CT DOSE: 614.27 mGy.cm FINDINGS: Brain parenchyma: There are age-related involutional changes noting mild subcortical and periventric ular microangiopathic change. There is no hemorrhage, mass effect, or evidence of acute territorial i schemia by CT criteria. Garcia-white matter differentiation is preserved. No extra-axial fluid collecti on is seen. Ventricles, sulci, cisterns: Prominent secondary to involutional change. Intracranial vasculature: There is atherosclerotic calcification of the cavernous carotid and vertebr al arteries. Calvarium: The skeletal structures are osteopenic. No depressed calvarial fracture is identified. Sinuses and mastoids: There is mucosal thickening within the right ethmoid sinus. The remaining visua lized paranasal sinuses are clear. The mastoid air cells are well pneumatized. Orbits: The bony orbits are grossly intact. IMPRESSION: There is no hemorrhage, mass effect, or evidence of acute territorial ischemia by CT ganesh mckeon. ACT 112: Negative or not required by law. Electronically signed by: Antwon Sanders M.D. 10/12/2021 7:42 PM
--- NOTE | 2021-10-12 20:03 | XRay Report ---
SINGLE VIEW CHEST CLINICAL HISTORY: Generalized weakness. FINDINGS: An AP, portable, upright chest radiograph is compared to study dated 07/14/2019 and correlat ed with chest CT dated 05/28/2015. The patient is status post midline sternotomy. The heart is enlarg ed noting atherosclerotic calcification of the thoracic aorta. The pulmonary vasculature is nonconges don. Chronic interstitial thickening is similar to previous. There is bibasilar scarring/atelectasis. No airspace consolidation or large pleural effusion is identified. The lungs and pleural spaces are clear. No pneumothorax is seen. The bony thorax is grossly intact. A benign-appearing sclerotic lesio n left proximal humerus is unchanged end likely represents an enchondroma. Calcific tendinopathy is n oted in the left shoulder. IMPRESSION: Cardiomegaly with no acute cardiopulmonary abnormality. ACT 112: Negative or not required by law. Electronically signed by: Antwon Sanders M.D. 10/12/2021 8:01 PM
[2021-10-12 20:07] LABS: Troponin I High Sensitivity 59.2 pg/ml (0-20)
[2021-10-12 20:13] LABS: Appearance Urine Clear (Clear); Bacteria Urine Automated Negative (Negative); Bilirubin Urine Negative (Negative); Blood Urine 2+ (Negative); Color Urine Yellow; Glucose Urine UA Negative (Negative); Ketones Urine 1+ (Negative); Leukocyte Esterase Urine Negative (Negative); Nitrite Urine Negative (Negative); Protein Urine 4+ (Negative); Specific Gravity Urine 1.025 (1.000-1.030); Urobilinogen Urine Negative (Negative)
[2021-10-12] MEDS ORDERED: SODIUM CHLORIDE 0.9% 1000ML 1,000 ML IV SCH (21:00)
[2021-10-12] MEDS ORDERED: LORazepam 2 MG/1 ML VIAL IV STA (21:13)
[2021-10-12] MEDS ORDERED: LIDOCAINE 2% JELLY 5 ML TUBE ONE (21:41)
--- NOTE | 2021-10-12 21:46 | History & Physical Report ---
Date of Service October 12, 2021 Assessment & Plan (1) SIADH (syndrome of inappropriate ADH production): Plan: SIADH/hyponatremia- Sodium 122 Serum osmolality 263 Urine osmolality 636 Fluid restrict 1500 cc Start sodium chloride tablets 1 g p.o. twice daily Follow serial laboratories (2) Hyponatremia: Plan: This could explain his lethargy, confusion, and progressive generalized weakness (3) Frequent falls: Plan: Will need undergo PT and OT assessment His reports that Dr. García was planning on arranging PT OT in the outpatient setting (4) Elevated troponin I level: Plan: Elevated troponin level/CAD/hypertension- The patient will be admitted to telemetry for serial cardiac enzymes, serial EKG's, cardiac rhythm monitoring. Continue clopidogrel, aspirin, losartan, metoprolol succinate and Klor-Con Most likely is supply demand mismatch type II (5) CAD (coronary artery disease): Plan: See above (6) Hypertension: Plan: See above (7) Hypercholesterolemia: Plan: Noted on history, but not on any specific treatment due to statin myopathy (8) GERD (gastroesophageal reflux disease): Plan: Continue pantoprazole 40 mg p.o. twice daily (9) BPH NOS w ur obs/LUTS: Plan: Continue finasteride (10) Hypothyroidism: Plan: Continue levothyroxine History of Present Illness Chief Complaint: The patient is brought to the emergency department with his present, due to worsening generalized weakness over the past few days, and has fallen twice in the past 24 hours Primary Care Provider: Jaime García MD The patient is a 75-year-old male with a past medical history including hiatal hernia, chronic mesenteric ischemia, GERD, scleroderma, Raynaud's, small intestinal bacterial overgrowth, PAD, non-STEMI, hypertension, hypercholesterolemia, CABG x2, diabetes mellitus, Powell's esophagus, BPH with LUTS, bilateral lower extremity edema, hypothyroidism, CKD stage III and chronic low back pain with lower extremity radiculopathy. His provides most of the information for him, as he is essentially too weak to communicate. She reports that he has been getting progressively weaker over the past 48 hours or so, and has fallen without any noticeable head injury over the past 2 times over the past 24 hours. She also reports he has been more lethargic and confused Allergies Allergy/AdvReac Type Severity Reaction Status Date / Time tramadol AdvReac Severe Jittery, Verified 10/12/21 19:41 not able to sleep naproxen AdvReac Mild RASH Verified 10/12/21 19:41 Ckamdgi-[id number]-KpE Reductase AdvReac Mild CALF Verified 10/12/21 19:41 Inhibitor CRAMPING [Csvtfwb-Iny-Sxm Reductase Inhibitor] Home Medications Medication Instructions Recorded Confirmed Type aspirin 81 mg tablet,delayed 81 mg PO QAM #0 07/11/13 10/12/21 History release (Aspirin Low Dose) Lactobacillus acidophilus 1 tab PO QAM #0 tab 10/20/16 10/12/21 History loperamide 2 mg tablet (Imodium 2 mg PO QID PRN 07/10/19 10/12/21 History A-D) blood sugar diagnostic (Atomic MogulsTouch #100 ea 09/05/20 10/12/21 Rx Verio test strips) blood-glucose meter (Atomic MogulsTouch #1 ea 09/05/20 10/12/21 Rx Verio Flex Start) lancets 33 gauge (OneTouch Delica #100 ea 09/10/20 10/12/21 Rx Lancets) clopidogrel 75 mg tablet (Plavix) 75 mg PO QAM tab 11/20/20 10/12/21 History pantoprazole 40 mg tablet,delayed 40 mg PO BID #180 tab 04/18/21 10/12/21 Rx release (Protonix) albuterol sulfate 90 mcg/actuation 2 puff INHALATION QID PRN #8.5 g 04/30/21 10/12/21 Rx aerosol inhaler (ProAir HFA) dicyclomine 10 mg capsule 10 mg PO TID #60 cap 09/01/21 10/12/21 Rx ciprofloxacin HCl 500 mg tablet 500 mg PO HS 09/02/21 10/12/21 History cyanocobalamin (vitamin B-12) 1,000 mcg PO HS #0 tab 10/08/21 10/12/21 History 1,000 mcg tablet multivitamin 1 tab PO QPM #0 tab 10/08/21 10/12/21 History acetaminophen 80 mg chewable tablet 0 mg PO Q6H PRN 10/12/21 10/12/21 History cholecalciferol (vitamin D3) 1,250 1,250 mcg PO HS 10/12/21 10/12/21 History mcg (50,000 unit) capsule duloxetine 30 mg capsule,delayed 30 mg PO QAM 10/12/21 10/12/21 History release famotidine 20 mg tablet 20 mg PO QPM 10/12/21 10/12/21 History finasteride 5 mg tablet (Proscar) 5 mg PO QAM 10/12/21 10/12/21 History levothyroxine 200 mcg tablet 200 mcg PO QAM 10/12/21 10/12/21 History losartan 25 mg tablet 25 mg PO QAM 10/12/21 10/12/21 History metoprolol succinate 25 mg 25 mg PO QAM 10/12/21 10/12/21 History tablet,extended release 24 hr potassium chloride 20 mEq 10 meq PO QAM 10/12/21 10/12/21 History tablet,extended release(part/cryst) (Nate Lemons) Past Med/Surg History Medical History (Updated 10/13/21 @ 03:24 by Kayden Light MD) Antibiotic long-term use Powell's esophagus Benign prostatic hyperplasia with urinary obstruction CAD (coronary artery disease) CAD (coronary artery disease) Cardiomyopathy Carotid bruit Carotid stenosis Diabetes mellitus (08/24/12) Elevated serum creatinine Former smoker GERD (gastroesophageal reflux disease) Hiatal hernia Hypercholesterolemia Hypertension Intermittent claudication Mesenteric ischemia, chronic (03/06/14) Nephrolithiasis Non Q wave myocardial infarction Peripheral vascular disease Pulmonary nodules Raynaud's syndrome (08/24/12) Scleroderma Scleroderma Sensorineural hearing loss of both ears Small intestinal bacterial overgrowth Small intestinal bacterial overgrowth Tinnitus, bilateral Urinary urgency Vitamin D deficiency Surgical History History of back surgery (~1997) Dr. Yun History of coronary artery bypass graft x 2 History of coronary artery stent placement (~2013) Dr. West History of surgical amputation of finger (~2008) Dr. Kelly Hx of cholecystectomy S/P CABG (coronary artery bypass graft) S/P tonsillectomy Family History Mother Heart disease Hypertension Myocardial infarction Other No family history of bleeding disorder Denies family history of Ovarian cancer Prostate cancer Coronary heart disease Breast cancer Lung cancer Colorectal cancer Social History (Updated 10/08/21 @ 08:18 by Jemima Chahal MA) Smoking Status: Former smoker Tobacco Type: Smokeless Tobacco (Dip or Chew) Age Started Using Tobacco: 15; Age Quit Using Tobacco: 53; packs per day: 0.75; Second Hand Exposure: No; Do You Dip or Chew Tobacco: No; Hx Alcohol Use: No Hx Substance Use: No Preferred Language: Telugu Communication Ability: Effective Visual Impairment: No Limitations Hearing Ability: Hard of Hearing Boom Worker Required: No Beliefs That Will Affect Care: None marital status: Current Living Situation: Spouse current occupational status: retired 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 Other Information That Helps Us Care for You: No Feels Safe at Home: Yes Safety Concerns: Feels Safe At This Time Childhood Exposure to Second-Hand Smoke: Yes caffeine: Yes Dental Care, Regularly: No Physical Activity Frequency: Does not Exercise Seatbelt Use: always Sunscreen Use: Yes Assistive Devices: Glasses, Hearing Aid - Bilateral and Walker Review of Systems Review of Systems: The patient, via his 's report, denies chest pain, palpitations, cough, lower extremity swelling, sore throat, fevers, chills, sweats, vomiting, diarrhea , constipation, abdominal pain, pelvic pain, blood in urine or stool, dysuria, urinary frequency or urgency, rash, abnormal bruising or bleeding, focal weakness, numbness or tingling in arms or legs, neck pain, or night sweats. The review of systems is otherwise negative other than for that already noted above, and at least 10 systems have been reviewed. Physical Exam Physical Exam: The patient is awake, looks lethargic and confused, normocephalic and atraumatic, lying in bed and in no acute distress. HEENT--PERRL, EOMI, mucous membranes and oropharynx dry. Neck--supple. No JVD. No bruits. Thyroid normal, trachea midline, no adenopathy. Heart--normal S1 and S2. No murmurs, rubs or gallops. Lungs--clear bilaterally, no respiratory distress, no accessory muscle use. Abdomen--normal bowel sounds and soft. Nontender. Nondistended, no hernias or masses, no organomegaly. Extremities--no cyanosis or clubbing. No edema. Dermatologic--skin is dry Neurologic--cranial nerves II through XII grossly intact. Rheumatologic--limited exam due to generalized weakness Psychiatric--lethargic Results & Data Results & Data ([facility]) Vital Signs (Past 12 Hours) Vital Signs Temp Pulse Pulse Resp BP BP Pulse Ox 10/12/21 19:57 95 H 18 171/85 H 94 10/12/21 18:11 36.9 C 94 H 20 146/82 H 96 10/12/21 18:05 94 H 18 156/79 H 95 Laboratory Results Laboratory Results WBC 16.31 K/uL (4.8-10.8) H 10/12/21 18:28 RBC 3.99 M/uL (4.7-6.1) L 10/12/21 18:28 Hgb 12.7 g/dL (14.0-18.0) L 10/12/21 18: Hct 36.8 % (42-52) L 10/12/21 18: MCV 92.2 fL (80-100) 10/12/21 18:28 MCH 31.8 pg (25-34) 10/12/21 18: MCHC 34.5 g/dL (32-36) 10/12/21 18:28 RDW Std Deviation 51.9 fL (36.4-46.3) H 10/12/21 18:28 RDW Coeff of Aysha 15.3 % (11.5-14.5) H 10/12/21 18: Plt Count 368 K/uL (130-400) 10/12/21 18:28 MPV 9.8 fL (7.4-10.4) 10/12/21 18:28 Immature Gran % (Auto) 0.3 % 10/12/21 18: Neut % (Auto) 89.2 % 10/12/21 18:28 Lymph % (Auto) 5.9 % 10/12/21 18:28 [place] % (Auto) 4.5 % 10/12/21 18:28 Eos % (Auto) 0.0 % 10/12/21 18: Baso % (Auto) 0.1 % 10/12/21 18:28 Neut # (Auto) 14.55 K/uL (1.4-6.5) H 10/12/21 18:28 Lymph # (Auto) 0.96 K/uL (1.2-3.4) L 10/12/21 18:28 [place] # (Auto) 0.74 K/uL (0.11-0.59) H 10/12/21 18: Eos # (Auto) 0.00 K/uL (0-0.5) 10/12/21 18: Baso # (Auto) 0.01 K/uL (0-0.2) 10/12/21 18: Immature Gran # (Auto) 0.05 K/uL (0.00-0.02) H 10/12/21 18: Sodium 122 mmol/L (136-145) L 10/12/21 18: Potassium 4.3 mmol/L (3.5-5.1) 10/12/21 18: Chloride 86 mmol/L (98-107) L 10/12/21 18: Carbon Dioxide 24 mmol/L (21-32) 10/12/21: Anion Gap 12 (3-11) H 10/12/21 18: BUN 20 mg/dl (6-23) 10/12/21: Creatinine 1.09 mg/dl (0.6-1.4) 10/12/21 18 Est Cr Clr Drug Dosing Not Reportable 10/12/21 18 Est GFR ( Amer) 75.5 ml/min 10/12/21 Est GFR (Non-Af Amer) 65.1 ml/min 10/12/21 18 BUN/Creatinine Ratio 18.3 (10-20) 10/12/21 18: Glucose 165 mg/dl (70-99(Fasting)) H 10/12/21 18: Osmolality 263 mOsm/kg (280-300) L 10/12/21 21:09 Calcium 9.3 mg/dl (8.5-10.1) 10/12/21 18: Total Bilirubin 1.0 mg/dl (0.2-1.0) 10/12/21 18: AST 17 U/L (13-39) 10/12/21 18: ALT 13 U/L (7-52) 10/12/21 18: Alkaline Phosphatase 100 U/L (34-104) 10/12/21 18: Troponin I High Sens 59.2 pg/ml (0-20) H* 10/12/21 18:28 Total Protein 6.8 gm/dl (6.0-8.3) 10/12/21 18:28 Albumin 4.1 gm/dl (3.4-5.0) 10/12/21 18:28 Globulin 2.7 gm/dl (2.5-4.0) 10/12/21 18:28 Albumin/Globulin Ratio 1.5 (0.9-2) 10/12/21 18:28 TSH 4.034 uIu/ml (0.300-4.500) 10/12/21 18:28 Urine Color Yellow 10/12/21 19:55 Urine Appearance Clear (Clear) 10/12/21 19:55 Urine pH 5.0 (4.5-7.5) 10/12/21 19:55 Ur Specific Fenton 1.025 (1.000-1.030) 10/12/21 19:55 Urine Protein 4+ (Negative) H 10/12/21 19:55 Urine Glucose (UA) Negative (Negative) 10/12/21 19:55 Urine Ketones 1+ (Negative) H 10/12/21 19:55 Urine Blood 2+ (Negative) H 10/12/21 19:55 Urine Nitrite Negative (Negative) 10/12/21 19:55 Urine Bilirubin Negative (Negative) 10/12/21 19:55 Urine Urobilinogen Negative (Negative) 10/12/21 19:55 Ur Leukocyte Esterase Negative (Negative) 10/12/21 19:55 Urine WBC (Auto) 1-5 /hpf (0-5) 10/12/21 19:55 Urine RBC (Auto) 5-10 /hpf (0-4) H 10/12/21 19:55 U Hyaline Cast (Auto) 5-10 /lpf (0-5) H 10/12/21 19:55 U Epithel Cells (Auto) 10-20 /lpf (0-5) H 10/12/21 19:55 Urine Bacteria (Auto) Negative (Negative) 10/12/21 19:55 Urine Osmolality 636 mOsm/kg (500-800) 10/12/21 19:55 SARS-CoV-2, RNA, NAAT NEGATIVE (NEGATIVE) 10/12/21 20:49 Impressions Chest X-Ray 10/12/21 18:16 SINGLE VIEW CHEST CLINICAL HISTORY: Generalized weakness. FINDINGS: An AP, portable, upright chest radiograph is compared to study dated 07/14/2019 and correlated with chest CT dated 05/28/2015. The patient is status post midline sternotomy. The heart is enlarged noting atherosclerotic calcification of the thoracic aorta. The pulmonary vasculature is noncongested. Chronic interstitial thickening is similar to previous. There is bibasilar scarring/atelectasis. No airspace consolidation or large pleural effusion is identified. The lungs and pleural spaces are clear. No pneumothorax is seen. The bony thorax is grossly intact. 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 Calcific tendinopathy is noted in the left shoulder. IMPRESSION: Cardiomegaly with no acute cardiopulmonary abnormality. ACT 112: Negative or not required by law. Electronically signed by: Antwon Sanders M.D. 10/12/2021 8:[address] 10/12/21 19:20 CT SCAN OF THE BRAIN WITHOUT IV CONTRAST CLINICAL HISTORY: Falls. Head injury. COMPARISON STUDY: No priors. TECHNIQUE: Unenhanced axial CT scan of the brain is performed from the vertex to the skull base. A dose lowering technique was utilized adhering to the principles of ALARA. CT DOSE: 614.27 mGy.cm FINDINGS: Brain parenchyma: There are age-related involutional changes noting mild subcortical and periventricular microangiopathic change. There is no hemorrhage, mass effect, or evidence of acute territorial ischemia by CT criteria. Garcia- white matter differentiation is preserved. No extra-axial fluid collection is seen. Ventricles, sulci, cisterns: Prominent secondary to involutional change. Intracranial vasculature: There is atherosclerotic calcification of the cavernous carotid and vertebral arteries. Calvarium: The skeletal structures are osteopenic. No depressed calvarial fracture is identified. Sinuses and mastoids: There is mucosal thickening within the right ethmoid sinus. The remaining visualized paranasal sinuses are clear. The mastoid air cells are well pneumatized. Orbits: The bony orbits are grossly intact. IMPRESSION: There is no hemorrhage, mass effect, or evidence of acute territorial ischemia by CT criteria. ACT 112: Negative or not required by law. Electronically signed by: Antwon Sanders M.D. 10/12/2021 7:42 PM Code Status & VTE Plan Code Status Full code VTE Prophylaxis Plan VTE Prophylaxis will be ordered: Yes PG Care Time/CCT Total # of Minutes Spent Total Time Spent with Patient: Total time spent is greater than 50% in coordination of care (as documented) at patient's floor/unit and/or counseling patient: Coding Level of Care Code 00624 Initial Inpt Care Lvl 3 Diagnoses Hyponatremia E87.1 SIADH (syndrome of inappropriate ADH production) E22.2 Frequent falls R29.6 GERD (gastroesophageal reflux disease) K21.9 Esophagitis presence: esophagitis presence not specified Hypercholesterolemia E78.00 Hypertension I10 Elevated troponin I level R77.8 CAD (coronary artery disease) I25.10 BPH NOS w ur obs/LUTS N40.1 Hypothyroidism E03.9 (1) GERD (gastroesophageal reflux disease) Esophagitis presence: esophagitis presence not specified Qualified Code(s): K21.9 - Gastro-esophageal reflux disease without esophagitis
[2021-10-12] MEDS ORDERED: SODIUM CHLORIDE 1 GM TABLET PO ONE (22:30)
[2021-10-12] MEDS ORDERED: ACETAMINOPHEN 325 MG TAB PO PRN (22:57)
[2021-10-12] MEDS ORDERED: ONDANSETRON INJ 2 MG/ML 2 ML VIAL IV PRN (22:57)
[2021-10-12] MEDS ORDERED: GLUCOSE 40% GEL 15 GM TUBE PO PRN (22:57)
[2021-10-12] MEDS ORDERED: CARBOHYDRATES FOR HYPOGLYCEMIA PO PRN (22:57)
[2021-10-12] MEDS ORDERED: GLUCAGON FOR INJ 1 MG VIAL SQ PRN (22:57)
[2021-10-12] MEDS ORDERED: GLUCOSE 10 TABS/TUBE PO PRN (22:57)
[2021-10-12] MEDS ORDERED: DEXTROSE 50% 50 ML SYRINGE IV PRN (22:57)
[2021-10-13] MEDS: LEVOTHYROXINE SODIUM 200 MCG TABLET PO SCH (06:18)
[2021-10-13 06:56] LABS: Hemoglobin 12.6 g/dL (14.0-18.0); Immature Granulocytes # (auto) 0.07 K/uL (0.00-0.02); Immature Granulocytes % (auto) 0.5 %; Lymphocytes # (auto) 0.48 K/uL (1.2-3.4); Lymphocytes % (auto) 3.2 %; Mean Corpuscular Hemoglobin 31.4 pg (25-34); Mean Corpuscular Hgb Conc 34.1 g/dL (32-36); Mean Corpuscular Volume 92.3 fL (80-100); Mean Platelet Volume 10.2 fL (7.4-10.4); Monocytes # (auto) 1.25 K/uL (0.11-0.59); Monocytes % (auto) 8.3 %; Neutrophils # (auto) 13.34 K/uL (1.4-6.5); Platelet Count 360 K/uL (130-400); RDW Coefficient of Variation 15.2 % (11.5-14.5); RDW Standard Deviation 51.9 fL (36.4-46.3); Red Blood Count 4.01 M/uL (4.7-6.1); White Blood Count 15.14 K/uL (4.8-10.8)
[2021-10-13 07:20] LABS: Albumin Level 3.8 gm/dl (3.4-5.0); BUN Creatinine Ratio 22.3 (10-20); Calcium 9.1 mg/dl (8.5-10.1); Creatinine Clr Calc Pharmacy 52.8 ml/min; Est GFR (African American) 80.8 ml/min; Est GFR (Non-African American) 69.7 ml/min; Magnesium 1.5 mg/dl (1.7-2.4); Potassium 4.2 mmol/L (3.5-5.1)
[2021-10-13] MEDS: FINASTERIDE 5 MG TAB PO SCH (08:07)
[2021-10-13] MEDS: DICYCLOMINE HCL 10 MG CAP PO SCH ×3 (08:08→23:57)
[2021-10-13] MEDS: PANTOprazole 40 MG TAB PO SCH ×2 (08:08→23:57)
[2021-10-13] MEDS: POTASSIUM CHLORIDE 10 MEQ TABCR PO SCH (08:08)
[2021-10-13] MEDS: ASPIRIN 81 MG ECTAB PO SCH (08:08)
[2021-10-13] MEDS: SODIUM CHLORIDE 1 GM TABLET PO SCH ×2 (08:08→23:57)
[2021-10-13] MEDS: CLOPIDOGREL BISULFATE 75 MG TAB PO SCH (08:08)
[2021-10-13] MEDS: INSULIN ASPART PER UNIT SC SCH ×4 (08:09→21:27)
--- NOTE | 2021-10-13 08:14 | Hospitalist Progress Note ---
Date of Service October 13, 2021 Assessment & Plan (1) SIADH (syndrome of inappropriate ADH production): Plan: SIADH/hyponatremia- Sodium 122. Serum osmolality 263, Urine osmolality 636 Fluid restrict 1500 cc. Start sodium chloride tablets 1 g p.o. twice daily Will check urine sodium given clinically appearing dry on examination Decreased fluid restriction to 2000/daily -- > ordered 500cc NSS but overloaded on cxr and will hold off additional IVF abx (got 1L in ER on admission) Of note, most recent PCP note does indicate Cymbalta as new medication to help with back pain. They also mentioned ordering MRI of lumbar spine at that time for radiculopathy symptoms down his right leg Hypoxia/Shortness of Breath Did develop worsening respiratory status/blue appearance this afternoon and POx dropped to 80s on room air, improved with oxymask --> Crackles/rales on examination and placed on Ceftriaxone/Azithromycin to cover for CAP however important to note patient with hx scleroderma/raynauds and could have having some fibrotic changes as well WBC elevated to 20s on admission, 15 today without abx. Abfebrile but obtaining blood cultures/checking procalcitonin as well Will also check ABG given respiratory distress/hypoxia which is not baseline EKG on admission and repeated this morning possibly with ischemic changes. Patient denied any chest pain. Known hx NSTEMI. 3rd troponin pending given elevated from 50s to 70s on trend and could be contributing to weakness. Also ordered ECHo to eval for any wma Consult with cards if needed Continue to monitor on telemetry --> did have more frequent PVCs today. Checked mag, low 1.5 and replacement ordered (2) Hyponatremia: Plan: This could explain his lethargy, confusion, and progressive generalized weakness Na improved from 122 to 123, decrease fluid restriction. Adding urine sodium for further eval as appearing dry on exam ALso could be related to elevated trop/repeat trop & EKG pending for further eval CXR as above On SNRI but doesn't appear much other offending medications BMP in AM (3) Frequent falls: Plan: 2nd to above -- Hypnatremia,now with hypoxia/possible PNA on imaging PT/OT evals pending His reports that Dr. García was planning on arranging PT OT in the outpatient setting (4) Elevated troponin I level: Plan: Elevated troponin level/CAD/hypertension- The patient will be admitted to telemetry for serial cardiac enzymes, serial EKG's, cardiac rhythm monitoring. Continue clopidogrel, aspirin, losartan, metoprolol succinate and Klor-Con Most likely is supply demand mismatch type II, however given further elevation r epeating EKG and continued telemetry monitoring ECHO ordered to look for any wma Consultation with cards if needed (5) CAD (coronary artery disease): Plan: See above, follows with Dr Dailey locally Hx NSTEMI August 2012 s/p 2 vessel CABG 10/13/2012 with JAMA to LAD, SVG to left circumflex. Preop cardiac catheterization reportedly showed 50-70% focal stenosis distal left main, 70% proximal LAD, 50-70% mid LAD, 80% 1st diagonal, 70% proximal OM, 100% OM 2. Filled via [id number] collaterals, ramus intermedius had an ostial lesion which extended into the left main coronary artery. RCA was a small caliber vessel with chronic total occlusion in the proximal segment with [id number] collaterals (according to Dr. Barnes prior notes) Continue ASA, statin, beta michael, and good bp control. (6) Hypertension: Plan: See above (7) Hypercholesterolemia: Plan: Noted on history, but not on any specific treatment due to statin myopathy (8) GERD (gastroesophageal reflux disease): Plan: Continue pantoprazole 40 mg p.o. twice daily (9) BPH NOS w ur obs/LUTS: Plan: Continue finasteride (10) Hypothyroidism: Plan: TSH 4.04 on admission, continuing current dose levothyroxine but important to note had always been abnormal/elevated in past ?if underlying afib in past contributing to weakness/falls ALso takes Cipro daily for "diarrhea" and follows with a [facility] GI specialist for such (11) Scleroderma: Plan: Hx of, also with Raynauds Per PCP "Previously followed by Dr. Mosley. The patient did have a 2nd opinion from Dr. Joselito Haddad from [facility]. Currently followed by Dr. Mullins. Patient has no specific swallowing difficulties. Has musculoskeletal concerns as noted above. Otherwise no change." (12) Iron deficiency anemia: Plan: Hx of SHAMIR, received IV iron infusions in past and recent transfusion August [address] Montesinos. Iron level Jul 01 and has appt with Dr Mcmahon pending for follow up Will check Iron studies for completeness. Hgb stable 12.6 CBC in AM (13) Acute metabolic encephalopathy: (14) Acute respiratory failure with hypoxia: (15) Type 2 myocardial infarction: (16) Acute systolic CHF (congestive heart failure): Plan: continued inpatient stay Admission and Anticipated Discharge Date Admission Date: October 12, 2021 Supervising Physician Co-Signing Physician Notes Attending Attestation: Pt seen & examined, chart reviewed, care plan d/w PA Medina Alonzo. I agree w/ the antony components of her documentation. Critically ill 75yo male with prior h/o chronic systolic/diastolic CHF with last echo showing EF 40-45% with areas of akinesis/hypokinesis, CAD s/p CABG, scleroderma, prior mesenteric ischemia s/p SMA stent, T2DM. Presented with altered mental status & weakness. Mod-severe hyponatremia noted last evening at admission (Na 122). Ms Alonzo & Liyah were called by nursing staff late this am due to concerns of hypoxia, cyanosis, and worsening mental status. Upon arrival patient was significantly altered and requiring 9 L O2 via oxymask. Exam: gen - altered, looks acutely & chronically unwell neck - JVD present mouth - MM dry heart - RRR, s1, s2, s3+ lungs - fine b/l basilar rales, tachypnea abd - soft NT ND BS+ ext - cool to touch, pulses 1+ b/l at best, no edema labs reviewed imaging reviewed EKG - NSR, deep ST depressions anterolateral leads and I/AVL Ms Alonzo ordered STAT echo. This showed low-flow state with EF <15%. Patient placed on BIPAP after we evaluated Mr Palma. Ms Clinton and I spoke with ICU physician behavioral modification assistant and requested ICU transfer given multi-organ failure. A/P: 1. acute/chronic systolic/diastolic CHF - acute CHF is SEVERE with low-flow state 2. acute hypoxic resp failure 2nd to #1 and possible pneumonia 3. concern for community-acquired pneumonia 4. mod-severe hyponatremia - urine studies not c/w SIADH 5. CAD with positive troponin and markedly abnormal EKG along with global hypokinesis of LV on today's echo - worrisome for graft occlusion 6. h/o CABG 7. acute metabolic encephalopathy - multiple causes including hyponatremia, hypoxia, possible pneumonia, etc appreciate cardiology and ICU assistance /daughter updated at pt's bedside by myself and Ms Alonzo critical care time 70 min - complex care coordination, updating family, coordination of care with cardiology, resp failure management, etc Hakeem Dowell MD Subjective Patient evaluated around noon. Per RN, patient with respiratory distress/tachypnea and bluish color with SpO2 80s on room air, improved to 90% on Oxymask currently. States felt like hard time taking a deep breath. No cough/sputum production. No issues with swallowing/choking. No issues with breakfast reported. States he came in because he was feeling so weak. Na low, about the same. Appears slightly dehydrated on examination, will give 500ccc total NSS. Will check ABG, order duonebs as needed and check x-ray and state abx. Denied any fever/chills, chest pain. No abdominal pain, nausea or vomiting reported. Lives at home with his , plans to visit this afternoon. Review of Systems Review of Systems: All systems reviewed & are unremarkable except as noted in HPI & below Physical Exam Physical Exam: General: WD male sitting up in bed, NAD but recently with complaints of difficulty breathing. Not tachypneic or in distress at this time Skin: decreased skin turgor HEENT: slightly dry mm, trachea midline without deviation Resp: on 9L Oxymask with SpO2 90%, crackles/rales to RML/RLL, although crackles present bibasilar, possible faint end expiratory wheezing, not tachypneic, no cough CV: RRR (rate 98bpm), no m/r/g, calf size equal, not erythematous, no tenderness, extremities cool GI: +BS, soft, non-tender MSK/Neuro: moves all extremities, follows commands, no facial droop, speech clear but slightly muffled through oxymask. no focal deficit. strength decreased but equal Psych: alert to person, place (knows in hospital), year (states 2021), month (states October), cooperative and calm Results & Data Results & Data (MN) Vital Signs (Past 12 Hours) Vital Signs Temp Pulse Pulse Resp BP Pulse Ox 10/13/21 07:40 36.5 C 56 L 18 144/73 H 97 10/13/21 04:00 36.8 C 104 H 16 147/79 H 91 10/12/21 23:00 91 H 10/12/21 22:45 36.4 C L 97 H 14 159/79 H 97 10/12/21 21:44 94 H 30 H 157/97 H 94 Laboratory Results 10/13/21 10/13/21 10/13/21 Range/Units 07:11 05:52 05:52 WBC (4.8-10.8) K/uL RBC (4.7-6.1) M/uL Hgb (14.0-18.0) g/dL Hct (42-52) % MCV (80-100) fL MCH (25-34) pg MCHC (32-36) g/dL RDW Std Deviation (36.4-46.3) fL RDW Coeff of Aysha (11.5-14.5) % Plt Count (130-400) K/uL MPV (7.4-10.4) fL Immature Gran % (Auto) % Neut % (Auto) % Lymph % (Auto) % Barton % (Auto) % Eos % (Auto) % Baso % (Auto) % Neut # (Auto) (1.4-6.5) K/uL Lymph # (Auto) (1.2-3.4) K/uL Barton # (Auto) (0.11-0.59) K/uL Eos # (Auto) (0-0.5) K/uL Baso # (Auto) (0-0.2) K/uL Immature Gran # (Auto) (0.00-0.02) K/uL Sodium (136-145) mmol/L Potassium (3.5-5.1) mmol/L Chloride (98-107) mmol/L Carbon Dioxide (21-32) mmol/L Anion Gap (3-11) BUN (6-23) mg/dl Creatinine (0.6-1.4) mg/dl Est Cr Clr Drug Dosing Est GFR ( Amer) ml/min Est GFR (Non-Af Amer) ml/min BUN/Creatinine Ratio (10-20) Glucose (70-99(Fasting)) mg/dl POC Glucose 181 H (70-99) mg/dl Estimat Average Glucose Pending Hemoglobin A1c Pending Osmolality (280-300) mOsm/kg Calcium (8.5-10.1) mg/dl Phosphorus (2.5-4.9) mg/dl Magnesium (1.7-2.4) mg/dl Total Bilirubin (0.2-1.0) mg/dl AST (13-39) U/L ALT (7-52) U/L Alkaline Phosphatase (34-104) U/L Troponin I High Sens 73.5 H* D (0-20) pg/ml Total Protein (6.0-8.3) gm/dl Albumin (3.4-5.0) gm/dl Globulin (2.5-4.0) gm/dl Albumin/Globulin Ratio (0.9-2) TSH (0.300-4.500) uIu/ml Urine Color Urine Appearance (Clear) Urine pH (4.5-7.5) Ur Specific [place] (1.000-1.030) Urine Protein (Negative) Urine Glucose (UA) (Negative) Urine Ketones (Negative) Urine Blood (Negative) Urine Nitrite (Negative) Urine Bilirubin (Negative) Urine Urobilinogen (Negative) Ur Leukocyte Esterase (Negative) Urine WBC (Auto) (0-5) /hpf Urine RBC (Auto) (0-4) /hpf U Hyaline Cast (Auto) (0-5) /lpf U Epithel Cells (Auto) (0-5) /lpf Urine Bacteria (Auto) (Negative) Urine Osmolality (500-800) mOsm/kg SARS-CoV-2, RNA, NAAT (NEGATIVE) 10/13/21 10/13/21 10/12/21 Range/Units 05:52 05:52 21:09 WBC 15.14 H (4.8-10.8) K/uL RBC 4.01 L (4.7-6.1) M/uL Hgb 12.6 L (14.0-18.0) g/dL Hct 37.0 L (42-52) % MCV 92.3 (80-100) fL MCH 31.4 (25-34) pg MCHC 34.1 (32-36) g/dL RDW Std Deviation 51.9 H (36.4-46.3) fL RDW Coeff of Aysha 15.2 H (11.5-14.5) % Plt Count 360 (130-400) K/uL MPV 10.2 (7.4-10.4) fL Immature Gran % (Auto) 0.5 % Neut % (Auto) 88.0 % Lymph % (Auto) 3.2 % Barton % (Auto) 8.3 % Eos % (Auto) 0.0 % Baso % (Auto) 0.0 % Neut # (Auto) 13.34 H (1.4-6.5) K/uL Lymph # (Auto) 0.48 L (1.2-3.4) K/uL Barton # (Auto) 1.25 H (0.11-0.59) K/uL Eos # (Auto) 0.00 (0-0.5) K/uL Baso # (Auto) 0.00 (0-0.2) K/uL Immature Gran # (Auto) 0.07 H (0.00-0.02) K/uL Sodium 123 L (136-145) mmol/L Potassium 4.2 (3.5-5.1) mmol/L Chloride 87 L (98-107) mmol/L Carbon Dioxide 23 (21-32) mmol/L Anion Gap 13 H (3-11) BUN 23 (6-23) mg/dl Creatinine 1.03 (0.6-1.4) mg/dl Est Cr Clr Drug Dosing 52.8 Est GFR ( Amer) 80.8 ml/min Est GFR (Non-Af Amer) 69.7 ml/min BUN/Creatinine Ratio 22.3 H (10-20) Glucose 159 H (70-99(Fasting)) mg/dl POC Glucose (70-99) mg/dl Estimat Average Glucose Hemoglobin A1c Osmolality 263 L (280-300) mOsm/kg Calcium 9.1 (8.5-10.1) mg/dl Phosphorus 3.0 (2.5-4.9) mg/dl Magnesium 1.5 L (1.7-2.4) mg/dl Total Bilirubin (0.2-1.0) mg/dl AST (13-39) U/L ALT (7-52) U/L Alkaline Phosphatase (34-104) U/L Troponin I High Sens (0-20) pg/ml Total Protein (6.0-8.3) gm/dl Albumin 3.8 (3.4-5.0) gm/dl Globulin (2.5-4.0) gm/dl Albumin/Globulin Ratio (0.9-2) TSH (0.300-4.500) uIu/ml Urine Color Urine Appearance (Clear) Urine pH (4.5-7.5) Ur Specific [place] (1.000-1.030) Urine Protein (Negative) Urine Glucose (UA) (Negative) Urine Ketones (Negative) Urine Blood (Negative) Urine Nitrite (Negative) Urine Bilirubin (Negative) Urine Urobilinogen (Negative) Ur Leukocyte Esterase (Negative) Urine WBC (Auto) (0-5) /hpf Urine RBC (Auto) (0-4) /hpf U Hyaline Cast (Auto) (0-5) /lpf U Epithel Cells (Auto) (0-5) /lpf Urine Bacteria (Auto) (Negative) Urine Osmolality (500-800) mOsm/kg SARS-CoV-2, RNA, NAAT (NEGATIVE) 10/12/21 10/12/21 10/12/21 Range/Units 20:49 19:55 19:55 WBC (4.8-10.8) K/uL RBC (4.7-6.1) M/uL Hgb (14.0-18.0) g/dL Hct (42-52) % MCV (80-100) fL MCH (25-34) pg MCHC (32-36) g/dL RDW Std Deviation (36.4-46.3) fL RDW Coeff of Aysha (11.5-14.5) % Plt Count (130-400) K/uL MPV (7.4-10.4) fL Immature Gran % (Auto) % Neut % (Auto) % Lymph % (Auto) % Barton % (Auto) % Eos % (Auto) % Baso % (Auto) % Neut # (Auto) (1.4-6.5) K/uL Lymph # (Auto) (1.2-3.4) K/uL Barton # (Auto) (0.11-0.59) K/uL Eos # (Auto) (0-0.5) K/uL Baso # (Auto) (0-0.2) K/uL Immature Gran # (Auto) (0.00-0.02) K/uL Sodium (136-145) mmol/L Potassium (3.5-5.1) mmol/L Chloride (98-107) mmol/L Carbon Dioxide (21-32) mmol/L Anion Gap (3-11) BUN (6-23) mg/dl Creatinine (0.6-1.4) mg/dl Est Cr Clr Drug Dosing Est GFR ( Amer) ml/min Est GFR (Non-Af Amer) ml/min BUN/Creatinine Ratio (10-20) Glucose (70-99(Fasting)) mg/dl POC Glucose (70-99) mg/dl Estimat Average Glucose Hemoglobin A1c Osmolality (280-300) mOsm/kg Calcium (8.5-10.1) mg/dl Phosphorus (2.5-4.9) mg/dl Magnesium (1.7-2.4) mg/dl Total Bilirubin (0.2-1.0) mg/dl AST (13-39) U/L ALT (7-52) U/L Alkaline Phosphatase (34-104) U/L Troponin I High Sens (0-20) pg/ml Total Protein (6.0-8.3) gm/dl Albumin (3.4-5.0) gm/dl Globulin (2.5-4.0) gm/dl Albumin/Globulin Ratio (0.9-2) TSH (0.300-4.500) uIu/ml Urine Color Yellow Urine Appearance Clear (Clear) Urine pH 5.0 (4.5-7.5) Ur Specific [place] 1.025 (1.000-1.030) Urine Protein 4+ H (Negative) Urine Glucose (UA) Negative (Negative) Urine Ketones 1+ H (Negative) Urine Blood 2+ H (Negative) Urine Nitrite Negative (Negative) Urine Bilirubin Negative (Negative) Urine Urobilinogen Negative (Negative) Ur Leukocyte Esterase Negative (Negative) Urine WBC (Auto) 1-5 (0-5) /hpf Urine RBC (Auto) 5-10 H (0-4) /hpf U Hyaline Cast (Auto) 5-10 H (0-5) /lpf U Epithel Cells (Auto) 10-20 H (0-5) /lpf Urine Bacteria (Auto) Negative (Negative) Urine Osmolality 636 (500-800) mOsm/kg SARS-CoV-2, RNA, NAAT NEGATIVE (NEGATIVE) 10/12/21 10/12/21 10/12/21 Range/Units 18:28 18:28 18:28 WBC 16.31 H (4.8-10.8) K/uL RBC 3.99 L (4.7-6.1) M/uL Hgb 12.7 L (14.0-18.0) g/dL Hct 36.8 L (42-52) % MCV 92.2 (80-100) fL MCH 31.8 (25-34) pg MCHC 34.5 (32-36) g/dL RDW Std Deviation 51.9 H (36.4-46.3) fL RDW Coeff of Aysha 15.3 H (11.5-14.5) % Plt Count 368 (130-400) K/uL MPV 9.8 (7.4-10.4) fL Immature Gran % (Auto) 0.3 % Neut % (Auto) 89.2 % Lymph % (Auto) 5.9 % Barton % (Auto) 4.5 % Eos % (Auto) 0.0 % Baso % (Auto) 0.1 % Neut # (Auto) 14.55 H (1.4-6.5) K/uL Lymph # (Auto) 0.96 L (1.2-3.4) K/uL Barton # (Auto) 0.74 H (0.11-0.59) K/uL Eos # (Auto) 0.00 (0-0.5) K/uL Baso # (Auto) 0.01 (0-0.2) K/uL Immature Gran # (Auto) 0.05 H (0.00-0.02) K/uL Sodium 122 L (136-145) mmol/L Potassium 4.3 (3.5-5.1) mmol/L Chloride 86 L (98-107) mmol/L Carbon Dioxide 24 (21-32) mmol/L Anion Gap 12 H (3-11) BUN 20 (6-23) mg/dl Creatinine 1.09 (0.6-1.4) mg/dl Est Cr Clr Drug Dosing Not Reportable Est GFR ( Amer) 75.5 ml/min Est GFR (Non-Af Amer) 65.1 ml/min BUN/Creatinine Ratio 18.3 (10-20) Glucose 165 H (70-99(Fasting)) mg/dl POC Glucose (70-99) mg/dl Estimat Average Glucose Hemoglobin A1c Osmolality (280-300) mOsm/kg Calcium 9.3 (8.5-10.1) mg/dl Phosphorus (2.5-4.9) mg/dl Magnesium (1.7-2.4) mg/dl Total Bilirubin 1.0 (0.2-1.0) mg/dl AST 17 (13-39) U/L ALT 13 (7-52) U/L Alkaline Phosphatase 100 (34-104) U/L Troponin I High Sens 59.2 H* (0-20) pg/ml Total Protein 6.8 (6.0-8.3) gm/dl Albumin 4.1 (3.4-5.0) gm/dl Globulin 2.7 (2.5-4.0) gm/dl Albumin/Globulin Ratio 1.5 (0.9-2) TSH 4.034 (0.300-4.500) uIu/ml Urine Color Urine Appearance (Clear) Urine pH (4.5-7.5) Ur Specific [place] (1.000-1.030) Urine Protein (Negative) Urine Glucose (UA) (Negative) Urine Ketones (Negative) Urine Blood (Negative) Urine Nitrite (Negative) Urine Bilirubin (Negative) Urine Urobilinogen (Negative) Ur Leukocyte Esterase (Negative) Urine WBC (Auto) (0-5) /hpf Urine RBC (Auto) (0-4) /hpf U Hyaline Cast (Auto) (0-5) /lpf U Epithel Cells (Auto) (0-5) /lpf Urine Bacteria (Auto) (Negative) Urine Osmolality (500-800) mOsm/kg SARS-CoV-2, RNA, NAAT (NEGATIVE) Diagnostic Findings Chest X-Ray 10/12/21 18:16 SINGLE VIEW CHEST CLINICAL HISTORY: Generalized weakness. FINDINGS: An AP, portable, upright chest radiograph is compared to study dated 07/14/2019 and correlated with chest CT dated 05/28/2015. The patient is status post midline sternotomy. The heart is enlarged noting atherosclerotic calcific ation of the thoracic aorta. The pulmonary vasculature is noncongested. Chronic interstitial thickening is similar to previous. There is bibasilar scarring/atelectasis. No airspace consolidation or large pleural effusion is identified. The lungs and pleural spaces are clear. No pneumothorax is seen. The bony thorax is grossly intact. 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 Calcific tendinopathy is noted in the left shoulder. IMPRESSION: Cardiomegaly with no acute cardiopulmonary abnormality. ACT 112: Negative or not required by law. Electronically signed by: Antwon Sanders M.D. 10/12/2021 8:[address] 10/12/21 19:20 CT SCAN OF THE BRAIN WITHOUT IV CONTRAST CLINICAL HISTORY: Falls. Head injury. COMPARISON STUDY: No priors. TECHNIQUE: Unenhanced axial CT scan of the brain is performed from the vertex to the skull base. A dose lowering technique was utilized adhering to the principles of ALARA. CT DOSE: 614.27 mGy.cm FINDINGS: Brain parenchyma: There are age-related involutional changes noting mild subcortical and periventricular microangiopathic change. There is no hemorrhage, mass effect, or evidence of acute territorial ischemia by CT criteria. Garcia- white matter differentiation is preserved. No extra-axial fluid collection is seen. Ventricles, sulci, cisterns: Prominent secondary to involutional change. Intracranial vasculature: There is atherosclerotic calcification of the cavernous carotid and vertebral arteries. Calvarium: The skeletal structures are osteopenic. No depressed calvarial fracture is identified. Sinuses and mastoids: There is mucosal thickening within the right ethmoid sinus. The remaining visualized paranasal sinuses are clear. The mastoid air cells are well pneumatized. Orbits: The bony orbits are grossly intact. IMPRESSION: There is no hemorrhage, mass effect, or evidence of acute territorial ischemia by CT criteria. ACT 112: Negative or not required by law. Electronically signed by: Antwon Sanders M.D. 10/12/2021 7:42 PM Chest X-Ray 10/13/21 12:34 SINGLE VIEW CHEST CLINICAL HISTORY: Dyspnea. FINDINGS: An AP, portable, upright chest radiograph is compared to study dated 10/12/2021 and correlated with chest CT dated 05/28/2015. The examination is degraded by portable technique and patient rotation. The patient is status post midline sternotomy. The heart is enlarged noting atherosclerotic calcification of the thoracic aorta. There is mild pulmonary vascular congestion. Chronic interstitial thickening is similar to previous. Developing airspace consolidation is seen at the left lung base. Question trace pleural effusions. No pneumothorax is seen. The bony thorax is grossly intact. 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 Calcific tendinopathy is noted in the left shoulder. IMPRESSION: 1. Cardiomegaly with mild pulmonary vascular congestion. 2. There is developing airspace consolidation at the left lung base. Correlate clinically for evidence of pneumonia/aspiration pneumonitis. Clinical correlation will be required and radiographic follow-up to resolution is recommended. 3. Suspect trace pleural effusions. ACT 112: Negative or not required by law. Electronically signed by: Antwon Sanders M.D. 10/13/2021 12:59 PM PG Care Time/CCT Total # of Minutes Spent Total Time Spent with Patient: Total time spent is greater than 50% in coordination of care (as documented) at patient's floor/unit and/or counseling patient: Critical Care Time: Yes 70 Coding Level of Care Code None Diagnoses SIADH (syndrome of inappropriate ADH production) E22.2 Hyponatremia E87.1 Frequent falls R29.6 Elevated troponin I level R77.8 CAD (coronary artery disease) I25.10 Hypertension I10 Hypercholesterolemia E78.00 GERD (gastroesophageal reflux disease) K21.9 Esophagitis presence: esophagitis presence not specified BPH NOS w ur obs/LUTS N40.1 Hypothyroidism E03.9 Scleroderma M34.9 Iron deficiency anemia D50.9 Acute metabolic encephalopathy G93.41 Acute respiratory failure with hypoxia J96.01 Type 2 myocardial infarction I21.A1 Acute systolic CHF (congestive heart failure) I50.21 Additional Codes Critical Care Time - Critical Care Time: Yes ([id number]) Time Spent (min) 70 Comment critical care (1) GERD (gastroesophageal reflux disease) Esophagitis presence: esophagitis presence not specified Qualified Code(s): K21.9 - Gastro-esophageal reflux disease without esophagitis
[2021-10-13 08:56] LABS: Estimated Average Glucose 117 mg/dl; Hemoglobin A1C 5.7 % (4.5-5.6)
[2021-10-13] MEDS ORDERED: LOSARTAN POTASSIUM 25 MG TAB PO SCH (09:00)
[2021-10-13] MEDS ORDERED: METOPROLOL SUCC 25MG EXT REL TAB PO SCH (09:00)
[2021-10-13] MEDS: MAGNESIUM SULFATE / D5W 1 GM/100 ML BAG IV SCH ×3 (09:38→11:50)
[2021-10-13] MEDS: MULTIVITAMIN TAB PO SCH (11:50)
[2021-10-13] MEDS ORDERED: SODIUM CHLORIDE 0.9% 500 ML IV SCH (12:30)
--- NOTE | 2021-10-13 13:00 | XRay Report ---
SINGLE VIEW CHEST CLINICAL HISTORY: Dyspnea. FINDINGS: An AP, portable, upright chest radiograph is compared to study dated 10/12/2021 and correlate d with chest CT dated 05/28/2015. The examination is degraded by portable technique and patient rotat ion. The patient is status post midline sternotomy. The heart is enlarged noting atherosclerotic calc ification of the thoracic aorta. There is mild pulmonary vascular congestion. Chronic interstitial th ickening is similar to previous. Developing airspace consolidation is seen at the left lung base. Que stion trace pleural effusions. No pneumothorax is seen. The bony thorax is grossly intact. A benign-a ppearing sclerotic lesion left proximal humerus is unchanged end likely represents an enchondroma. Ca lcific tendinopathy is noted in the left shoulder. IMPRESSION: 1. Cardiomegaly with mild pulmonary vascular congestion. 2. There is developing airspace consolidation at the left lung base. Correlate clinically for evidenc e of pneumonia/aspiration pneumonitis. Clinical correlation will be required and radiographic follow- up to resolution is recommended. 3. Suspect trace pleural effusions. ACT 112: Negative or not required by law. Electronically signed by: Antwon Sanders M.D. 10/13/2021 12:59 PM
[2021-10-13] MEDS: cefTRIAXone SODIUM 1,000 MG in DEXTROSE 5% 50 ML IV SCH (13:07)
[2021-10-13 13:09] LABS: Base Excess ABG -1.7 mEq/L (-9-1.8); HCO3 ABG 21 mmol/L (19-24); Oxygen Saturation ABG 91.5 % (90-95); PCO2 ABG 28 mmHg (35-46); PO2 ABG 58 mmHg (80-95); pH ABG 7.49 (7.35-7.45)
[2021-10-13 13:11] LABS: Allen Test Pos (Pos)
[2021-10-13] MEDS ORDERED: AZITHROMYCIN 500 MG in DEXTROSE 5% 250 ML IV ONE (13:30)
[2021-10-13] MEDS ORDERED: LORazepam 2 MG/1 ML VIAL ONE (13:42)
[2021-10-13] MEDS ORDERED: LORazepam 2 MG/1 ML VIAL IV STA (13:44)
[2021-10-13] MEDS: ALBUT/IPRATROP 3MG/0.5MG NEB 3 ML VIAL NEB SCH ×2 (14:13→19:31)
[2021-10-13 14:48] LABS: Iron 30 mcg/dl (35-175); Total Iron Binding Cap Calc 241 mcg/dl (250-450); Transferrin (FE) Percent Satur 12 % (20-50); Unsaturated Iron Binding Cap 211 mcg/dl (155-355)
--- NOTE | 2021-10-13 14:51 | XCELERA ---
[id number] \\[id number]
[2021-10-13] MEDS ORDERED: STAT IV Infusion **Titration per Protocol STA (15:56)
[2021-10-13] MEDS ORDERED: BUMETANIDE 1 MG in SYRINGE 0 ML IV ONE (15:58)
[2021-10-13] MEDS ORDERED: DOBUTamine / D5W 500 MG/250 ML BAG IV SCH (16:00)
[2021-10-13 16:06] LABS: iSTAT Allen Test Pass; iSTAT Arterial Blood Gas HCO3 22 meg/L (19-24); iSTAT Arterial Blood Gas pCO2 33 mmHg (35-46); iSTAT Arterial Blood Gas pH 7.42 (7.35-7.45); iSTAT Arterial Blood Gas pO2 109 mmHg (80-95); iSTAT Carbon Dioxide 22 mmol/L (24-31); iSTAT FiO2 40 %; iSTAT Site R Radial
--- NOTE | 2021-10-13 17:06 | Cardiology Consultation ---
Date of Consultation October 13, 2021 Assessment & Plan (1) Low output heart failure: 2. Cardiomyopathy-- severe global LV dysfunction, EF 10-15% 3. Severe pulmonary hypertension 4. CAD - post 2v CABG (JAMA-LAD), small RCA ASSEMBLY RIVETER 5. Moderate mitral regurgitation 6. Hyponatremia 7. PAD - prior SMA stent, bilateral iliac disease, moderate carotid disease 8. Scleroderma 9. Type 2 DM Patient with new severe global LV dysfunction and overall picture consistent with low output heart failure with resulting respiratory failure and hyponatremia. Etiology of new LV dysfunction unclear. Concern for potential ischemic etiology. Based on patient's prior known coronary anatomy suspect JAMA to LAD may supply all of his myocardium via collaterals. Recommend cardiac catheterization at some point to assess JAMA-LAD and rule LT subclavian stenosis. In current state though would be unlikely to be able to tolerate procedure without intubation. For now recommend optimizing hemodynamics. Start IV diuretics. Transition losartan to Entresto for afterload reduction. Stop Toprol-XL. If limited urine output consider initiation of low-dose dobutamine. Continue free water restriction. Continue current DAPT with aspirin, clopidogrel. Will follow History of Present Illness Attending Physician: Hakeem Dowell History of Present Illness Mr. Palma is a very pleasant 75-year-old man with a history of coronary artery disease post two-vessel CABG 2012, complex peripheral arterial disease known to me from the outpatient setting. Cardiology consult today due to respiratory failure and new severe LV dysfunction. Other medical issues include prior ischemic colitis with SMA stenting, type 2 diabetes, scleroderma, bacterial overgrowth on chronic biotics, hypertension, dyslipidemia. Patient seen in the ICU after sedation, on CPAP. History in part obtained from EMR and conversation with . She reports gradual decline, increased fatigue over the last several weeks. Symptoms worse over the weekend with several falls. Admitted yesterday in the setting of hyponatremia to sodium of 122. Troponin initially 59, up to 79. ECG showed sinus rhythm, occasional PVC, LVH with repolarization abnormality versus anterior ST depression. This afternoon progressive hypoxic respiratory failure. Subtle infiltrate on chest x-ray and started on antibiotics. Repeat echocardiogram showed newly dilated LV with severe global LV dysfunction with an EF of 10 to 15% with spontaneous LV contrast and estimated cardiac output (2.5, CI 1.4) suggestive of low output state. Also with moderate regurgitation severe pulmonary hypertension. Allergies Allergy/AdvReac Type Severity Reaction Status Date / Time tramadol AdvReac Severe Jittery, Verified 10/12/21 19:41 not able to sleep naproxen AdvReac Mild RASH Verified 10/12/21 19:41 [id number]-[id number]-MuO Reductase AdvReac Mild CALF Verified 10/12/21 19:41 Inhibitor CRAMPING [Hkjqqav-Cor-Zhb Reductase Inhibitor] Home Medications Medication Instructions Recorded Confirmed Type aspirin 81 mg tablet,delayed 81 mg PO QAM #0 07/11/13 10/12/21 History release (Aspirin Low Dose) Lactobacillus acidophilus 1 tab PO QAM #0 tab 10/20/16 10/12/21 History loperamide 2 mg tablet (Imodium 2 mg PO QID PRN 07/10/19 10/12/21 History A-D) blood sugar diagnostic (OneTouch #100 ea 09/05/20 10/12/21 Rx Verio test strips) blood-glucose meter (oohiloveTouch #1 ea 09/05/20 10/12/21 Rx Verio Flex Start) lancets 33 gauge (OneTouch Delica #100 ea 09/10/20 10/12/21 Rx Lancets) clopidogrel 75 mg tablet (Plavix) 75 mg PO QAM tab 11/20/20 10/12/21 History pantoprazole 40 mg tablet,delayed 40 mg PO BID #180 tab 04/18/21 10/12/21 Rx release (Protonix) albuterol sulfate 90 mcg/actuation 2 puff INHALATION QID PRN #8.5 g 04/30/21 10/12/21 Rx aerosol inhaler (ProAir HFA) dicyclomine 10 mg capsule 10 mg PO TID #60 cap 09/01/21 10/12/21 Rx ciprofloxacin HCl 500 mg tablet 500 mg PO HS 09/02/21 10/12/21 History cyanocobalamin (vitamin B-12) 1,000 mcg PO HS #0 tab 10/08/21 10/12/21 History 1,000 mcg tablet multivitamin 1 tab PO QPM #0 tab 10/08/21 10/12/21 History acetaminophen 80 mg chewable tablet 0 mg PO Q6H PRN 10/12/21 10/12/21 History cholecalciferol (vitamin D3) 1,250 1,250 mcg PO HS 10/12/21 10/12/21 History mcg (50,000 unit) capsule duloxetine 30 mg capsule,delayed 30 mg PO QAM 10/12/21 10/12/21 History release famotidine 20 mg tablet 20 mg PO QPM 10/12/21 10/12/21 History finasteride 5 mg tablet (Proscar) 5 mg PO QAM 10/12/21 10/12/21 History levothyroxine 200 mcg tablet 200 mcg PO QAM 10/12/21 10/12/21 History losartan 25 mg tablet 25 mg PO QAM 10/12/21 10/12/21 History metoprolol succinate 25 mg 25 mg PO QAM 10/12/21 10/12/21 History tablet,extended release 24 hr potassium chloride 20 mEq 10 meq PO QAM 10/12/21 10/12/21 History tablet,extended release(part/cryst) (Klor-Con M) Patient History Medical History (Updated 10/13/21 @ 19:05 by Manuel Craig DO) Antibiotic long-term use Powell's esophagus Benign prostatic hyperplasia with urinary obstruction CAD (coronary artery disease) CAD (coronary artery disease) Cardiomyopathy Carotid bruit Carotid stenosis Diabetes mellitus (08/24/12) Elevated serum creatinine Former smoker GERD (gastroesophageal reflux disease) Hiatal hernia Hypercholesterolemia Hypertension Intermittent claudication Mesenteric ischemia, chronic (03/06/14) Nephrolithiasis Non Q wave myocardial infarction Peripheral vascular disease Pulmonary nodules Raynaud's syndrome (08/24/12) Scleroderma Scleroderma Sensorineural hearing loss of both ears Small intestinal bacterial overgrowth Small intestinal bacterial overgrowth Tinnitus, bilateral Urinary urgency Vitamin D deficiency Surgical History History of back surgery (~1997) Dr. Yun History of coronary artery bypass graft x 2 History of coronary artery stent placement (~2013) Dr. West History of surgical amputation of finger (~2008) Dr. Kelly Hx of cholecystectomy S/P CABG (coronary artery bypass graft) S/P tonsillectomy Family History Mother Heart disease Hypertension Myocardial infarction Other No family history of bleeding disorder Denies family history of Ovarian cancer Prostate cancer Coronary heart disease Breast cancer Lung cancer Colorectal cancer Social History (Updated 10/08/21 @ 08:18 by Jemima Chahal MA) Smoking Status: Former smoker Tobacco Type: Smokeless Tobacco (Dip or Chew) Age Started Using Tobacco: 15; Age Quit Using Tobacco: 53; packs per day: 0.75; Second Hand Exposure: No; Do You Dip or Chew Tobacco: No; Hx Alcohol Use: No Hx Substance Use: No Preferred Language: Gabonese Communication Ability: Unable Visual Impairment: No Limitations Hearing Ability: Hard of Hearing [employer] Faculty Member Required: No Beliefs That Will Affect Care: None marital status: Current Living Situation: Spouse current occupational status: retired 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 Other Information That Helps Us Care for You: No Feels Safe at Home: Yes Safety Concerns: Feels Safe At This Time Childhood Exposure to Second-Hand Smoke: Yes caffeine: Yes Dental Care, Regularly: No Physical Activity Frequency: Does not Exercise Seatbelt Use: always Sunscreen Use: Yes Assistive Devices: Walker Review of Systems Review of Systems: All systems reviewed & are unremarkable except as noted in HPI & below Physical Exam Physical Exam: General: CPAP in place, no respond voice HEENT: Sclerae anicteric Lungs: Few crackles at right base Cardiac: Regular rate and rhythm, subtle 2/6 holosystolic murmur Vascular: 2+ radial, nonpalpable DP pulses Abdomen: Soft, nontender Extremities: Feet are cool, no significant edema Psych: Sedated Results & Data ([facility]) Vital Signs (Past 12 Hours) Vital Signs Temp Pulse Pulse Resp BP BP Pulse Ox 10/13/21 15:30 85 32 H 134/82 99 10/13/21 15:16 85 32 H 135/76 94 10/13/21 15:15 82 33 H 93 10/13/21 15:00 82 30 H 123/75 97 10/13/21 14:50 83 30 H 119/72 10/13/21 14:49 86 28 H 10/13/21 14:48 97.9 F 10/13/21 14:15 91 H 31 H 97 10/13/21 14:13 91 H 31 H 97 10/13/21 12:07 97.7 F 60 18 128/63 97 10/13/21 07:40 97.7 F 56 L 18 144/73 H 97 PG Care Time/CCT Total # of Minutes Spent Total Time Spent with Patient: Total time spent is greater than 50% in coordination of care (as documented) at patient's floor/unit and/or counseling patient: Coding Level of Care Code 55241 Initial Inpt Care Lvl 3 Diagnoses Low output heart failure I50.9
--- NOTE | 2021-10-13 18:51 | XRay Report ---
XR chest 1V portable CLINICAL HISTORY: Central line placement COMPARISON STUDY: Chest radiograph October 13, 2021 at 12:51 PM. FINDINGS: There is no pneumothorax following placement of a left internal jugular central line. Eileen ter tip projects over the cavoatrial junction. There are median sternotomy wires. Cardiomegaly is aga in noted. Pulmonary edema has improved. Chondroid lesion within the proximal left humerus is likely b enign. This is similar to chest radiograph March 06, 2014. IMPRESSION: 1. No pneumothorax following placement of a left internal jugular central line. 2. Interval improvement in pulmonary edema. ACT 112: Negative or not required by law. Electronically signed by: Geraldo Luna M.D. 10/13/2021 6:49 PM
--- NOTE | 2021-10-13 18:55 | Critical Care Consultation ---
Date of Consultation October 13, 2021 Assessment & Plan (1) Low output heart failure: Reason Critically Ill: 75-year-old male with acute encephalopathy and significantly decreased cardiac output requiring vasoactive medication PLAN: Neuro: Acute encephalopathy -Suspect this is secondary to low cardiac output, reviewed CT scan from yesterday close observation Resp: Respiratory alkalosis with hypoxia -Improved with noninvasive mechanical ventilation -With significantly low cardiac output I am concerned mechanical ventilation may lead to cardiac arrest continue with bridging noninvasive mechanical ventilation and hopefully we can improve his hemodynamics CV: Cardiomyopathy -reviewed cardiology notes -Diuresis with Bumex -Dobutamine goal MAP 70 Fluids/Renal: Suspect hypervolemic hyponatremia -Fluid restriction with diuresis GI/Nutrition: N.p.o. Heme: Anemia DVT prophylaxis: Heparin 5000 units every 8 hours Endocrine: ICU hyperglycemia protocol Vascular access: Left internal jugular CVC, left radial arterial line Code Status: Full code Disposition: ICU (2) Iron deficiency anemia: (3) Scleroderma: (4) CAD (coronary artery disease): (5) Frequent falls: (6) Hyponatremia: (7) Acute encephalopathy: I have personally spent 65 minutes of critical care time in the direct management of this patient. This is a life/limb threatening event. This includes time spent evaluating patient, direct bedside care, chart review, placing orders, interpretation of diagnostic studies, discussion with consultants, patient, and/or family members regarding treatment decisions, as well as other required patient management activities. This time is exclusive of all separately billable procedures, and teaching time and separate from and in addition to any other critical care service time. History of Present Illness Reason for Consultation: Acute encephalopathy Requesting Physician: Hakeem Dowell Attending Physician: Hakeem Dowell History of Present Illness History is largely obtained from the patient's and prior records. Patient is a 75-year-old male with a significant past medical history for coronary artery disease, frequent falls, chronic mesenteric ischemia, scleroderma, Raynaud's, hypercholesterolemia, diabetes mellitus, hypothyroidism, stage III chronic kidney disease. Over the past several weeks the patient has been progressively weakening, he had suffered several falls over the last 24 to 48 hours prior to presentation at the emergency department. Per discussion with hospitalist medicine today the patient was alert and oriented this morning and then rapidly had decreasing mental status and was hypoxic. They placed the patient on noninvasive mechanical ventilation and his hypoxia improved. He was transferred to the ICU for further evaluation and management. He was also seen by cardiology for echocardiographic changes. Allergies Allergy/AdvReac Type Severity Reaction Status Date / Time tramadol AdvReac Severe Jittery, Verified 10/12/21 19:41 not able to sleep naproxen AdvReac Mild RASH Verified 10/12/21 19:41 Vxyfwpr-WBT-ScA Reductase AdvReac Mild CALF Verified 10/12/21 19:41 Inhibitor CRAMPING [Bprxomj-Wss-Kzm Reductase Inhibitor] Home Medications Medication Instructions Recorded Confirmed Type aspirin 81 mg tablet,delayed 81 mg PO QAM #0 07/11/13 10/12/21 History release (Aspirin Low Dose) Lactobacillus acidophilus 1 tab PO QAM #0 tab 10/20/16 10/12/21 History loperamide 2 mg tablet (Imodium 2 mg PO QID PRN 07/10/19 10/12/21 History A-D) blood sugar diagnostic (OneTouch #100 ea 09/05/20 10/12/21 Rx Verio test strips) blood-glucose meter (OneTouch #1 ea 09/05/20 10/12/21 Rx Verio Flex Start) lancets 33 gauge (OneTouch Delica #100 ea 09/10/20 10/12/21 Rx Lancets) clopidogrel 75 mg tablet (Plavix) 75 mg PO QAM tab 11/20/20 10/12/21 History pantoprazole 40 mg tablet,delayed 40 mg PO BID #180 tab 04/18/21 10/12/21 Rx release (Protonix) albuterol sulfate 90 mcg/actuation 2 puff INHALATION QID PRN #8.5 g 04/30/21 10/12/21 Rx aerosol inhaler (ProAir HFA) dicyclomine 10 mg capsule 10 mg PO TID #60 cap 09/01/21 10/12/21 Rx ciprofloxacin HCl 500 mg tablet 500 mg PO HS 09/02/21 10/12/21 History cyanocobalamin (vitamin B-12) 1,000 mcg PO HS #0 tab 10/08/21 10/12/21 History 1,000 mcg tablet multivitamin 1 tab PO QPM #0 tab 10/08/21 10/12/21 History acetaminophen 80 mg chewable tablet 0 mg PO Q6H PRN 10/12/21 10/12/21 History cholecalciferol (vitamin D3) 1,250 1,250 mcg PO HS 10/12/21 10/12/21 History mcg (50,000 unit) capsule duloxetine 30 mg capsule,delayed 30 mg PO QAM 10/12/21 10/12/21 History release famotidine 20 mg tablet 20 mg PO QPM 10/12/21 10/12/21 History finasteride 5 mg tablet (Proscar) 5 mg PO QAM 10/12/21 10/12/21 History levothyroxine 200 mcg tablet 200 mcg PO QAM 10/12/21 10/12/21 History losartan 25 mg tablet 25 mg PO QAM 10/12/21 10/12/21 History metoprolol succinate 25 mg 25 mg PO QAM 10/12/21 10/12/21 History tablet,extended release 24 hr potassium chloride 20 mEq 10 meq PO QAM 10/12/21 10/12/21 History tablet,extended release(part/cryst) (Klor-Con M) Patient History Medical History (Updated 10/13/21 @ 19:05 by Manuel Craig DO) Antibiotic long-term use Powell's esophagus Benign prostatic hyperplasia with urinary obstruction CAD (coronary artery disease) CAD (coronary artery disease) Cardiomyopathy Carotid bruit Carotid stenosis Diabetes mellitus (08/24/12) Elevated serum creatinine Former smoker GERD (gastroesophageal reflux disease) Hiatal hernia Hypercholesterolemia Hypertension Intermittent claudication Mesenteric ischemia, chronic (03/06/14) Nephrolithiasis Non Q wave myocardial infarction Peripheral vascular disease Pulmonary nodules Raynaud's syndrome (08/24/12) Scleroderma Scleroderma Sensorineural hearing loss of both ears Small intestinal bacterial overgrowth Small intestinal bacterial overgrowth Tinnitus, bilateral Urinary urgency Vitamin D deficiency Surgical History History of back surgery (~1997) Dr. Yun History of coronary artery bypass graft x 2 History of coronary artery stent placement (~2013) Dr. West History of surgical amputation of finger (~2008) Dr. Kelly Hx of cholecystectomy S/P CABG (coronary artery bypass graft) S/P tonsillectomy Family History Mother Heart disease Hypertension Myocardial infarction Other No family history of bleeding disorder Denies family history of Ovarian cancer Prostate cancer Coronary heart disease Breast cancer Lung cancer Colorectal cancer Social History (Updated 10/08/21 @ 08:18 by Jemima Chahal MA) Smoking Status: Former smoker Tobacco Type: Smokeless Tobacco (Dip or Chew) Age Started Using Tobacco: 15; Age Quit Using Tobacco: 53; packs per day: 0.75; Second Hand Exposure: No; Do You Dip or Chew Tobacco: No; Hx Alcohol Use: No Hx Substance Use: No Preferred Language: [place] Communication Ability: Unable Visual Impairment: No Limitations Hearing Ability: Hard of Hearing 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 Required: No Beliefs That Will Affect Care: None marital status: Current Living Situation: Spouse current occupational status: retired 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 Other Information That Helps Us Care for You: No Feels Safe at Home: Yes Safety Concerns: Feels Safe At This Time Childhood Exposure to Second-Hand Smoke: Yes caffeine: Yes Dental Care, Regularly: No Physical Activity Frequency: Does not Exercise Seatbelt Use: always Sunscreen Use: Yes Assistive Devices: Walker Review of Systems Review of Systems: Unobtainable due to reduced consciousness Physical Exam Physical Exam: General: Somnolent, responds to painful stimuli with localizing movements Skin: Warm, dry, Head: Atraumatic Ears, nose, mouth and throat: BiPAP mask in place Cardiovascular: Normal peripheral perfusion, tachycardia Respiratory: no respiratory distress, coarse sounds Gastrointestinal: Non distended, no palpable organomegaly Musculoskeletal: No deformity Results & Data Results & Data ([facility]) Vital Signs (Past 12 Hours) Vital Signs Temp Pulse Pulse Resp BP BP Pulse Ox 10/13/21 15:30 85 32 H 134/82 99 10/13/21 15:16 85 32 H 135/76 94 10/13/21 15:15 82 33 H 93 10/13/21 15:00 82 30 H 123/75 97 10/13/21 14:50 83 30 H 119/72 10/13/21 14:49 86 28 H 10/13/21 14:48 36.6 C 10/13/21 14:15 91 H 31 H 97 10/13/21 14:13 91 H 31 H 97 10/13/21 12:07 36.5 C 60 18 128/63 97 10/13/21 07:40 36.5 C 56 L 18 144/73 H 97 Critical Care Results & Data Vital Signs (Past 12 Hours) Vital Signs Temp Pulse Pulse Resp BP BP Pulse Ox 10/13/21 15:30 85 32 H 134/82 99 10/13/21 15:16 85 32 H 135/76 94 10/13/21 15:15 82 33 H 93 10/13/21 15:00 82 30 H 123/75 97 10/13/21 14:50 83 30 H 119/72 10/13/21 14:49 86 28 H 10/13/21 14:48 36.6 C 10/13/21 14:15 91 H 31 H 97 10/13/21 14:13 91 H 31 H 97 10/13/21 12:07 36.5 C 60 18 128/63 97 10/13/21 07:40 36.5 C 56 L 18 144/73 H 97 Lab & Micro Results (Past 24 Hours) RBC 4.01 M/uL (4.7-6.1) L 10/13/21 WBC 15.14 K/uL (4.8-10.8) H 10/13/21 Hgb 12.6 g/dL (14.0-18.0) L 10/13/21 Hct 37.0 % (42-52) L 10/13/21 MCV 92.3 fL (80-100) 10/13/21 MCH 31.4 pg (25-34) 10/13/21 MCHC 34.1 g/dL (32-36) 10/13/21 RDW Standard Deviation 51.9 fL (36.4-46.3) H 10/13/21 RDW Coefficient of Variation 15.2 % (11.5-14.5) H 10/13/21 Plt Count 360 K/uL (130-400) 10/13/21 MPV 10.2 fL (7.4-10.4) 10/13/21 Neutrophils (%) (Auto) 88.0 % 10/13/21 Lymphocytes (%) (Auto) 3.2 % 10/13/21 Monocytes # (Auto) 1.25 K/uL (0.11-0.59) H 10/13/21 Eosinophils # (Auto) 0.00 K/uL (0-0.5) 10/13/21 Immature Granulocyte % (Auto) 0.5 % 10/13/21 Neutrophils # (Auto) 13.34 K/uL (1.4-6.5) H 10/13/21 Lymphocytes # (Auto) 0.48 K/uL (1.2-3.4) L 10/13/21 Monocytes # (Auto) 1.25 K/uL (0.11-0.59) H 10/13/21 Eosinophils # (Auto) 0.00 K/uL (0-0.5) 10/13/21 Basophils # (Auto) 0.00 K/uL (0-0.2) 10/13/21 Immature Granulocyte # (Auto) 0.07 K/uL (0.00-0.02) H 10/13/21 Na 123 mmol/L (136-145) L 10/13/21 K 4.2 mmol/L (3.5-5.1) 10/13/21 Cl 87 mmol/L (98-107) L 10/13/21 CO2 23 mmol/L (21-32) 10/13/21 Anion Gap 13 (3-11) H 10/13/21 BUN 23 mg/dl (6-23) 10/13/21 Creatinine 1.03 mg/dl (0.6-1.4) 10/13/21 Estimated GFR ( Amer) 80.8 ml/min 10/13/21 Estimated GFR (Non-Af Amer) 69.7 ml/min 10/13/21 BUN/Creatinine Ratio 22.3 (10-20) H 10/13/21 Glu 159 mg/dl (70-99(Fasting)) H 10/13/21 Ca 9.1 mg/dl (8.5-10.1) 10/13/21 Phosphorus Level 3.0 mg/dl (2.5-4.9) 10/13/21 Albumin 3.8 gm/dl (3.4-5.0) 10/13/21 Mg 1.5 mg/dl (1.7-2.4) L 10/13/21 05:52 10/13/21 Calcium Level 9.1 mg/dl (8.5-10.1) 10/13/21 05:52 10/13/21 Blood Gas Barometric Pressure 732.0 mm/Hg 10/13/21 12:50 10/13/21 Arterial Blood pH 7.49 (7.35-7.45) H 10/13/21 12:50 10/13/21 Arterial Blood Partial Pressure CO2 28 mmHg (35-46) L 10/13/21 12:50 10/13/21 Arterial Blood Partial Pressure O2 58 mmHg (80-95) L 10/13/21 12:50 10/13/21 Arterial Blood HCO3 21 mmol/L (19-24) 10/13/21 12:50 10/13/21 Arterial Blood Base Excess -1.7 mEq/L (-9-1.8) 10/13/21 12:50 10/13/21 Arterial Blood Oxygen Saturation 91.5 % (90-95) 10/13/21 12:50 10/13/21 Blood Gas Oxygen Given ROOM AIR 10/13/21 12:50 10/13/21 Toby Test Pass 10/13/21 15:53 10/13/21 Blood Gas Barometric Pressure 732.0 mm/Hg 10/13/21 12:50 10/13/21 Diagnostic Findings (Past 24 Hours) Chest X-Ray 10/12/21 18:16 SINGLE VIEW CHEST CLINICAL HISTORY: Generalized weakness. FINDINGS: An AP, portable, upright chest radiograph is compared to study dated 07/14/2019 and correlated with chest CT dated 05/28/2015. The patient is status post midline sternotomy. The heart is enlarged noting atherosclerotic calcification of the thoracic aorta. The pulmonary vasculature is noncongested. Chronic interstitial thickening is similar to previous. There is bibasilar scarring/atelectasis. No airspace consolidation or large pleural effusion is identified. The lungs and pleural spaces are clear. No pneumothorax is seen. The bony thorax is grossly intact. 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 Calcific tendinopathy is noted in the left shoulder. IMPRESSION: Cardiomegaly with no acute cardiopulmonary abnormality. ACT 112: Negative or not required by law. Electronically signed by: Antwon Sanders M.D. 10/12/2021 8:[address] 10/12/21 19:20 CT SCAN OF THE BRAIN WITHOUT IV CONTRAST CLINICAL HISTORY: Falls. Head injury. COMPARISON STUDY: No priors. TECHNIQUE: Unenhanced axial CT scan of the brain is performed from the vertex to the skull base. A dose lowering technique was utilized adhering to the principles of ALARA. CT DOSE: 614.27 mGy.cm FINDINGS: Brain parenchyma: There are age-related involutional changes noting mild subcortical and periventricular microangiopathic change. There is no hemorrhage, mass effect, or evidence of acute territorial ischemia by CT criteria. Garcia- white matter differentiation is preserved. No extra-axial fluid collection is seen. Ventricles, sulci, cisterns: Prominent secondary to involutional change. Intracranial vasculature: There is atherosclerotic calcification of the cavernous carotid and vertebral arteries. Calvarium: The skeletal structures are osteopenic. No depressed calvarial fracture is identified. Sinuses and mastoids: There is mucosal thickening within the right ethmoid sinus. The remaining visualized paranasal sinuses are clear. The mastoid air cells are well pneumatized. Orbits: The bony orbits are grossly intact. IMPRESSION: There is no hemorrhage, mass effect, or evidence of acute territorial ischemia by CT criteria. ACT 112: Negative or not required by law. Electronically signed by: Antwon Sanders M.D. 10/12/2021 7:42 PM Chest X-Ray 10/13/21 12:34 SINGLE VIEW CHEST CLINICAL HISTORY: Dyspnea. FINDINGS: An AP, portable, upright chest radiograph is compared to study dated 10/12/2021 and correlated with chest CT dated 05/28/2015. The examination is degraded by portable technique and patient rotation. The patient is status post midline sternotomy. The heart is enlarged noting atherosclerotic calcification of the thoracic aorta. There is mild pulmonary vascular congestion. Chronic interstitial thickening is similar to previous. Developing airspace consolidation is seen at the left lung base. Question trace pleural effusions. No pneumothorax is seen. The bony thorax is grossly intact. 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 Calcific tendinopathy is noted in the left shoulder. IMPRESSION: 1. Cardiomegaly with mild pulmonary vascular congestion. 2. There is developing airspace consolidation at the left lung base. Correlate clinically for evidence of pneumonia/aspiration pneumonitis. Clinical correlation will be required and radiographic follow-up to resolution is recommended. 3. Suspect trace pleural effusions. ACT 112: Negative or not required by law. Electronically signed by: Antwon Sanders M.D. 10/13/2021 12:59 PM Chest X-Ray 10/13/21 18:28 XR chest 1V portable CLINICAL HISTORY: Central line placement COMPARISON STUDY: Chest radiograph October 13, 2021 at 12:51 PM. FINDINGS: There is no pneumothorax following placement of a left internal jugular central line. Catheter tip projects over the cavoatrial junction. There are median sternotomy wires. Cardiomegaly is again noted. Pulmonary edema has improved. Chondroid lesion within the proximal left humerus is likely benign. This is similar to chest radiograph March 06, 2014. IMPRESSION: 1. No pneumothorax following placement of a left internal jugular central line. 2. Interval improvement in pulmonary edema. ACT 112: Negative or not required by law. Electronically signed by: Geraldo Luna M.D. 10/13/2021 6:49 PM I & O Totals 24 Hours 10/12/21 10/13/21 10/14/21 06:59 06:59 06:59 Intake Total 225 / 225 925.000 / 925.000 Balance 225 / 225 925.000 / 925.000 Cumulative 10/12/21 18:05 thru 10/13/21 15:38 Intake Total 1150.000 Balance 1150.000 RT Ventilator Mngmt (Last Documented) Ventilator Ordered Settings Respiratory Rate 32 10/13/21 15:30 Fraction of Inspired Oxygen 40 10/13/21 14:48 Ventilator - PT Measurements Respiratory Rate 32 Coding Level of Care Code Critical Care 1st 30-74 mins Diagnoses Low output heart failure I50.9 Iron deficiency anemia D50.9 Scleroderma M34.9 CAD (coronary artery disease) I25.10 Frequent falls R29.6 Hyponatremia E87.1 Acute encephalopathy G93.40
--- NOTE | 2021-10-13 19:14 | Procedure Note ---
Procedure Note Date of Service October 13, 2021 Note Procedure date: Noted above Procedure: Central venous access Pre-procedure indication: Need for vasoactive medication administration Post-procedure Diagnosis: same as above Prior to Procedure: Informed Consent: The risks, benefits, indications, potential complications, and alternatives were explained to the patient's and informed consent obtained. Attending Staff: Tereso Craig DO Resident/APC: Not applicable Skin Prep: Chlorhexidine Anesthesia: 4 mL 1% lidocaine without epinephrine The identity of the patient was confirmed and a bedside time out was performed. Description of Procedure: After sterile prep and sterile drape utilizing standard sterile technique the superficial skin of the left internal jugular area was anesthetized. The target vessel was identified and entered with an 18- gauge needle. Dark venous blood return was noted. A guidewire was inserted through the needle and into the vessel. The needle was withdrawn and a skin basil was made. A tissue dilator was advanced via Seldinger technique and re moved. A triple lumen catheter was inserted via Seldinger technique and the guidewire removed. All ports bhavesh and flushed easily. A Biopatch was placed, and the catheter was secured via commercial securement device. A sterile dressing was then applied. Complications: None Estimated blood loss: Trace Patient tolerated the procedure well. Procedure Date: Noted Above Procedure: Procedural Ultrasound Indication: Central venous access Attending: Tereso Craig DO Resident/Physician Portable Pinch Riveter: Not applicable Artery visualized: Yes Vein visualized: Yes Compressible Vein: Yes Vein patent: Yes Guidewire or Short Catheter seen in vein prior to dilation: Yes Line confirmed in Vein with ultrasound: Yes Lung Sliding on side of attempt (if applicable): NA If no lung sliding or not obtained has CXR been ordered: Yes Impression: Successful central venous access placement Images obtained are saved for permanent record Supervising Physician Co-Signing Physician Notes I have personally spent 70 minutes of critical care time in the direct management of this patient. This is a life/limb threatening event. This includ es time spent evaluating patient, direct bedside care, chart review, placing orders, interpretation of diagnostic studies, discussion with consultants, patient, and/or family members regarding treatment decisions, as well as other required patient management activities. This time is exclusive of all separately billable procedures, and teaching time and separate from and in addition to any other critical care service time. Coding CPT Codes Tubes, Drains, and Vasc Access - Tubes, Drains, and Vasc Access: [id number] Insertion Tunneled Catheter w/o port or pump 5 Yrs> ([id number]) Tubes, Drains, and Vasc Access - Tubes, Drains, and Vasc Access: [id number] Ultrasound Guidance For Vascular ([id number]) [facility] [place] Codes (Charges) Tubes, Drains, and Vasc Access Procedure 1: Tubes, Drains, and Vasc Access: [id number] Insertion Tunneled Catheter w/o port or pump 5 Yrs> Procedure 2: Tubes, Drains, and Vasc Access: [id number] Ultrasound Guidance For Vascular
--- NOTE | 2021-10-13 19:16 | Procedure Note ---
Procedure Note Date of Service October 13, 2021 Note Procedure date: Noted above Procedure: Left radial artery cannulation Pre-procedure Diagnosis: Need for invasive monitoring, hypotension/frequent blood draws Post-procedure Diagnosis: same as above Prior to Procedure: Informed Consent: The risks, benefits, indications, potential complications, and alternatives were explained to the patient's and informed consent obtained. Attending Staff: Tereso Craig DO Skin Prep: Chlorhexidine Anesthesia: 3 mL 1% lidocaine without epinephrine The identity of the patient was confirmed and a bedside time out was performed. Description of Procedure: After sterile prep and sterile drape utilizing standard sterile technique the superficial skin of the left radial artery was anesthetized. The target artery was identified via dynamic ultrasound guidance and entered with a 20-gauge arrow Angiocath. Pulsatile bright red blood return was noted. Via modified Seldinger technique the self-contained guidewire was advanced and the Angiocath advanced over the guidewire. The guidewire was r emoved and brisk arterial blood return was noted. The pressure monitor was connected, and the arterial line was secured via commercial securement device. A sterile dressing was then applied. Complications: None Estimated blood loss: Trace Patient tolerated the procedure well. Coding CPT Codes Tubes, Drains, and Vasc Access - Tubes, Drains, and Vasc Access: [id number] Place Catheter In Artery ([id number]) [facility] [place] Procedure Codes (Charges) Tubes, Drains, and Vasc Access Procedure 1: Tubes, Drains, and Vasc Access: [id number] Place Catheter In Artery
--- NOTE | 2021-10-13 19:54 | Emergency Department Note ---
Impression & Plan Hyponatremia, Generalized weakness, Leukocytosis, Encephalopathy ED Provider Note CHIEF COMPLAINT: Generalized weakness, confusion, fall HISTORY OF PRESENT ILLNESS: This 75-year-old male patient presents to the emergency department with complaints of a fall today. His states he has become weak and sometimes confused. She notes some slurred speech. She feels this is different than his baseline. The patient crumpled to the floor today while trying to ambulate which is unusual for him. He does have a history of congestive heart failure, diabetes mellitus, coronary artery disease, chronic kidney disease and hypothyroidism. is uncertain if the patient hit his head but denies significant loss of consciousness. Patient denies any pain to the neck or head at this time. REVIEW OF SYSTEMS: A review of systems was performed with positives and pertinent negatives listed in the history of present illness. 10 systems were reviewed and are otherwise negative. ALLERGIES: see below MEDICATIONS: see below PMH: see below SOCIAL HISTORY: see below DDx: Infection, dehydration, metabolic abnormality, hypo/hyperglycemia, electrolyte disturbance, anemia, hypoxia, cardiac sources, intracerebral event, toxicologic, neurologic, as well as other pathologies. PHYSICAL EXAM: Vital signs reviewed. General: Chronically ill-appearing 75-year-old male, in no significant distress. HEENT: No scleral icterus, PERRLA, neck supple. Atraumatic. Cardiovascular: Regular rate and rhythm, no extra sounds. Pulmonary: Clear to auscultation bilaterally, normal work of breathing. Abdomen: Soft, nontender, nondistended, positive bowel sounds. Musculoskeletal: Atraumatic, no peripheral edema. Neurologic: Patient awake alert and oriented x 3, speech is clear Skin: Warm, dry, no rash EMERGENCY DEPARTMENT COURSE/MDM: This patient was evaluated and appeared to be in no significant distress. IV access was obtained and laboratory work was drawn. Patient was placed on cardiac specialist noted to be in a sinus rhythm with PVCs. Patient seems to be chronically ill and somewhat weak. There is no evidence of acute traumatic findings. Patient's laboratory work reveals significant hyponatremia at 122. Patient also has a leukocytosis at 16. Patient's troponin is chronically elevated and near baseline, UA is contaminated. Case was discussed with the hospitalist service who will evaluate patient for admission and further management. MONITORING: An order for cardiac monitoring was placed and the patient is noted to be in a sinus rhythm at 95 beats per minute. RADIOLOGY: see below EKG: Sinus rhythm with PVCs at 95 bpm. LVH with QRS widening. Repolarization abnormality. QTc is 517. When compared to July 14, 2019, PVCs are new. DISPOSITION: Admit Past Med/Surg History Medical History (Updated 10/21/21 @ 00:05 by Nicole Bean MD) Antibiotic long-term use Powell's esophagus Benign prostatic hyperplasia with urinary obstruction CAD (coronary artery disease) CAD (coronary artery disease) Cardiomyopathy Carotid bruit Carotid stenosis Diabetes mellitus (08/24/12) Elevated serum creatinine Fall Former smoker GERD (gastroesophageal reflux disease) Hiatal hernia Hypercholesterolemia Hypertension Intermittent claudication Mesenteric ischemia, chronic (03/06/14) Nephrolithiasis Non Q wave myocardial infarction Palliative care encounter Peripheral vascular disease Pulmonary hypertension Pulmonary nodules Raynaud's syndrome (08/24/12) Scleroderma Scleroderma Sensorineural hearing loss of both ears Small intestinal bacterial overgrowth Small intestinal bacterial overgrowth Tinnitus, bilateral Urinary urgency Vitamin D deficiency Surgical History History of back surgery (~1997) Dr. Yun History of coronary artery bypass graft x 2 History of coronary artery stent placement (~2013) Dr. West History of surgical amputation of finger (~2008) Dr. Kelly Hx of cholecystectomy S/P CABG (coronary artery bypass graft) S/P tonsillectomy Family History Mother Heart disease Hypertension Myocardial infarction Other No family history of bleeding disorder Denies family history of Ovarian cancer Prostate cancer Coronary heart disease Breast cancer Lung cancer Colorectal cancer Social History Smoking Status: Former smoker Tobacco Type: Smokeless Tobacco (Dip or Chew) Age Started Using Tobacco: 15; Age Quit Using Tobacco: 53; packs per day: 0.75; Second Hand Exposure: No; Hx Alcohol Use: No Hx Substance Use: No Preferred Language: Pashto Communication Ability: Unable Visual Impairment: No Limitations Hearing Ability: Hard of Hearing Substation Operator Helper Required: No Beliefs That Will Affect Care: None marital status: Current Living Situation: Spouse current occupational status: retired 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 Feels Safe at Home: Yes Childhood Exposure to Second-Hand Smoke: Yes caffeine: Yes Dental Care, Regularly: No Physical Activity Frequency: Does not Exercise Seatbelt Use: always Sunscreen Use: Yes Assistive Devices: Walker Allergies Allergies Allergy/AdvReac Type Severity Reaction Status Date / Time tramadol AdvReac Severe Jittery, Verified 10/12/21 19:41 not able to sleep naproxen AdvReac Mild RASH Verified 10/12/21 19:41 Kbpoacy-NBO-UbT Reductase AdvReac Mild CALF Verified 10/12/21 19:41 Inhibitor CRAMPING [Bneepkb-Agd-Tkp Reductase Inhibitor] Home Meds Home Medications Medication Instructions Recorded Confirmed aspirin 81 mg tablet,delayed 81 mg PO QAM #0 07/11/13 10/12/21 release (Aspirin Low Dose) Lactobacillus acidophilus 1 tab PO QAM #0 tab 10/20/16 10/12/21 loperamide 2 mg tablet (Imodium 2 mg PO QID PRN 07/10/19 10/12/21 A-D) clopidogrel 75 mg tablet (Plavix) 75 mg PO QAM tab 11/20/20 10/12/21 cyanocobalamin (vitamin B-12) 1,000 mcg PO HS #0 tab 10/08/21 10/12/21 1,000 mcg tablet multivitamin 1 tab PO QPM #0 tab 10/08/21 10/12/21 acetaminophen 80 mg chewable tablet 0 mg PO Q6H PRN 10/12/21 10/12/21 cholecalciferol (vitamin D3) 1,250 1,250 mcg PO HS 10/12/21 10/12/21 mcg (50,000 unit) capsule famotidine 20 mg tablet 20 mg PO QPM 10/12/21 10/12/21 finasteride 5 mg tablet (Proscar) 5 mg PO QAM 10/12/21 10/12/21 levothyroxine 200 mcg tablet 200 mcg PO QAM 10/12/21 10/12/21 metoprolol succinate 25 mg 25 mg PO QAM 10/12/21 10/12/21 tablet,extended release 24 hr Previous Rx's Medication Instructions Recorded blood sugar diagnostic (OneTouch #100 ea 09/05/20 Verio test strips) blood-glucose meter (OneTouch #1 ea 09/05/20 Verio Flex Start) lancets 33 gauge (OneTouch Delica #100 ea 09/10/20 Lancets) pantoprazole 40 mg tablet,delayed 40 mg PO BID #180 tab 04/18/21 release (Protonix) albuterol sulfate 90 mcg/actuation 2 puff INHALATION QID PRN #8.5 g 04/30/21 aerosol inhaler (ProAir HFA) dicyclomine 10 mg capsule 10 mg PO TID #60 cap 09/01/21 bumetanide 1 mg tablet 0.5 mg PO QAM #15 tab 10/19/21 sacubitril 24 mg-valsartan 26 mg 1 tab PO BID #60 tab 10/19/21 tablet (Entresto) Results & Data (ED) Vital Signs Vital Signs - 24 hr 10/12/21 19:57 10/12/21 21:44 Pulse Rate [Right Finger] 95 H 94 H Pulse Rhythm [Right Finger] Regular Pulse Strength [Right Finger] Normal Respiratory Rate 18 30 H Respiratory Effort / Characteristics Non-Labored Spontaneous Respiratory Depth Normal Blood Pressure [Right Arm] 171/85 H 157/97 H Blood Pressure Mean [Right Arm] 113 117 Blood Pressure Position [Right Arm] Lying Pulse Oximetry 94 94 Oxygen Delivery Method Room Air Room Air Home Medications Current Medication List: was personally reviewed by me Laboratory Data Attestation: I reviewed the patient's lab results. Result diagrams: 10/19/21 03:54 10/19/21 03:54 Lab Results 10/12/21 10/12/21 10/12/21 Range/Units 18:28 18:28 18:28 WBC 16.31 H (4.8-10.8) K/uL RBC 3.99 L (4.7-6.1) M/uL Hgb 12.7 L (14.0-18.0) g/dL Hct 36.8 L (42-52) % MCV 92.2 (80-100) fL MCH 31.8 (25-34) pg MCHC 34.5 (32-36) g/dL RDW Std Deviation 51.9 H (36.4-46.3) fL RDW Coeff of Aysha 15.3 H (11.5-14.5) % Plt Count 368 (130-400) K/uL MPV 9.8 (7.4-10.4) fL Immature Gran % (Auto) 0.3 % Neut % (Auto) 89.2 % Lymph % (Auto) 5.9 % Lane % (Auto) 4.5 % Eos % (Auto) 0.0 % Baso % (Auto) 0.1 % Neut # (Auto) 14.55 H (1.4-6.5) K/uL Lymph # (Auto) 0.96 L (1.2-3.4) K/uL Lane # (Auto) 0.74 H (0.11-0.59) K/uL Eos # (Auto) 0.00 (0-0.5) K/uL Baso # (Auto) 0.01 (0-0.2) K/uL Immature Gran # (Auto) 0.05 H (0.00-0.02) K/uL Sodium 122 L (136-145) mmol/L Potassium 4.3 (3.5-5.1) mmol/L Chloride 86 L (98-107) mmol/L Carbon Dioxide 24 (21-32) mmol/L Anion Gap 12 H (3-11) BUN 20 (6-23) mg/dl Creatinine 1.09 (0.6-1.4) mg/dl Est Cr Clr Drug Dosing Not Reportable Est GFR ( Amer) 75.5 ml/min Est GFR (Non-Af Amer) 65.1 ml/min BUN/Creatinine Ratio 18.3 (10-20) Glucose 165 H (70-99(Fasting)) mg/dl Osmolality (280-300) mOsm/kg Calcium 9.3 (8.5-10.1) mg/dl Total Bilirubin 1.0 (0.2-1.0) mg/dl AST 17 (13-39) U/L ALT 13 (7-52) U/L Alkaline Phosphatase 100 (34-104) U/L Troponin I High Sens 59.2 H* (0-20) pg/ml Total Protein 6.8 (6.0-8.3) gm/dl Albumin 4.1 (3.4-5.0) gm/dl Globulin 2.7 (2.5-4.0) gm/dl Albumin/Globulin Ratio 1.5 (0.9-2) TSH 4.034 (0.300-4.500) uIu/ml Urine Color Urine Appearance (Clear) Urine pH (4.5-7.5) Ur Specific Douglas (1.000-1.030) Urine Protein (Negative) Urine Glucose (UA) (Negative) Urine Ketones (Negative) Urine Blood (Negative) Urine Nitrite (Negative) Urine Bilirubin (Negative) Urine Urobilinogen (Negative) Ur Leukocyte Esterase (Negative) Urine WBC (Auto) (0-5) /hpf Urine RBC (Auto) (0-4) /hpf U Hyaline Cast (Auto) (0-5) /lpf U Epithel Cells (Auto) (0-5) /lpf Urine Bacteria (Auto) (Negative) Urine Osmolality (500-800) mOsm/kg SARS-CoV-2, RNA, NAAT (NEGATIVE) 10/12/21 10/12/21 10/12/21 Range/Units 19:55 19:55 20:49 WBC (4.8-10.8) K/uL RBC (4.7-6.1) M/uL Hgb (14.0-18.0) g/dL Hct (42-52) % MCV (80-100) fL MCH (25-34) pg MCHC (32-36) g/dL RDW Std Deviation (36.4-46.3) fL RDW Coeff of Aysha (11.5-14.5) % Plt Count (130-400) K/uL MPV (7.4-10.4) fL Immature Gran % (Auto) % Neut % (Auto) % Lymph % (Auto) % Lane % (Auto) % Eos % (Auto) % Baso % (Auto) % Neut # (Auto) (1.4-6.5) K/uL Lymph # (Auto) (1.2-3.4) K/uL Lane # (Auto) (0.11-0.59) K/uL Eos # (Auto) (0-0.5) K/uL Baso # (Auto) (0-0.2) K/uL Immature Gran # (Auto) (0.00-0.02) K/uL Sodium (136-145) mmol/L Potassium (3.5-5.1) mmol/L Chloride (98-107) mmol/L Carbon Dioxide (21-32) mmol/L Anion Gap (3-11) BUN (6-23) mg/dl Creatinine (0.6-1.4) mg/dl Est Cr Clr Drug Dosing Est GFR ( Amer) ml/min Est GFR (Non-Af Amer) ml/min BUN/Creatinine Ratio (10-20) Glucose (70-99(Fasting)) mg/dl Osmolality (280-300) mOsm/kg Calcium (8.5-10.1) mg/dl Total Bilirubin (0.2-1.0) mg/dl AST (13-39) U/L ALT (7-52) U/L Alkaline Phosphatase (34-104) U/L Troponin I High Sens (0-20) pg/ml Total Protein (6.0-8.3) gm/dl Albumin (3.4-5.0) gm/dl Globulin (2.5-4.0) gm/dl Albumin/Globulin Ratio (0.9-2) TSH (0.300-4.500) uIu/ml Urine Color Yellow Urine Appearance Clear (Clear) Urine pH 5.0 (4.5-7.5) Ur Specific Douglas 1.025 (1.000-1.030) Urine Protein 4+ H (Negative) Urine Glucose (UA) Negative (Negative) Urine Ketones 1+ H (Negative) Urine Blood 2+ H (Negative) Urine Nitrite Negative (Negative) Urine Bilirubin Negative (Negative) Urine Urobilinogen Negative (Negative) Ur Leukocyte Esterase Negative (Negative) Urine WBC (Auto) 1-5 (0-5) /hpf Urine RBC (Auto) 5-10 H (0-4) /hpf U Hyaline Cast (Auto) 5-10 H (0-5) /lpf U Epithel Cells (Auto) 10-20 H (0-5) /lpf Urine Bacteria (Auto) Negative (Negative) Urine Osmolality 636 (500-800) mOsm/kg SARS-CoV-2, RNA, NAAT NEGATIVE (NEGATIVE) 10/12/21 Range/Units 21:09 WBC (4.8-10.8) K/uL RBC (4.7-6.1) M/uL Hgb (14.0-18.0) g/dL Hct (42-52) % MCV (80-100) fL MCH (25-34) pg MCHC (32-36) g/dL RDW Std Deviation (36.4-46.3) fL RDW Coeff of Aysha (11.5-14.5) % Plt Count (130-400) K/uL MPV (7.4-10.4) fL Immature Gran % (Auto) % Neut % (Auto) % Lymph % (Auto) % Lane % (Auto) % Eos % (Auto) % Baso % (Auto) % Neut # (Auto) (1.4-6.5) K/uL Lymph # (Auto) (1.2-3.4) K/uL Lane # (Auto) (0.11-0.59) K/uL Eos # (Auto) (0-0.5) K/uL Baso # (Auto) (0-0.2) K/uL Immature Gran # (Auto) (0.00-0.02) K/uL Sodium (136-145) mmol/L Potassium (3.5-5.1) mmol/L Chloride (98-107) mmol/L Carbon Dioxide (21-32) mmol/L Anion Gap (3-11) BUN (6-23) mg/dl Creatinine (0.6-1.4) mg/dl Est Cr Clr Drug Dosing Est GFR ( Amer) ml/min Est GFR (Non-Af Amer) ml/min BUN/Creatinine Ratio (10-20) Glucose (70-99(Fasting)) mg/dl Osmolality 263 L (280-300) mOsm/kg Calcium (8.5-10.1) mg/dl Total Bilirubin (0.2-1.0) mg/dl AST (13-39) U/L ALT (7-52) U/L Alkaline Phosphatase (34-104) U/L Troponin I High Sens (0-20) pg/ml Total Protein (6.0-8.3) gm/dl Albumin (3.4-5.0) gm/dl Globulin (2.5-4.0) gm/dl Albumin/Globulin Ratio (0.9-2) TSH (0.300-4.500) uIu/ml Urine Color Urine Appearance (Clear) Urine pH (4.5-7.5) Ur Specific Douglas (1.000-1.030) Urine Protein (Negative) Urine Glucose (UA) (Negative) Urine Ketones (Negative) Urine Blood (Negative) Urine Nitrite (Negative) Urine Bilirubin (Negative) Urine Urobilinogen (Negative) Ur Leukocyte Esterase (Negative) Urine WBC (Auto) (0-5) /hpf Urine RBC (Auto) (0-4) /hpf U Hyaline Cast (Auto) (0-5) /lpf U Epithel Cells (Auto) (0-5) /lpf Urine Bacteria (Auto) (Negative) Urine Osmolality (500-800) mOsm/kg SARS-CoV-2, RNA, NAAT (NEGATIVE) Administered Medications Discontinued Medications Acetaminophen (Acetaminophen 325 Mg Tab) 650 mg PO Q4H PRN PRN Reason: Pain or Fever Stop: 11/11/21 22:56 Last Admin: 10/17/21 22:40 Dose: 650 mg Documented by: [id number] Albuterol (Albut/Ipratrop 3mg/0.5mg Neb 3 Ml Vial) 3 ml NEB [facility]; Protocol Stop: 11/12/21 14:59 Last Admin: 10/15/21 07:17 Dose: 3 ml Documented by: [id number] Admin: 10/14/21 19:28 Dose: 3 ml Documented by: [id number] Admin: 10/14/21 15:14 Dose: 3 ml Documented by: [id number] Admin: 10/14/21 10:45 Dose: 3 ml Documented by: [id number] Admin: 10/14/21 07:00 Dose: 3 ml Documented by: [id number] Admin: 10/13/21 19:31 Dose: 3 ml Documented by: [id number] Admin: 10/13/21 14:13 Dose: 3 ml Documented by: [id number] Aspirin (Aspirin 81 Mg Ectab) 81 mg PO [facility] Stop: 11/12/21 08:59 Last Admin: 10/19/21 08:57 Dose: 81 mg Documented by: [id number] Admin: 10/18/21 07:23 Dose: 81 mg Documented by: [id number] Admin: 10/17/21 10:25 Dose: 81 mg Documented by: [id number] Admin: 10/16/21 10:50 Dose: Not Given Documented by: [id number] Admin: 10/15/21 12:07 Dose: 81 mg Documented by: [id number] Admin: 10/14/21 10:03 Dose: 81 mg Documented by: [id number] Admin: 10/13/21 08:08 Dose: 81 mg Documented by: [id number] [facility] ([facility] 1 Mg Tab) [facility] [place]: 11/18/21 08:59 Last Admin: 10/19/21 09:33 Dose: 0.5 mg Documented by: [id number] Clopidogrel Bisulfate (Clopidogrel Bisulfate 75 Mg Tab) [facility] Stop: 11/12/21 08:59 Last Admin: 10/19/21 08:58 Dose: 75 mg Documented by: [id number] Admin: 10/18/21 07:22 Dose: 75 mg Documented by: [id number] Admin: 10/17/21 10:54 Dose: 75 mg Documented by: [id number] Admin: 10/16/21 10:50 Dose: Not Given Documented by: [id number] Admin: 10/15/21 12:07 Dose: 75 mg Documented by: [id number] Admin: 10/14/21 10:03 Dose: 75 mg Documented by: [id number] Admin: 10/13/21 08:08 Dose: 75 mg Documented by: [id number] Cyanocobalamin (Cyanocobalamin (B-12) 500 Mcg Tablet) 1,000 mcg PO HS [facility] Stop: 11/12/21 20:59 Last Admin: 10/18/21 20:31 Dose: 1,000 mcg Documented by: [id number] Admin: 10/17/21 20:19 Dose: 1,000 mcg Documented by: [id number] Admin: 10/16/21 20:59 Dose: 1,000 mcg Documented by: [id number] Admin: 10/15/21 21:10 Dose: 1,000 mcg Documented by: [id number] Admin: 10/14/21 20:23 Dose: 1,000 mcg Documented by: [id number] Admin: 10/13/21 23:53 Dose: Not Given Documented by: [id number] Dicyclomine HCl (Dicyclomine Hcl 10 Mg Cap) 10 mg PO TID [facility] Stop: 11/12/21 08:59 Last Admin: 10/19/21 15:07 Dose: 10 mg Documented by: [id number] Admin: 10/19/21 08:58 Dose: 10 mg Documented by: [id number] Admin: 10/18/21 20:31 Dose: 10 mg Documented by: [id number] Admin: 10/18/21 13:14 Dose: 10 mg Documented by: [id number] Admin: 10/18/21 07:22 Dose: 10 mg Documented by: [id number] Admin: 10/17/21 20:18 Dose: 10 mg Documented by: [id number] Admin: 10/17/21 13:41 Dose: 10 mg Documented by: [id number] Admin: 10/17/21 10:24 Dose: 10 mg Documented by: [id number] Admin: 10/16/21 20:59 Dose: 10 mg Documented by: [id number] Admin: 10/16/21 16:07 Dose: Not Given Documented by: [id number] Admin: 10/16/21 10:50 Dose: Not Given Documented by: [id number] Admin: 10/15/21 21:10 Dose: 10 mg Documented by: [id number] Admin: 10/15/21 13:10 Dose: 10 mg Documented by: [id number] Admin: 10/15/21 12:12 Dose: Not Given Documented by: [id number] Admin: 10/14/21 20:24 Dose: 10 mg Documented by: [id number] Admin: 10/14/21 15:33 Dose: 10 mg Documented by: [id number] Admin: 10/14/21 09:07 Dose: 10 mg Documented by: [id number] Admin: 10/13/21 23:57 Dose: Not Given Documented by: [id number] Admin: 10/13/21 13:08 Dose: Not Given Documented by: [id number] Admin: 10/13/21 08:08 Dose: 10 mg Documented by: [id number] Famotidine (Famotidine 20 Mg Tab) 20 mg PO QPM [facility] Stop: 11/12/21 20:59 Last Admin: 10/18/21 20:31 Dose: 20 mg Documented by: [id number] Admin: 10/17/21 20:19 Dose: 20 mg Documented by: [id number] Admin: 10/16/21 21:00 Dose: 20 mg Documented by: [id number] Admin: 10/15/21 21:09 Dose: 20 mg Documented by: [id number] Admin: 10/14/21 20:23 Dose: 20 mg Documented by: [id number] Admin: 10/13/21 23:57 Dose: Not Given Documented by: [id number] Fentanyl Citrate (Fentanyl Citrate 100 Mcg/2 Ml Vial) Confirm Administered Dose 100 mcg .ROUTE .STK-MED ONE Stop: 10/16/21 13:38 Last Admin: 10/16/21 14:54 Dose: Not Given Documented by: [id number] Finasteride (Finasteride 5 Mg Tab) 5 mg PO QAM [facility] Stop: 11/12/21 08:59 Last Admin: 10/19/21 08:57 Dose: 5 mg Documented by: [id number] Admin: 10/18/21 07:23 Dose: 5 mg Documented by: [id number] Admin: 10/17/21 10:25 Dose: 5 mg Documented by: [id number] Admin: 10/16/21 10:50 Dose: Not Given Documented by: [id number] Admin: 10/15/21 13:10 Dose: 5 mg Documented by: [id number] Admin: 10/14/21 10:03 Dose: 5 mg Documented by: [id number] Admin: 10/13/21 08:07 Dose: 5 mg Documented by: [id number] Gelatin (Gelatin Sponge 12-7mm) 1 ea EXT ONE ONE Stop: 10/14/21 01:46 Last Admin: 10/14/21 07:14 Dose: Not Given Documented by: [id number] Heparin Sodium (Porcine) (Heparin Sod 5,000 Unit/0.5 Ml Vial) 5,000 units SQ Q8 [facility] Stop: 11/12/21 21:59 Last Admin: 10/19/21 15:07 Dose: 5,000 units Documented by: [id number] Admin: 10/19/21 05:33 Dose: 5,000 units Documented by: [id number] Admin: 10/18/21 20:31 Dose: 5,000 units Documented by: [id number] Admin: 10/18/21 13:14 Dose: 5,000 units Documented by: [id number] Admin: 10/18/21 05:26 Dose: 5,000 units Documented by: [id number] Admin: 10/17/21 20:20 Dose: 5,000 units Documented by: [id number] Admin: 10/17/21 14:02 Dose: 5,000 units Documented by: [id number] Admin: 10/17/21 06:48 Dose: 5,000 units Documented by: [id number] Admin: 10/16/21 21:01 Dose: 5,000 units Documented by: [id number] Admin: 10/16/21 17:31 Dose: 5,000 units Documented by: [id number] Admin: 10/16/21 05:32 Dose: 5,000 units Documented by: [id number] Admin: 10/15/21 21:13 Dose: 5,000 units Documented by: [id number] Admin: 10/15/21 14:30 Dose: 5,000 units Documented by: [id number] Admin: 10/15/21 06:43 Dose: Not Given Documented by: [id number] Admin: 10/14/21 22:01 Dose: 5,000 units Documented by: [id number] Admin: 10/13/21 23:58 Dose: Not Given Documented by: [id number] Heparin Sodium (Porcine) (Heparin (Porcine) 1000 Unit/Ml 10 Ml (Bend Sorter Use Only)) Confirm Administered Dose 10,000 units .ROUTE .STK-MED ONE Stop: 10/16/21 13:38 Last Admin: 10/16/21 14:54 Dose: Not Given Documented by: [id number] Heparin Sodium/Sodium Chloride (Heparin In Nss Infusion 1000 Unit/500 Ml (2 U/Ml) Bag) Confirm Administered Dose 3,000 units IV .STK-MED ONE Stop: 10/16/21 13:38 Last Admin: 10/16/21 14:54 Dose: 3,000 units Documented by: [id number] Sodium Chloride (Nss 1000ml) 1,000 mls @ 125 mls/hr IV .Q8H [facility] Stop: 11/11/21 20:59 Last Admin: 10/12/21 21:27 Dose: Not Given Documented by: [id number] Magnesium Sulfate/Dextrose (Magnesium Sulfate / D5w) 1 gm in 100 mls @ 50 mls/hr IV Q2H [facility] Stop: 10/13/21 14:14 Last Infusion: 10/13/21 13:35 Dose: 0 mls/hr Documented by: [id number] Admin: 10/13/21 11:50 Dose: 50 mls/hr Documented by: [id number] Infusion: 10/13/21 11:50 Dose: 50 mls/hr Documented by: [id number] Admin: 10/13/21 10:44 Dose: 50 mls/hr Documented by: [id number] Infusion: 10/13/21 10:44 Dose: 50 mls/hr Documented by: [id number] Admin: 10/13/21 09:38 Dose: 50 mls/hr Documented by: [id number] Ceftriaxone Sodium 1,000 mg/ (Dextrose) 60 mls @ 100 mls/hr IV Q24H [facility]; Protocol Stop: 10/20/21 12:29 Last Infusion: 10/19/21 12:58 Dose: 0 mls/hr Documented by: [id number] Admin: 10/19/21 12:22 Dose: 100 mls/hr Documented by: [id number] Infusion: 10/18/21 14:01 Dose: 0 mls/hr Documented by: [id number] Admin: 10/18/21 13:23 Dose: 100 mls/hr Documented by: [id number] Infusion: 10/17/21 12:59 Dose: 0 mls/hr Documented by: [id number] Admin: 10/17/21 12:23 Dose: 100 mls/hr Documented by: [id number] Infusion: 10/16/21 18:09 Dose: 0 mls/hr Documented by: [id number] Admin: 10/16/21 17:31 Dose: 100 mls/hr Documented by: [id number] Infusion: 10/15/21 15:10 Dose: 0 mls/hr Documented by: [id number] Admin: 10/15/21 14:30 Dose: 100 mls/hr Documented by: [id number] Infusion: 10/14/21 16:27 Dose: 0 mls/hr Documented by: [id number] Admin: 10/14/21 12:03 Dose: 100 mls/hr Documented by: [id number] Infusion: 10/13/21 13:35 Dose: 0 mls/hr Documented by: [id number] Admin: 10/13/21 13:07 Dose: 100 mls/hr Documented by: [id number] Azithromycin 500 mg/ Dextrose 255 mls @ 127.5 mls/hr IV NOW ONE Stop: 10/13/21 15:29 Last Infusion: 10/13/21 15:38 Dose: 0 mls/hr Documented by: [id number] Admin: 10/13/21 13:28 Dose: 127.5 mls/hr Documented by: [id number] Azithromycin 250 mg/ Dextrose 252.5 mls @ 125 mls/hr IV DAILY [facility] Stop: 10/17/21 11:02 Last Admin: 10/16/21 10:32 Dose: Not Given Documented by: [id number] Infusion: 10/15/21 14:31 Dose: 0 mls/hr Documented by: [id number] Admin: 10/15/21 12:06 Dose: 125 mls/hr Documented by: [id number] Infusion: 10/14/21 16:27 Dose: 0 mls/hr Documented by: [id number] Admin: 10/14/21 09:06 Dose: 125 mls/hr Documented by: [id number] Sodium Chloride (Nss) 500 mls @ 80 mls/hr IV .Q6H15M [facility] Stop: 10/13/21 18:44 Last Infusion: 10/13/21 13:35 Dose: 0 mls/hr Documented by: [id number] Infusion: 10/13/21 13:29 Dose: 0 mls/hr Documented by: [id number] Admin: 10/13/21 12:39 Dose: 80 mls/hr Documented by: [id number] Dobutamine HCl/Dextrose (Dobutamine / D5w) 500 mg in 250 mls @ 4.658 mls/hr IV .Q24H JORY; Protocol Stop: 11/12/21 15:59 Last Titration: 10/15/21 08:48 Dose: 0 mcg/kg/min, 0 mls/hr Documented by: [id number] Cosigned by: [id number] Titration: 10/14/21 02:15 Dose: 0 mcg/kg/min, 0 mls/hr Documented by: [id number] Cosigned by: [id number] Admin: 10/13/21 21:23 Dose: 2.5 mcg/kg/min, 4.7 mls/hr Documented by: [id number] Cosigned by: [id number] Bumetanide 1 mg/ Syringe 4 mls @ 4 mls/min IV ONE ONE Stop: 10/13/21 15:59 Last Admin: 10/13/21 18:15 Dose: 4 mls/min Documented by: [id number] Bumetanide 1 mg/ Syringe 4 mls @ 4 mls/min IV NOW ONE Stop: 10/14/21 16:01 Last Admin: 10/14/21 16:26 Dose: 4 mls/min Documented by: [id number] Magnesium Sulfate/Dextrose (Magnesium Sulfate / D5w) 1 gm in 100 mls @ 50 mls/hr IV Q2H [facility]ORY Stop: 10/14/21 19:59 Last Infusion: 10/14/21 20:28 Dose: 0 mls/hr Documented by: [id number] Admin: 10/14/21 18:28 Dose: 50 mls/hr Documented by: [id number] Infusion: 10/14/21 18:14 Dose: 50 mls/hr Documented by: [id number] Admin: 10/14/21 16:14 Dose: 50 mls/hr Documented by: [id number] Bumetanide 1 mg/ Syringe 4 mls @ 4 mls/min IV ONE ONE Stop: 10/14/21 20:32 Last Admin: 10/14/21 22:01 Dose: 4 mls/min Documented by: [id number] Bumetanide 1 mg/ Syringe 4 mls @ 4 mls/min IV ONE ONE Stop: 10/15/21 11:16 Last Admin: 10/15/21 11:31 Dose: 4 mls/min Documented by: [id number] Magnesium Sulfate/Dextrose (Magnesium Sulfate / D5w) 1 gm in 100 mls @ 50 mls/hr IV Q2H [facility] Stop: 11/14/21 11:14 Last Admin: 10/15/21 22:44 Dose: Not Given Documented by: [id number] Infusion: 10/15/21 21:15 Dose: 0 mls/hr Documented by: [id number] Admin: 10/15/21 21:09 Dose: 50 mls/hr Documented by: [id number] Infusion: 10/15/21 20:21 Dose: 0 mls/hr Documented by: [id number] Admin: 10/15/21 18:21 Dose: 50 mls/hr Documented by: [id number] Infusion: 10/15/21 18:21 Dose: 50 mls/hr Documented by: [id number] Admin: 10/15/21 16:27 Dose: 50 mls/hr Documented by: [id number] Infusion: 10/15/21 16:27 Dose: 50 mls/hr Documented by: [id number] Admin: 10/15/21 14:30 Dose: 50 mls/hr Documented by: [id number] Infusion: 10/15/21 14:20 Dose: 50 mls/hr Documented by: [id number] Admin: 10/15/21 12:20 Dose: 50 mls/hr Documented by: [id number] Dexmedetomidine/Sodium Chloride (Precedex) 200 mcg in 50 mls @ 6.05 mls/hr IV .Q8H16M [facility]; Protocol Stop: 10/19/21 22:44 Last Titration: 10/17/21 11:42 Dose: 0 mcg/kg/hr, 0 mls/hr Documented by: [id number] Admin: 10/17/21 08:36 Dose: Not Given Documented by: [id number] Admin: 10/17/21 02:11 Dose: Not Given Documented by: [id number] Admin: 10/16/21 17:32 Dose: Not Given Documented by: [id number] Titration: 10/16/21 05:35 Dose: 0 mcg/kg/hr, 0 mls/hr Documented by: [id number] Titration: 10/16/21 05:14 Dose: 0.5 mcg/kg/hr, 7.6 mls/hr Documented by: [id number] Titration: 10/16/21 05:01 Dose: 0.6 mcg/kg/hr, 9.1 mls/hr Documented by: [id number] Admin: 10/16/21 01:39 Dose: 0.7 mcg/kg/hr, 10.6 mls/hr Documented by: [id number] Cosigned by: [id number] Titration: 10/16/21 01:39 Dose: 0.8 mcg/kg/hr, 12.1 mls/hr Documented by: [id number] Cosigned by: [id number] Titration: 10/16/21 00:56 Dose: 0.8 mcg/kg/hr, 12.1 mls/hr Documented by: [id number] Titration: 10/16/21 00:25 Dose: 0.7 mcg/kg/hr, 10.6 mls/hr Documented by: [id number] Titration: 10/16/21 00:05 Dose: 0.6 mcg/kg/hr, 9.1 mls/hr Documented by: [id number] Titration: 10/15/21 23:45 Dose: 0.5 mcg/kg/hr, 7.6 mls/hr Documented by: [id number] Admin: 10/15/21 23:04 Dose: 0.4 mcg/kg/hr, 6.1 mls/hr Documented by: [id number] Cosigned by: [id number] Bumetanide 1 mg/ Syringe 4 mls @ 4 mls/min IV ONE ONE Stop: 10/16/21 17:01 Last Admin: 10/16/21 17:32 Dose: 4 mls/min Documented by: [id number] Bumetanide 1 mg/ Syringe 4 mls @ 4 mls/min IV ONE ONE Stop: 10/17/21 13:00 Last Admin: 10/17/21 13:40 Dose: 4 mls/min Documented by: [id number] Magnesium Sulfate/Dextrose (Magnesium Sulfate / D5w) 1 gm in 100 mls @ 50 mls/hr IV ONE ONE Stop: 10/17/21 15:02 Last Infusion: 10/17/21 16:02 Dose: 0 mls/hr Documented by: [id number] Admin: 10/17/21 14:02 Dose: 50 mls/hr Documented by: [id number] Bumetanide 1 mg/ Syringe 4 mls @ 4 mls/min IV ONE ONE Stop: 10/18/21 10:31 Last Admin: 10/18/21 10:29 Dose: 4 mls/min Documented by: [id number] Magnesium Sulfate/Dextrose (Magnesium Sulfate / D5w) 1 gm in 100 mls @ 50 mls/hr IV ONE ONE Stop: 10/19/21 10:44 Last Infusion: 10/19/21 11:33 Dose: 0 mls/hr Documented by: [id number] Admin: 10/19/21 09:33 Dose: 50 mls/hr Documented by: [id number] Thiamine HCl 500 mg/ Sodium (Chloride) 55 mls @ 220 mls/hr IV Q8H [facility] Stop: 10/20/21 07:44 Last Infusion: 10/19/21 16:31 Dose: 0 mls/hr Documented by: [id number] Admin: 10/19/21 16:16 Dose: 220 mls/hr Documented by: [id number] Insulin Aspart (Insulin Aspart Per Unit) 0 units SC ACHS JORY Stop: 11/12/21 07:29 Last Admin: 10/19/21 17:19 Dose: 2 units Documented by: [id number] Cosigned by: [id number] Admin: 10/19/21 12:13 Dose: 3 units Documented by: [id number] Cosigned by: [id number] Admin: 10/19/21 08:08 Dose: Not Given Documented by: [id number] Cosigned by: [id number] Admin: 10/18/21 20:31 Dose: Not Given Documented by: [id number] Cosigned by: [id number] Admin: 10/18/21 17:39 Dose: 3 units Documented by: [id number] Cosigned by: [id number] Admin: 10/18/21 12:34 Dose: 2 units Documented by: [id number] Cosigned by: [id number] Admin: 10/18/21 08:36 Dose: 1 units Documented by: [id number] Cosigned by: [id number] Admin: 10/17/21 20:21 Dose: Not Given Documented by: [id number] Admin: 10/17/21 17:53 Dose: 3 units Documented by: [id number] Cosigned by: [id number] Admin: 10/17/21 11:41 Dose: Not Given Documented by: [id number] Admin: 10/17/21 08:34 Dose: Not Given Documented by: [id number] Admin: 10/16/21 21:02 Dose: Not Given Documented by: [id number] Admin: 10/16/21 17:32 Dose: Not Given Documented by: [id number] Admin: 10/16/21 12:28 Dose: Not Given Documented by: [id number] Admin: 10/16/21 09:12 Dose: Not Given Documented by: [id number] Admin: 10/15/21 21:14 Dose: Not Given Documented by: [id number] Cosigned by: [id number] Admin: 10/15/21 18:20 Dose: 3 units Documented by: [id number] Cosigned by: [id number] Admin: 10/15/21 13:03 Dose: Not Given Documented by: [id number] Admin: 10/15/21 08:52 Dose: Not Given Documented by: [id number] Admin: 10/14/21 20:22 Dose: Not Given Documented by: [id number] Cosigned by: [id number] Admin: 10/14/21 17:06 Dose: Not Given Documented by: [id number] Cosigned by: [id number] Admin: 10/14/21 12:00 Dose: Not Given Documented by: [id number] Cosigned by: [id number] Admin: 10/14/21 07:14 Dose: Not Given Documented by: [id number] Cosigned by: [id number] Admin: 10/13/21 21:27 Dose: 1 units Documented by: [id number] Cosigned by: [id number] Admin: 10/13/21 18:24 Dose: 1 units Documented by: [id number] Cosigned by: [id number] Admin: 10/13/21 11:51 Dose: 2 units Documented by: [id number] Cosigned by: [id number] Admin: 10/13/21 08:09 Dose: 2 units Documented by: [id number] Cosigned by: [id number] Levothyroxine Sodium (Levothyroxine Sodium 200 Mcg Tablet) 200 mcg PO DAILYBB [facility] Stop: 11/12/21 06:29 Last Admin: 10/19/21 05:33 Dose: 200 mcg Documented by: [id number] Admin: 10/18/21 05:26 Dose: 200 mcg Documented by: [id number] Admin: 10/17/21 08:33 Dose: Not Given Documented by: [id number] Admin: 10/16/21 05:14 Dose: Not Given Documented by: [id number] Admin: 10/15/21 06:43 Dose: Not Given Documented by: [id number] Admin: 10/14/21 05:29 Dose: Not Given Documented by: [id number] Admin: 10/13/21 06:18 Dose: 200 mcg Documented by: [id number] Lidocaine HCl (Lidocaine 2% Jelly 5 Ml Tube) Confirm Administered Dose 5 ml .ROUTE .STK-MED ONE Stop: 10/12/21 21:42 Last Admin: 10/12/21 21:43 Dose: Not Given Documented by: [id number] Lidocaine HCl (Lidocaine 1% Local 20 Ml Vial) Confirm Administered Dose 20 ml .ROUTE .STK-MED [facility] Stop: 10/16/21 13:39 Last Admin: 10/16/21 14:55 Dose: 20 ml Documented by: [id number] Lidocaine/Epinephrine (Lido/Epinephrine/Sod Bicarb 20 Ml Vial) 20 ml INFIL [facility] Stop: 10/13/21 22:01 Last Admin: 10/13/21 22:30 Dose: 2 ml Documented by: [id number] Lorazepam (Lorazepam 2 Mg/1 Ml Vial) 0.5 mg IV NOW [facility] Stop: 10/12/21 21:14 Last Admin: 10/12/21 21:27 Dose: Not Given Documented by: [id number] Lorazepam (Lorazepam 2 Mg/1 Ml Vial) Confirm Administered Dose 2 mg .ROUTE .STK- MED ONE Stop: 10/13/21 13:43 Last Admin: 10/13/21 13:48 Dose: Not Given Documented by: [id number] Lorazepam (Lorazepam 2 Mg/1 Ml Vial) 0.5 mg IV NOW [facility] Stop: 10/13/21 13:45 Last Admin: 10/13/21 13:48 Dose: 0.5 mg Documented by: [id number] Losartan Potassium (Losartan Potassium 25 Mg Tab) [facility] [place]: 11/12/21 08:59 Last Admin: 10/13/21 08:08 Dose: 25 mg Documented by: [id number] Melatonin (Melatonin 3 Mg Tab) 3 mg PO HS PRN PRN Reason: Sleep Stop: 11/16/21 22:22 Last Admin: 10/17/21 22:41 Dose: 3 mg Documented by: [id number] Metoprolol Succinate (Metoprolol Succ 25mg Ext Rel Tab) [facility] [place]: 11/12/21 08:59 Last Admin: 10/13/21 08:08 Dose: 25 mg Documented by: [id number] Metoprolol Succinate (Metoprolol Succ 25mg Ext Rel Tab) 25 mg PO [facility] Stop: 11/15/21 08:59 Last Admin: 10/19/21 08:58 Dose: 25 mg Documented by: [id number] Admin: 10/18/21 08:03 Dose: 25 mg Documented by: [id number] Midazolam HCl (Midazolam Hcl 1 Mg/Ml 2ml Vial) Confirm Administered Dose 2 mg .ROUTE .STK-MED ONE Stop: 10/16/21 13:37 Last Admin: 10/16/21 14:54 Dose: Not Given Documented by: [id number] Multivitamins (Multivitamin Tab) 1 tab PO QDL [facility] Stop: 11/12/21 11:29 Last Admin: 10/19/21 12:13 Dose: 1 tab Documented by: [id number] Admin: 10/18/21 11:35 Dose: 1 tab Documented by: [id number] Admin: 10/17/21 12:16 Dose: 1 tab Documented by: [id number] Admin: 10/16/21 12:29 Dose: Not Given Documented by: [id number] Admin: 10/15/21 13:10 Dose: 1 tab Documented by: [id number] Admin: 10/14/21 12:01 Dose: 1 tab Documented by: [id number] Admin: 10/13/21 11:50 Dose: Not Given Documented by: [id number] Nicardipine HCl (Nicardipine Hcl Inj 2.5 Mg/Ml 10 Ml Amp) Confirm Administered Dose 25 mg .ROUTE .STK-MED ONE Stop: 10/16/21 13:38 Last Admin: 10/16/21 14:55 Dose: 25 mg Documented by: [id number] Nitroglycerin/Dextrose (Nitroglycerin/D5w 100mcg/Ml 20ml Syr) Confirm Administered Dose 2,000 mcg .ROUTE .STK-MED ONE Stop: 10/16/21 13:39 Last Admin: 10/16/21 14:55 Dose: 2,000 mcg Documented by: [id number] Nitroglycerin/Dextrose (Nitroglycerin/D5w 100mcg/Ml 20ml Syr) Confirm Administered Dose 2,000 mcg .ROUTE .STK-MED ONE Stop: 10/16/21 14:32 Last Admin: 10/16/21 16:08 Dose: Not Given Documented by: [id number] Olanzapine (Olanzapine 2.5 Mg Tab) 2.5 mg PO HS [facility] Stop: 11/17/21 20:59 Last Admin: 10/18/21 20:31 Dose: 2.5 mg Documented by: [id number] Pantoprazole Sodium (Pantoprazole 40 Mg Tab) 40 mg PO BID [facility] Stop: 11/12/21 08:59 Last Admin: 10/19/21 08:57 Dose: 40 mg Documented by: [id number] Admin: 10/18/21 20:31 Dose: 40 mg Documented by: [id number] Admin: 10/18/21 07:22 Dose: 40 mg Documented by: [id number] Admin: 10/17/21 20:19 Dose: 40 mg Documented by: [id number] Admin: 10/17/21 10:25 Dose: 40 mg Documented by: [id number] Admin: 10/16/21 21:00 Dose: 40 mg Documented by: [id number] Admin: 10/16/21 10:50 Dose: Not Given Documented by: [id number] Admin: 10/15/21 21:13 Dose: 40 mg Documented by: [id number] Admin: 10/15/21 13:03 Dose: 40 mg Documented by: [id number] Admin: 10/14/21 20:24 Dose: 40 mg Documented by: [id number] Admin: 10/14/21 10:03 Dose: 40 mg Documented by: [id number] Admin: 10/13/21 23:57 Dose: Not Given Documented by: [id number] Admin: 10/13/21 08:08 Dose: 40 mg Documented by: [id number] Potassium Chloride (Potassium Chloride 10 Meq Tabcr) 10 meq PO QAM [facility] Stop: 11/12/21 08:59 Last Admin: 10/14/21 10:04 Dose: 10 meq Documented by: [id number] Admin: 10/13/21 08:08 Dose: 10 meq Documented by: [id number] Potassium Chloride (Potassium Chloride Crtab 20 Meq Tabcr) 40 meq PO BID [facility] Stop: 11/13/21 20:59 Last Admin: 10/15/21 21:13 Dose: 40 meq Documented by: [id number] Admin: 10/15/21 12:14 Dose: 40 meq Documented by: [id number] Admin: 10/14/21 20:23 Dose: 40 meq Documented by: [id number] Potassium Chloride (Potassium Chloride Crtab 20 Meq Tabcr) 40 meq PO ONE ONE Stop: 10/15/21 11:16 Last Admin: 10/15/21 12:07 Dose: 40 meq Documented by: [id number] Potassium Chloride (Potassium Chloride Crtab 20 Meq Tabcr) 40 meq PO NOW STA Stop: 10/17/21 09:57 Last Admin: 10/17/21 10:27 Dose: 40 meq Documented by: [id number] Potassium Chloride (Potassium Chloride Crtab 20 Meq Tabcr) 40 meq PO NOW STA Stop: 10/18/21 10:07 Last Admin: 10/18/21 10:29 Dose: 40 meq Documented by: [id number] Sacubitril/Valsartan (Valsartan/Sacubitril 26/24mg Tab) 1 tab PO BID [facility] Stop: 11/12/21 20:59 Last Admin: 10/19/21 08:57 Dose: 1 tab Documented by: [id number] Admin: 10/18/21 20:31 Dose: 1 tab Documented by: [id number] Admin: 10/18/21 07:21 Dose: 1 tab Documented by: [id number] Admin: 10/17/21 20:19 Dose: 1 tab Documented by: [id number] Admin: 10/17/21 10:24 Dose: 1 tab Documented by: [id number] Admin: 10/16/21 21:01 Dose: 1 tab Documented by: [id number] Admin: 10/16/21 10:35 Dose: 1 tab Documented by: [id number] Admin: 10/15/21 21:10 Dose: 1 tab Documented by: [id number] Admin: 10/15/21 13:10 Dose: 1 tab Documented by: [id number] Admin: 10/14/21 20:23 Dose: 1 tab Documented by: [id number] Admin: 10/14/21 09:07 Dose: 1 tab Documented by: [id number] Admin: 10/13/21 23:58 Dose: Not Given Documented by: [id number] Sodium Chloride (Sodium Chloride 1 Gm Tablet) 1 gm PO BID [facility] Stop: 11/12/21 08:59 Last Admin: 10/14/21 10:04 Dose: 1 gm Documented by: [id number] Admin: 10/13/21 23:57 Dose: Not Given Documented by: [id number] Admin: 10/13/21 08:08 Dose: 1 gm Documented by: [id number] Sodium Chloride (Sodium Chloride 1 Gm Tablet) 1 gm PO 2230 ONE Stop: 10/12/21 22:31 Last Admin: 10/12/21 23:39 Dose: 1 gm Documented by: [id number] Vitamin D (Cholecalciferol 5,000 Units 125 Mcg Tab) 5,000 units PO HS [facility] Stop: 11/12/21 20:59 Last Admin: 10/16/21 21:02 Dose: Not Given Documented by: [id number] Admin: 10/15/21 21:10 Dose: 5,000 units Documented by: [id number] Admin: 10/14/21 20:24 Dose: 5,000 units Documented by: [id number] Admin: 10/13/21 23:53 Dose: Not Given Documented by: [id number] Imaging Data Radiologist's Impression: Chest X-Ray 10/12/21 18:16 SINGLE VIEW CHEST CLINICAL HISTORY: Generalized weakness. FINDINGS: An AP, portable, upright chest radiograph is compared to study dated 07/14/2019 and correlated with chest CT dated 05/28/2015. The patient is status post midline sternotomy. The heart is enlarged noting atherosclerotic calcification of the thoracic aorta. The pulmonary vasculature is noncongested. Chronic interstitial thickening is similar to previous. There is bibasilar scarring/atelectasis. No airspace consolidation or large pleural effusion is identified. The lungs and pleural spaces are clear. No pneumothorax is seen. The bony thorax is grossly intact. 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 Calcific tendinopathy is noted in the left shoulder. IMPRESSION: Cardiomegaly with no acute cardiopulmonary abnormality. ACT 112: Negative or not required by law. Electronically signed by: Antwon Sanders M.D. 10/12/2021 8:[address] 10/12/21 19:20 CT SCAN OF THE BRAIN WITHOUT IV CONTRAST CLINICAL HISTORY: Falls. Head injury. COMPARISON STUDY: No priors. TECHNIQUE: Unenhanced axial CT scan of the brain is performed from the vertex to the skull base. A dose lowering technique was utilized adhering to the principles of ALARA. CT DOSE: 614.27 mGy.cm FINDINGS: Brain parenchyma: There are age-related involutional changes noting mild subcortical and periventricular microangiopathic change. There is no hemorrhage, mass effect, or evidence of acute territorial ischemia by CT criteria. Garcia- white matter differentiation is preserved. No extra-axial fluid collection is seen. Ventricles, sulci, cisterns: Prominent secondary to involutional change. Intracranial vasculature: There is atherosclerotic calcification of the cavernous carotid and vertebral arteries. Calvarium: The skeletal structures are osteopenic. No depressed calvarial fracture is identified. Sinuses and mastoids: There is mucosal thickening within the right ethmoid sinus. The remaining visualized paranasal sinuses are clear. The mastoid air cells are well pneumatized. Orbits: The bony orbits are grossly intact. IMPRESSION: There is no hemorrhage, mass effect, or evidence of acute territorial ischemia by CT criteria. ACT 112: Negative or not required by law. Electronically signed by: Antwon Sanders M.D. 10/12/2021 7:42 PM Blood Pressure Blood Pressure Findings: Elevated blood pressure Blood Pressure Disposition: further management by hospitalist Discharge Plan Visit Data Chief Complaint: Fall Stated Complaint: FELL TWICE, WEAKNESS ED Provider: Nicole Bean Discharge Problem: Hyponatremia, Generalized weakness, Leukocytosis, Encephalopathy Patient Disposition: Admitted As Inpatient Condition: Serious Discharge Instructions Interventions: ED Discharge Assessment Last Done: 10/12/21 22:41 Discharge Problem: Leukocytosis Qualifiers: Leukocytosis type: bandemia Qualified Code(s): D72.825 - Bandemia
[2021-10-13] MEDS ORDERED: LIDOCAINE 1%/EPINEPHRINE 1:100,000 50 ML VIAL INFIL ONE (21:22)
[2021-10-13] MEDS ORDERED: LIDO/EPINEPHRINE/SOD BICARB 20 ML VIAL INFIL ONE (22:00)
--- NOTE | 2021-10-13 22:49 | Procedure Note ---
Procedure Note Date of Service October 13, 2021 Note Patient noted to have oozing from LEFT IJ CVL site. Clotted blood noted under the dressing. Dressing was taken down by myself. A large amount of clot was removed from around the catheter. The area was then cleansed with chlorhexidine while pressure was applied to the insertion site of the IJ. The skin basil site was noted to to be actively oozing blood. One, 5-0 nylon suture was placed at the catheter insertion site. The bleeding was noted to slow somewhat. Biopatch was applied to the area. Statlock used to secure line. 4x4 was folded and placed over the affected area. Sterile dressing was applied to the area. We will place the patient in more of an upright position in bed. Hopefully this will help slow the bleeding. If not, consider placement of gelfoam or other clotting agent over wound as well. Coding CPT Codes Skin and Soft Tissue - Skin and Soft Tissue: 49568 Repair of wound or lesion ([id number]) [facility] Procedure Codes (Charges) Skin and Soft Tissue Skin and Soft Tissue: 42837 Repair of wound or lesion
[2021-10-13] MEDS: CYANOCOBALAMIN (B-12) 500 MCG TABLET PO SCH (23:53)
[2021-10-13] MEDS: CHOLECALCIFEROL 5,000 UNITS 125 MCG TAB PO SCH (23:53)
[2021-10-13] MEDS: FAMOTIDINE 20 MG TAB PO SCH (23:57)
[2021-10-13] MEDS: HEPARIN SOD 5,000 UNIT/0.5 ML VIAL SQ SCH (23:58)
[2021-10-13] MEDS: VALSARTAN/SACUBITRIL 26/24MG TAB PO SCH (23:58)
[2021-10-14] MEDS ORDERED: GELATIN SPONGE OP 25X50MM 1 EA SPNG EXT ONE (01:06)
[2021-10-14] MEDS ORDERED: GELATIN SPONGE 12-7MM EXT ONE (01:45)
[2021-10-14 05:24] LABS: Basophils # (auto) 0.01 K/uL (0-0.2); Hematocrit (blood only) 33.2 % (42-52); Hemoglobin 11.5 g/dL (14.0-18.0); Immature Granulocytes % (auto) 0.5 %; Lymphocytes % (auto) 3.4 %; Mean Corpuscular Hemoglobin 31.4 pg (25-34); Mean Corpuscular Hgb Conc 34.6 g/dL (32-36); Mean Corpuscular Volume 90.7 fL (80-100); Mean Platelet Volume 9.6 fL (7.4-10.4); Monocytes # (auto) 1.59 K/uL (0.11-0.59); Monocytes % (auto) 7.6 %; Neutrophils # (auto) 18.41 K/uL (1.4-6.5); Neutrophils % (auto) 88.5 %; Platelet Count 291 K/uL (130-400); RDW Coefficient of Variation 15.1 % (11.5-14.5); RDW Standard Deviation 50.4 fL (36.4-46.3); Red Blood Count 3.66 M/uL (4.7-6.1); White Blood Count 20.81 K/uL (4.8-10.8)
[2021-10-14] MEDS: LEVOTHYROXINE SODIUM 200 MCG TABLET PO SCH (05:29)
[2021-10-14 05:58] LABS: Albumin Level 3.5 gm/dl (3.4-5.0); BUN Creatinine Ratio 31.3 (10-20); Bilirubin Direct 0.3 mg/dl (0-0.2); Bilirubin,Total 0.9 mg/dl (0.2-1.0); Calcium 8.7 mg/dl (8.5-10.1); Creatinine Clr Calc Pharmacy 56.8 ml/min; Est GFR (Non-African American) 75.9 ml/min; Magnesium 1.9 mg/dl (1.7-2.4); Phosphorus 3.2 mg/dl (2.5-4.9); Potassium 3.6 mmol/L (3.5-5.1); Total Protein 5.9 gm/dl (6.0-8.3)
[2021-10-14 06:18] LABS: Troponin I High Sensitivity 128.5 pg/ml (0-20)
[2021-10-14] MEDS: ALBUT/IPRATROP 3MG/0.5MG NEB 3 ML VIAL NEB SCH ×4 (07:00→19:28)
[2021-10-14] MEDS: INSULIN ASPART PER UNIT SC SCH ×4 (07:14→20:22)
--- NOTE | 2021-10-14 07:39 | Hospitalist Progress Note ---
Date of Service October 14, 2021 Assessment & Plan (1) Acute metabolic encephalopathy: Plan: Acute encephalopathy -- several weeks weakness accompanied by back back/sciatica and recent confusion EKG on admission and morning 10/13 looked like ischemic changes and patient denied any chest pain or SOb initially --> Known hx NSTEMI. 3rd troponin pending given elevated from 50s to 70s on repeat (>100 most recently) and echo ordered to look for any WMA Worsening onset confusion/agitation afternoon 10/13 with respiratory distress and SpO2 dropped to 80% on room air when previously had been normal (ativan 0.5mg given) ABG obtained with acute respiratory failure with hypoxia Had ordered ECHO given prior cardiomyopathy/back pain and CABGx2 --> tech alerted at bedside low EF. Combined with hyponatremia/EF now 10-15% and severe global LV dysfunction and now severe pulm HTN (has hx scleroderma as well) and decompensation requiring dobutamine overnight, was transferred to ICU, placed on BiPAP with improvement on ABG and now on 2L Oxymask with improvement in breathing BNP <4700 Started Entresto BID, titrate as BP able Bumex 1mg IV x 2 thus far, adequate UOP. Resume toprol XL tomorrow. Continue DAPT ASA/Plavix Possible occluded his JAMA? Will need cardiac cath. Now that stabilized today, discussed with Dr Dailey and plans on cardiac cath tentatively for tomorrow Also placed on Ceftriaxone/Azithromycin for leukocytosis and hypoxia with opacity noted on CXR (2) Acute respiratory failure with hypoxia: Plan: improving with diuresis and management as outlined (3) Type 2 myocardial infarction: Plan: trop elevated 2nd to low EF/low forward state diuresis as above possible cath tomorrow cardiology on consult did have brief episodes nonsustained VT overnight continued close monitoring in ICU (4) Acute systolic CHF (congestive heart failure): Plan: diuresis with bumex, started entresto as outlined cards following good UOP, --760cc overnight (5) SIADH (syndrome of inappropriate ADH production): Plan: Initial complaints with low sodium on admission with Na 122, Serum osmolality 263, Urine osmolality 636 and was placed on a fluid restriction and 1gm NaCl BID provided --> NaCl since discontinued given low EF/low output state but did get dose this morning as not stopped las evening Urine sodium appropriately concentrated Did have cymbalta as new medication this past month for back pain and could have also been contributing Na 124 today Diuresis ordered by bag machine tender (6) Hyponatremia: Plan: Combination of above -- low EF/overload, medication, SNRI? Diuresis as above Na stable 124 D/c NaCl tablets given elevated BNP as well BMP in AM (7) Frequent falls: Plan: 2nd to above -- Hypnatremia,now with hypoxia/possible PNA on imaging Sejalley from low EF, unclear when event occurs but could have occluded one of his bypass grafts possible cath in am as outlined PT/OT evals pending His reports that Dr. García was planning on arranging PT OT in the outpatient setting (8) Elevated troponin I level: Plan: Elevated troponin level/CAD/hypertension- Continue DAPT, ASA D/c losartan and starting Entresto, can resume BB in AM per cards Possible cath in AM given ECHO as above No CP reported (9) CAD (coronary artery disease): Plan: See above, follows with Dr Dailey locally Hx NSTEMI August 2012 s/p 2 vessel CABG 10/13/2012 with JAMA to LAD, SVG to left circumflex. Preop cardiac catheterization reportedly showed 50-70% focal stenosis distal left main, 70% proximal LAD, 50-70% mid LAD, 80% 1st diagonal, 70% proximal OM, 100% OM 2. Filled via [id number] collaterals, ramus intermedius had an ostial lesion which extended into the left main coronary artery. RCA was a small caliber vessel with chronic total occlusion in the proximal segment with [id number] collaterals (according to Dr. Barnes prior notes) Continue ASA, plavix, beta michael, and good bp control. See above, need for cath to eval for occluded bypass grafting (10) Hypertension: Plan: See above BP stable with diuresis and continued monitoring (11) Hypercholesterolemia: Plan: Noted on history, but not on any specific treatment due to statin myopathy (12) GERD (gastroesophageal reflux disease): Plan: Continue pantoprazole 40 mg p.o. twice daily (13) BPH NOS w ur obs/LUTS: Plan: Continue finasteride (14) Hypothyroidism: Plan: TSH 4.04 on admission, continuing current dose levothyroxine but important to note had always been abnormal/elevated in past ?if underlying afib in past contributing to weakness/falls --> no afib on monitor ALso takes Cipro daily for "diarrhea" and follows with a [facility] GI specialist for such (15) Scleroderma: Plan: Hx of, also with Raynauds Per PCP "Previously followed by Dr. Mosley. The patient did have a 2nd opinion from Dr. Joselito Haddad from [facility]. Currently followed by Dr. Mullins. Patient has no specific swallowing difficulties. Has musculoskeletal concerns as noted above. Otherwise no change." (16) Iron deficiency anemia: Plan: Hx of SHAMIR, received IV iron infusions in past and recent transfusion August [address] Montesinos. Iron level Jul 01 and has appt with Dr Mcmahon pending for follow up Will check Iron studies for completeness --> acute on chronic Given Hgb stable and no acute bleed would hold off IV venofer for now to prevent hypotension and can consider starting on outpt basis with oral vs oral inpatient Monitor CBC Plan: continued inpatient stay Admission and Anticipated Discharge Date Admission Date: October 12, 2021 Subjective Patient evaluated this morning in ICU. Much more awake/alert. Hungry -- states last meal was eggs yesterday for breakfast. Started Entresto last evening, continues with diuresis. Dr Dailey saw as well, plans for cath tomorrow and will update on plan. Physical Exam Physical Exam: General: WD male sitting up in bed, more alert. knows in hospital/year but easily fatigued. NAD, 92% on Oxymask @ 2L Skin: decreased skin turgor, extremities cool distally HEENT: slightly dry mm, trachea midline without deviation, +JVD, L IJ in place, dressing covering c/d/i Resp: on 2L Oxymask with SpO2 92%, decreased crackles/rales to lower lobes, not tachypneic, no cough CV: RRR (rate 71bpm), no m/r/g, calf size equal, not erythematous, no tenderness, extremities cool GI: +BS, soft, non-tender MSK/Neuro: moves all extremities, follows commands, no facial droop, speech clear but slightly muffled through oxymask. no focal deficit. strength decreased but equal Psych: alert to person, place (knows in hospital), year (states 2021), month (states September), cooperative and calm Results & Data Results & Data ([facility]) Vital Signs (Past 12 Hours) Vital Signs Temp Pulse Pulse Resp BP BP Pulse Ox 10/14/21 04:58 83 21 98 10/14/21 04:00 36.4 C L 99 H 28 H 140/83 98 10/14/21 03:06 100 H 34 H 169/60 H 95 10/14/21 02:00 85 18 158/55 H 143/80 H 92 10/14/21 00:00 91 H 30 H 125/94 94 10/13/21 23:10 16 96 10/13/21 23:00 36.7 C 97 H 86 24 155/72 H 96 10/13/21 21:30 90 34 H 152/74 H 99 Laboratory Results 10/14/21 10/14/21 10/14/21 Range/Units 05:12 05:12 05:12 WBC 20.81 H (4.8-10.8) K/uL RBC 3.66 L (4.7-6.1) M/uL Hgb 11.5 L (14.0-18.0) g/dL Hct 33.2 L (42-52) % MCV 90.7 (80-100) fL MCH 31.4 (25-34) pg MCHC 34.6 (32-36) g/dL RDW Std Deviation 50.4 H (36.4-46.3) fL RDW Coeff of Aysha 15.1 H (11.5-14.5) % Plt Count 291 (130-400) K/uL MPV 9.6 (7.4-10.4) fL Immature Gran % (Auto) 0.5 % Neut % (Auto) 88.5 % Lymph % (Auto) 3.4 % Calloway % (Auto) 7.6 % Eos % (Auto) 0.0 % Baso % (Auto) 0.0 % Neut # (Auto) 18.41 H (1.4-6.5) K/uL Lymph # (Auto) 0.70 L (1.2-3.4) K/uL Calloway # (Auto) 1.59 H (0.11-0.59) K/uL Eos # (Auto) 0.00 (0-0.5) K/uL Baso # (Auto) 0.01 (0-0.2) K/uL Immature Gran # (Auto) 0.10 H (0.00-0.02) K/uL Sample Site POC pH (7.35-7.45) POC pCO2 (35-46) mmHg POC pO2 (80-95) mmHg POC HCO3 (19-24) aimee/L POC Total CO2 (24-31) mmol/L POC Base Excess (-9-1.8) aimee/L ABG pH (7.35-7.45) ABG pCO2 (35-46) mmHg ABG pO2 (80-95) mmHg ABG HCO3 (19-24) mmol/L POC ABG O2 Sat (90-95) % ABG O2 Saturation (90-95) % ABG Base Excess (-9-1.8) mEq/L Toby Test (Pos) Barometric Pressure mm/Hg Oxygen Given O2 Delivery Device POC O2 Rate POC FiO2 % IPAP Sodium 124 L (136-145) mmol/L Potassium 3.6 (3.5-5.1) mmol/L Chloride 88 L (98-107) mmol/L Carbon Dioxide 26 (21-32) mmol/L Anion Gap 10 (3-11) BUN 30 H (6-23) mg/dl Creatinine 0.96 (0.6-1.4) mg/dl Est Cr Clr Drug Dosing 56.8 ml/min Est GFR ( Amer) 88.0 ml/min Est GFR (Non-Af Amer) 75.9 ml/min BUN/Creatinine Ratio 31.3 H (10-20) Glucose 104 H (70-99(Fasting)) mg/dl POC Glucose (70-99) mg/dl Estimat Average Glucose mg/dl Hemoglobin A1c (4.5-5.6) % Calcium 8.7 (8.5-10.1) mg/dl Phosphorus 3.2 (2.5-4.9) mg/dl Magnesium 1.9 (1.7-2.4) mg/dl Iron (35-175) mcg/dl TIBC (250-450) mcg/dl Unsaturated IBC (155-355) mcg/dl Transferrin % Sat (20-50) % Ferritin (8-388) ng/ml Total Bilirubin 0.9 (0.2-1.0) mg/dl Direct Bilirubin 0.3 H (0-0.2) mg/dl AST 18 (13-39) U/L ALT 13 (7-52) U/L Alkaline Phosphatase 83 (34-104) U/L Troponin I High Sens 128.5 H* (0-20) pg/ml B-Natriuretic Peptide > 4700 H (0-100) pg/ml Total Protein 5.9 L (6.0-8.3) gm/dl Albumin 3.5 (3.4-5.0) gm/dl Procalcitonin (0-0.5) ng/ml Ur Random Sodium mmol/L 10/13/21 10/13/21 10/13/21 Range/Units 20:58 18:05 17:03 WBC (4.8-10.8) K/uL RBC (4.7-6.1) M/uL Hgb (14.0-18.0) g/dL Hct (42-52) % MCV (80-100) fL MCH (25-34) pg MCHC (32-36) g/dL RDW Std Deviation (36.4-46.3) fL RDW Coeff of Aysha (11.5-14.5) % Plt Count (130-400) K/uL MPV (7.4-10.4) fL Immature Gran % (Auto) % Neut % (Auto) % Lymph % (Auto) % Calloway % (Auto) % Eos % (Auto) % Baso % (Auto) % Neut # (Auto) (1.4-6.5) K/uL Lymph # (Auto) (1.2-3.4) K/uL Calloway # (Auto) (0.11-0.59) K/uL Eos # (Auto) (0-0.5) K/uL Baso # (Auto) (0-0.2) K/uL Immature Gran # (Auto) (0.00-0.02) K/uL Sample Site POC pH (7.35-7.45) POC pCO2 (35-46) mmHg POC pO2 (80-95) mmHg POC HCO3 (19-24) aimee/L POC Total CO2 (24-31) mmol/L POC Base Excess (-9-1.8) aimee/L ABG pH (7.35-7.45) ABG pCO2 (35-46) mmHg ABG pO2 (80-95) mmHg ABG HCO3 (19-24) mmol/L POC ABG O2 Sat (90-95) % ABG O2 Saturation (90-95) % ABG Base Excess (-9-1.8) mEq/L Toby Test (Pos) Barometric Pressure mm/Hg Oxygen Given O2 Delivery Device POC O2 Rate POC FiO2 % IPAP Sodium (136-145) mmol/L Potassium (3.5-5.1) mmol/L Chloride (98-107) mmol/L Carbon Dioxide (21-32) mmol/L Anion Gap (3-11) BUN (6-23) mg/dl Creatinine (0.6-1.4) mg/dl Est Cr Clr Drug Dosing ml/min Est GFR ( Amer) ml/min Est GFR (Non-Af Amer) ml/min BUN/Creatinine Ratio (10-20) Glucose (70-99(Fasting)) mg/dl POC Glucose 155 H 172 H (70-99) mg/dl Estimat Average Glucose mg/dl Hemoglobin A1c (4.5-5.6) % Calcium (8.5-10.1) mg/dl Phosphorus (2.5-4.9) mg/dl Magnesium (1.7-2.4) mg/dl Iron (35-175) mcg/dl TIBC (250-450) mcg/dl Unsaturated IBC (155-355) mcg/dl Transferrin % Sat (20-50) % Ferritin (8-388) ng/ml Total Bilirubin (0.2-1.0) mg/dl Direct Bilirubin (0-0.2) mg/dl AST (13-39) U/L ALT (7-52) U/L Alkaline Phosphatase (34-104) U/L Troponin I High Sens 154.1 H* D (0-20) pg/ml B-Natriuretic Peptide (0-100) pg/ml Total Protein (6.0-8.3) gm/dl Albumin (3.4-5.0) gm/dl Procalcitonin (0-0.5) ng/ml Ur Random Sodium mmol/L 10/13/21 10/13/21 10/13/21 Range/Units 15:57 15:53 14:07 WBC (4.8-10.8) K/uL RBC (4.7-6.1) M/uL Hgb (14.0-18.0) g/dL Hct (42-52) % MCV (80-100) fL MCH (25-34) pg MCHC (32-36) g/dL RDW Std Deviation (36.4-46.3) fL RDW Coeff of Aysha (11.5-14.5) % Plt Count (130-400) K/uL MPV (7.4-10.4) fL Immature Gran % (Auto) % Neut % (Auto) % Lymph % (Auto) % Calloway % (Auto) % Eos % (Auto) % Baso % (Auto) % Neut # (Auto) (1.4-6.5) K/uL Lymph # (Auto) (1.2-3.4) K/uL Calloway # (Auto) (0.11-0.59) K/uL Eos # (Auto) (0-0.5) K/uL Baso # (Auto) (0-0.2) K/uL Immature Gran # (Auto) (0.00-0.02) K/uL Sample Site R Radial POC pH 7.42 (7.35-7.45) POC pCO2 33 L (35-46) mmHg POC pO2 109 H (80-95) mmHg POC HCO3 22 (19-24) aimee/L POC Total CO2 22 L (24-31) mmol/L POC Base Excess -3.0 (-9-1.8) aimee/L ABG pH (7.35-7.45) ABG pCO2 (35-46) mmHg ABG pO2 (80-95) mmHg ABG HCO3 (19-24) mmol/L POC ABG O2 Sat 98.0 H (90-95) % ABG O2 Saturation (90-95) % ABG Base Excess (-9-1.8) mEq/L Toby Test Pass (Pos) Barometric Pressure mm/Hg Oxygen Given O2 Delivery Device BIPAP POC O2 Rate 12 POC FiO2 40 % IPAP 12 Sodium (136-145) mmol/L Potassium (3.5-5.1) mmol/L Chloride (98-107) mmol/L Carbon Dioxide (21-32) mmol/L Anion Gap (3-11) BUN (6-23) mg/dl Creatinine (0.6-1.4) mg/dl Est Cr Clr Drug Dosing ml/min Est GFR ( Amer) ml/min Est GFR (Non-Af Amer) ml/min BUN/Creatinine Ratio (10-20) Glucose (70-99(Fasting)) mg/dl POC Glucose (70-99) mg/dl Estimat Average Glucose mg/dl Hemoglobin A1c (4.5-5.6) % Calcium (8.5-10.1) mg/dl Phosphorus (2.5-4.9) mg/dl Magnesium (1.7-2.4) mg/dl Iron (35-175) mcg/dl TIBC (250-450) mcg/dl Unsaturated IBC (155-355) mcg/dl Transferrin % Sat (20-50) % Ferritin (8-388) ng/ml Total Bilirubin (0.2-1.0) mg/dl Direct Bilirubin (0-0.2) mg/dl AST (13-39) U/L ALT (7-52) U/L Alkaline Phosphatase (34-104) U/L Troponin I High Sens (0-20) pg/ml B-Natriuretic Peptide > 4700 H (0-100) pg/ml Total Protein (6.0-8.3) gm/dl Albumin (3.4-5.0) gm/dl Procalcitonin (0-0.5) ng/ml Ur Random Sodium 37 mmol/L 10/13/21 10/13/21 10/13/21 Range/Units 13:03 12:50 11:48 WBC (4.8-10.8) K/uL RBC (4.7-6.1) M/uL Hgb (14.0-18.0) g/dL Hct (42-52) % MCV (80-100) fL MCH (25-34) pg MCHC (32-36) g/dL RDW Std Deviation (36.4-46.3) fL RDW Coeff of Aysha (11.5-14.5) % Plt Count (130-400) K/uL MPV (7.4-10.4) fL Immature Gran % (Auto) % Neut % (Auto) % Lymph % (Auto) % Calloway % (Auto) % Eos % (Auto) % Baso % (Auto) % Neut # (Auto) (1.4-6.5) K/uL Lymph # (Auto) (1.2-3.4) K/uL Calloway # (Auto) (0.11-0.59) K/uL Eos # (Auto) (0-0.5) K/uL Baso # (Auto) (0-0.2) K/uL Immature Gran # (Auto) (0.00-0.02) K/uL Sample Site POC pH (7.35-7.45) POC pCO2 (35-46) mmHg POC pO2 (80-95) mmHg POC HCO3 (19-24) aimee/L POC Total CO2 (24-31) mmol/L POC Base Excess (-9-1.8) aimee/L ABG pH 7.49 H (7.35-7.45) ABG pCO2 28 L (35-46) mmHg ABG pO2 58 L (80-95) mmHg ABG HCO3 21 (19-24) mmol/L POC ABG O2 Sat (90-95) % ABG O2 Saturation 91.5 (90-95) % ABG Base Excess -1.7 (-9-1.8) mEq/L Toby Test Pos (Pos) Barometric Pressure 732.0 mm/Hg Oxygen Given ROOM AIR O2 Delivery Device POC O2 Rate POC FiO2 % IPAP Sodium (136-145) mmol/L Potassium (3.5-5.1) mmol/L Chloride (98-107) mmol/L Carbon Dioxide (21-32) mmol/L Anion Gap (3-11) BUN (6-23) mg/dl Creatinine (0.6-1.4) mg/dl Est Cr Clr Drug Dosing ml/min Est GFR ( Amer) ml/min Est GFR (Non-Af Amer) ml/min BUN/Creatinine Ratio (10-20) Glucose (70-99(Fasting)) mg/dl POC Glucose (70-99) mg/dl Estimat Average Glucose mg/dl Hemoglobin A1c (4.5-5.6) % Calcium (8.5-10.1) mg/dl Phosphorus (2.5-4.9) mg/dl Magnesium (1.7-2.4) mg/dl Iron (35-175) mcg/dl TIBC (250-450) mcg/dl Unsaturated IBC (155-355) mcg/dl Transferrin % Sat (20-50) % Ferritin (8-388) ng/ml Total Bilirubin (0.2-1.0) mg/dl Direct Bilirubin (0-0.2) mg/dl AST (13-39) U/L ALT (7-52) U/L Alkaline Phosphatase (34-104) U/L Troponin I High Sens 79.1 H* (0-20) pg/ml B-Natriuretic Peptide (0-100) pg/ml Total Protein (6.0-8.3) gm/dl Albumin (3.4-5.0) gm/dl Procalcitonin 0.21 (0-0.5) ng/ml Ur Random Sodium mmol/L 10/13/21 10/13/21 10/13/21 Range/Units 11:22 05:52 05:52 WBC (4.8-10.8) K/uL RBC (4.7-6.1) M/uL Hgb (14.0-18.0) g/dL Hct (42-52) % MCV (80-100) fL MCH (25-34) pg MCHC (32-36) g/dL RDW Std Deviation (36.4-46.3) fL RDW Coeff of Aysha (11.5-14.5) % Plt Count (130-400) K/uL MPV (7.4-10.4) fL Immature Gran % (Auto) % Neut % (Auto) % Lymph % (Auto) % Calloway % (Auto) % Eos % (Auto) % Baso % (Auto) % Neut # (Auto) (1.4-6.5) K/uL Lymph # (Auto) (1.2-3.4) K/uL Calloway # (Auto) (0.11-0.59) K/uL Eos # (Auto) (0-0.5) K/uL Baso # (Auto) (0-0.2) K/uL Immature Gran # (Auto) (0.00-0.02) K/uL Sample Site POC pH (7.35-7.45) POC pCO2 (35-46) mmHg POC pO2 (80-95) mmHg POC HCO3 (19-24) aimee/L POC Total CO2 (24-31) mmol/L POC Base Excess (-9-1.8) aimee/L ABG pH (7.35-7.45) ABG pCO2 (35-46) mmHg ABG pO2 (80-95) mmHg ABG HCO3 (19-24) mmol/L POC ABG O2 Sat (90-95) % ABG O2 Saturation (90-95) % ABG Base Excess (-9-1.8) mEq/L Toby Test (Pos) Barometric Pressure mm/Hg Oxygen Given O2 Delivery Device POC O2 Rate POC FiO2 % IPAP Sodium (136-145) mmol/L Potassium (3.5-5.1) mmol/L Chloride (98-107) mmol/L Carbon Dioxide (21-32) mmol/L Anion Gap (3-11) BUN (6-23) mg/dl Creatinine (0.6-1.4) mg/dl Est Cr Clr Drug Dosing ml/min Est GFR ( Amer) ml/min Est GFR (Non-Af Amer) ml/min BUN/Creatinine Ratio (10-20) Glucose (70-99(Fasting)) mg/dl POC Glucose 176 H (70-99) mg/dl Estimat Average Glucose mg/dl Hemoglobin A1c (4.5-5.6) % Calcium (8.5-10.1) mg/dl Phosphorus (2.5-4.9) mg/dl Magnesium (1.7-2.4) mg/dl Iron 30 L (35-175) mcg/dl TIBC 241 L (250-450) mcg/dl Unsaturated IBC 211 (155-355) mcg/dl Transferrin % Sat 12 L (20-50) % Ferritin 875.3 H (8-388) ng/ml Total Bilirubin (0.2-1.0) mg/dl Direct Bilirubin (0-0.2) mg/dl AST (13-39) U/L ALT (7-52) U/L Alkaline Phosphatase (34-104) U/L Troponin I High Sens (0-20) pg/ml B-Natriuretic Peptide (0-100) pg/ml Total Protein (6.0-8.3) gm/dl Albumin (3.4-5.0) gm/dl Procalcitonin (0-0.5) ng/ml Ur Random Sodium mmol/L 10/13/21 Range/Units 05:52 WBC (4.8-10.8) K/uL RBC (4.7-6.1) M/uL Hgb (14.0-18.0) g/dL Hct (42-52) % MCV (80-100) fL MCH (25-34) pg MCHC (32-36) g/dL RDW Std Deviation (36.4-46.3) fL RDW Coeff of Aysha (11.5-14.5) % Plt Count (130-400) K/uL MPV (7.4-10.4) fL Immature Gran % (Auto) % Neut % (Auto) % Lymph % (Auto) % Calloway % (Auto) % Eos % (Auto) % Baso % (Auto) % Neut # (Auto) (1.4-6.5) K/uL Lymph # (Auto) (1.2-3.4) K/uL Calloway # (Auto) (0.11-0.59) K/uL Eos # (Auto) (0-0.5) K/uL Baso # (Auto) (0-0.2) K/uL Immature Gran # (Auto) (0.00-0.02) K/uL Sample Site POC pH (7.35-7.45) POC pCO2 (35-46) mmHg POC pO2 (80-95) mmHg POC HCO3 (19-24) aimee/L POC Total CO2 (24-31) mmol/L POC Base Excess (-9-1.8) aimee/L ABG pH (7.35-7.45) ABG pCO2 (35-46) mmHg ABG pO2 (80-95) mmHg ABG HCO3 (19-24) mmol/L POC ABG O2 Sat (90-95) % ABG O2 Saturation (90-95) % ABG Base Excess (-9-1.8) mEq/L Toby Test (Pos) Barometric Pressure mm/Hg Oxygen Given O2 Delivery Device POC O2 Rate POC FiO2 % IPAP Sodium (136-145) mmol/L Potassium (3.5-5.1) mmol/L Chloride (98-107) mmol/L Carbon Dioxide (21-32) mmol/L Anion Gap (3-11) BUN (6-23) mg/dl Creatinine (0.6-1.4) mg/dl Est Cr Clr Drug Dosing ml/min Est GFR ( Amer) ml/min Est GFR (Non-Af Amer) ml/min BUN/Creatinine Ratio (10-20) Glucose (70-99(Fasting)) mg/dl POC Glucose (70-99) mg/dl Estimat Average Glucose 117 mg/dl Hemoglobin A1c 5.7 H (4.5-5.6) % Calcium (8.5-10.1) mg/dl Phosphorus (2.5-4.9) mg/dl Magnesium (1.7-2.4) mg/dl Iron (35-175) mcg/dl TIBC (250-450) mcg/dl Unsaturated IBC (155-355) mcg/dl Transferrin % Sat (20-50) % Ferritin (8-388) ng/ml Total Bilirubin (0.2-1.0) mg/dl Direct Bilirubin (0-0.2) mg/dl AST (13-39) U/L ALT (7-52) U/L Alkaline Phosphatase (34-104) U/L Troponin I High Sens (0-20) pg/ml B-Natriuretic Peptide (0-100) pg/ml Total Protein (6.0-8.3) gm/dl Albumin (3.4-5.0) gm/dl Procalcitonin (0-0.5) ng/ml Ur Random Sodium mmol/L Diagnostic Findings Chest X-Ray 10/13/21 12:34 SINGLE VIEW CHEST CLINICAL HISTORY: Dyspnea. FINDINGS: An AP, portable, upright chest radiograph is compared to study dated 10/12/2021 and correlated with chest CT dated 05/28/2015. The examination is degraded by portable technique and patient rotation. The patient is status post midline sternotomy. The heart is enlarged noting atherosclerotic calcification of the thoracic aorta. There is mild pulmonary vascular congestion. Chronic interstitial thickening is similar to previous. Developing airspace consolidation is seen at the left lung base. Question trace pleural effusions. No pneumothorax is seen. The bony thorax is grossly intact. 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 Calcific tendinopathy is noted in the left shoulder. IMPRESSION: 1. Cardiomegaly with mild pulmonary vascular congestion. 2. There is developing airspace consolidation at the left lung base. Correlate clinically for evidence of pneumonia/aspiration pneumonitis. Clinical correlation will be required and radiographic follow-up to resolution is recommended. 3. Suspect trace pleural effusions. ACT 112: Negative or not required by law. Electronically signed by: Antwon Sanders M.D. 10/13/2021 12:59 PM Chest X-Ray 10/13/21 18:28 XR chest 1V portable CLINICAL HISTORY: Central line placement COMPARISON STUDY: Chest radiograph October 13, 2021 at 12:51 PM. FINDINGS: There is no pneumothorax following placement of a left internal jug ular central line. Catheter tip projects over the cavoatrial junction. There are median sternotomy wires. Cardiomegaly is again noted. Pulmonary edema has improved. Chondroid lesion within the proximal left humerus is likely benign. This is similar to chest radiograph March 06, 2014. IMPRESSION: 1. No pneumothorax following placement of a left internal jugular central line. 2. Interval improvement in pulmonary edema. ACT 112: Negative or not required by law. Electronically signed by: Geraldo Luna M.D. 10/13/2021 6:49 PM PG Care Time/CCT Total # of Minutes Spent Total Time Spent with Patient: Total time spent is greater than 50% in coordination of care (as documented) at patient's floor/unit and/or counseling patient: Coding Level of Care Code 87838 Subseq Hosp Care Lvl 3 Diagnoses SIADH (syndrome of inappropriate ADH production) E22.2 Hyponatremia E87.1 Frequent falls R29.6 Elevated troponin I level R77.8 CAD (coronary artery disease) I25.10 Hypertension I10 Hypercholesterolemia E78.00 GERD (gastroesophageal reflux disease) K21.9 Esophagitis presence: esophagitis presence not specified BPH NOS w ur obs/LUTS N40.1 Hypothyroidism E03.9 Scleroderma M34.9 Iron deficiency anemia D50.9 Acute metabolic encephalopathy G93.41 Acute respiratory failure with hypoxia J96.01 Type 2 myocardial infarction I21.A1 Acute systolic CHF (congestive heart failure) I50.21 (1) GERD (gastroesophageal reflux disease) Esophagitis presence: esophagitis presence not specified Qualified Code(s): K21.9 - Gastro-esophageal reflux disease without esophagitis
--- NOTE | 2021-10-14 09:03 | XRay Report ---
SINGLE VIEW CHEST CLINICAL HISTORY: Dyspnea. FINDINGS: An AP, portable, upright chest radiograph is compared to study dated 10/13/2021 and correlate d with chest CT dated 05/28/2015. A left internal jugular central venous catheter is unchanged in pos ition. The patient is status post midline sternotomy. The heart is enlarged noting atherosclerotic ca lcification of the thoracic aorta. Pulmonary vascular congestion is again noted. Chronic interstitial thickening is similar to previous. No large pleural effusion or pneumothorax is identified. Mild lef t basilar opacities persist The bony thorax is grossly intact. A benign-appearing sclerotic lesion le ft proximal humerus is unchanged an likely represents an enchondroma. Calcific tendinopathy is noted in the left shoulder. IMPRESSION: 1. Cardiomegaly with pulmonary vascular congestion. This is is unchanged to modestly improve from yes terday. 2. Airspace opacities at left lung base have improved from previous. ACT 112: Negative or not required by law. Electronically signed by: Antwon Sanders M.D. 10/14/2021 9:01 AM
[2021-10-14] MEDS: AZITHROMYCIN 250 MG in DEXTROSE 5% 250 ML IV SCH (09:06)
[2021-10-14] MEDS: VALSARTAN/SACUBITRIL 26/24MG TAB PO SCH ×2 (09:07→20:23)
[2021-10-14] MEDS: DICYCLOMINE HCL 10 MG CAP PO SCH ×3 (09:07→20:24)
--- NOTE | 2021-10-14 09:35 | Cardiology Progress Note ---
Date of Service October 14, 2021 Assessment & Plan (1) Low output heart failure: Plan: 2. Cardiomyopathy-- severe global LV dysfunction, EF 10-15% 3. Severe pulmonary hypertension 4. CAD - post 2v CABG (JAMA-LAD), small RCA [employer] 5. Moderate mitral regurgitation 6. Hyponatremia 7. PAD - prior SMA stent, bilateral iliac disease, moderate carotid disease 8. Scleroderma 9. Type 2 DM Good urine output overnight Minimal O2 requirement today Blood pressure elevated Renal function stable, sodium slightly up continue IV diuresis, additional Bumex 1 mg this morning start Entresto today, titrate up as BP allows likely resume Toprol-XL tomorrow Continue free water restriction Continue DAPT with aspirin, clopidogrel Tentatively plan for cardiac catheterization tomorrow. Ideally via left radial artery Will follow Admission and Anticipated Discharge Date Admission Date: October 12, 2021 Subjective More alert this morning. Denies chest pain. Denies shortness of breath. On 4 L oxygen mask this morning. Briefly on dobutamine overnight. Good urine output, -760 yesterday. Telemetry reviewedbrief episodes of nonsustained VT Review of Systems Review of Systems: Unobtainable due to cognitive status Physical Exam Physical Exam: General: Answers a few questions before falls asleep HEENT: Sclerae anicteric Lungs: Breath sounds clear anteriorly Cardiac: Regular rate and rhythm, subtle 2/6 holosystolic murmur Vascular: Left radial A-line in place Abdomen: Soft, nontender Extremities: Feet are cool, no significant edema Psych: Sleepy Results & Data ([facility]) Vital Signs (Past 12 Hours) Vital Signs Temp Pulse Pulse Resp BP BP BP 10/14/21 09:00 87 25 H 144/78 H 10/14/21 08:30 83 22 10/14/21 08:00 97.7 F 89 24 146/100 H 10/14/21 07:33 88 90 28 H 10/14/21 07:30 86 24 10/14/21 07:00 89 27 H 153/74 H 10/14/21 04:58 83 21 10/14/21 04:00 97.5 F L 99 H 28 H 140/83 10/14/21 03:06 100 H 34 H 169/60 H 10/14/21 02:00 85 18 158/55 H 143/80 H 10/14/21 00:00 91 H 30 H 125/94 10/13/21 23:10 16 10/13/21 23:00 98.1 F 97 H 86 24 155/72 H Pulse Ox 10/14/21 09:00 100 10/14/21 08:30 100 10/14/21 08:00 100 10/14/21 07:33 97 10/14/21 07:30 100 10/14/21 07:00 99 10/14/21 04:58 98 10/14/21 04:00 98 10/14/21 03:06 95 10/14/21 02:00 92 10/14/21 00:00 94 10/13/21 23:10 96 10/13/21 23:00 96 PG Care Time/CCT Total # of Minutes Spent Total Time Spent with Patient: Total time spent is greater than 50% in coordination of care (as documented) at patient's floor/unit and/or counseling patient: Coding Level of Care Code 63850 Subseq Hosp Care Lvl 3 Diagnoses Low output heart failure I50.9
[2021-10-14] MEDS: PANTOprazole 40 MG TAB PO SCH ×2 (10:03→20:24)
[2021-10-14] MEDS: CLOPIDOGREL BISULFATE 75 MG TAB PO SCH (10:03)
[2021-10-14] MEDS: FINASTERIDE 5 MG TAB PO SCH (10:03)
[2021-10-14] MEDS: ASPIRIN 81 MG ECTAB PO SCH (10:03)
[2021-10-14] MEDS: POTASSIUM CHLORIDE 10 MEQ TABCR PO SCH (10:04)
[2021-10-14] MEDS: SODIUM CHLORIDE 1 GM TABLET PO SCH (10:04)
[2021-10-14] MEDS: MULTIVITAMIN TAB PO SCH (12:01)
[2021-10-14] MEDS: cefTRIAXone SODIUM 1,000 MG in DEXTROSE 5% 50 ML IV SCH (12:03)
[2021-10-14] MEDS ORDERED: BUMETANIDE 1 MG in SYRINGE 0 ML IV ONE ×2 (16:00→20:31)
[2021-10-14] MEDS: MAGNESIUM SULFATE / D5W 1 GM/100 ML BAG IV SCH ×2 (16:14→18:28)
[2021-10-14] MEDS: FAMOTIDINE 20 MG TAB PO SCH (20:23)
[2021-10-14] MEDS: POTASSIUM CHLORIDE CRTAB 20 MEQ TABCR PO SCH (20:23)
[2021-10-14] MEDS: CYANOCOBALAMIN (B-12) 500 MCG TABLET PO SCH (20:23)
[2021-10-14] MEDS: CHOLECALCIFEROL 5,000 UNITS 125 MCG TAB PO SCH (20:24)
[2021-10-14] MEDS: HEPARIN SOD 5,000 UNIT/0.5 ML VIAL SQ SCH (22:01)
[2021-10-15 05:45] LABS: Basophils # (auto) 0.01 K/uL (0-0.2); Basophils % (auto) 0.1 %; Eosinophils # (auto) 0.01 K/uL (0-0.5); Eosinophils % (auto) 0.1 %; Hematocrit (blood only) 33.4 % (42-52); Hemoglobin 11.4 g/dL (14.0-18.0); Immature Granulocytes # (auto) 0.06 K/uL (0.00-0.02); Immature Granulocytes % (auto) 0.4 %; Lymphocytes # (auto) 0.64 K/uL (1.2-3.4); Mean Corpuscular Hgb Conc 34.1 g/dL (32-36); Mean Corpuscular Volume 93.8 fL (80-100); Mean Platelet Volume 9.8 fL (7.4-10.4); Monocytes # (auto) 1.11 K/uL (0.11-0.59); Monocytes % (auto) 6.9 %; Neutrophils # (auto) 14.26 K/uL (1.4-6.5); Neutrophils % (auto) 88.5 %; Platelet Count 290 K/uL (130-400); RDW Coefficient of Variation 15.3 % (11.5-14.5); RDW Standard Deviation 52.7 fL (36.4-46.3); Red Blood Count 3.56 M/uL (4.7-6.1); White Blood Count 16.09 K/uL (4.8-10.8)
[2021-10-15 06:06] LABS: Albumin Level 3.3 gm/dl (3.4-5.0); BUN Creatinine Ratio 29.5 (10-20); Bilirubin Direct 0.2 mg/dl (0-0.2); Bilirubin,Total 0.7 mg/dl (0.2-1.0); Calcium 8.6 mg/dl (8.5-10.1); Creatinine Clr Calc Pharmacy 57.4 ml/min; Est GFR (African American) 89.1 ml/min; Est GFR (Non-African American) 76.9 ml/min; Magnesium 1.8 mg/dl (1.7-2.4); Phosphorus 3.1 mg/dl (2.5-4.9); Potassium 3.7 mmol/L (3.5-5.1); Total Protein 5.7 gm/dl (6.0-8.3)
[2021-10-15] MEDS: HEPARIN SOD 5,000 UNIT/0.5 ML VIAL SQ SCH ×3 (06:43→21:13)
[2021-10-15] MEDS: LEVOTHYROXINE SODIUM 200 MCG TABLET PO SCH (06:43)
[2021-10-15] MEDS: ALBUT/IPRATROP 3MG/0.5MG NEB 3 ML VIAL NEB SCH (07:17)
--- NOTE | 2021-10-15 07:33 | XRay Report ---
XR chest 1V portable HISTORY: 75 years-old Male f/u acute shortness of breath COMPARISON: Chest radiograph 10/14/2021, chest CT 05/28/2015. TECHNIQUE: Portable AP view of the chest FINDINGS: Left shoulder rotator cuff calcific tendinosis. Probable enchondroma of the proximal left humerus. De generative changes of the shoulders and spine. Unchanged positioning of the left IJ central venous ca theter. The cardiac silhouette is enlarged. Prior median sternotomy. Atherosclerosis of the thoracic aorta. Pulmonary vascular congestion. No pneumothorax or large pleural effusion. 6 mm nodular density of the right midlung is unchanged. Chronic right middle lobe pulmonary nodule. Mild ill-defined bila teral airspace opacities are stable. IMPRESSION: 1. Cardiomegaly with pulmonary vascular congestion. 2. Mild ill-defined airspace opacities appear stable. 3. Chronic right middle lobe pulmonary nodule. ACT 112: Negative or not required by law. The above report was generated using voice recognition software. It may contain grammatical, syntax o r spelling errors. Electronically signed by: Parker Rojas M.D. 10/15/2021 7:32 AM
[2021-10-15] MEDS: INSULIN ASPART PER UNIT SC SCH ×4 (08:52→21:14)
--- NOTE | 2021-10-15 09:06 | Electrocardiogram Report ---
Test Reason : Blood Pressure : / mmHG Vent. Rate : 095 BPM Atrial Rate : 095 BPM P-R Int : 166 ms QRS Dur : 134 ms QT Int : 412 ms P-R-T Axes : 048 -11 161 degrees QTc Int : 517 ms Sinus rhythm with occasional Premature ventricular complexes Left ventricular hypertrophy with QRS widening and repolarization abnormality Abnormal ECG When compared with ECG of 14-JUL-2019 13:28, Premature ventricular complexes are now Present Criteria for Inferior infarct are no longer Present T wave inversion less evident in Inferior leads Confirmed by Oleg Mishra ([id number]) on 10/15/2021 9:06:08 AM Referred By: REFERRED SELF Confirmed By:Oleg Mishra
[2021-10-15] MEDS ORDERED: ALBUT/IPRATROP 3MG/0.5MG NEB 3 ML VIAL NEB PRN (10:13)
[2021-10-15] MEDS ORDERED: BUMETANIDE 1 MG in SYRINGE 0 ML IV ONE (11:15)
[2021-10-15] MEDS ORDERED: POTASSIUM CHLORIDE CRTAB 20 MEQ TABCR PO ONE (11:15)
[2021-10-15] MEDS: AZITHROMYCIN 250 MG in DEXTROSE 5% 250 ML IV SCH (12:06)
[2021-10-15] MEDS: ASPIRIN 81 MG ECTAB PO SCH (12:07)
[2021-10-15] MEDS: CLOPIDOGREL BISULFATE 75 MG TAB PO SCH (12:07)
[2021-10-15] MEDS: DICYCLOMINE HCL 10 MG CAP PO SCH ×3 (12:12→21:10)
[2021-10-15] MEDS: POTASSIUM CHLORIDE CRTAB 20 MEQ TABCR PO SCH ×2 (12:14→21:13)
[2021-10-15] MEDS: MAGNESIUM SULFATE / D5W 1 GM/100 ML BAG IV SCH ×6 (12:20→22:44)
[2021-10-15] MEDS: PANTOprazole 40 MG TAB PO SCH ×2 (13:03→21:13)
[2021-10-15] MEDS: FINASTERIDE 5 MG TAB PO SCH (13:10)
[2021-10-15] MEDS: MULTIVITAMIN TAB PO SCH (13:10)
[2021-10-15] MEDS: VALSARTAN/SACUBITRIL 26/24MG TAB PO SCH ×2 (13:10→21:10)
--- NOTE | 2021-10-15 13:16 | Critical Care Progress Note ---
Date of Service October 15, 2021 Assessment & Plan (1) Low output heart failure: Plan: Reason Critically Ill: 75-year-old male with acute encephalopathy and significantly decreased cardiac output requiring vasoactive medication PLAN: Neuro: Acute encephalopathy: Improved -Suspect this was secondary to low cardiac output Resp: Respiratory alkalosis with hypoxia: Improved CV: Cardiomyopathy -reviewed cardiology notes -Cardiac cath today Fluids/Renal: Suspect hypervolemic hyponatremia -Diuresis with Bumex GI/Nutrition: N.p.o. Heme: Anemia DVT prophylaxis: Heparin 5000 units every 8 hours Endocrine: ICU hyperglycemia protocol Vascular access: Left internal jugular CVC, left radial arterial line Code Status: Full code Disposition: ICU (2) Iron deficiency anemia: (3) Scleroderma: (4) CAD (coronary artery disease): (5) Frequent falls: (6) Hyponatremia: (7) Acute encephalopathy: Admission and Anticipated Discharge Date Admission Date: October 12, 2021 Subjective No overnight events Physical Exam Physical Exam: General: Arouses easily and appropriate Skin: Warm, dry, Head: Atraumatic Ears, nose, mouth and throat: Airway patent Cardiovascular: Normal peripheral perfusion Respiratory: no respiratory distress, coarse sounds Gastrointestinal: Non distended, no palpable organomegaly Musculoskeletal: No deformity Results & Data Results & Data ([facility]) Vital Signs (Past 12 Hours) Vital Signs Pulse Resp Pulse Ox 10/15/21 07:17 86 26 H 97 Critical Care Results & Data Vital Signs (Past 12 Hours) Vital Signs Pulse Resp Pulse Ox 10/15/21 07:17 86 26 H 97 Lab & Micro Results (Past 24 Hours) RBC 3.56 M/uL (4.7-6.1) L 10/15/21 WBC 16.09 K/uL (4.8-10.8) H 10/15/21 Hgb 11.4 g/dL (14.0-18.0) L 10/15/21 Hct 33.4 % (42-52) L 10/15/21 MCV 93.8 fL (80-100) 10/15/21 MCH 32.0 pg (25-34) 10/15/21 MCHC 34.1 g/dL (32-36) 10/15/21 RDW Standard Deviation 52.7 fL (36.4-46.3) H 10/15/21 RDW Coefficient of Variation 15.3 % (11.5-14.5) H 10/15/21 Plt Count 290 K/uL (130-400) 10/15/21 MPV 9.8 fL (7.4-10.4) 10/15/21 Neutrophils (%) (Auto) 88.5 % 10/15/21 Lymphocytes (%) (Auto) 4.0 % 10/15/21 Monocytes # (Auto) 1.11 K/uL (0.11-0.59) H 10/15/21 Eosinophils # (Auto) 0.01 K/uL (0-0.5) 10/15/21 Immature Granulocyte % (Auto) 0.4 % 10/15/21 Neutrophils # (Auto) 14.26 K/uL (1.4-6.5) H 10/15/21 Lymphocytes # (Auto) 0.64 K/uL (1.2-3.4) L 10/15/21 Monocytes # (Auto) 1.11 K/uL (0.11-0.59) H 10/15/21 Eosinophils # (Auto) 0.01 K/uL (0-0.5) 10/15/21 Basophils # (Auto) 0.01 K/uL (0-0.2) 10/15/21 Immature Granulocyte # (Auto) 0.06 K/uL (0.00-0.02) H 10/15/21 Na 127 mmol/L (136-145) L 10/15/21 K 3.7 mmol/L (3.5-5.1) 10/15/21 Cl 88 mmol/L (98-107) L 10/15/21 CO2 29 mmol/L (21-32) 10/15/21 Anion Gap 10 (3-11) 10/15/21 BUN 28 mg/dl (6-23) H 10/15/21 Creatinine 0.95 mg/dl (0.6-1.4) 10/15/21 Estimated GFR ( Amer) 89.1 ml/min 10/15/21 Estimated GFR (Non-Af Amer) 76.9 ml/min 10/15/21 BUN/Creatinine Ratio 29.5 (10-20) H 10/15/21 Glu 136 mg/dl (70-99(Fasting)) H 10/15/21 Ca 8.6 mg/dl (8.5-10.1) 10/15/21 Phosphorus Level 3.1 mg/dl (2.5-4.9) 10/15/21 Total Bilirubin 0.7 mg/dl (0.2-1.0) 10/15/21 Direct Bilirubin 0.2 mg/dl (0-0.2) 10/15/21 AST 15 U/L (13-39) 10/15/21 ALT 12 U/L (7-52) 10/15/21 Alkaline Phosphatase 78 U/L (34-104) 10/15/21 TP 5.7 gm/dl (6.0-8.3) L 10/15/21 Albumin 3.3 gm/dl (3.4-5.0) L 10/15/21 Mg 1.8 mg/dl (1.7-2.4) 10/15/21 05:26 10/15/21 Calcium Level 8.6 mg/dl (8.5-10.1) 10/15/21 05:26 10/15/21 Microbiology 10/13/21 13:03 Aerobic Blood Culture - Preliminary Blood No growth in Aerobic bottle after 24 hours. Anaerobic Blood Culture - Preliminary No growth in Anaerobic bottle after 24 hours. 10/13/21 13:05 Aerobic Blood Culture - Preliminary Blood No growth in Aerobic bottle after 24 hours. Anaerobic Blood Culture - Preliminary No growth in Anaerobic bottle after 24 hours. Diagnostic Findings (Past 24 Hours) Chest X-Ray 10/15/21 07:00 XR chest 1V portable HISTORY: 75 years-old Male f/u acute shortness of breath COMPARISON: Chest radiograph 10/14/2021, chest CT 05/28/2015. TECHNIQUE: Portable AP view of the chest FINDINGS: Left shoulder rotator cuff calcific tendinosis. Probable enchondroma of the proximal left humerus. Degenerative changes of the shoulders and spine. Unchanged positioning of the left IJ central venous catheter. The cardiac silhouette is enlarged. Prior median sternotomy. Atherosclerosis of the thoracic aorta. Pulmonary vascular congestion. No pneumothorax or large pleural effusion. 6 mm nodular density of the right midlung is unchanged. Chronic right middle lobe pulmonary nodule. Mild ill-defined bilateral airspace opacities are stable. IMPRESSION: 1. Cardiomegaly with pulmonary vascular congestion. 2. Mild ill-defined airspace opacities appear stable. 3. Chronic right middle lobe pulmonary nodule. ACT 112: Negative or not required by law. The above report was generated using voice recognition software. It may contain grammatical, syntax or spelling errors. Electronically signed by: Parker Rojas M.D. 10/15/2021 7:32 AM I & O Totals 24 Hours 10/14/21 10/15/21 10/16/21 06:59 06:59 06:59 Intake Total 947.873 / 947.873 722.5 / 722.5 75 / 75 Output Total 1708 / 1708 1550 / 1550 675 / 675 Balance -760.127 / -760.127 -827.5 / -827.5 -600 / -600 Cumulative 10/12/21 18:05 thru 10/15/21 12:00 Intake Total 1970.373 Output Total 3933 Balance -1962.627 RT Ventilator Mngmt (Last Documented) Ventilator Ordered Settings Respiratory Rate 26 10/15/21 07:17 Fraction of Inspired Oxygen 30 10/14/21 20:00 Ventilator - PT Measurements Respiratory Rate 26 Coding Level of Care Code 90784 Subseq Hosp Care Lvl 3 Diagnoses Low output heart failure I50.9 Iron deficiency anemia D50.9 Scleroderma M34.9 CAD (coronary artery disease) I25.10 Frequent falls R29.6 Hyponatremia E87.1 Acute encephalopathy G93.40
--- NOTE | 2021-10-15 13:38 | Electrocardiogram Report ---
Test Reason : Blood Pressure : / mmHG Vent. Rate : 098 BPM Atrial Rate : 098 BPM P-R Int : 188 ms QRS Dur : 128 ms QT Int : 406 ms P-R-T Axes : 041 -09 160 degrees QTc Int : 518 ms Normal sinus rhythm Possible Left atrial enlargement Non-specific intra-ventricular conduction block Marked ST abnormality, possible anterior subendocardial injury Abnormal ECG When compared with ECG of 12-OCT-2021 18:21, (unconfirmed) Premature ventricular complexes are no longer Present Confirmed by Oleg Mishra ([id number]) on 10/15/2021 1:37:36 PM Referred By: REFERRED SELF Confirmed By:Oleg Mishra
[2021-10-15] MEDS: cefTRIAXone SODIUM 1,000 MG in DEXTROSE 5% 50 ML IV SCH (14:30)
--- NOTE | 2021-10-15 14:41 | Electrocardiogram Report ---
Test Reason : Blood Pressure : / mmHG Vent. Rate : 094 BPM Atrial Rate : 094 BPM P-R Int : 174 ms QRS Dur : 130 ms QT Int : 412 ms P-R-T Axes : 035 -08 160 degrees QTc Int : 515 ms Normal sinus rhythm Possible Left atrial enlargement Left ventricular hypertrophy with QRS widening and repolarization abnormality Marked ST abnormality, possible anterior subendocardial injury Abnormal ECG When compared with ECG of 13-OCT-2021 05:22, (unconfirmed) No significant change was found Confirmed by Oleg Mishra ([id number]) on 10/15/2021 2:41:05 PM Referred By: REFERRED SELF Confirmed By:Oleg Mishra
--- NOTE | 2021-10-15 15:32 | Electrocardiogram Report ---
Test Reason : Blood Pressure : / mmHG Vent. Rate : 078 BPM Atrial Rate : 078 BPM P-R Int : 176 ms QRS Dur : 136 ms QT Int : 438 ms P-R-T Axes : 041 000 174 degrees QTc Int : 499 ms Sinus rhythm with Premature atrial complexes Possible Left atrial enlargement Non-specific intra-ventricular conduction block T wave abnormality, consider inferior ischemia T wave abnormality, consider anterolateral ischemia Abnormal ECG When compared with ECG of 13-OCT-2021 13:16, (unconfirmed) Premature atrial complexes are now Present Confirmed by Oleg Mishra ([id number]) on 10/15/2021 3:32:44 PM Referred By: REFERRED SELF Confirmed By:Oleg Mishra
--- NOTE | 2021-10-15 19:59 | Hospitalist Progress Note ---
Date of Service October 15, 2021 Assessment & Plan (1) Hyponatremia: Plan: This could explain his lethargy, confusion, and progressive generalized weakness which are all now improving with improvement in sodium Initially thought to be SIADH and was treated with salt tablets and fluid restriction-this is since been discontinued Secondary to CHF, with volume overload Urine osmolality high at 636, urine sodium 37 Na 122 on arrival and now improved to 127 with diuresis Continue diuresis Follow BMP (2) Acute systolic CHF (congestive heart failure): Plan: Noted to have abnormal appearing ECG with ST depressions and T wave inversions in anterolateral leads, along with mildly elevated high-sensitivity troponin which peaked at 154 He had acute respiratory failure with hypoxia, significantly elevated proBNP, and pulmonary edema seen on chest x-ray on 10/13 Echocardiogram obtained shows moderately dilated LV, mild LVH, LVEF 10-15%, moderate RV dysfunction, moderate MR, mild-moderate AI, severe pulmonary hypertension, with change from previous being low EF -Improving now after use of BiPAP and IV diuretics, brief use of dobutamine- weaning down off O2 to room air -Appreciate cardiology consultation -Continue diuretics daily as tolerated, blood pressures have been soft -Continue Entresto 26/24 mg p.o. twice daily-started this admission -Holding home Toprol-XL but plan to resume hopefully tomorrow once blood pressure can allow -Continue free water restriction, daily weights, I's and O's, low-sodium diet -Tentatively planning for cardiac catheterization in the near future-n.p.o. after midnight just in case -We will keep magnesium and potassium optimal-replace both today (3) Acute metabolic encephalopathy: Plan: Secondary to hyponatremia, hypoxia Slowly improving Continue treatment for hyponatremia, hypoxia, continue supportive care (4) Acute respiratory failure with hypoxia: Plan: Developed acute respiratory failure with hypoxia secondary to acute systolic CHF as above, with possible superimposed bacterial pneumonia Now much improved and weaned to room air at rest with diuresis and treatment of pneumonia Continue bronchodilators (5) Type 2 myocardial infarction: Plan: Secondary to myocardial demand ischemia in the setting of acute CHF Troponin peaked and is coming down Continue clopidogrel, aspirin Holding beta-michael for now -He is statin intolerant (6) CAD (coronary artery disease): Plan: follows with Dr Dailey locally for cardiology Hx NSTEMI August 2012 s/p 2 vessel CABG 10/13/2012 with JAMA to LAD, SVG to left circumflex. Preop cardiac catheterization reportedly showed 50-70% focal stenosis distal left main, 70% proximal LAD, 50-70% mid LAD, 80% 1st diagonal, 70% proximal OM, 100% OM 2. Filled via [id number] collaterals, ramus intermedius had an ostial lesion which extended into the left main coronary artery. RCA was a small caliber vessel with chronic total occlusion in the proximal segment with [id number] collaterals (according to Dr. Barnes prior notes) Continue ASA, Plavix Beta-michael on hold, statin intolerant Possible cardiac catheterization tomorrow for reduced EF (7) Hypertension: Plan: Blood pressures have been soft at times but are now improved Started Entresto to replace losartan Restart home Toprol likely tomorrow Continue IV diuretics as tolerated (8) Hypercholesterolemia: Plan: Noted on history, but not on any specific treatment due to statin myopathy (9) GERD (gastroesophageal reflux disease): Plan: Continue pantoprazole 40 mg p.o. twice daily (10) BPH NOS w ur obs/LUTS: Plan: Continue finasteride (11) Hypothyroidism: Plan: TSH 4.04 on admission, continuing current dose levothyroxine but important to note had always been abnormal/elevated in past (12) Frequent falls: Plan: Could be secondary to hyponatremia, weakness from heart failure PT/OT evals recommending SNF (13) Scleroderma: Plan: Hx of, also with Raynauds Per PCP "Previously followed by Dr. Mosley. The patient did have a 2nd opinion from Dr. Joselito Haddad from [facility]. Currently followed by Dr. Mullins. Patient has no specific swallowing difficulties. Has musculoskeletal concerns as noted above. Otherwise no change." (14) Iron deficiency anemia: Plan: Hx of SHAMIR, received IV iron infusions in past and recent transfusion August [address] Montesinos. Iron level Jul 01 and has appt with Dr Mcmahon pending for follow up Hgb 11.4-12 Transferrin saturation low at 12%-can give IV iron as an outpatient Follow CBC in AM Plan: DVT prophylaxis-SQ heparin Disposition-continued stay in ICU Admission and Anticipated Discharge Date Admission Date: October 12, 2021 Subjective Patient reports feeling short of breath at times but overall improved. In discussion with his and daughter at the bedside, they report his mentation is improving today but still a bit confused at times. I discussed his care with the production operations inspector. Catheterization was held today as he does seem to be improving. Review of Systems Review of Systems: All systems reviewed & are unremarkable except as noted in HPI & below Physical Exam Constitutional: WD/WN, vitals as above Eyes: + anicteric sclerae Neck: trachea midline, no thyromegaly Respiratory: normal respiratory effort; no labored breathing Auscultation: + crackles (Bibasilar); no rhonchi and no wheezes Cardiovascular: RRR, no murmur, no edema Chest (Breasts): Chest: normal inspection of chest Gastrointestinal (Abdomen): normal bowel sounds, soft, nontender, no hepatosplenomegaly Musculoskeletal: Extremities: extremities normal to inspection; no cyanosis and no clubbing Skin: no rashes, warm and dry Neurologic: moves all extremities and awake; no focal motor deficits Psychiatric: Orientation: alert, oriented to person, oriented to place and cooperative Lymphatic: no lymphedema Results & Data Results & Data ([facility]) Vital Signs (Past 12 Hours) Vital Signs Temp Pulse Resp BP Pulse Ox 10/15/21 18:00 80 19 122/42 L 97 10/15/21 17:00 92 H 34 H 96 10/15/21 16:00 37 C 83 30 H 97 10/15/21 15:00 78 25 H 108/52 L 96 10/15/21 14:00 96 H 32 H 91/49 L 89 L 10/15/21 13:26 99 H 31 H 114/49 L 92 10/15/21 13:00 92 H 23 127/70 91 10/15/21 12:01 88 33 H 120/60 96 10/15/21 11:00 87 25 H 115/57 L 98 10/15/21 10:00 85 21 131/59 L 97 10/15/21 09:00 90 27 H 109/66 94 10/15/21 08:00 81 20 141/64 H 90 Laboratory Results 10/15/21 10/15/21 10/15/21 Range/Units 15:57 12:25 05:26 WBC (4.8-10.8) K/uL RBC (4.7-6.1) M/uL Hgb (14.0-18.0) g/dL Hct (42-52) % MCV (80-100) fL MCH (25-34) pg MCHC (32-36) g/dL RDW Std Deviation (36.4-46.3) fL RDW Coeff of Aysha (11.5-14.5) % Plt Count (130-400) K/uL MPV (7.4-10.4) fL Immature Gran % (Auto) % Neut % (Auto) % Lymph % (Auto) % [place] % (Auto) % Eos % (Auto) % Baso % (Auto) % Neut # (Auto) (1.4-6.5) K/uL Lymph # (Auto) (1.2-3.4) K/uL [place] # (Auto) (0.11-0.59) K/uL Eos # (Auto) (0-0.5) K/uL Baso # (Auto) (0-0.2) K/uL Immature Gran # (Auto) (0.00-0.02) K/uL Sodium (136-145) mmol/L Potassium (3.5-5.1) mmol/L Chloride (98-107) mmol/L Carbon Dioxide (21-32) mmol/L Anion Gap (3-11) BUN (6-23) mg/dl Creatinine (0.6-1.4) mg/dl Est Cr Clr Drug Dosing ml/min Est GFR ( Amer) ml/min Est GFR (Non-Af Amer) ml/min BUN/Creatinine Ratio (10-20) Glucose (70-99(Fasting)) mg/dl POC Glucose 199 H 144 H (70-99) mg/dl Calcium (8.5-10.1) mg/dl Phosphorus (2.5-4.9) mg/dl Magnesium (1.7-2.4) mg/dl Total Bilirubin (0.2-1.0) mg/dl Direct Bilirubin (0-0.2) mg/dl AST (13-39) U/L ALT (7-52) U/L Alkaline Phosphatase (34-104) U/L B-Natriuretic Peptide 2137 H (0-100) pg/ml Total Protein (6.0-8.3) gm/dl Albumin (3.4-5.0) gm/dl 10/15/21 10/15/21 10/14/21 Range/Units 05:26 05:26 20:20 WBC 16.09 H (4.8-10.8) K/uL RBC 3.56 L (4.7-6.1) M/uL Hgb 11.4 L (14.0-18.0) g/dL Hct 33.4 L (42-52) % MCV 93.8 (80-100) fL MCH 32.0 (25-34) pg MCHC 34.1 (32-36) g/dL RDW Std Deviation 52.7 H (36.4-46.3) fL RDW Coeff of Aysha 15.3 H (11.5-14.5) % Plt Count 290 (130-400) K/uL MPV 9.8 (7.4-10.4) fL Immature Gran % (Auto) 0.4 % Neut % (Auto) 88.5 % Lymph % (Auto) 4.0 % [place] % (Auto) 6.9 % Eos % (Auto) 0.1 % Baso % (Auto) 0.1 % Neut # (Auto) 14.26 H (1.4-6.5) K/uL Lymph # (Auto) 0.64 L (1.2-3.4) K/uL [place] # (Auto) 1.11 H (0.11-0.59) K/uL Eos # (Auto) 0.01 (0-0.5) K/uL Baso # (Auto) 0.01 (0-0.2) K/uL Immature Gran # (Auto) 0.06 H (0.00-0.02) K/uL Sodium 127 L (136-145) mmol/L Potassium 3.7 (3.5-5.1) mmol/L Chloride 88 L (98-107) mmol/L Carbon Dioxide 29 (21-32) mmol/L Anion Gap 10 (3-11) BUN 28 H (6-23) mg/dl Creatinine 0.95 (0.6-1.4) mg/dl Est Cr Clr Drug Dosing 57.4 ml/min Est GFR ( Amer) 89.1 ml/min Est GFR (Non-Af Amer) 76.9 ml/min BUN/Creatinine Ratio 29.5 H (10-20) Glucose 136 H (70-99(Fasting)) mg/dl POC Glucose 143 H (70-99) mg/dl Calcium 8.6 (8.5-10.1) mg/dl Phosphorus 3.1 (2.5-4.9) mg/dl Magnesium 1.8 (1.7-2.4) mg/dl Total Bilirubin 0.7 (0.2-1.0) mg/dl Direct Bilirubin 0.2 (0-0.2) mg/dl AST 15 (13-39) U/L ALT 12 (7-52) U/L Alkaline Phosphatase 78 (34-104) U/L B-Natriuretic Peptide (0-100) pg/ml Total Protein 5.7 L (6.0-8.3) gm/dl Albumin 3.3 L (3.4-5.0) gm/dl Diagnostic Findings Chest X-Ray 10/15/21 07:00 XR chest 1V portable HISTORY: 75 years-old Male f/u acute shortness of breath COMPARISON: Chest radiograph 10/14/2021, chest CT 05/28/2015. TECHNIQUE: Portable AP view of the chest FINDINGS: Left shoulder rotator cuff calcific tendinosis. Probable enchondroma of the proximal left humerus. Degenerative changes of the shoulders and spine. Unchanged positioning of the left IJ central venous catheter. The cardiac silhouette is enlarged. Prior median sternotomy. Atherosclerosis of the thoracic aorta. Pulmonary vascular congestion. No pneumothorax or large pleural effusion. 6 mm nodular density of the right midlung is unchanged. Chronic right middle lobe pulmonary nodule. Mild ill-defined bilateral airspace opacities are stable. IMPRESSION: 1. Cardiomegaly with pulmonary vascular congestion. 2. Mild ill-defined airspace opacities appear stable. 3. Chronic right middle lobe pulmonary nodule. ACT 112: Negative or not required by law. The above report was generated using voice recognition software. It may contain grammatical, syntax or spelling errors. Electronically signed by: Parker Rojas M.D. 10/15/2021 7:32 AM PG Care Time/CCT Total # of Minutes Spent Total Time Spent with Patient: Total time spent is greater than 50% in coordination of care (as documented) at patient's floor/unit and/or counseling patient: Coding Level of Care Code 75067 Subseq Hosp Care Lvl 3 Diagnoses Hyponatremia E87.1 Frequent falls R29.6 CAD (coronary artery disease) I25.10 Hypertension I10 Hypercholesterolemia E78.00 GERD (gastroesophageal reflux disease) K21.9 Esophagitis presence: esophagitis presence not specified BPH NOS w ur obs/LUTS N40.1 Hypothyroidism E03.9 Scleroderma M34.9 Iron deficiency anemia D50.9 Acute metabolic encephalopathy G93.41 Acute respiratory failure with hypoxia J96.01 Type 2 myocardial infarction I21.A1 Acute systolic CHF (congestive heart failure) I50.21 (1) GERD (gastroesophageal reflux disease) Esophagitis presence: esophagitis presence not specified Qualified Code(s): K21.9 - Gastro-esophageal reflux disease without esophagitis
[2021-10-15] MEDS: FAMOTIDINE 20 MG TAB PO SCH (21:09)
[2021-10-15] MEDS: CYANOCOBALAMIN (B-12) 500 MCG TABLET PO SCH (21:10)
[2021-10-15] MEDS: CHOLECALCIFEROL 5,000 UNITS 125 MCG TAB PO SCH (21:10)
[2021-10-15] MEDS ORDERED: STAT IV Infusion **Titration per Protocol STA (22:38)
--- NOTE | 2021-10-15 22:59 | Cardiology Progress Note ---
Date of Service October 15, 2021 Assessment & Plan (1) Low output heart failure: Plan: 2. Cardiomyopathy-- severe global LV dysfunction, EF 10-15% 3. Severe pulmonary hypertension 4. 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 Moderate mitral regurgitation 6. Hyponatremia 7. PAD - prior SMA stent, bilateral iliac disease, moderate carotid disease 8. Scleroderma 9. Type 2 DM Continues to diurese well. Renal function stable. Sodium improving, mental status improving Off 02 today continue IV diuresis with Bumex continue current entresto, increase as BP allows resume Toprol-XL tomorrow Continue free water restriction Continue DAPT with aspirin, clopidogrel Discussed [facility] with patient and . Patient still somewhat confused and is clinically improving. Will hold off on cath today. Reconsider tomorrow or Wednesday. Ideally via left radial artery Will follow Admission and Anticipated Discharge Date Admission Date: October 12, 2021 Subjective More awake this afternoon. Slightly confused but pleasant. Denies chest pain or shortness of breath. Tele reviewed -- no events. Review of Systems Review of Systems: All systems reviewed & are unremarkable except as noted in HPI & below Physical Exam Physical Exam: General: Awake HEENT: Sclerae anicteric Lungs: Breath sounds clear anteriorly Cardiac: Regular rate and rhythm, subtle 2/6 holosystolic murmur Vascular: Left radial A-line in place Abdomen: Soft, nontender Extremities: Feet are cool, no significant edema Psych: Alert Results & Data ([facility]) Vital Signs (Past 12 Hours) Vital Signs Temp Pulse Resp BP Pulse Ox 10/15/21 18:00 80 19 122/42 L 97 10/15/21 17:00 92 H 34 H 96 10/15/21 16:00 98.6 F 83 30 H 97 10/15/21 15:00 78 25 H 108/52 L 96 10/15/21 14:00 96 H 32 H 91/49 L 89 L 10/15/21 13:26 99 H 31 H 114/49 L 92 10/15/21 13:00 92 H 23 127/70 91 10/15/21 12:01 88 33 H 120/60 96 10/15/21 11:00 87 25 H 115/57 L 98 PG Care Time/CCT Total # of Minutes Spent Total Time Spent with Patient: Total time spent is greater than 50% in coordination of care (as documented) at patient's floor/unit and/or counseling patient: Coding Level of Care Code 27635 Subseq Hosp Care Lvl 3 Diagnoses Low output heart failure I50.9
[2021-10-15] MEDS: dexMEDEtomidine 200 MCG/50 ML BAG IV SCH (23:04)
[2021-10-16] MEDS: dexMEDEtomidine 200 MCG/50 ML BAG IV SCH ×2 (01:39→17:32)
[2021-10-16] MEDS: LEVOTHYROXINE SODIUM 200 MCG TABLET PO SCH (05:14)
[2021-10-16] MEDS: HEPARIN SOD 5,000 UNIT/0.5 ML VIAL SQ SCH ×3 (05:32→21:01)
[2021-10-16 05:39] LABS: Hematocrit (blood only) 32.5 % (42-52); Hemoglobin 10.9 g/dL (14.0-18.0); Immature Granulocytes # (auto) 0.04 K/uL (0.00-0.02); Immature Granulocytes % (auto) 0.2 %; Lymphocytes # (auto) 0.43 K/uL (1.2-3.4); Lymphocytes % (auto) 2.4 %; Mean Corpuscular Hemoglobin 31.1 pg (25-34); Mean Corpuscular Hgb Conc 33.5 g/dL (32-36); Mean Corpuscular Volume 92.6 fL (80-100); Monocytes # (auto) 0.73 K/uL (0.11-0.59); Monocytes % (auto) 4.1 %; Neutrophils % (auto) 93.3 %; Platelet Count 304 K/uL (130-400); RDW Coefficient of Variation 15.6 % (11.5-14.5); Red Blood Count 3.51 M/uL (4.7-6.1)
[2021-10-16 05:49] LABS: BUN Creatinine Ratio 29.8 (10-20); Calcium 8.4 mg/dl (8.5-10.1); Creatinine Clr Calc Pharmacy 46.4 ml/min; Est GFR (African American) 71.5 ml/min; Est GFR (Non-African American) 61.7 ml/min; Magnesium 2.2 mg/dl (1.7-2.4); Phosphorus 2.8 mg/dl (2.5-4.9)
--- NOTE | 2021-10-16 08:04 | XRay Report ---
XR chest 1V portable HISTORY: Shortness of breath. Follow-up. COMPARISON: Chest 10/15/2021. FINDINGS: No pneumothorax. No pleural effusions. The cardiac silhouette remains mildly enlarged. Ther e are poststernotomy changes. There is mild diffuse interstitial thickening which has slightly progre ssed suggestive of pulmonary edema. Multifocal ill-defined airspace opacities persist, right greater than left. Stable right middle lobe pulmonary nodule. IMPRESSION: 1. No change in the scattered faint bilateral airspace opacities. 2. Mild interstitial pulmonary edema has slightly progressed. ACT 112: Negative or not required by law. Electronically signed by: Kevin Piña M.D. 10/16/2021 8:03 AM
[2021-10-16] MEDS: INSULIN ASPART PER UNIT SC SCH ×4 (09:12→21:02)
--- NOTE | 2021-10-16 09:36 | Critical Care Progress Note ---
Date of Service October 16, 2021 Assessment & Plan (1) Acute systolic CHF (congestive heart failure): Plan: (1) Low output heart failure: Plan: Reason Critically Ill: 75-year-old male with acute encephalopathy and significantly decreased cardiac output requiring vasoactive medication PLAN: Neuro: Acute encephalopathy: Improved -Suspect this was secondary to low cardiac output Sedation: Precedex weaned off on 10/16 Resp: Respiratory alkalosis with hypoxia: Improved O2 4L via oxymask, wean as able CXR 10/16- mildly increased pulmonary edema CV: Cardiomyopathy -reviewed cardiology notes- severe global LV dysfunction, EF 10-15%, CABG (JAMA-LAD) -Cardiac catheterization today- R heart catheterization + L heart to evaluate graft -Continue aspirin, clopidogrel, Entresto, Toprol XL Fluids/Renal: Suspect hypervolemic hyponatremia -Diuresis with Bumex. Holding Bumex today due to Cr bump 0.95 to 1.14 -Na 125 today likely dilutional from fluid overload GI/Nutrition: N.p.o Heme: Anemia- Hgb 10.9, stable DVT prophylaxis: Heparin 5000 units TID Endocrine: ICU hyperglycemia protocol BSGs stable in 100s ID: Bacterial pneumonia -Stopped azithromycin today -Continue ceftriaxone (7 day treatment to conclude on 10/20) Vascular access: Left internal jugular CVC, left radial arterial line Code Status: Full code Disposition: ICU (2) Iron deficiency anemia: (3) Scleroderma: (4) CAD (coronary artery disease): (5) Frequent falls: (6) Hyponatremia: (7) Acute encephalopathy: (2) Acute respiratory failure with hypoxia: (3) Acute metabolic encephalopathy: (4) CAD (coronary artery disease): Admission and Anticipated Discharge Date Admission Date: October 12, 2021 Supervising Physician Co-Signing Physician Notes Dr. Linder was resident physician during care of patient. I separately evaluated patient for antony portions of the history and the exam. I was present during the critical portion of medical decision making, and I discussed the case with the resident. I generally agree with the findings and plan. Patient underwent cardiac cath today, no percutaneous coronary intervention, diagnosis of nonischemic cardiomyopathy with EF preserved heart failure. Continue medical optimization. Previously I attempted to discuss goals of care with the family. I believe this should be readdressed as the patient is experiencing more frequent hospitalizations and exacerbations of disease and preserved ejection heart failure carries a significantly poor prognosis. Patient frequently sundown's in the evening. Discontinuing antibiotics today. Subjective Pt sleeping during evaluation, minimally responsive to questions. Appeared comfortable. Review of Systems Review of Systems: Unobtainable due to reduced consciousness Physical Exam Physical Exam: General: Sleeping during exam. Skin: Warm, dry. Head: Atraumatic Ears, nose, mouth and throat: Airway patent Cardiovascular: RRR, normal S1, S2. Distal pulses intact in b/l LE. Cap refill <2s in b/l LE and UE. Respiratory: coarse breath sounds at b/l bases, no wheezes, no increased work of breathing or respiratory distress Gastrointestinal: soft, nontender, nondistended Musculoskeletal: Normal bulk and tone of b/l UE and LE Results & Data Results & Data ([facility]) Vital Signs (Past 12 Hours) Vital Signs Temp Pulse Resp BP Pulse Ox 10/16/21 05:45 36.9 C 10/16/21 05:00 67 21 92 10/16/21 04:00 69 25 H 97 10/16/21 03:00 83 24 102/57 L 94 10/16/21 02:00 94 H 13 130/64 96 10/16/21 01:00 98 H 30 H 109/56 L 100 10/16/21 00:23 105 H 16 110/62 98 10/16/21 00:00 36.9 C 106 H 17 97 10/15/21 23:00 100 H 30 H 119/47 L 95 Critical Care Time I have personally spent 45 minutes of critical care time in the direct management of this patient. This is a life/limb threatening event. This includes time spent evaluating patient, direct bedside care, chart review, placing orders, interpretation of diagnostic studies, discussion with consultants, patient, and/or family members regarding treatment decisions, as well as other required patient management activities. This time is exclusive of all separately billable procedures, and teaching time and separate from and in addition to any other critical care service time. Resident Activity Tracking Resident Involvement: Resident Care Provided Care Provided: Adult [facility] Medicine
--- NOTE | 2021-10-16 10:17 | Hospitalist Progress Note ---
Date of Service October 16, 2021 Assessment & Plan (1) Acute systolic CHF (congestive heart failure): Plan: Noted to have abnormal appearing ECG with ST depressions and T wave inversions in anterolateral leads, along with mildly elevated high-sensitivity troponin which peaked at 154 He had acute respiratory failure with hypoxia, significantly elevated proBNP, and pulmonary edema seen on chest x-ray on 10/13 Echocardiogram obtained shows moderately dilated LV, mild LVH, LVEF 10-15%, moderate RV dysfunction, moderate MR, mild-moderate AI, severe pulmonary hypertension, with change from previous being low EF -Improved now after use of BiPAP and IV diuretics, brief use of dobutamine- weaning down off O2 -Appreciate cardiology consultation -Now status post cardiac catheterization-elevated LVEDP at 22, new severe LV dysfunction likely nonischemic, normal right-sided filling pressures, severe pulmonary hypertension, borderline cardiac output, no stents needed -Continue diuretics-give another dose of Bumex 1 mg IV today -Continue Entresto 26/24 mg p.o. twice daily-started this admission -Resume home Toprol-XL with holding parameters -Continue free water restriction, daily weights, I's and O's, low-sodium diet -keep magnesium and potassium optimal (2) Hyponatremia: Plan: This could explain his lethargy, confusion, and progressive generalized weakness which are all now improving with improvement in sodium Initially thought to be SIADH and was treated with salt tablets and fluid restriction-this is since been discontinued Secondary to CHF, with volume overload Urine osmolality high at 636, urine sodium 37 Na 122 on arrival and now improved to 125 with diuresis Continue diuresis Follow BMP (3) Acute metabolic encephalopathy: Plan: Secondary to hyponatremia, hypoxia Slowly improving but with intermittent delirium and agitation-requiring mitts to keep him from pulling lines out-he pulled out his central line Was on Precedex drip briefly Continue treatment for hyponatremia, hypoxia, continue supportive care (4) Acute respiratory failure with hypoxia: Plan: Developed acute respiratory failure with hypoxia secondary to acute systolic CHF as above, with possible superimposed bacterial pneumonia Now much improved and weaned to room air at rest with diuresis and treatment of pneumonia Continue bronchodilators Discontinue azithromycin but continue ceftriaxone finish out 7-day course for possible pneumonia Follow chest x-ray to resolution (5) Type 2 myocardial infarction: Plan: Secondary to myocardial demand ischemia in the setting of acute CHF Troponin peaked and is coming down Continue clopidogrel, aspirin Holding beta-michael for now but can restart with hold parameters -He is statin intolerant (6) CAD (coronary artery disease): Plan: follows with Dr Dailey locally for cardiology Hx NSTEMI August 2012 s/p 2 vessel CABG 10/13/2012 with JAMA to LAD, SVG to left circumflex. Preop cardiac catheterization reportedly showed 50-70% focal stenosis distal left main, 70% proximal LAD, 50-70% mid LAD, 80% 1st diagonal, 70% proximal OM, 100% OM 2. Filled via [id number] collaterals, ramus intermedius had an ostial lesion which extended into the left main coronary artery. RCA was a small caliber vessel with chronic total occlusion in the proximal segment with [id number] collaterals (according to Dr. Barnes prior notes) Continue ASA, Plavix Beta-michael on hold, statin intolerant No significant stenoses found on cardiac catheterization 10/16 (7) Hypertension: Plan: Blood pressures have been soft at times but are now improved Started Entresto to replace losartan Restart home Toprol Continue IV diuretics as tolerated (8) Hypercholesterolemia: Plan: Noted on history, but not on any specific treatment due to statin myopathy (9) GERD (gastroesophageal reflux disease): Plan: Continue pantoprazole 40 mg p.o. twice daily (10) BPH NOS w ur obs/LUTS: Plan: Continue finasteride (11) Hypothyroidism: Plan: TSH 4.04 on admission, continuing current dose levothyroxine but important to note had always been abnormal/elevated in past (12) Frequent falls: Plan: Could be secondary to hyponatremia, weakness from heart failure PT/OT evals recommending SNF (13) Scleroderma: Plan: Hx of, also with Raynauds Per PCP "Previously followed by Dr. Mosley. The patient did have a 2nd opinion from Dr. Joselito Haddad from [facility]. Currently followed by Dr. Mullins. Patient has no specific swallowing difficulties. Has musculoskeletal concerns as noted above. Otherwise no change." (14) Iron deficiency anemia: Plan: Hx of SHAMIR, received IV iron infusions in past and recent transfusion August [address] Montesinos. Iron level Jul 01 and has appt with Dr Mcmahon pending for follow up Hgb 11.4-12 Transferrin saturation low at 12%-can give IV iron as an outpatient Follow CBC in AM (15) Pulmonary hypertension: Plan: Severe pulmonary hypertension based on right heart cath Continue diuresis Continue oxygen therapy as needed Plan: DVT prophylaxis-SQ heparin Disposition-continued stay in ICU, overall poor prognosis. Remains a full code. Admission and Anticipated Discharge Date Admission Date: October 12, 2021 Subjective Patient placed on Precedex drip overnight for agitation. It was weaned off shortly I saw him but he was still confused and lethargic. He did finally respond to my question about how he was feeling and said "I think I am doing better." Plans for cardiac catheterization today. With some short bursts of V. tach on telemetry Review of Systems Review of Systems: All systems reviewed & are unremarkable except as noted in HPI & below Physical Exam Constitutional: WD/WN, vitals as above Eyes: + anicteric sclerae Neck: trachea midline, no thyromegaly Respiratory: normal respiratory effort; no labored breathing Auscultation: + crackles (Bibasilar); no rhonchi and no wheezes Cardiovascular: RRR, no murmur, no edema Chest (Breasts): Chest: normal inspection of chest Gastrointestinal (Abdomen): normal bowel sounds, soft, nontender, no hepatosplenomegaly Musculoskeletal: Extremities: extremities normal to inspection; no cyanosis and no clubbing Skin: no rashes, warm and dry Neurologic: moves all extremities; no focal motor deficits Psychiatric: Orientation: + not alert Lymphatic: no lymphedema Results & Data Results & Data ([facility]) Vital Signs (Past 12 Hours) Vital Signs Temp Pulse Resp BP Pulse Ox 10/16/21 05:45 36.9 C 10/16/21 05:00 67 21 92 10/16/21 04:00 69 25 H 97 10/16/21 03:00 83 24 102/57 L 94 10/16/21 02:00 94 H 13 130/64 96 10/16/21 01:00 98 H 30 H 109/56 L 100 10/16/21 00:23 105 H 16 110/62 98 10/16/21 00:00 36.9 C 106 H 17 97 10/15/21 23:00 100 H 30 H 119/47 L 95 Laboratory Results 10/16/21 10/16/21 10/16/21 Range/Units 14:18 12:27 09:00 WBC (4.8-10.8) K/uL RBC (4.7-6.1) M/uL Hgb (14.0-18.0) g/dL Hct (42-52) % MCV (80-100) fL MCH (25-34) pg MCHC (32-36) g/dL RDW Std Deviation (36.4-46.3) fL RDW Coeff of Aysha (11.5-14.5) % Plt Count (130-400) K/uL MPV (7.4-10.4) fL Immature Gran % (Auto) % Neut % (Auto) % Lymph % (Auto) % [place] % (Auto) % Eos % (Auto) % Baso % (Auto) % Neut # (Auto) (1.4-6.5) K/uL Lymph # (Auto) (1.2-3.4) K/uL [place] # (Auto) (0.11-0.59) K/uL Eos # (Auto) (0-0.5) K/uL Baso # (Auto) (0-0.2) K/uL Immature Gran # (Auto) (0.00-0.02) K/uL POC pH 7.44 (7.35-7.45) POC pCO2 45 (35-46) mmHg POC pO2 < 32 L (80-95) mmHg POC HCO3 31 H (19-24) aimee/L POC Total CO2 32 H (24-31) mmol/L POC Base Excess 7.0 H (-9-1.8) aimee/L POC ABG O2 Sat 60.0 L (90-95) % Sodium (136-145) mmol/L Potassium (3.5-5.1) mmol/L Chloride (98-107) mmol/L Carbon Dioxide (21-32) mmol/L Anion Gap (3-11) BUN (6-23) mg/dl Creatinine (0.6-1.4) mg/dl Est Cr Clr Drug Dosing ml/min Est GFR ( Amer) ml/min Est GFR (Non-Af Amer) ml/min BUN/Creatinine Ratio (10-20) Glucose (70-99(Fasting)) mg/dl POC Glucose 111 H 127 H (70-99) mg/dl Calcium (8.5-10.1) mg/dl Phosphorus (2.5-4.9) mg/dl Magnesium (1.7-2.4) mg/dl B-Natriuretic Peptide (0-100) pg/ml 10/16/21 10/16/21 10/16/21 Range/Units 06:04 05:10 05:10 WBC (4.8-10.8) K/uL RBC (4.7-6.1) M/uL Hgb (14.0-18.0) g/dL Hct (42-52) % MCV (80-100) fL MCH (25-34) pg MCHC (32-36) g/dL RDW Std Deviation (36.4-46.3) fL RDW Coeff of Aysha (11.5-14.5) % Plt Count (130-400) K/uL MPV (7.4-10.4) fL Immature Gran % (Auto) % Neut % (Auto) % Lymph % (Auto) % [place] % (Auto) % Eos % (Auto) % Baso % (Auto) % Neut # (Auto) (1.4-6.5) K/uL Lymph # (Auto) (1.2-3.4) K/uL [place] # (Auto) (0.11-0.59) K/uL Eos # (Auto) (0-0.5) K/uL Baso # (Auto) (0-0.2) K/uL Immature Gran # (Auto) (0.00-0.02) K/uL POC pH (7.35-7.45) POC pCO2 (35-46) mmHg POC pO2 (80-95) mmHg POC HCO3 (19-24) aimee/L POC Total CO2 (24-31) mmol/L POC Base Excess (-9-1.8) aimee/L POC ABG O2 Sat (90-95) % Sodium 125 L (136-145) mmol/L Potassium 5.0 D (3.5-5.1) mmol/L Chloride 90 L (98-107) mmol/L Carbon Dioxide 26 (21-32) mmol/L Anion Gap 9 (3-11) BUN 34 H (6-23) mg/dl Creatinine 1.14 (0.6-1.4) mg/dl Est Cr Clr Drug Dosing 46.4 ml/min Est GFR ( Amer) 71.5 ml/min Est GFR (Non-Af Amer) 61.7 ml/min BUN/Creatinine Ratio 29.8 H (10-20) Glucose 155 H (70-99(Fasting)) mg/dl POC Glucose 131 H (70-99) mg/dl Calcium 8.4 L (8.5-10.1) mg/dl Phosphorus 2.8 (2.5-4.9) mg/dl Magnesium 2.2 (1.7-2.4) mg/dl B-Natriuretic Peptide 2410 H (0-100) pg/ml 10/16/21 10/15/21 Range/Units 05:10 20:51 WBC 17.70 H (4.8-10.8) K/uL RBC 3.51 L (4.7-6.1) M/uL Hgb 10.9 L (14.0-18.0) g/dL Hct 32.5 L (42-52) % MCV 92.6 (80-100) fL MCH 31.1 (25-34) pg MCHC 33.5 (32-36) g/dL RDW Std Deviation 53.0 H (36.4-46.3) fL RDW Coeff of Aysha 15.6 H (11.5-14.5) % Plt Count 304 (130-400) K/uL MPV 10.0 (7.4-10.4) fL Immature Gran % (Auto) 0.2 % Neut % (Auto) 93.3 % Lymph % (Auto) 2.4 % [place] % (Auto) 4.1 % Eos % (Auto) 0.0 % Baso % (Auto) 0.0 % Neut # (Auto) 16.50 H (1.4-6.5) K/uL Lymph # (Auto) 0.43 L (1.2-3.4) K/uL [place] # (Auto) 0.73 H (0.11-0.59) K/uL Eos # (Auto) 0.00 (0-0.5) K/uL Baso # (Auto) 0.00 (0-0.2) K/uL Immature Gran # (Auto) 0.04 H (0.00-0.02) K/uL POC pH (7.35-7.45) POC pCO2 (35-46) mmHg POC pO2 (80-95) mmHg POC HCO3 (19-24) aimee/L POC Total CO2 (24-31) mmol/L POC Base Excess (-9-1.8) aimee/L POC ABG O2 Sat (90-95) % Sodium (136-145) mmol/L Potassium (3.5-5.1) mmol/L Chloride (98-107) mmol/L Carbon Dioxide (21-32) mmol/L Anion Gap (3-11) BUN (6-23) mg/dl Creatinine (0.6-1.4) mg/dl Est Cr Clr Drug Dosing ml/min Est GFR ( Amer) ml/min Est GFR (Non-Af Amer) ml/min BUN/Creatinine Ratio (10-20) Glucose (70-99(Fasting)) mg/dl POC Glucose 118 H (70-99) mg/dl Calcium (8.5-10.1) mg/dl Phosphorus (2.5-4.9) mg/dl Magnesium (1.7-2.4) mg/dl B-Natriuretic Peptide (0-100) pg/ml PG Care Time/CCT Total # of Minutes Spent Total Time Spent with Patient: Total time spent is greater than 50% in coordination of care (as documented) at patient's floor/unit and/or counseling patient: Coding Level of Care Code 46407 Subseq Hosp Care Lvl 3 Diagnoses Hyponatremia E87.1 Acute systolic CHF (congestive heart failure) I50.21 Acute metabolic encephalopathy G93.41 Acute respiratory failure with hypoxia J96.01 Type 2 myocardial infarction I21.A1 CAD (coronary artery disease) I25.10 Hypertension I10 Hypercholesterolemia E78.00 GERD (gastroesophageal reflux disease) K21.9 Esophagitis presence: esophagitis presence not specified BPH NOS w ur obs/LUTS N40.1 Hypothyroidism E03.9 Frequent falls R29.6 Scleroderma M34.9 Iron deficiency anemia D50.9 Pulmonary hypertension I27.20 (1) GERD (gastroesophageal reflux disease) Esophagitis presence: esophagitis presence not specified Qualified Code(s): K21.9 - Gastro-esophageal reflux disease without esophagitis
[2021-10-16] MEDS: AZITHROMYCIN 250 MG in DEXTROSE 5% 250 ML IV SCH (10:32)
[2021-10-16] MEDS: VALSARTAN/SACUBITRIL 26/24MG TAB PO SCH ×2 (10:35→21:01)
[2021-10-16] MEDS: FINASTERIDE 5 MG TAB PO SCH (10:50)
[2021-10-16] MEDS: DICYCLOMINE HCL 10 MG CAP PO SCH ×3 (10:50→20:59)
[2021-10-16] MEDS: CLOPIDOGREL BISULFATE 75 MG TAB PO SCH (10:50)
[2021-10-16] MEDS: PANTOprazole 40 MG TAB PO SCH ×2 (10:50→21:00)
[2021-10-16] MEDS: ASPIRIN 81 MG ECTAB PO SCH (10:50)
--- NOTE | 2021-10-16 12:01 | Cardiology Progress Note ---
Date of Service October 16, 2021 Assessment & Plan (1) Low output heart failure: Plan: 2. Cardiomyopathy-- severe global LV dysfunction, EF 10-15% 3. Severe pulmonary hypertension 4. 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 Moderate mitral regurgitation 6. Hyponatremia 7. PAD - prior SMA stent, bilateral iliac disease, moderate carotid disease 8. Scleroderma 9. Type 2 DM More confused today Good urine output yesterday with IV Bumex x1, negative additional 700 (increased IV, p.o. intake) BUN/SCR slightly up today, sodium slightly reduced On exam well perfused, minimal congestion. Slight increase edema on chest x- ray, increased O2 requirement today plan on right heart catheterization today to assess hemodynamics, guide further diuresis. left heart catheterization via left radial artery, will limit contrast dye just to evaluate JAMA to LAD Continue current Entresto, Toprol-XL Continue free water restriction Continue DAPT with aspirin, clopidogrel cardiac cath discussed with patient's . Admission and Anticipated Discharge Date Admission Date: October 12, 2021 Subjective More confused overnight. Briefly on Precedex. This morning again confused. Denies pain or shortness of breath. Tele reviewed --brief episodes of PSVT Review of Systems Review of Systems: All systems reviewed & are unremarkable except as noted in HPI & below Physical Exam Physical Exam: General: Awake, confused HEENT: Sclerae anicteric Lungs: Decreased breath at the bases bilaterally Cardiac: Regular rate and rhythm, subtle 2/6 holosystolic murmur Vascular: Left radial A-line in place Abdomen: Soft, nontender Extremities: Extremities warm, no significant edema Psych: Alert Results & Data ([facility]) Vital Signs (Past 12 Hours) Vital Signs Temp Pulse Resp BP Pulse Ox 10/16/21 11:00 81 26 H 132/71 97 10/16/21 10:00 80 22 138/70 99 10/16/21 09:00 86 26 H 96 10/16/21 08:00 84 27 H 128/64 97 10/16/21 07:00 77 26 H 113/65 99 10/16/21 06:00 84 25 H 118/69 99 10/16/21 05:45 98.4 F 10/16/21 05:00 67 21 92 10/16/21 04:00 69 25 H 97 05/05/22 03:00 83 24 102/57 L 94 10/16/21 02:00 94 H 13 130/64 96 10/16/21 01:00 98 H 30 H 109/56 L 100 10/16/21 00:23 105 H 16 110/62 98 10/16/21 00:00 98.4 F 106 H 17 97 PG Care Time/CCT Total # of Minutes Spent Total Time Spent with Patient: Total time spent is greater than 50% in coordination of care (as documented) at patient's floor/unit and/or counseling patient: Coding Level of Care Code 89959 Subseq Hosp Care Lvl 3 Diagnoses Low output heart failure I50.9
[2021-10-16] MEDS: MULTIVITAMIN TAB PO SCH (12:29)
[2021-10-16] MEDS ORDERED: MIDAZOLAM HCL 1 MG/ML 2ML VIAL ONE (13:36)
[2021-10-16] MEDS ORDERED: HEPARIN (PORCINE) 1000 UNIT/ML 10 ML (CATH LAB USE ONLY) ONE (13:37)
[2021-10-16] MEDS ORDERED: fentaNYL citrate 100 MCG/2 ML VIAL ONE (13:37)
[2021-10-16] MEDS ORDERED: niCARdipine HCL INJ 2.5 MG/ML 10 ML AMP ONE (13:37)
[2021-10-16] MEDS ORDERED: NITROGLYCERIN/D5W 100MCG/ML 20ML SYR ONE ×2 (13:38→14:31)
[2021-10-16] MEDS ORDERED: LIDOCAINE 1% LOCAL 20 ML VIAL ONE (13:38)
--- NOTE | 2021-10-16 13:46 | Pre Anesthesia Assessment ---
Date of Service October 16, 2021 Pre Sedation Assessment Vital Signs Temp Pulse Pulse Resp BP BP Pulse Ox 10/16/21 13:31 85 22 138/65 95 10/16/21 11:00 81 26 H 132/71 97 10/16/21 10:00 80 22 138/70 99 10/16/21 09:00 86 26 H 96 10/16/21 08:00 84 27 H 128/64 97 10/16/21 07:00 77 26 H 113/65 99 10/16/21 06:00 84 25 H 118/69 99 10/16/21 05:45 98.4 F 10/16/21 05:00 67 21 92 10/16/21 04:00 69 25 H 97 10/16/21 03:00 83 24 102/57 L 94 10/16/21 02:00 94 H 13 130/64 96 10/16/21 01:00 98 H 30 H 109/56 L 100 10/16/21 00:23 105 H 16 110/62 98 10/16/21 00:00 98.4 F 106 H 17 97 10/15/21 23:00 100 H 30 H 119/47 L 95 10/15/21 18:00 80 19 122/42 L 97 10/15/21 17:00 92 H 34 H 96 10/15/21 16:00 98.6 F 83 30 H 97 10/15/21 15:00 78 25 H 108/52 L 96 10/15/21 14:00 96 H 32 H 91/49 L 89 L Cardiovascular RRR, no murmur, no edema Respiratory normal respiratory effort, lungs clear to auscultation Pre-Sedation Airway Assessment Smoking Status: Former smoker Hx Sleep Apnea: No Hx Difficult Intubation: No Short, Thick Neck: No Thyromental Distance: > or= 3.5 Finger Breadths Oral Cavity: + WNL Mallampati Class: I ASA: ASA4 NPO Status Date of Last Intake of Fluids: 10/15/21 Date of Last Intake of Solid Food: 10/15/21 Procedure Planning Contraindications for Sedation: none Current Medications Reviewed: Yes Notes The planned sedation has been discussed with the patient. Informed Consent was obtained. I have identified the patient, determined the appropriateness of sedation and have assessed the patient immediately prior to the procedure. All medicine(s) and interventions are by my order.
[2021-10-16 15:37] LABS: iSTAT Arterial Blood Gas HCO3 31 meg/L (19-24); iSTAT Arterial Blood Gas pCO2 45 mmHg (35-46); iSTAT Arterial Blood Gas pH 7.44 (7.35-7.45); iSTAT Arterial Blood Gas pO2 < 32 mmHg (80-95); iSTAT Carbon Dioxide 32 mmol/L (24-31)
--- NOTE | 2021-10-16 16:16 | Post Anesthesia Assessment ---
Date of Service October 16, 2021 Post Sedation Assessment Vital Signs Temp Pulse Pulse Resp BP BP Pulse Ox 10/16/21 13:31 85 22 138/65 95 10/16/21 13:00 90 24 96 10/16/21 12:00 79 23 98 10/16/21 11:00 81 26 H 132/71 97 10/16/21 10:00 80 22 138/70 99 10/16/21 09:00 86 26 H 96 10/16/21 08:00 84 27 H 128/64 97 10/16/21 07:00 77 26 H 113/65 99 10/16/21 06:00 84 25 H 118/69 99 10/16/21 05:45 98.4 F 10/16/21 05:00 67 21 92 10/16/21 04:00 69 25 H 97 10/16/21 03:00 83 24 102/57 L 94 10/16/21 02:00 94 H 13 130/64 96 10/16/21 01:00 98 H 30 H 109/56 L 100 10/16/21 00:23 105 H 16 110/62 98 10/16/21 00:00 98.4 F 106 H 17 97 10/15/21 23:00 100 H 30 H 119/47 L 95 10/15/21 18:00 80 19 122/42 L 97 10/15/21 17:00 92 H 34 H 96 Recovery Score Activity: Moves 4 extremities Respiration: Deep Breath/Cough Circulation: +/-20% PreAnes Value Consciousness: Fully Awake Oxygen Saturation: O2 needed for >90% Discharge Sedation Level of Care: Fast Track Phase II Post Sedation Plan On clinical assessment, the patient appears to have tolerated the sedation without complications. Patient is recovering as anticipated. Patient will continue to be monitored by nursing and may be discharged when sedation discharge criteria are met per below protocol. Upon Completions of procedure up to 15 minutes continue every 5 minute vital signs and the P.A.R. score; then discharge to a Phase I or Fast Track to Phase II per the following guidelines: * Discharge Patient to appropriate Phase II area if PAR is 8 or greater or return to pre- procedure baseline. The post - procedure orders will be as directed. * If PAR score is less than 8 or not return to pre-procedure baseline then patient will follow Phase I monitoring till PAR is reached for Phase II. The Phase I may be done in procedure room or may call to secure a Phase I area. * If naloxone or flumazenil are used for reversal, hold in Phase I for continued monitoring from when last reversal dose was given for a minimum of 60 minutes or longer pending the nurse and/or physician discretion of patient condition before discharge to Phase II. Please call the Sedation Physician to re-evaluate and complete post-note for discharge to Phase II area. Do NOT discharge from procedure sedation or Phase 1 until post- sedation evaluation note is complete by procedure /sedation MD Sedation Discharge Instructions to be given to the patient at discharge to home.
--- NOTE | 2021-10-16 16:30 | Cardiac Catheterization ---
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 Cardiac Status Clinical evaluation leading to the procedure CAD Presenation: Non STEMI Diagnostic Physicians Name: Jaime Dailey MD Closure Device Recommendations: Medical Therapy and/or Counseling Cardiac Cath Procedure Full Procedure Date October 16, 2021 Pre-Procedure Diagnosis Pre-Procedure Diagnosis: Non STEMI, CAD and Cardiomyopathy AUC Score AUC Score: 7 Post-Procedure Diagnosis Post-Procedure Diagnosis: Severe CAD and Elevated Intracardiac Pressures Procedure(s) Performed Procedure(s) Performed: Left Heart Cath, Right Heart Cath and Bypass Graft Angiography Sonography Technician Jaime Dailey MD Corporate Safety Coordinator(s) Nabil Estimated Blood Loss Estimated Blood Loss: 15 Medication(s) Medication(s): Lidocaine 1% Summary of Findings Indication: New severe LV dysfunction, history of coronary disease post two- vessel CABG (JAMA to LAD, SVG to OM) and 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 Access: 6 Fr right antecubital vein, 6 Fr left radial artery Catheters: 6 Fr Bulpitt, diagnostic JR4, KATELYNN, pigtail Findings: JAMA to LADwidely patent. LAD after anastomosis widely patent. Retrofills small diagonal. Provides partial [id number] collaterals to RV branch/RCA. Faint collaterals to distal OM with some competitive flow. SVG to OMnot visualized RA 1 RV 59/1 PA 65/21 (35) LVEDP 22 PaSat 63% AoSat 96% Linda CO/CI 3.4/2.0 Thermo CO/CI 4.0/2.3 TPG 13 PVR 3.5 Wood unit Arterial Closure: TR band Summary: 1. Widely patent JAMA to LAD. Mid to distal LAD patent and provides faint left to right collaterals to RCA and distal OM. No LT subclavian artery stenosis. 2. SVG to OM not visualized 3. Elevated left-sided filling pressures 4. Normal right-sided filling pressures 5. Severe pulmonary hypertension (pre and post capillary) 6. Borderline cardiac output Recommendations: New severe LV dysfunction likely nonischemic. Continue IV diuresis. No need for additional inotropes at this time Continue guideline directed medical therapy for NICM. Hemodynamics Rest Ao:: 155/60/98 Final Ao: 153/57/92 LV: 151/22 Recommendations Recommendations: Medical Therapy and/or Counseling Specimens Specimens: None Radiation Exposure (mGy) 471 Contrast (mls) 25 Anesthesia Moderate [id number] Procedural Complication(s) None Disposition ICU I attest to the content of the Intraoperative Record and any orders documented therein. Any exceptions are noted below. [facility] Card Cath Procedure Codes Cardiac Catheterization Procedure 1: Cardiovascular Cath Procedures: 62213 Coronaries & RHC &LHC&Grafts/IM (arterial & venous) PG Care Time/CCT Total # of Minutes Spent Total Time Spent with Patient: Total time spent is greater than 50% in coordination of care (as documented) at patient's floor/unit and/or counseling patient:
[2021-10-16] MEDS ORDERED: BUMETANIDE 1 MG in SYRINGE 0 ML IV ONE (17:00)
[2021-10-16] MEDS: cefTRIAXone SODIUM 1,000 MG in DEXTROSE 5% 50 ML IV SCH (17:31)
--- NOTE | 2021-10-16 17:55 | Billing Data ---
Date of Service October 16, 2021 Coding Level of Care Code Critical Care 1st - mins
[2021-10-16] MEDS: CYANOCOBALAMIN (B-12) 500 MCG TABLET PO SCH (20:59)
[2021-10-16] MEDS: FAMOTIDINE 20 MG TAB PO SCH (21:00)
[2021-10-16] MEDS: CHOLECALCIFEROL 5,000 UNITS 125 MCG TAB PO SCH (21:02)
[2021-10-17] MEDS: dexMEDEtomidine 200 MCG/50 ML BAG IV SCH ×2 (02:11→08:36)
[2021-10-17 05:19] LABS: Basophils # (auto) 0.01 K/uL (0-0.2); Basophils % (auto) 0.1 %; Eosinophils % (auto) 0.6 %; Hematocrit (blood only) 38.3 % (42-52); Hemoglobin 12.9 g/dL (14.0-18.0); Immature Granulocytes # (auto) 0.07 K/uL (0.00-0.02); Immature Granulocytes % (auto) 0.4 %; Lymphocytes # (auto) 0.75 K/uL (1.2-3.4); Lymphocytes % (auto) 4.8 %; Mean Corpuscular Hgb Conc 33.7 g/dL (32-36); Mean Platelet Volume 10.1 fL (7.4-10.4); Monocytes % (auto) 5.7 %; Neutrophils % (auto) 88.4 %; Platelet Count 360 K/uL (130-400); RDW Coefficient of Variation 15.5 % (11.5-14.5); RDW Standard Deviation 54.7 fL (36.4-46.3); Red Blood Count 4.03 M/uL (4.7-6.1); White Blood Count 15.73 K/uL (4.8-10.8)
[2021-10-17 05:38] LABS: BUN Creatinine Ratio 30.8 (10-20); Calcium 9.3 mg/dl (8.5-10.1); Creatinine Clr Calc Pharmacy 49.5 ml/min; Est GFR (African American) 77.2 ml/min; Est GFR (Non-African American) 66.6 ml/min; Magnesium 1.9 mg/dl (1.7-2.4); Phosphorus 3.3 mg/dl (2.5-4.9); Potassium 3.5 mmol/L (3.5-5.1)
[2021-10-17] MEDS: HEPARIN SOD 5,000 UNIT/0.5 ML VIAL SQ SCH ×3 (06:48→20:20)
[2021-10-17] MEDS: LEVOTHYROXINE SODIUM 200 MCG TABLET PO SCH (08:33)
[2021-10-17] MEDS: INSULIN ASPART PER UNIT SC SCH ×4 (08:34→20:21)
--- NOTE | 2021-10-17 09:07 | Critical Care Progress Note ---
Date of Service October 17, 2021 Assessment & Plan (1) Acute systolic CHF (congestive heart failure): Plan: (1) Low output heart failure: Plan: Reason Critically Ill: 75-year-old male with acute encephalopathy and significantly decreased cardiac output requiring vasoactive medication PLAN: Neuro Acute encephalopathy: Improved -Suspect this was secondary to low cardiac output -Still some agitation/confusion likely due to hyperactive delirium -Continue 1:1 observation Sedation: None Analgesia: Tylenol PRN Respiratory: Respiratory alkalosis with hypoxia: Improved Weaned to RA on 10/17 CXR 10/16- mildly increased pulmonary edema CV: Cardiomyopathy -reviewed cardiology notes- severe global LV dysfunction, EF 10-15%, CABG (JAMA-LAD) -Cardiac catheterization 10/16- severe pHTN, patent LAD. Recommend continued diuresis for nonischemic cardiomyopathy -Continue aspirin, clopidogrel, Entresto, Toprol XL -Repeat EKG 10/17 Fluids/Renal: Hypervolemia -Diuresis with Bumex. Held Bumex 10/16 for Cr increase to 1.14 -Cr 1.14 to 1.07, continue holding Bumex for now Hyponatremia, improving -Na 125 to 132 Hypokalemia -K 3.5 today -40 meq KCl repleted GI/Nutrition: Diet ordered Heme: Anemia- Hgb 10.9, stable DVT prophylaxis: Heparin 5000 units TID Endocrine: ICU hyperglycemia protocol BSGs stable in 100s ID: Bacterial pneumonia -Stopped azithromycin 10/16 -Continue ceftriaxone (7 day treatment to conclude on 10/20) Lines: -PIV -Left central line -Left A line -Morgan Disposition -Stable for downgrade to PCU -Goals of care discussion to be held with family, palliative care consulted (2) Iron deficiency anemia: (3) Scleroderma: (4) CAD (coronary artery disease): (5) Frequent falls: (6) Hyponatremia: (7) Acute encephalopathy: (2) Acute respiratory failure with hypoxia: (3) Acute metabolic encephalopathy: (4) CAD (coronary artery disease): Admission and Anticipated Discharge Date Admission Date: October 12, 2021 Supervising Physician Co-Signing Physician Notes Dr. Linder was resident physician during care of patient. I separately evaluated patient for antony portions of the history and the exam. I was present during the critical portion of medical decision making, and I discussed the case with the resident. I generally agree with the findings and plan. 1:1 observation for sun-downing. Non-ischemic cardiomyopathy. Palliative care consult critical care needs have largely resolved patient is stable for downgrade to telemetry status. Subjective Overnight, pt was reportedly confused and agitated- attempted to leave bed but was able to be redirected. On evaluation, pt spoke quietly but was able to engage in conversation. Stated he felt fatigue and generalized pain all over his body, denied explicit chest pain or dyspnea. Review of Systems Review of Systems: Per subjective Physical Exam Physical Exam: General: laying in bed, thin, speaking quietly Skin: Warm, dry. Head: Atraumatic Ears, nose, mouth and throat: Airway patent Cardiovascular: RRR, normal S1, S2. Distal pulses intact in b/l LE. Cap refill <2s in b/l LE and UE. Respiratory: coarse breath sounds diffusely, no wheezes, no increased work of breathing or respiratory distress Gastrointestinal: soft, nontender, nondistended, normal bowel sounds Musculoskeletal: Normal bulk and tone of b/l UE and LE Neuro: PERRL, no focal motor or sensory deficits Results & Data Results & Data ([facility]) Vital Signs (Past 12 Hours) Vital Signs Pulse Resp BP Pulse Ox 10/17/21 06:00 91 H 21 99 10/17/21 05:01 96 H 26 H 116/46 L 98 10/17/21 05:00 87 37 H 94 10/17/21 04:00 87 26 H 100/64 94 10/17/21 03:00 109 H 23 96 10/17/21 02:01 98 H 31 H 88/49 L 98 10/17/21 02:00 95 H 30 H 99 10/17/21 01:01 85 26 H 102/60 93 10/17/21 01:00 90 21 95 10/17/21 00:01 88 21 90/62 L 94 10/17/21 00:00 81 25 H 93 10/16/21 23:00 96 H 20 99/76 L 97 10/16/21 22:01 97 H 23 110/54 L 96 10/16/21 22:00 94 H 30 H 94 Resident Activity Tracking Resident Involvement: Resident Care Provided Care Provided: [facility]
[2021-10-17] MEDS ORDERED: POTASSIUM CHLORIDE CRTAB 20 MEQ TABCR PO STA (09:56)
[2021-10-17] MEDS: DICYCLOMINE HCL 10 MG CAP PO SCH ×3 (10:24→20:18)
[2021-10-17] MEDS: VALSARTAN/SACUBITRIL 26/24MG TAB PO SCH ×2 (10:24→20:19)
[2021-10-17] MEDS: ASPIRIN 81 MG ECTAB PO SCH (10:25)
[2021-10-17] MEDS: FINASTERIDE 5 MG TAB PO SCH (10:25)
[2021-10-17] MEDS: PANTOprazole 40 MG TAB PO SCH ×2 (10:25→20:19)
[2021-10-17] MEDS: CLOPIDOGREL BISULFATE 75 MG TAB PO SCH (10:54)
[2021-10-17] MEDS: MULTIVITAMIN TAB PO SCH (12:16)
[2021-10-17] MEDS: cefTRIAXone SODIUM 1,000 MG in DEXTROSE 5% 50 ML IV SCH (12:23)
[2021-10-17] MEDS ORDERED: BUMETANIDE 1 MG in SYRINGE 0 ML IV ONE (12:59)
[2021-10-17] MEDS ORDERED: MAGNESIUM SULFATE / D5W 1 GM/100 ML BAG IV ONE (13:03)
--- NOTE | 2021-10-17 13:09 | Hospitalist Progress Note ---
Date of Service October 17, 2021 Assessment & Plan (1) Acute systolic CHF (congestive heart failure): Plan: Noted to have abnormal appearing ECG with ST depressions and T wave inversions in anterolateral leads, along with mildly elevated high-sensitivity troponin which peaked at 154 He had acute respiratory failure with hypoxia, significantly elevated proBNP, and pulmonary edema seen on chest x-ray on 10/13 Echocardiogram obtained shows moderately dilated LV, mild LVH, LVEF 10-15%, moderate RV dysfunction, moderate MR, mild-moderate AI, severe pulmonary hypertension, with change from previous being low EF Perhaps related to scleroderma? The scleroderma certainly can put him at risk for the severe PULM HTN, but I do not believe it can cause LV dysfunction -Improved now after use of BiPAP and IV diuretics, brief use of dobutamine-now weaned to room air off all O2 -Appreciate cardiology consultation -Now status post cardiac catheterization-elevated LVEDP at 22, new severe LV dysfunction likely nonischemic, normal right-sided filling pressures, severe pulmonary hypertension, borderline cardiac output, no stents needed -Continue diuretics-give another dose of Bumex 1 mg IV today -Continue Entresto 26/24 mg p.o. twice daily-started this admission -Resume home Toprol-XL for tomorrow AM with holding parameters -Continue free water restriction, daily weights, I's and O's, low-sodium diet -keep magnesium and potassium optimal-replaced today with KCL 40 and Mag 1 gram IV (2) Hyponatremia: Plan: This could explain his lethargy, confusion, and progressive generalized weakness which are all now improved with improvement in sodium Initially thought to be SIADH and was treated with salt tablets and fluid restriction-salt tabs have since been discontinued Secondary to CHF, with volume overload Urine osmolality high at 636, urine sodium 37 Na 122 on arrival and now improved to 132 over the last few days with diuresis Continue diuresis as able Follow BMP (3) Acute metabolic encephalopathy: Plan: Secondary to hyponatremia, hypoxia Slowly improving but with intermittent delirium and agitation-previously requiring mitts to keep him from pulling lines out-he pulled out his central line Was on Precedex drip briefly Now on 1:1 sitter, mentation improved but remains confused and agitated /restless, is more interactive though and is cooperative, redirectable restraints off, Precedex discontinued Continue treatment for hyponatremia, hypoxia, continue supportive care (4) Acute respiratory failure with hypoxia: Plan: Developed acute respiratory failure with hypoxia secondary to acute systolic CHF as above, with possible superimposed bacterial pneumonia Now much improved and weaned to room air at rest with diuresis and treatment of pneumonia Continue bronchodilators Discontinued azithromycin but continue ceftriaxone finish out 7-day course for possible pneumonia Follow chest x-ray to resolution (5) Type 2 myocardial infarction: Plan: Secondary to myocardial demand ischemia in the setting of acute CHF Troponin peaked and is coming down Continue clopidogrel, aspirin Holding beta-michael for now but can restart with hold parameters for tomorrow -He is statin intolerant (6) CAD (coronary artery disease): Plan: follows with Dr Dailey locally for cardiology Hx NSTEMI August 2012 s/p 2 vessel CABG 10/13/2012 with JAMA to LAD, SVG to left circumflex. Preop cardiac catheterization reportedly showed 50-70% focal stenosis distal left main, 70% proximal LAD, 50-70% mid LAD, 80% 1st diagonal, 70% proximal OM, 100% OM 2. Filled via xikb-ji-siuz collaterals, ramus intermedius had an ostial lesion which extended into the left main coronary artery. RCA was a small caliber vessel with chronic total occlusion in the proximal segment with hcgh-up-pjupy collaterals (according to Dr. Barnes prior notes) Continue ASA, Plavix Beta-michael on hold, statin intolerant No significant stenoses found on cardiac catheterization 10/16 (7) Hypertension: Plan: Blood pressures have been soft at times but are now improved Started Entresto to replace losartan Restart home Toprol Continue IV diuretics as tolerated (8) Hypercholesterolemia: Plan: Noted on history, but not on any specific treatment due to statin myopathy (9) GERD (gastroesophageal reflux disease): Plan: Continue pantoprazole 40 mg p.o. twice daily (10) BPH NOS w ur obs/LUTS: Plan: Continue finasteride (11) Hypothyroidism: Plan: TSH 4.04 on admission, continuing current dose levothyroxine but important to note had always been abnormal/elevated in past (12) Frequent falls: Plan: Could be secondary to hyponatremia, weakness from heart failure PT/OT evals recommending SNF (13) Scleroderma: Plan: Hx of, also with Raynauds follows with Rheum, Dr. Mullins' could be contributing to his HF? (14) Iron deficiency anemia: Plan: Hx of SHAMIR, received IV iron infusions in past and recent transfusion August [address] Montesinos. Iron level Jul 01 and has appt with Dr Mcmahon pending for follow up Hgb 11.4-12 Transferrin saturation low at 12%-can give IV iron as an outpatient Follow CBC in AM (15) Pulmonary hypertension: Plan: Severe pulmonary hypertension based on right heart cath Continue diuresis Continue oxygen therapy as needed Plan: DVT prophylaxis-SQ heparin Disposition-downgrade to PCU, overall poor prognosis. Remains a full code. Palliative consulted for goals of care Admission and Anticipated Discharge Date Admission Date: October 12, 2021 Subjective Pt seen later in the afternoon and was definitely more alert and interactive but remains confused. He knows his name but thinks he is in "[facility]...one of those holdings." He Denies SOB. Wants to sit up and get out of bed. Asks his if she brought the car up to take him home. reports prior to admission, he was fairly active at home, independent with a walker. Discussed his care with ICU resident. Review of Systems Review of Systems: All systems reviewed & are unremarkable except as noted in HPI & below Physical Exam Constitutional: + thin; no acute distress Eyes: + anicteric sclerae Neck: trachea midline, no thyromegaly Respiratory: normal respiratory effort; no labored breathing Auscultation: + crackles (Bibasilar); no rhonchi and no wheezes Cardiovascular: RRR, no murmur, no edema Chest (Breasts): Chest: normal inspection of chest Gastrointestinal (Abdomen): normal bowel sounds, soft, nontender, no hepatosplenomegaly Musculoskeletal: Extremities: extremities normal to inspection; no cyanosis and no clubbing Skin: no rashes, warm and dry Neurologic: moves all extremities and + confused; no focal motor deficits Motor/Sensory: no tremor Psychiatric: Orientation: alert, oriented to person and cooperative; + not oriented to place and + not oriented to time ("2022") Genitourinary: Morgan in place Lymphatic: no lymphedema Results & Data Results & Data ([facility]) Vital Signs (Past 12 Hours) Vital Signs Temp Pulse Resp BP Pulse Ox 10/17/21 09:01 92 H 28 H 110/63 97 10/17/21 09:00 95 H 30 H 98 10/17/21 08:01 93 H 25 H 107/66 98 10/17/21 08:00 36.8 C 92 H 25 H 97 10/17/21 07:00 90 26 H 113/62 98 10/17/21 06:00 91 H 21 99 10/17/21 05:01 96 H 26 H 116/46 L 98 10/17/21 05:00 87 37 H 94 10/17/21 04:00 87 26 H 100/64 94 10/17/21 03:00 109 H 23 96 10/17/21 02:01 98 H 31 H 88/49 L 98 10/17/21 02:00 95 H 30 H 99 Laboratory Results 10/17/21 10/17/21 10/17/21 Range/Units 16:07 11:40 07:14 WBC (4.8-10.8) K/uL RBC (4.7-6.1) M/uL Hgb (14.0-18.0) g/dL Hct (42-52) % MCV (80-100) fL MCH (25-34) pg MCHC (32-36) g/dL RDW Std Deviation (36.4-46.3) fL RDW Coeff of Aysha (11.5-14.5) % Plt Count (130-400) K/uL MPV (7.4-10.4) fL Immature Gran % (Auto) % Neut % (Auto) % Lymph % (Auto) % [place] % (Auto) % Eos % (Auto) % Baso % (Auto) % Neut # (Auto) (1.4-6.5) K/uL Lymph # (Auto) (1.2-3.4) K/uL Harford # (Auto) (0.11-0.59) K/uL Eos # (Auto) (0-0.5) K/uL Baso # (Auto) (0-0.2) K/uL Immature Gran # (Auto) (0.00-0.02) K/uL Sodium (136-145) mmol/L Potassium (3.5-5.1) mmol/L Chloride (98-107) mmol/L Carbon Dioxide (21-32) mmol/L Anion Gap (3-11) BUN (6-23) mg/dl Creatinine (0.6-1.4) mg/dl Est Cr Clr Drug Dosing ml/min Est GFR ( Amer) ml/min Est GFR (Non-Af Amer) ml/min BUN/Creatinine Ratio (10-20) Glucose (70-99(Fasting)) mg/dl POC Glucose 202 H 132 H 109 H (70-99) mg/dl Calcium (8.5-10.1) mg/dl Phosphorus (2.5-4.9) mg/dl Magnesium (1.7-2.4) mg/dl B-Natriuretic Peptide (0-100) pg/ml 10/17/21 10/17/21 10/17/21 Range/Units 04:44 04:44 04:44 WBC 15.73 H (4.8-10.8) K/uL RBC 4.03 L (4.7-6.1) M/uL Hgb 12.9 L (14.0-18.0) g/dL Hct 38.3 L (42-52) % MCV 95.0 (80-100) fL MCH 32.0 (25-34) pg MCHC 33.7 (32-36) g/dL RDW Std Deviation 54.7 H (36.4-46.3) fL RDW Coeff of Aysha 15.5 H (11.5-14.5) % Plt Count 360 (130-400) K/uL MPV 10.1 (7.4-10.4) fL Immature Gran % (Auto) 0.4 % Neut % (Auto) 88.4 % Lymph % (Auto) 4.8 % Harford % (Auto) 5.7 % Eos % (Auto) 0.6 % Baso % (Auto) 0.1 % Neut # (Auto) 13.90 H (1.4-6.5) K/uL Lymph # (Auto) 0.75 L (1.2-3.4) K/uL Harford # (Auto) 0.90 H (0.11-0.59) K/uL Eos # (Auto) 0.10 (0-0.5) K/uL Baso # (Auto) 0.01 (0-0.2) K/uL Immature Gran # (Auto) 0.07 H (0.00-0.02) K/uL Sodium 132 L (136-145) mmol/L Potassium 3.5 D (3.5-5.1) mmol/L Chloride 88 L (98-107) mmol/L Carbon Dioxide 29 (21-32) mmol/L Anion Gap 15 H (3-11) BUN 33 H (6-23) mg/dl Creatinine 1.07 (0.6-1.4) mg/dl Est Cr Clr Drug Dosing 49.5 ml/min Est GFR ( Amer) 77.2 ml/min Est GFR (Non-Af Amer) 66.6 ml/min BUN/Creatinine Ratio 30.8 H (10-20) Glucose 119 H (70-99(Fasting)) mg/dl POC Glucose (70-99) mg/dl Calcium 9.3 (8.5-10.1) mg/dl Phosphorus 3.3 (2.5-4.9) mg/dl Magnesium 1.9 (1.7-2.4) mg/dl B-Natriuretic Peptide 3024 H (0-100) pg/ml 10/16/21 10/16/21 Range/Units 20:59 17:31 WBC (4.8-10.8) K/uL RBC (4.7-6.1) M/uL Hgb (14.0-18.0) g/dL Hct (42-52) % MCV (80-100) fL MCH (25-34) pg MCHC (32-36) g/dL RDW Std Deviation (36.4-46.3) fL RDW Coeff of Aysha (11.5-14.5) % Plt Count (130-400) K/uL MPV (7.4-10.4) fL Immature Gran % (Auto) % Neut % (Auto) % Lymph % (Auto) % [place] % (Auto) % Eos % (Auto) % Baso % (Auto) % Neut # (Auto) (1.4-6.5) K/uL Lymph # (Auto) (1.2-3.4) K/uL Harford # (Auto) (0.11-0.59) K/uL Eos # (Auto) (0-0.5) K/uL Baso # (Auto) (0-0.2) K/uL Immature Gran # (Auto) (0.00-0.02) K/uL Sodium (136-145) mmol/L Potassium (3.5-5.1) mmol/L Chloride (98-107) mmol/L Carbon Dioxide (21-32) mmol/L Anion Gap (3-11) BUN (6-23) mg/dl Creatinine (0.6-1.4) mg/dl Est Cr Clr Drug Dosing ml/min Est GFR ( Amer) ml/min Est GFR (Non-Af Amer) ml/min BUN/Creatinine Ratio (10-20) Glucose (70-99(Fasting)) mg/dl POC Glucose 124 H 105 H (70-99) mg/dl Calcium (8.5-10.1) mg/dl Phosphorus (2.5-4.9) mg/dl Magnesium (1.7-2.4) mg/dl B-Natriuretic Peptide (0-100) pg/ml PG Care Time/CCT Total # of Minutes Spent Total Time Spent with Patient: Total time spent is greater than 50% in coordination of care (as documented) at patient's floor/unit and/or counseling patient: Coding Level of Care Code 85449 Subseq Hosp Care Lvl 3 Diagnoses Acute systolic CHF (congestive heart failure) I50.21 Hyponatremia E87.1 Acute metabolic encephalopathy G93.41 Acute respiratory failure with hypoxia J96.01 Type 2 myocardial infarction I21.A1 CAD (coronary artery disease) I25.10 Hypertension I10 Hypercholesterolemia E78.00 GERD (gastroesophageal reflux disease) K21.9 Esophagitis presence: esophagitis presence not specified BPH NOS w ur obs/LUTS N40.1 Hypothyroidism E03.9 Frequent falls R29.6 Scleroderma M34.9 Iron deficiency anemia D50.9 Pulmonary hypertension I27.20 (1) GERD (gastroesophageal reflux disease) Esophagitis presence: esophagitis presence not specified Qualified Code(s): K21.9 - Gastro-esophageal reflux disease without esophagitis
--- NOTE | 2021-10-17 13:40 | Billing Data ---
Date of Service October 17, 2021 Coding Level of Care Code 83170 Subseq Hosp Care Lvl 3
--- NOTE | 2021-10-17 14:37 | Palliative Care Consultation ---
Date of Consultation October 17, 2021 Assessment & Plan (1) Palliative care encounter: Mr. Palma is a 75 year old male who presented to the [facility] for progressively worsening weakness. He has a PMH that includes: a hiatal hernia, chronic mesenteric ischemia, GERD, Scleroderma, PAD, NSTEMI, HTN, HLD, CABG x2, DM2, Powell's esophagus, BPH with LUTS, and CKD3. During his admission, he was found to be quite hyponatremic and in SIADH. Additionally, it was discovered that his EF was 15-20%. He was on a Midodrine gtt for a short while while in ICU. Palliative Medicine was consulted to discuss overall goals of care. I met with the patient who had a 1:1 due to sundowning effects. The patient was able to answer simple questions to me. Per family, he was relatively independent prior to coming into the hospital with his ADL's. I was able to talk with the patients daughter an in the waiting area to discuss overall goals of care. There are four adult children total, three of them are local. We did discuss his current end stage heart disease and discussed code status. They brought up the conversation held in the ED regarding code status, where the patient indicated he would want to be full code. I explained that we did not have the data to indicate that he had an end stage heart disease when we were in the ED and if he was able to process the information occuring now, would he choose the same answer. They requested to discuss code status with Dr. Enrique Dailey as they have an established relationship with him. I contacted him and he was able to see the patient later in the day and confirmed that the family would like to remain a Full Code for now. Ultimately, their goal is to have him return home. He certainly would be a hospice candidate. He was working with PT today; however ,the underlying issues are unlikely to improve. For now, family would like to continue with aggressive efforts. (2) Acute systolic CHF (congestive heart failure): (3) Fall: History of Present Illness Reason for Consultation: goals of care Requesting Physician: Dr. Craig Attending Physician: Alena Boswell MD History of Present Illness Mr. Palma is a 75 year old male who presented to the [facility] for progressively worsening weakness. He has a PMH that includes: a hiatal hernia, chronic mesenteric ischemia, GERD, Scleroderma, PAD, NSTEMI, HTN, HLD, CABG x2, DM2, Powell's esophagus, BPH with LUTS, and CKD3. During his admission, he was found to be quite hyponatremic and in SIADH. Additionally, it was discovered that his EF was 15-20%. He was on a Midodrine gtt for a short while while in ICU. Palliative Medicine was consulted to discuss overall goals of care. Please see A/P for further details. Thanks for consulting palliative for this patient. Allergies Allergy/AdvReac Type Severity Reaction Status Date / Time tramadol AdvReac Severe Jittery, Verified 10/12/21 19:41 not able to sleep naproxen AdvReac Mild RASH Verified 10/12/21 19:41 Czqidem-UJF-CcM Reductase AdvReac Mild CALF Verified 10/12/21 19:41 Inhibitor CRAMPING [Kyomnbn-Zbh-Jkj Reductase Inhibitor] Home Medications Medication Instructions Recorded Confirmed Type aspirin 81 mg tablet,delayed 81 mg PO QAM #0 07/11/13 10/12/21 History release (Aspirin Low Dose) Lactobacillus acidophilus 1 tab PO QAM #0 tab 10/20/16 10/12/21 History loperamide 2 mg tablet (Imodium 2 mg PO QID PRN 07/10/19 10/12/21 History A-D) blood sugar diagnostic (OneTouch #100 ea 09/05/20 10/12/21 Rx Verio test strips) blood-glucose meter (OneTouch #1 ea 09/05/20 10/12/21 Rx Verio Flex Start) lancets 33 gauge (OneTouch Delica #100 ea 09/10/20 10/12/21 Rx Lancets) clopidogrel 75 mg tablet (Plavix) 75 mg PO QAM tab 11/20/20 10/12/21 History pantoprazole 40 mg tablet,delayed 40 mg PO BID #180 tab 04/18/21 10/12/21 Rx release (Protonix) albuterol sulfate 90 mcg/actuation 2 puff INHALATION QID PRN #8.5 g 04/30/21 10/12/21 Rx aerosol inhaler (ProAir HFA) dicyclomine 10 mg capsule 10 mg PO TID #60 cap 09/01/21 10/12/21 Rx ciprofloxacin HCl 500 mg tablet 500 mg PO HS 09/02/21 10/12/21 History cyanocobalamin (vitamin B-12) 1,000 mcg PO HS #0 tab 10/08/21 10/12/21 History 1,000 mcg tablet multivitamin 1 tab PO QPM #0 tab 10/08/21 10/12/21 History acetaminophen 80 mg chewable tablet 0 mg PO Q6H PRN 10/12/21 10/12/21 History cholecalciferol (vitamin D3) 1,250 1,250 mcg PO HS 10/12/21 10/12/21 History mcg (50,000 unit) capsule duloxetine 30 mg capsule,delayed 30 mg PO QAM 10/12/21 10/12/21 History release famotidine 20 mg tablet 20 mg PO QPM 10/12/21 10/12/21 History finasteride 5 mg tablet (Proscar) 5 mg PO QAM 10/12/21 10/12/21 History levothyroxine 200 mcg tablet 200 mcg PO QAM 10/12/21 10/12/21 History losartan 25 mg tablet 25 mg PO QAM 10/12/21 10/12/21 History metoprolol succinate 25 mg 25 mg PO QAM 10/12/21 10/12/21 History tablet,extended release 24 hr potassium chloride 20 mEq 10 meq PO QAM 10/12/21 10/12/21 History tablet,extended release(part/cryst) (Klor-Con M) Patient History Medical History (Updated 10/17/21 @ 23:29 by APARNA Ferguson) Antibiotic long-term use Powell's esophagus Benign prostatic hyperplasia with urinary obstruction CAD (coronary artery disease) CAD (coronary artery disease) Cardiomyopathy Carotid bruit Carotid stenosis Diabetes mellitus (08/24/12) Elevated serum creatinine Fall Former smoker GERD (gastroesophageal reflux disease) Hiatal hernia Hypercholesterolemia Hypertension Intermittent claudication Mesenteric ischemia, chronic (03/06/14) Nephrolithiasis Non Q wave myocardial infarction Palliative care encounter Peripheral vascular disease Pulmonary hypertension Pulmonary nodules Raynaud's syndrome (08/24/12) Scleroderma Scleroderma Sensorineural hearing loss of both ears Small intestinal bacterial overgrowth Small intestinal bacterial overgrowth Tinnitus, bilateral Urinary urgency Vitamin D deficiency Surgical History History of back surgery (~1997) Dr. Yun History of coronary artery bypass graft x 2 History of coronary artery stent placement (~2013) Dr. West History of surgical amputation of finger (~2008) Dr. Kelly Hx of cholecystectomy S/P CABG (coronary artery bypass graft) S/P tonsillectomy Family History Mother Heart disease Hypertension Myocardial infarction Other No family history of bleeding disorder Denies family history of Ovarian cancer Prostate cancer Coronary heart disease Breast cancer Lung cancer Colorectal cancer Social History Smoking Status: Former smoker Tobacco Type: Smokeless Tobacco (Dip or Chew) Age Started Using Tobacco: 15; Age Quit Using Tobacco: 53; packs per day: 0.75; Second Hand Exposure: No; Hx Alcohol Use: No Hx Substance Use: No Preferred Language: Palestinian Communication Ability: Unable Visual Impairment: No Limitations Hearing Ability: Hard of Hearing Intercell Connector Placer Required: No Beliefs That Will Affect Care: None marital status: Current Living Situation: Spouse current occupational status: retired 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 Feels Safe at Home: Yes Childhood Exposure to Second-Hand Smoke: Yes caffeine: Yes Dental Care, Regularly: No Physical Activity Frequency: Does not Exercise Seatbelt Use: always Sunscreen Use: Yes Assistive Devices: Walker Review of Systems Review of Systems: Belmond System Assessment Scale: Pain: 0/3 SOB: 1/3 Anxiety: 1/3 Lack of appetite: 1/3 PPS: 40% Results & Data ([facility]) Vital Signs (Past 12 Hours) Vital Signs Temp Pulse Resp BP Pulse Ox 10/17/21 09:01 92 H 28 H 110/63 97 10/17/21 09:00 95 H 30 H 98 10/17/21 08:01 93 H 25 H 107/66 98 10/17/21 08:00 36.8 C 92 H 25 H 97 10/17/21 07:00 90 26 H 113/62 98 10/17/21 06:00 91 H 21 99 10/17/21 05:01 96 H 26 H 116/46 L 98 10/17/21 05:00 87 37 H 94 10/17/21 04:00 87 26 H 100/64 94 05/06/22 03:00 109 H 23 96 PG Care Time/CCT Total # of Minutes Spent Total Time Spent with Patient: Total time spent is greater than 50% in coordination of care (as documented) at patient's floor/unit and/or counseling patient: 70 minutes Coding Level of Care Code 93690 Initial Inpt Care Lvl 3 Diagnoses Palliative care encounter Z51.5 Acute systolic CHF (congestive heart failure) I50.21 Fall W19.XXXA Time Spent (min) 70
--- NOTE | 2021-10-17 18:27 | Cardiology Progress Note ---
Date of Service October 17, 2021 Assessment & Plan (1) Acute systolic CHF (congestive heart failure): Plan: 2. Cardiomyopathy-- severe global LV dysfunction, EF 10-15% 3. Severe pulmonary hypertension 4. 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 Moderate mitral regurgitation 6. Hyponatremia 7. PAD - prior SMA stent, bilateral iliac disease, moderate carotid disease 8. Scleroderma 9. Type 2 DM More alert today. Good urine output yesterday with IV Bumex, negative additional 1300 yesterday Sodium improved today. BUN/creatinine stable On exam well perfused, minimal congestion. No O2 requirement. Agree with continued IV diuresis today Continue current Entresto. Start Toprol-XL as BP allows Continue free water restriction Continue DAPT with aspirin, clopidogrel Discussion today with and family regarding goals of care. Family goals are for him to return home. Wishes for him to remain full code at this time. Admission and Anticipated Discharge Date Admission Date: October 12, 2021 Subjective More awake today. Denies chest pain or shortness of breath Telemetry reviewedventricular ectopy yesterday afternoon post cath. No additional ectopy today. Review of Systems Review of Systems: All systems reviewed & are unremarkable except as noted in HPI & below Physical Exam Physical Exam: General: More awake but still confused HEENT: Sclerae anicteric Lungs: Clear anteriorly Cardiac: Regular rate and rhythm, subtle 2/6 holosystolic murmur Vascular: No significant ecchymosis/hematoma at left radial artery access site. Abdomen: Soft, nontender Extremities: Extremities warm, no significant edema Psych: Alert Results & Data ([facility]) Vital Signs (Past 12 Hours) Vital Signs Temp Pulse Pulse Resp BP BP Pulse Ox 10/17/21 17:55 95 H 10/17/21 17:27 97.7 F 76 18 148/54 H 90 10/17/21 16:00 86 26 H 10/17/21 15:00 98.1 F 92 H 89 17 88/50 L 91 10/17/21 14:57 86 27 H 88/50 L 10/17/21 14:00 93 H 22 96/59 L 97 10/17/21 13:01 96 H 25 H 103/59 L 99 10/17/21 13:00 83 27 H 97 10/17/21 12:01 97 H 21 113/65 98 10/17/21 12:00 97.7 F 10/17/21 11:00 108 H 20 125/91 98 10/17/21 10:00 95 H 13 105/71 97 10/17/21 09:01 92 H 28 H 110/63 97 10/17/21 09:00 95 H 30 H 98 10/17/21 08:01 93 H 25 H 107/66 98 10/17/21 08:00 98.2 F 92 H 25 H 97 10/17/21 07:00 90 26 H 113/62 98 PG Care Time/CCT Total # of Minutes Spent Total Time Spent with Patient: Total time spent is greater than 50% in coordination of care (as documented) at patient's floor/unit and/or counseling patient: Coding Level of Care Code 23609 Subseq Hosp Care Lvl 3 Diagnoses Acute systolic CHF (congestive heart failure) I50.21
[2021-10-17] MEDS: CYANOCOBALAMIN (B-12) 500 MCG TABLET PO SCH (20:19)
[2021-10-17] MEDS: FAMOTIDINE 20 MG TAB PO SCH (20:19)
--- NOTE | 2021-10-17 22:21 | Communication Note ---
Date of Service: October 17, 2021 Messaged by nursing about difficulty eating regular diet. Adding minced/moist consistency. Placed speech eval. ~1230pm: Messaged by nursing about patient becoming more restless and attempting to full out whyte. Assessed. Patient is confused and does not know where he is. He is calm now, but, was worse prior to my arrival. No soft restraints or medications indicated at this time.
[2021-10-17] MEDS ORDERED: MELATONIN 3 MG TAB PO PRN (22:23)
[2021-10-18] MEDS: HEPARIN SOD 5,000 UNIT/0.5 ML VIAL SQ SCH ×3 (05:26→20:31)
[2021-10-18] MEDS: LEVOTHYROXINE SODIUM 200 MCG TABLET PO SCH (05:26)
[2021-10-18] MEDS: VALSARTAN/SACUBITRIL 26/24MG TAB PO SCH ×2 (07:21→20:31)
[2021-10-18] MEDS: DICYCLOMINE HCL 10 MG CAP PO SCH ×3 (07:22→20:31)
[2021-10-18] MEDS: PANTOprazole 40 MG TAB PO SCH ×2 (07:22→20:31)
[2021-10-18] MEDS: CLOPIDOGREL BISULFATE 75 MG TAB PO SCH (07:22)
[2021-10-18] MEDS: FINASTERIDE 5 MG TAB PO SCH (07:23)
[2021-10-18] MEDS: ASPIRIN 81 MG ECTAB PO SCH (07:23)
--- NOTE | 2021-10-18 07:48 | Electrocardiogram Report ---
Test Reason : Blood Pressure : / mmHG Vent. Rate : 089 BPM Atrial Rate : 089 BPM P-R Int : 160 ms QRS Dur : 126 ms QT Int : 396 ms P-R-T Axes : 052 032 188 degrees QTc Int : 481 ms Sinus rhythm with occasional Premature ventricular complexes Premature atrial complexes Possible Left atrial enlargement Left ventricular hypertrophy with QRS widening and repolarization abnormality Marked ST abnormality, possible anterior subendocardial injury Abnormal ECG When compared with ECG of 14-OCT-2021 04:14, Premature ventricular complexes are now Present ST more depressed Lateral leads T wave inversion more evident in Lateral leads Confirmed by Oleg Mishra ([id number]) on 10/18/2021 7:47:45 AM Referred By: REFERRED SELF Confirmed By:Oleg Mishra
[2021-10-18] MEDS: METOPROLOL SUCC 25MG EXT REL TAB PO SCH (08:03)
[2021-10-18] MEDS: INSULIN ASPART PER UNIT SC SCH ×4 (08:36→20:31)
[2021-10-18 08:59] LABS: Basophils # (auto) 0.01 K/uL (0-0.2); Basophils % (auto) 0.1 %; Eosinophils # (auto) 0.07 K/uL (0-0.5); Eosinophils % (auto) 0.5 %; Hematocrit (blood only) 39.9 % (42-52); Hemoglobin 13.2 g/dL (14.0-18.0); Immature Granulocytes # (auto) 0.04 K/uL (0.00-0.02); Immature Granulocytes % (auto) 0.3 %; Lymphocytes # (auto) 0.72 K/uL (1.2-3.4); Lymphocytes % (auto) 5.5 %; Mean Corpuscular Hemoglobin 31.6 pg (25-34); Mean Corpuscular Hgb Conc 33.1 g/dL (32-36); Mean Corpuscular Volume 95.5 fL (80-100); Mean Platelet Volume 9.9 fL (7.4-10.4); Monocytes # (auto) 0.85 K/uL (0.11-0.59); Monocytes % (auto) 6.5 %; Neutrophils # (auto) 11.33 K/uL (1.4-6.5); Neutrophils % (auto) 87.1 %; Platelet Count 362 K/uL (130-400); RDW Coefficient of Variation 15.5 % (11.5-14.5); RDW Standard Deviation 54.3 fL (36.4-46.3); Red Blood Count 4.18 M/uL (4.7-6.1); White Blood Count 13.02 K/uL (4.8-10.8)
[2021-10-18 09:24] LABS: BUN Creatinine Ratio 39.4 (10-20); Calcium 9.5 mg/dl (8.5-10.1); Creatinine Clr Calc Pharmacy 45.5 ml/min; Est GFR (African American) 75.5 ml/min; Est GFR (Non-African American) 65.1 ml/min; Potassium 3.8 mmol/L (3.5-5.1)
[2021-10-18] MEDS ORDERED: POTASSIUM CHLORIDE CRTAB 20 MEQ TABCR PO STA (10:06)
[2021-10-18] MEDS ORDERED: BUMETANIDE 1 MG in SYRINGE 0 ML IV ONE (10:30)
--- NOTE | 2021-10-18 11:26 | Hospitalist Progress Note ---
Date of Service October 18, 2021 Assessment & Plan (1) Acute systolic CHF (congestive heart failure): Plan: Noted to have abnormal appearing ECG with ST depressions and T wave inversions in anterolateral leads, along with mildly elevated high-sensitivity troponin which peaked at 154 He had acute respiratory failure with hypoxia, significantly elevated proBNP, and pulmonary edema seen on chest x-ray on 10/13 Echocardiogram obtained shows moderately dilated LV, mild LVH, LVEF 10-15%, moderate RV dysfunction, moderate MR, mild-moderate AI, severe pulmonary hypertension, with change from previous being low EF Perhaps related to scleroderma? The scleroderma certainly can put him at risk for the severe PULM HTN, but I do not believe it can cause LV dysfunction -Improved now after use of BiPAP and IV diuretics, brief use of dobutamine-now weaned to room air off all O2, net neg I/O 3.5L -Appreciate cardiology consultation -Now status post cardiac catheterization-elevated LVEDP at 22, new severe LV dysfunction likely nonischemic, normal right-sided filling pressures, severe pulmonary hypertension, borderline cardiac output, no stents needed -Continue diuretics-give another dose of Bumex 1 mg IV again today -Continue Entresto 26/24 mg p.o. twice daily-started this admission -Resumed home Toprol-X with holding parameters -Continue free water restriction, daily weights, I's and O's, low-sodium diet -keep magnesium and potassium optimal-replaced today with KCL 40meq po x 1 (2) Hyponatremia: Plan: This could explain his lethargy, confusion, and progressive generalized weakness which are all nowslightly improved with improvement in sodium Initially thought to be SIADH and was treated with salt tablets and fluid restriction-salt tabs have since been discontinued Secondary to CHF, with volume overload Urine osmolality high at 636, urine sodium 37 Na 122 on arrival and now improved to 135 over the last few days with diuresis Continue diuresis as able Follow BMP (3) Acute metabolic encephalopathy: Plan: Secondary to hyponatremia, hypoxia Slowly improving but with intermittent delirium and agitation-previously requi ring mitts to keep him from pulling lines out-he pulled out his central line Was on Precedex drip briefly Now on 1:1 sitter, mentation improved but remains confused and agitated /restless, is more interactive though and is cooperative, re-directable Is not sleeping at all restraints off, Precedex discontinued Continue treatment for hyponatremia, hypoxia, continue supportive care add Zyprexa 2.5mg po hs starting tonight to help with sleep and agitation (4) Acute respiratory failure with hypoxia: Plan: Developed acute respiratory failure with hypoxia secondary to acute systolic CHF as above, with possible superimposed bacterial pneumonia Now resolved-weaned to room air at rest with diuresis and treatment of pneumonia Continue bronchodilators Discontinued azithromycin but continue ceftriaxone finish out 7-day course for possible pneumonia Follow chest x-ray to resolution as an outpt (5) Type 2 myocardial infarction: Plan: Secondary to myocardial demand ischemia in the setting of acute CHF Troponin peaked Continue clopidogrel, aspirin restarted Toprol -He is statin intolerant (6) CAD (coronary artery disease): Plan: follows with Dr Dailey locally for cardiology Hx NSTEMI August 2012 s/p 2 vessel CABG 10/13/2012 with JAMA to LAD, SVG to left circumflex. Preop cardiac catheterization reportedly showed 50-70% focal stenosis distal left main, 70% proximal LAD, 50-70% mid LAD, 80% 1st diagonal, 70% proximal OM, 100% OM 2. Filled via [id number] collaterals, ramus intermedius had an ostial lesion which extended into the left main coronary artery. RCA was a small caliber vessel with chronic total occlusion in the proximal segment with [id number] collaterals (according to Dr. aBrnes prior notes) Continue ASA, Plavix, metoprolol -statin intolerant No significant stenoses found on cardiac catheterization 10/16 (7) Hypertension: Plan: Blood pressures have been soft at times but are now improved Started Entresto to replace losartan and tolerating well Restarted home Toprol Continue IV diuretics as tolerated (8) Hypercholesterolemia: Plan: Noted on history, but not on any specific treatment due to statin myopathy (9) GERD (gastroesophageal reflux disease): Plan: Continue pantoprazole 40 mg p.o. twice daily (10) BPH NOS w ur obs/LUTS: Plan: Continue finasteride (11) Hypothyroidism: Plan: TSH 4.04 on admission, continuing current dose levothyroxine but important to note had always been abnormal/elevated in past (12) Frequent falls: Plan: Could be secondary to hyponatremia, weakness from heart failure PT/OT evals recommending SNF (13) Scleroderma: Plan: Hx of, also with Raynauds follows with Rheum, Dr. Mullins could be contributing to his HF? (14) Iron deficiency anemia: Plan: Hx of SHAMIR, received IV iron infusions in past and recent transfusion August [address] Montesinos. Iron level Jul 01 and has appt with Dr Mcmahon pending for follow up Hgb 11.4-12 and now up to 13.2 Transferrin saturation mildly low at 12% -will avoid po FeSO4 as can cause nausea and constipation Follow CBC in AM (15) Pulmonary hypertension: Plan: Severe pulmonary hypertension based on right heart cath Continue diuresis Continue oxygen therapy as needed Plan: DVT prophylaxis-SQ heparin Disposition-continued stay on PCU, overall poor prognosis. Remains a full code. Palliative consulted for goals of care Admission and Anticipated Discharge Date Admission Date: October 12, 2021 Subjective Pt still confused and agitated overnight, still requiring a 1:1. I saw him today before lunch and he was very lethargic but did say "I don't feel so well" and reported not having any energy. Denies SOB. Denies pain. Aide reports he did eat his breakfast but had some trouble with swallowing pills. Tele with NSR, PVCs, rates 80-90s Review of Systems Review of Systems: All systems reviewed & are unremarkable except as noted in HPI & below Physical Exam Constitutional: + thin; no acute distress Eyes: + anicteric sclerae Neck: trachea midline, no thyromegaly Respiratory: normal respiratory effort; no labored breathing Auscultation: + crackles (Bibasilar); no rhonchi and no wheezes Cardiovascular: RRR, no murmur, no edema Chest (Breasts): Chest: normal inspection of chest Gastrointestinal (Abdomen): normal bowel sounds, soft, nontender, no hepatosplenomegaly Musculoskeletal: Extremities: extremities normal to inspection; no cyanosis and no clubbing Skin: no rashes, warm and dry Neurologic: moves all extremities and + confused; no focal motor deficits M otor/Sensory: no tremor Psychiatric: Orientation: alert, oriented to person and cooperative; + not oriented to place Lymphatic: no lymphedema Results & Data Results & Data ([facility]) Vital Signs (Past 12 Hours) Vital Signs Temp Pulse Pulse Resp BP Pulse Ox 10/18/21 07:58 69 10/18/21 07:01 36.4 C L 87 18 142/79 H 94 10/18/21 03:06 36.7 C 86 19 135/70 94 Laboratory Results 10/18/21 10/18/21 10/18/21 Range/Units 11:09 08:03 08:03 WBC 13.02 H (4.8-10.8) K/uL RBC 4.18 L (4.7-6.1) M/uL Hgb 13.2 L (14.0-18.0) g/dL Hct 39.9 L (42-52) % MCV 95.5 (80-100) fL MCH 31.6 (25-34) pg MCHC 33.1 (32-36) g/dL RDW Std Deviation 54.3 H (36.4-46.3) fL RDW Coeff of Aysha 15.5 H (11.5-14.5) % Plt Count 362 (130-400) K/uL MPV 9.9 (7.4-10.4) fL Immature Gran % (Auto) 0.3 % Neut % (Auto) 87.1 % Lymph % (Auto) 5.5 % [place] % (Auto) 6.5 % Eos % (Auto) 0.5 % Baso % (Auto) 0.1 % Neut # (Auto) 11.33 H (1.4-6.5) K/uL Lymph # (Auto) 0.72 L (1.2-3.4) K/uL [place] # (Auto) 0.85 H (0.11-0.59) K/uL Eos # (Auto) 0.07 (0-0.5) K/uL Baso # (Auto) 0.01 (0-0.2) K/uL Immature Gran # (Auto) 0.04 H (0.00-0.02) K/uL Sodium 135 L (136-145) mmol/L Potassium 3.8 (3.5-5.1) mmol/L Chloride 91 L (98-107) mmol/L Carbon Dioxide 32 (21-32) mmol/L Anion Gap 12 H (3-11) BUN 43 H (6-23) mg/dl Creatinine 1.09 (0.6-1.4) mg/dl Est Cr Clr Drug Dosing 45.5 ml/min Est GFR ( Amer) 75.5 ml/min Est GFR (Non-Af Amer) 65.1 ml/min BUN/Creatinine Ratio 39.4 H (10-20) Glucose 143 H (70-99(Fasting)) mg/dl POC Glucose 137 H (70-99) mg/dl Calcium 9.5 (8.5-10.1) mg/dl Magnesium 2.0 (1.7-2.4) mg/dl 10/18/21 10/17/21 10/17/21 Range/Units 07:32 20:20 16:07 WBC (4.8-10.8) K/uL RBC (4.7-6.1) M/uL Hgb (14.0-18.0) g/dL Hct (42-52) % MCV (80-100) fL MCH (25-34) pg MCHC (32-36) g/dL RDW Std Deviation (36.4-46.3) fL RDW Coeff of Aysha (11.5-14.5) % Plt Count (130-400) K/uL MPV (7.4-10.4) fL Immature Gran % (Auto) % Neut % (Auto) % Lymph % (Auto) % [place] % (Auto) % Eos % (Auto) % Baso % (Auto) % Neut # (Auto) (1.4-6.5) K/uL Lymph # (Auto) (1.2-3.4) K/uL [place] # (Auto) (0.11-0.59) K/uL Eos # (Auto) (0-0.5) K/uL Baso # (Auto) (0-0.2) K/uL Immature Gran # (Auto) (0.00-0.02) K/uL Sodium (136-145) mmol/L Potassium (3.5-5.1) mmol/L Chloride (98-107) mmol/L Carbon Dioxide (21-32) mmol/L Anion Gap (3-11) BUN (6-23) mg/dl Creatinine (0.6-1.4) mg/dl Est Cr Clr Drug Dosing ml/min Est GFR ( Amer) ml/min Est GFR (Non-Af Amer) ml/min BUN/Creatinine Ratio (10-20) Glucose (70-99(Fasting)) mg/dl POC Glucose 136 H 139 H 202 H (70-99) mg/dl Calcium (8.5-10.1) mg/dl Magnesium (1.7-2.4) mg/dl 10/17/21 Range/Units 11:40 WBC (4.8-10.8) K/uL RBC (4.7-6.1) M/uL Hgb (14.0-18.0) g/dL Hct (42-52) % MCV (80-100) fL MCH (25-34) pg MCHC (32-36) g/dL RDW Std Deviation (36.4-46.3) fL RDW Coeff of Aysha (11.5-14.5) % Plt Count (130-400) K/uL MPV (7.4-10.4) fL Immature Gran % (Auto) % Neut % (Auto) % Lymph % (Auto) % [place] % (Auto) % Eos % (Auto) % Baso % (Auto) % Neut # (Auto) (1.4-6.5) K/uL Lymph # (Auto) (1.2-3.4) K/uL [place] # (Auto) (0.11-0.59) K/uL Eos # (Auto) (0-0.5) K/uL Baso # (Auto) (0-0.2) K/uL Immature Gran # (Auto) (0.00-0.02) K/uL Sodium (136-145) mmol/L Potassium (3.5-5.1) mmol/L Chloride (98-107) mmol/L Carbon Dioxide (21-32) mmol/L Anion Gap (3-11) BUN (6-23) mg/dl Creatinine (0.6-1.4) mg/dl Est Cr Clr Drug Dosing ml/min Est GFR ( Amer) ml/min Est GFR (Non-Af Amer) ml/min BUN/Creatinine Ratio (10-20) Glucose (70-99(Fasting)) mg/dl POC Glucose 132 H (70-99) mg/dl Calcium (8.5-10.1) mg/dl Magnesium (1.7-2.4) mg/dl PG Care Time/CCT Total # of Minutes Spent Total Time Spent with Patient: Total time spent is greater than 50% in coordination of care (as documented) at patient's floor/unit and/or counseling patient: Coding Level of Care Code 56687 Subseq Hosp Care Lvl 3 Diagnoses Acute systolic CHF (congestive heart failure) I50.21 Hyponatremia E87.1 Acute metabolic encephalopathy G93.41 Acute respiratory failure with hypoxia J96.01 Type 2 myocardial infarction I21.A1 CAD (coronary artery disease) I25.10 Hypertension I10 Hypercholesterolemia E78.00 GERD (gastroesophageal reflux disease) K21.9 Esophagitis presence: esophagitis presence not specified BPH NOS w ur obs/LUTS N40.1 Hypothyroidism E03.9 Frequent falls R29.6 Scleroderma M34.9 Iron deficiency anemia D50.9 Pulmonary hypertension I27.20 (1) GERD (gastroesophageal reflux disease) Esophagitis presence: esophagitis presence not specified Qualified Code(s): K21.9 - Gastro-esophageal reflux disease without esophagitis
[2021-10-18] MEDS: MULTIVITAMIN TAB PO SCH (11:35)
[2021-10-18] MEDS: cefTRIAXone SODIUM 1,000 MG in DEXTROSE 5% 50 ML IV SCH (13:23)
[2021-10-18] MEDS: CYANOCOBALAMIN (B-12) 500 MCG TABLET PO SCH (20:31)
[2021-10-18] MEDS: FAMOTIDINE 20 MG TAB PO SCH (20:31)
[2021-10-18] MEDS ORDERED: OLANZAPINE 2.5 MG TAB PO SCH (21:00)
[2021-10-19 04:11] LABS: Basophils # (auto) 0.01 K/uL (0-0.2); Basophils % (auto) 0.1 %; Eosinophils # (auto) 0.06 K/uL (0-0.5); Eosinophils % (auto) 0.4 %; Hematocrit (blood only) 40.6 % (42-52); Hemoglobin 13.5 g/dL (14.0-18.0); Immature Granulocytes # (auto) 0.06 K/uL (0.00-0.02); Immature Granulocytes % (auto) 0.4 %; Lymphocytes # (auto) 1.41 K/uL (1.2-3.4); Lymphocytes % (auto) 9.3 %; Mean Corpuscular Hemoglobin 32.2 pg (25-34); Mean Corpuscular Hgb Conc 33.3 g/dL (32-36); Mean Corpuscular Volume 96.9 fL (80-100); Mean Platelet Volume 9.7 fL (7.4-10.4); Monocytes # (auto) 1.08 K/uL (0.11-0.59); Monocytes % (auto) 7.1 %; Neutrophils % (auto) 82.7 %; Platelet Count 365 K/uL (130-400); RDW Coefficient of Variation 15.4 % (11.5-14.5); RDW Standard Deviation 54.3 fL (36.4-46.3); Red Blood Count 4.19 M/uL (4.7-6.1); White Blood Count 15.12 K/uL (4.8-10.8)
[2021-10-19 04:30] LABS: BUN Creatinine Ratio 38.3 (10-20); Calcium 9.7 mg/dl (8.5-10.1); Creatinine Clr Calc Pharmacy 37.3 ml/min; Est GFR (African American) 59.3 ml/min; Est GFR (Non-African American) 51.2 ml/min; Magnesium 1.8 mg/dl (1.7-2.4); Potassium 4.5 mmol/L (3.5-5.1)
[2021-10-19] MEDS: HEPARIN SOD 5,000 UNIT/0.5 ML VIAL SQ SCH ×2 (05:33→15:07)
[2021-10-19] MEDS: LEVOTHYROXINE SODIUM 200 MCG TABLET PO SCH (05:33)
[2021-10-19] MEDS: INSULIN ASPART PER UNIT SC SCH ×3 (08:08→17:19)
[2021-10-19] MEDS ORDERED: MAGNESIUM SULFATE / D5W 1 GM/100 ML BAG IV ONE (08:45)
[2021-10-19] MEDS: VALSARTAN/SACUBITRIL 26/24MG TAB PO SCH (08:57)
[2021-10-19] MEDS: PANTOprazole 40 MG TAB PO SCH (08:57)
[2021-10-19] MEDS: FINASTERIDE 5 MG TAB PO SCH (08:57)
[2021-10-19] MEDS: ASPIRIN 81 MG ECTAB PO SCH (08:57)
[2021-10-19] MEDS: METOPROLOL SUCC 25MG EXT REL TAB PO SCH (08:58)
[2021-10-19] MEDS: DICYCLOMINE HCL 10 MG CAP PO SCH ×2 (08:58→15:07)
[2021-10-19] MEDS: CLOPIDOGREL BISULFATE 75 MG TAB PO SCH (08:58)
[2021-10-19] MEDS ORDERED: BUMETANIDE 1 MG TAB PO SCH (09:00)
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
--- NOTE | 2021-10-19 10:50 | XRay Report ---
XR chest 1V portable CLINICAL HISTORY: f/u PNA,CHF COMPARISON STUDY: Chest radiograph October 16, 2021. FINDINGS: Median sternotomy wires, mediastinal surgical clips and cholecystectomy clips are incidenta lly noted. Chondroid lesion within the proximal left humerus is unchanged from earlier of July 14, 2019. This is benign. No pneumothorax or pleural effusion is noted. Mild cardiomegaly is unchanged. Interstitial thickening shown on chest radiograph of October 16, 2021 has resolved. Skin folds project ove r the right chest. Right middle lobe nodule is partially obscured on this exam. Additional right lung nodules are unchanged. These nodules are likely benign given stability. IMPRESSION: Resolution of pulmonary edema. ACT 112: Negative or not required by law. Electronically signed by: Geraldo Luna M.D. 10/19/2021 10:49 AM
[2021-10-19 11:11] LABS: Appearance Urine Clear (Clear); Bacteria Urine Automated Negative (Negative); Bilirubin Urine Negative (Negative); Blood Urine 3+ (Negative); Color Urine Yellow; Epithelial Cell Urine Auto 0-5 /lpf (0-5); Glucose Urine UA Negative (Negative); Ketones Urine Trace (Negative); Leukocyte Esterase Urine Negative (Negative); Nitrite Urine Negative (Negative); Protein Urine 2+ (Negative); RBC Urine Automated >30 /hpf (0-4); Specific Gravity Urine 1.014 (1.000-1.030); Urobilinogen Urine Negative (Negative)
[2021-10-19] MEDS: MULTIVITAMIN TAB PO SCH (12:13)
[2021-10-19] MEDS: cefTRIAXone SODIUM 1,000 MG in DEXTROSE 5% 50 ML IV SCH (12:22)
[2021-10-19] MEDS ORDERED: THIAMINE HCL 500 MG in SODIUM CHLORIDE 0.9% 50 ML IV SCH (15:30)
--- NOTE | 2021-10-19 17:02 | Magnetic Resonance Report ---
MRI OF THE BRAIN WITHOUT AND WITH IV CONTRAST CLINICAL HISTORY: worsening confusion,r/o stroke,tumor COMPARISON STUDY: Head CT October 12, 2021. TECHNIQUE: Utilizing a 1.5 Zohreh magnet and dedicated coil, multiplanar, multiecho imaging of the br ain was performed pre and postcontrast administration. IV administration of 5.5 mL of Gadavist contr ast was uneventful. FINDINGS: There is a small focus of restricted diffusion within the left parietal lobe shown on axial image 14 of 25. This corresponds to T2 hyperintense material on the coronal FLAIR sequence. This fav ors trace subarachnoid hemorrhage. There is no mass effect. There is also layering material within th e occipital horns of both lateral ventricles which is hypointense on the gradient echo sequence. This represents blood products. Mild ventricular dilatation is unchanged since CT of October 12, 2021. Gradien t echo sequence also demonstrates extensive gyral hypointensity which may reflect superficial sideros is. Basal cisterns are patent. No intracranial mass or pathologic enhancement is present. This exam i s mildly compromised by motion artifact although is diagnostic. Apparent calvarial marrow signal abno rmality is probably due to sutures. Marrow replacement process could appear similar but is considered less likely. IMPRESSION: 1. Small amount of layering material within the occipital horns of both lateral ventricles which is h ypointense on the gradient echo sequence consistent with blood products. Stable mild ventricular dila tation since head CT of October 12, 2021. Short-term follow-up head CT in 24 to 48 hours is recommended. F indings discussed with Dr. Boswell at time of dictation. 2. Suspected trace subarachnoid hemorrhage overlying the left parietal lobe which can be assessed on follow-up CT. This accounts for signal abnormality on the diffusion-weighted sequence. 3. Findings suggestive of superficial siderosis, as depicted on the gradient echo sequence. ACT 112: Negative or not required by law. Electronically signed by: Geraldo Luna M.D. 10/19/2021 5:00 PM
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
[2021-10-20 06:56] LABS: iSTAT Arterial Blood Gas HCO3 28 meg/L (19-24); iSTAT Arterial Blood Gas pCO2 41 mmHg (35-46); iSTAT Arterial Blood Gas pH 7.44 (7.35-7.45); iSTAT Arterial Blood Gas pO2 76 mmHg (80-95); iSTAT Carbon Dioxide 29 mmol/L (24-31)
[2021-10-20 06:56] LABS: iSTAT Arterial Blood Gas HCO3 29 meg/L (19-24); iSTAT Arterial Blood Gas pCO2 45 mmHg (35-46); iSTAT Arterial Blood Gas pH 7.42 (7.35-7.45); iSTAT Arterial Blood Gas pO2 < 32 mmHg (80-95); iSTAT Carbon Dioxide 31 mmol/L (24-31); iSTAT Hematocrit 35 % (42-52); iSTAT Hemoglobin 11.9 g/dl (14.0-18.0); iSTAT Sodium 129 mmol/L (135-144)
== END 2021-10-19 19:51 | disposition short-term general hospital (02) | DRG 280 ==
LOC: ED 18:05 → SUATTDRO 21:46 → 2S 21:46 → 1E 10-13 15:19 → 2S 10-17 17:22